=== PATIENT | female | born 1990 | race Caucasian/White ===

== ENCOUNTER → 2017-11-17 08:30 | Outpatient (CLI) | payer BC, SELFPAY ==
[2017-11-22 10:42] LABS: HPV Reflexed? NOT INDICATED
== END ==
PROVIDERS: Family Provider Family Medicine; PCP Family Medicine; Visit Provider Obstetrics & Gynecology
DX: Z12.4 Encounter for screening for malignant neoplasm of cervix (principal)
CPT/HCPCS: 88175; G0145

== ENCOUNTER → 2019-02-15 17:34 | Outpatient (CLI) | payer BC, SELFPAY ==
[2019-02-21 16:47] LABS: HPV Reflexed? NOT INDICATED
== END ==
PROVIDERS: Family Provider Family Medicine; PCP Family Medicine; Referring Provider Obstetrics & Gynecology; Visit Provider Obstetrics & Gynecology
DX: Z12.4 Encounter for screening for malignant neoplasm of cervix (principal)
CPT/HCPCS: 88175; G0145

== ENCOUNTER → 2020-09-12 16:40 | Outpatient (CLI) | payer BC, SELFPAY ==
[2016-07-27 16:19] VITALS: BMI 30.5
[2020-09-17 03:06] LABS: Chlamydia By Nucleic Acid AMP Negative (Negative)
[2020-09-17 11:16] LABS: Gonococcus By Nucleic Acid AMP Negative (Negative)
== END ==
PROVIDERS: PCP Family Medicine; Visit Provider Obstetrics & Gynecology
DX: Z11.3 Encounter for screening for infections with a predominantly sexual mode of transmission (principal)
CPT/HCPCS: 87491; 87591

== ENCOUNTER → 2020-09-25 16:27 | Outpatient (CLI) | payer BC, SELFPAY ==
[2016-07-27 16:19] VITALS: BMI 30.5
[2020-09-26 06:40] LABS: SARS-COV-2 TOTAL ABS Nonreactive (Nonreactive)
== END ==
PROVIDERS: PCP Family Medicine; Visit Provider Family Medicine
DX: Z20.828 Contact with and (suspected) exposure to other viral communicable diseases (principal)
CPT/HCPCS: 36415; 86769

== ENCOUNTER → 2020-09-25 16:27 | Outpatient (CLI) | payer BC, SELFPAY | PROVIDERS: PCP Family Medicine; Referring Provider Family Medicine; Visit Provider Family Medicine | DX: Z00.00 Encounter for general adult medical examination without abnormal findings (principal) ==

== ENCOUNTER 2021-11-25 16:10 | Outpatient (CLI) | payer OTHER, SELFPAY ==
[2021-12-01 13:23] LABS: HPV APTIMA, High Risk Negative (Negative)
== END 2021-11-25 23:59 | disposition home or self-care (01) ==
PROVIDERS: PCP Family Medicine; Visit Provider Student in an Organized Health Care Education/Training Program
DX: Z12.4 Encounter for screening for malignant neoplasm of cervix (principal); N77.1 Vaginitis, vulvitis and vulvovaginitis in diseases classified elsewhere
CPT/HCPCS: 87624; 88175; G0145

== ENCOUNTER → 2023-10-18 | Outpatient (CLI) | payer OTHER, SELFPAY ==
--- NOTE | 2023-10-18 10:42 | RAD_ITS ---
INDICATION: PAIN/FALL EXAMINATION/TECHNIQUE: X-RAY - LEFT XR Elbow Min 3 Views COMPARISON: FINDINGS: SOFT TISSUES: No soft tissue swelling or gas. No radiopaque foreign body. BONES/JOINTS: There is mild effusion. No acute fracture or subluxation. Normal alignment. Preservation of the joint space. No sclerotic or destructive changes observed. RAD/Elbow min 3 Views IMPRESSION: Mild effusion. Electronically Signed: Hans Shoemaker DO at 17:12 EST ,
--- NOTE | 2023-10-18 10:42 | RAD_ITS ---
INDICATION: PAIN/FALL EXAMINATION/TECHNIQUE: X-RAY - LEFT XR Forearm 2 Views COMPARISON: FINDINGS: SOFT TISSUES: No soft tissue swelling or gas. No radiopaque foreign body. BONES/JOINTS: No acute fracture or subluxation.. Normal alignment. Preservation of the joint space.. No sclerotic or destructive changes observed. RAD/Forearm 2 Views IMPRESSION: Negative. Electronically Signed: Hans Shoemaker DO at 17:10 EST ,
--- NOTE | 2023-10-18 10:45 | RAD_ITS ---
INDICATION: PAIN/FALL EXAMINATION/TECHNIQUE: X-RAY - LEFT XR Wrist 3 VIEWS COMPARISON: FINDINGS: SOFT TISSUES: No soft tissue swelling or gas. No radiopaque foreign body. BONES/JOINTS: No acute fracture or subluxation.. Normal alignment. Preservation of the joint space.. No sclerotic or destructive changes observed. RAD/Wrist min 3 Views IMPRESSION: Negative. Electronically Signed: Hans Shoemaker DO at 17:15 EST ,
--- OUTSIDE RECORDS SUMMARY | 2023-10-18 11:08 | XMS RPT_ITS | CCD ---
Author Name Unknown Address [address] [place] [address] Organization [facility] Care Team Providers Care Research Rn Spec Name Role Phone FROILAN, ROSAS M Unavailable Unavailable NGUYEN, RAJESH K Unavailable Unavailable NGUYEN, RAJESH K Unavailable Unavailable FROILAN, ROSAS M Unavailable Unavailable NGUYEN, RAJESH K Unavailable Unavailable NGUYEN, RAJESH K Unavailable Unavailable BIRDIE, ZACK Unavailable Unavailable BIRDIE, ZACK Unavailable Unavailable NGUYEN, RAJESH K Unavailable Unavailable NGUYEN, RAJESH K Unavailable Unavailable NGUYEN, RAJESH K Unavailable Unavailable FROILAN, ROSAS M Unavailable Unavailable FROILAN, ROSAS M Unavailable Unavailable NGUYEN, RAJESH K Unavailable Unavailable NGUYEN, RAJESH K Unavailable Unavailable NGUYEN, RAJESH K Unavailable Unavailable NGUYEN, RAJESH K Unavailable Unavailable FROILAN, ROSAS M Unavailable Unavailable NGUYEN, RAJESH K Unavailable Unavailable NGUYEN, RAJESH K Unavailable Unavailable FROILAN, ROSAS M Unavailable Unavailable NGUYEN, RAJESH K Unavailable Unavailable NGUYEN, RAJESH K Unavailable Unavailable FROILAN, ROSAS M Unavailable Unavailable FROILAN, ROSAS M Unavailable Unavailable FROILAN, ROSAS M Unavailable Unavailable NGUYEN, RAJESH K Unavailable Unavailable NGUYEN, RAJESH K Unavailable Unavailable Unavailable Primary Care Provider Unavailabl e Problems Active Problems Problem Classification Problem Date Documented Da te Episodic/Chronic Other upper respiratory infections (1 source) Sore throat symptom; Translations: [Acute pharyngitis, unspecified] Episodic Unclassified (1 source) Bone marrow donor / Z52.3(ICD-10) Onset: 11-01-2017 Unclassified (1 source) BMT Donor Evaluation / 451() Onset: 10-19-2017 Past or Other Problems Problem Classification Problem Date Documented Da te Episodic/Chronic Unclassified (1 source) Bone marrow donor; Translations: [Bone marrow donor] Onset: 11-10-2017 Unclassified (1 source) BMT Donor Evaluation; Translations: [BMT Donor Evaluation] Onset: 10-19-2017 Results Test Name Value Interpretation Reference Range Facil ity Vital Signs Date Time Vital Sign Value Performing Clinician Faci lity 03-08-2023 18:07-0400 Body temperature 97.5 [degF] Migue Jeffers QUALITY CONTROL AUDITOR.CUSTOMER SOLUTIONS TEAMMATE Work Phone: [facility] 03-08-2023 18:07-0400 Body weight 75.3 kg Migue Jeffers QUALITY CONTROL AUDITOR.CUSTOMER SOLUTIONS TEAMMATE Work Phone: [facility] 03-08-2023 18:07-0400 Diastolic blood pressure 72 mm[Hg] Migue Jeffers QUALITY CONTROL AUDITOR.CUSTOMER SOLUTIONS TEAMMATE Work Phone: [facility] 03-08-2023 18:07-0400 Heart rate 70 /min Migue Jeffers QUALITY CONTROL AUDITOR.CUSTOMER SOLUTIONS TEAMMATE Work Phone: [facility] 03-08-2023 18:07-0400 Respiratory rate 16 /min Migue Jeffers QUALITY CONTROL AUDITOR.CUSTOMER SOLUTIONS TEAMMATE Work Phone: [facility] 03-08-2023 18:07-0400 SaO2% (BldA) [Mass fraction] 96 % Migue Jeffers QUALITY CONTROL AUDITOR.CUSTOMER SOLUTIONS TEAMMATE Work Phone: [facility] 03-08-2023 18:07-0400 Systolic blood pressure 110 mm[Hg] Migue Jeffers QUALITY CONTROL AUDITOR.CUSTOMER SOLUTIONS TEAMMATE Work Phone: [facility] Encounters Encounter Date Encounter Type Care Provider Facility Start: 03-08-2023 End: 03-08-2023 ambulatory Facility:[facility] Start: 03-08-2023 End: 03-08-2023 Office outpatient visit 15 minutes Migue Jeffers QUALITY CONTROL AUDITOR.CUSTOMER SOLUTIONS TEAMMATE Work Phone: [facility] Procedures Date Procedure Procedure Detail Performing Clinician Start: 03-08-2023 STREP A MOLECULAR (POC) Patti Manzo PA-C Work Phone: Plan of Treatment Date Care Activity Detail Author Start: 06-04-2023 Influenza vaccination INFLUENZA (Sea son Ended) [facility] Start: 10-04-2022 DEPRESSION ASSESSMENT DEPRESSION ASS ESSMENT [facility] Start: 07-14-2021 COVID-19 VACCINE (2 - Booster for Tricia series) COVID-19 VACCINE (2 - Booster for Tricia series) [facility] Start: 2020 HPV TESTING HPV TESTING [facility] Start: 12-31-2011 PAP TESTING PAP TESTING [facility] Start: 2009 Urine microalbumin profile DTAP,TDAP ,TD (1 - Tdap) [facility] Start: 2008 HEPATITIS C SCREENING HEPATITIS C [facility] Start: 2008 HIV SCREENING HIV SCREENING [facility] Start: 1990 HEPATITIS B (1 of 3 - 3-dose series) HEPATITIS B (1 of 3 - 3-dose series) [facility] Payers Date Payer Category Payer Unknown [id number] 2022 Unknown [employer] [id number] 2022-Present [phone] [address] [place] [address] PPO [id number] 2016 Unknown [id number] Social History Date Type Detail Facility Start: 03-08-2023 Tobacco smoking status NHIS Never smoked tobacco [facility] Work Phone: Start: 03-08-2023 Tobacco use and exposure Smokeless tobacco non-user [facility] Work Phone: Start: 1990 Sex Assigned At Not on file [facility] NEGATED: Highlighted rowStart: NINF History of tobacco use Passive smoker [facility] Work Phone: Progress note 03-08-2023 Note Date & Type Note Facility 03-08-2023 Note HNO ID: [id number] Author: Migue Jeffers APRN.CUSTOMER SOLUTIONS TEAMMATE Service: ? Author Type: Nurse Practitioner Type: Progress Notes Filed: 03/08/2023 6:32 PM Note Text: Subjective HPI Nontoxic-appearing female presents urgent care chief complaint sore throat. Duration of symptoms 3 days. Associated symptoms sore throat. Patient states the first day she did have a fever. That has since subsided. She did have body aches and chills. Those have subsided as well. Presents today for evaluation. Feels like strep throat. No known sick contacts. Denies any difficulty swallowing and secretions decreased range of motion of neck. Denies any fever body aches chills productive cough chest pain shortness of breath pleuritic pain hemoptysis nausea vomiting abdominal pain change in bowel or bladder habits. Past medical history prescription medication use and allergies reviewed. .Patient presents with: Sore Throat: x 3 days History reviewed. No pertinent past medical history. History reviewed. No pertinent surgical history. ALLERGIES Patient has no known allergies. MEDICATIONS No prescriptions on file. History reviewed. No pertinent family history. Social History Tobacco Use Smoking status: Never Passive exposure: Never Smokeless tobacco: Never BP 110/72 Pulse 70 Temp 36.4 ?C (97.5 ?F) Resp 16 Wt 75.3 kg (166 lb) SpO2 96% Review of Systems Constitutional: Negative for chills, fever and malaise/fatigue. HENT: Positive for sore throat. Negative for congestion, ear discharge, ear pain and sinus pain. Eyes: Negative for blurred vision, pain, discharge and redness. Respiratory: Negative for cough, hemoptysis, sputum production, shortness of breath, wheezing and stridor. Cardiovascular: Negative for chest pain. Gastrointestinal: Negative for abdominal pain, diarrhea, nausea and vomiting. Musculoskeletal: Negative for myalgias. Skin: Negative for itching and rash. Neurological: Negative for dizziness and headaches. Objective Physical Exam Constitutional: General: She is not in acute distress. Appearance: She is not diaphoretic. HENT: Head: Normocephalic. Jaw: No trismus, tenderness, swelling or pain on movement. Right Ear: Tympanic membrane, ear canal and external ear normal. Left Ear: Tympanic membrane, ear canal and external ear normal. Mouth/Throat: Lips: [place]. Mouth: Mucous membranes are moist. Pharynx: Oropharynx is clear. Uvula midline. Posterior oropharyngeal erythema present. No pharyngeal swelling, oropharyngeal exudate or uvula swelling. Comments: Erythematous based vesicles noted on hard palate and tonsils. Eyes: Conjunctiva/sclera: Conjunctivae normal. Pupils: Pupils are equal, round, and reactive to light. Cardiovascular: Rate and Rhythm: Normal rate and regular rhythm. Heart sounds: Normal heart sounds. Pulmonary: Effort: Pulmonary effort is normal. No tachypnea, accessory muscle usage or respiratory distress. Breath sounds: Normal breath sounds. No stridor. No wheezing, rhonchi or rales. Abdominal: Palpations: Abdomen is soft. Tenderness: There is no abdominal tenderness. There is no guarding or rebound. Musculoskeletal: Cervical back: Normal range of motion and neck supple. No rigidity or tenderness. Lymphadenopathy: Cervical: No cervical adenopathy. Skin: General: Skin is warm and dry. Neurological: Mental Status: She is alert and oriented to person, place, and time. ASSESSMENT/PLAN: 1. Sore throat - ICD9: 462, ICD10: J02.9 - STREP A MOLECULAR (POC) Strep test negative. Treat as viral illness at this point. Patient was educated on supportive therapies. Patient will follow up with primary care provider as needed. Patient was instructed to immediately proceed to emergency room for any new, worsening, or symptoms lasting longer than anticipated. The patient's clinical presentation is otherwise unremarkable at this time. Based on exam and clinical finding, the patient is stable for discharge. Plan of care was discussed with patient. Patient verbalizes understanding and agrees to plan of care. This note was generated using Mor.sl software. It may contain errors in wording, punctuation, or spelling. Migue Jeffers APRN.[facility] History of Present illness Narrative 03-08-2023 Migue Jeffers APRN.[facility] - 03/08/2023 6:09 PM EDT Note Date & Type Note Facility 03-08-2023 History of Presen t illness Narrative Images from the original note were not included. Subjective HPI Nontoxic-appearing female presents urgent care chief complaint sore throat. Duration of symptoms 3 days. Associated symptoms sore throat. Patient states the first day she did have a fever. That has since subsided. She did have body aches and chills. Those have subsided as well. Presents today for evaluation. Feels like strep throat. No known sick contacts. Denies any difficulty swallowing and secretions decreased range of motion of neck. Denies any fever body aches chills productive cough chest pain shortness of breath pleuritic pain hemoptysis nausea vomiting abdominal pain change in bowel or bladder habits. Past medical history prescription medication use and allergies reviewed. .Patient presents with: Sore Throat: x 3 days History reviewed. No pertinent past medical history. History reviewed. No pertinent surgical history. ALLERGIES Patient has no known allergies. MEDICATIONS No prescriptions on file. History reviewed. No pertinent family history. Social History Tobacco Use Smoking status: Never Passive exposure: Never Smokeless tobacco: Never BP 110/72 Pulse 70 Temp 36.4 C (97.5 F) Resp 16 Wt 75.3 kg (166 lb) SpO2 96% Review of Systems Constitutional: Negative for chills, fever and malaise/fatigue. HENT: Positive for sore throat. Negative for congestion, ear discharge, ear pain and sinus pain. Eyes: Negative for blurred vision, pain, discharge and redness. Respiratory: Negative for cough, hemoptysis, sputum production, shortness of breath, wheezing and stridor. Cardiovascular: Negative for chest pain. Gastrointestinal: Negative for abdominal pain, diarrhea, nausea and vomiting. Musculoskeletal: Negative for myalgias. Skin: Negative for itching and rash. Neurological: Negative for dizziness and headaches. Objective Physical Exam Constitutional: General: She is not in acute distress. Appearance: She is not diaphoretic. HENT: Head: Normocephalic. Jaw: No trismus, tenderness, swelling or pain on movement. Right Ear: Tympanic membrane, ear canal and external ear normal. Left Ear: Tympanic membrane, ear canal and external ear normal. Mouth/Throat: Lips: [place]. Mouth: Mucous membranes are moist. Pharynx: Oropharynx is clear. Uvula midline. Posterior oropharyngeal erythema present. No pharyngeal swelling, oropharyngeal exudate or uvula swelling. Comments: Erythematous based vesicles noted on hard palate and tonsils. Eyes: Conjunctiva/sclera: Conjunctivae normal. Pupils: Pupils are equal, round, and reactive to light. Cardiovascular: Rate and Rhythm: Normal rate and regular rhythm. Heart sounds: Normal heart sounds. Pulmonary: Effort: Pulmonary effort is normal. No tachypnea, accessory muscle usage or respiratory distress. Breath sounds: Normal breath sounds. No stridor. No wheezing, rhonchi or rales. Abdominal: Palpations: Abdomen is soft. Tenderness: There is no abdominal tenderness. There is no guarding or rebound. Musculoskeletal: Cervical back: Normal range of motion and neck supple. No rigidity or tenderness. Lymphadenopathy: Cervical: No cervical adenopathy. Skin: General: Skin is warm and dry. Neurological: Mental Status: She is alert and oriented to person, place, and time. ASSESSMENT/PLAN: 1. Sore throat - ICD9: 462, ICD10: J02.9 - STREP A MOLECULAR (POC) Strep test negative. Treat as viral illness at this point. Patient was educated on supportive therapies. Patient will follow up with primary care provider as needed. Patient was instructed to immediately proceed to emergency room for any new, worsening, or symptoms lasting longer than anticipated. The patient's clinical presentation is otherwise unremarkable at this time. Based on exam and clinical finding, the patient is stable for discharge. Plan of care was discussed with patient. Patient verbalizes understanding and agrees to plan of care. This note was generated using Mor.sl software. It may contain errors in wording, punctuation, or spelling. Migue Jeffers APRN.[facility]IS documented in this encounter [facility] Evaluation note Note Date & Type Note Facility documented in this encounter [facility] Summary Purpose Family History No Family History Records FoundNo Family History Records Found Advance Directives No Advanced Directives Records FoundNo Advanced Directives Records Found Additional Source Comments INFORMATION SOURCE (unrecogn ized section and content) DATE CREATED AUTHOR AUTHOR'S ORGANIZ ATION 03/14/2023 [facility] Source Comments (unrecognize d section and content) In the event this informatio n is protected by the Federal Confidentiality of Alcohol and Drug Abuse Patient Records regulations: The Federal rules restrict any use of the information to criminally investigate or prosecute any alcohol or drug abuse patient.[facility] Reason for Visit (unrecogniz ed section and content) FOR RECORDS PERTAINING TO PATIENTS WHO ARE OR HAVE BEEN ENROLLED IN A CHEMICAL DEPENDENCY/SUBSTANCEABUSE PROGRAM, SOME INFORMATION MAY BE OMITTED. This clinical summary was aggregated from multiple sources. Caution should be exercised in using it in the provision of clinical care. This summary normalizes information from multiple sources, and as a consequence, information in this document may materially change the coding, format and clinical context of patient data. In addition, data may be omitted in some cases. CLINICAL DECISIONS SHOULD BE BASED ON THE PRIMARY CLINICAL RECORDS. [facility]. provides no warranty or guarantee of the accuracy or completeness of information in this document.
== END | disposition home or self-care (01) ==
LOC: MTRAD 10:41
PROVIDERS: PCP Family Medicine; Referring Provider Nurse Practitioner Family; Visit Provider Nurse Practitioner Family
DX: M79.602 Pain in left arm (principal)
CPT/HCPCS: 73080; 73090; 73110

== ENCOUNTER → 2024-01-29 | Outpatient (CLI) | payer OTHER, SELFPAY ==
[2024-01-29 10:13] LABS: Absolute Lymphocyte Count 1.22 X10^3/uL (0.83-4.51); Absolute Neutrophil Count 3.7 X10^3/uL (2.0-7.7); Basophil# 0.04 X10^3/uL; Basophil% 0.7 % (0-1); Eosinophil# 0.05 X10^3/uL; Eosinophils% 0.9 % (0-5); Hematocrit 37.2 % (37-47); Hemoglobin 12.5 g/dL (12.0-15.0); Lymphocyte # 1.22 X10^3/ul (0.83-4.51); Lymphocyte % 22.2 % (19-41); Mean Corp Hgb Conc 33.6 g/dL (32-36); Mean Corpuscular Hgb 30.8 pg (27.0-32.0); Mean Corpuscular Volume 91.6 fL (81-99); Mean Platelet Vol. 8.9 fl (6.2-12.0); Monocyte# 0.49 X10^3/uL; Monocyte% 8.9 % (0-10); NRBC Flagged by Analyzer 0 % (0-5); Neutrophil # 3.67 X10^3/uL (2.7-7.7); Neutrophil % 66.9 % (47-70); Platelet Count 280 K/mm3 (150-450); RBC Distribution Width CV 12.2 % (11.6-14.6); RBC Distribution Width SD 40.8 fl (35.1-43.9); Red Blood Count 4.06 M/mm3 (4.2-5.4); White Blood Count 5.5 K/mm3 (4.4-11.0)
[2024-01-29 11:06] LABS: hCG Titer Quant., Serum 43264 mIU/mL (1-3)
== END | disposition home or self-care (01) ==
LOC: LAB 09:49
PROVIDERS: PCP Family Medicine; Referring Provider Family Medicine; Visit Provider Family Medicine
DX: O20.0 Threatened abortion (principal); Z3A.00 Weeks of gestation of pregnancy not specified
CPT/HCPCS: 36415; 84702; 85025; 86850; 86900; 86901

== ENCOUNTER → 2024-01-31 | Outpatient (CLI) | payer OTHER, SELFPAY ==
--- NOTE | 2024-01-31 11:28 | US_ITS ---
HISTORY: LOCALIZED IUD -- BLEEDING W/ W/ IUD -- BLEEDING SINCE 01/07/24 -- R/O ECTOPIC VRS INCOMPLETE MISCARRIAGE. LMP 01/07/2024. TECHNIQUE: Transvaginal pelvic ultrasound was performed. 65 images. COMPARISON: None. FINDINGS: UTERUS: 9.3 x 5.9 x 7.4 cm. Closed cervix. RIGHT OVARY: 1.9 x 2.9 x 3.1 cm. 1.8 cm complex cyst. LEFT OVARY: 1.7 x 1.7 x 3.7 cm with small follicles. No adnexal masses. FREE FLUID: Trace. INTRAUTERINE GESTATIONAL SAC: Single with intrauterine device just inferior to the gestational sac. Mean sac diameter 12 mm corresponding to 6 weeks 0 days. YOLK SAC: 4 mm. POLE: [place]-rump length 1.7 cm corresponding to 8 weeks 0 days. ESTIMATED DELIVERY DATE: 09/18/2024. HEART MOTION: 169 bpm. SUBCHORIONIC HEMORRHAGE: 7 x 12 x 14 mm. US/Transvaginal w/Preg US IMPRESSION: Single living intrauterine with an estimated gestational age of 8 weeks and intrauterine device in place. Small subchorionic hematoma. Recommend obstetrical consultation and follow-up. Small right ovarian corpus luteal cyst with trace free fluid in the pelvis. Electronically Signed: Kaya Gonzales MD at 12:52 EDT ,
== END | disposition home or self-care (01) ==
LOC: US 11:18
PROVIDERS: PCP Family Medicine; Referring Provider Family Medicine; Visit Provider Family Medicine
DX: N93.9 Abnormal uterine and vaginal bleeding, unspecified (principal)
CPT/HCPCS: 76817

== ENCOUNTER → 2024-01-31 | Outpatient (CLI) | payer OTHER, SELFPAY ==
[2024-01-31 10:54] LABS: hCG Titer Quant., Serum 48488 mIU/mL (1-3)
== END | disposition home or self-care (01) ==
PROVIDERS: PCP Family Medicine; Visit Provider Family Medicine
DX: O20.0 Threatened abortion (principal); Z3A.00 Weeks of gestation of pregnancy not specified
CPT/HCPCS: 36415; 84702

== ENCOUNTER → 2024-02-11 | Outpatient (CLI) | payer OTHER, SELFPAY | END | disposition home or self-care (01) | LOC: LABSPEC 16:44 | PROVIDERS: PCP Family Medicine; Referring Provider Obstetrics & Gynecology; Visit Provider Obstetrics & Gynecology | DX: Z34.90 Encounter for supervision of normal pregnancy, unspecified, unspecified trimester (principal) | CPT/HCPCS: 87086; 87088 ==

== ENCOUNTER → 2024-02-16 | Outpatient (CLI) | payer OTHER, SELFPAY ==
[2024-02-16 09:34] LABS: Absolute Lymphocyte Count 1.21 X10^3/uL (0.83-4.51); Absolute Neutrophil Count 4.2 X10^3/uL (2.0-7.7); Basophil# 0.03 X10^3/uL; Basophil% 0.5 % (0-1); Eosinophil# 0.03 X10^3/uL; Eosinophils% 0.5 % (0-5); Hematocrit 34.5 % (37-47); Hemoglobin 11.5 g/dL (12.0-15.0); Lymphocyte # 1.21 X10^3/ul (0.83-4.51); Lymphocyte % 20.6 % (19-41); Mean Corp Hgb Conc 33.3 g/dL (32-36); Mean Platelet Vol. 9.5 fl (6.2-12.0); Monocyte% 6.8 % (0-10); NRBC Flagged by Analyzer 0 % (0-5); Neutrophil # 4.18 X10^3/uL (2.7-7.7); Neutrophil % 71.3 % (47-70); Platelet Count 247 K/mm3 (150-450); RBC Distribution Width CV 12.1 % (11.6-14.6); RBC Distribution Width SD 41.3 fl (35.1-43.9); Red Blood Count 3.71 M/mm3 (4.2-5.4); White Blood Count 5.9 K/mm3 (4.4-11.0)
[2024-02-16 11:24] LABS: HIV - WCH Non-Reactive (Nonreactive); Hepatitis B Surface Antigen Non-Reactive (Nonreactive); Hepatitis C Antibody Non-Reactive (Nonreactive); Rubella IgG Reactive (Nonreactive); Syphilis Antibodies Non-reactive
== END | disposition home or self-care (01) ==
LOC: LAB 08:12
PROVIDERS: PCP Family Medicine; Referring Provider Obstetrics & Gynecology; Visit Provider Obstetrics & Gynecology
DX: O09.90 Supervision of high risk pregnancy, unspecified, unspecified trimester (principal); Z3A.00 Weeks of gestation of pregnancy not specified
CPT/HCPCS: 36415; 85025; 86703; 86762; 86780; 86803; 86850; 86900; 86901; 87340

== ENCOUNTER → 2024-06-01 | Outpatient (CLI) | payer OTHER, SELFPAY | END | disposition home or self-care (01) | PROVIDERS: PCP Family Medicine; Referring Provider Obstetrics & Gynecology; Visit Provider Obstetrics & Gynecology | DX: O09.90 Supervision of high risk pregnancy, unspecified, unspecified trimester (principal); Z3A.00 Weeks of gestation of pregnancy not specified | CPT/HCPCS: 87491; 87591 ==

== ENCOUNTER → 2024-06-28 | Outpatient (CLI) | payer OTHER, SELFPAY ==
[2024-06-28 15:43] LABS: Absolute Lymphocyte Count 1.38 X10^3/uL (0.83-4.51); Absolute Neutrophil Count 7.5 X10^3/uL (2.0-7.7); Basophil# 0.03 X10^3/uL; Basophil% 0.3 % (0-1); Eosinophil# 0.04 X10^3/uL; Eosinophils% 0.4 % (0-5); Hematocrit 31.3 % (37-47); Hemoglobin 10.4 g/dL (12.0-15.0); Lymphocyte # 1.38 X10^3/ul (0.83-4.51); Lymphocyte % 14.5 % (19-41); Mean Corp Hgb Conc 33.2 g/dL (32-36); Mean Corpuscular Hgb 31.7 pg (27.0-32.0); Mean Corpuscular Volume 95.4 fL (81-99); Mean Platelet Vol. 9.8 fl (6.2-12.0); Monocyte# 0.52 X10^3/uL; Monocyte% 5.5 % (0-10); NRBC Flagged by Analyzer 0 % (0-5); Neutrophil % 78.6 % (47-70); Platelet Count 227 K/mm3 (150-450); RBC Distribution Width CV 12.8 % (11.6-14.6); RBC Distribution Width SD 44.6 fl (35.1-43.9); Red Blood Count 3.28 M/mm3 (4.2-5.4); White Blood Count 9.5 K/mm3 (4.4-11.0)
[2024-06-28 16:15] LABS: Glucose Challenge Gest 1H 50g 171 mg/dL (70-140)
[2024-06-28 16:49] LABS: HIV - WCH Non-Reactive (Nonreactive); Syphilis Antibodies Non-reactive
== END | disposition home or self-care (01) ==
LOC: LAB 14:33
PROVIDERS: PCP Family Medicine; Referring Provider Obstetrics & Gynecology; Visit Provider Obstetrics & Gynecology
DX: O09.90 Supervision of high risk pregnancy, unspecified, unspecified trimester (principal); Z13.1 Encounter for screening for diabetes mellitus; Z3A.00 Weeks of gestation of pregnancy not specified
CPT/HCPCS: 36415; 82950; 85025; 86703; 86780

== ENCOUNTER → 2024-06-30 | Outpatient (CLI) | payer OTHER, SELFPAY ==
[2024-06-30 07:14] LABS: Bedside Glucose 84 mg/dL (74-106)
[2024-06-30 08:16] LABS: Glucose GTT-Gestation. Fasting 89 mg/dL (<105)
[2024-06-30 08:53] LABS: Glucose GTT-Gestational 1 Hr 152 mg/dL (<190)
[2024-06-30 11:17] LABS: Glucose GTT-Gestational 3 Hr 53 L (<145)
[2024-06-30 11:53] LABS: Glucose GTT-Gestational 2 Hr 100 mg/dL (<165)
== END | disposition home or self-care (01) ==
LOC: LAB 06:40
PROVIDERS: PCP Family Medicine; Referring Provider Obstetrics & Gynecology; Visit Provider Obstetrics & Gynecology
DX: O99.810 Abnormal glucose complicating pregnancy (principal); Z3A.00 Weeks of gestation of pregnancy not specified
CPT/HCPCS: 36415; 82951; 82952; 82962

== ENCOUNTER → 2024-07-12 | Outpatient (CLI) | payer OTHER, SELFPAY ==
[2024-07-12 17:04] LABS: Absolute Lymphocyte Count 1.55 X10^3/uL (0.83-4.51); Absolute Neutrophil Count 6.3 X10^3/uL (2.0-7.7); Basophil# 0.04 X10^3/uL; Basophil% 0.5 % (0-1); Eosinophil# 0.04 X10^3/uL; Eosinophils% 0.5 % (0-5); Hemoglobin 10.2 g/dL (12.0-15.0); Lymphocyte # 1.55 X10^3/ul (0.83-4.51); Mean Corpuscular Hgb 31.8 pg (27.0-32.0); Mean Corpuscular Volume 93.5 fL (81-99); Mean Platelet Vol. 9.5 fl (6.2-12.0); Monocyte# 0.59 X10^3/uL; Monocyte% 6.9 % (0-10); NRBC Flagged by Analyzer 0 % (0-5); Neutrophil # 6.34 X10^3/uL (2.7-7.7); Neutrophil % 73.6 % (47-70); Platelet Count 220 K/mm3 (150-450); RBC Distribution Width CV 12.4 % (11.6-14.6); RBC Distribution Width SD 43.2 fl (35.1-43.9); Red Blood Count 3.21 M/mm3 (4.2-5.4); White Blood Count 8.6 K/mm3 (4.4-11.0)
[2024-07-12 17:16] LABS: Ferritin 25 ng/mL (8-252); Iron Binding Capacity,Total 365 ug/dL (250-450)
== END | disposition home or self-care (01) ==
LOC: WOBLAB 16:37
PROVIDERS: PCP Family Medicine; Referring Provider Obstetrics & Gynecology; Visit Provider Obstetrics & Gynecology
DX: O99.019 Anemia complicating pregnancy, unspecified trimester (principal); Z3A.00 Weeks of gestation of pregnancy not specified
CPT/HCPCS: 36415; 82728; 83550; 85025

== ENCOUNTER 2024-07-27 14:54 | Outpatient (CLI) | payer OTHER, SELFPAY ==
[2024-07-27] VITALS (13 sets, daily range): BP systolic 112–148; BP diastolic 68–96; PULSE 87–120; RESP 15; TEMP 37.3; O2SAT 99; BMI 29.9
[2024-07-27 16:15] LABS: Hemoglobin 11.5 g/dL (12.0-15.0); Mean Corp Hgb Conc 33.8 g/dL (32-36); Mean Corpuscular Volume 94.7 fL (81-99); Mean Platelet Vol. 9.9 fl (6.2-12.0); Platelet Count 217 K/mm3 (150-450); RBC Distribution Width CV 12.6 % (11.6-14.6); RBC Distribution Width SD 43.5 fl (35.1-43.9); Red Blood Count 3.59 M/mm3 (4.2-5.4); White Blood Count 14.6 K/mm3 (4.4-11.0)
[2024-07-27 16:45] LABS: AST(SGOT) 15 U/L (15-37); Alanine Aminotransfer ALT/SGPT 13 U/L (13-56); Creatinine, Serum 0.66 mg/dL (0.55-1.02); EST Glomerular Filtration Rate 109 mL/min (>60); Est Glom Filt Rate - Afr Amer 132 mL/min (>60); Estimated Creatinine Clearance 127.96 ml/min; Uric Acid 3.8 mg/dL (2.6-6.0)
[2024-07-27] MEDS: Betamethasone/Betamethasone 30 MG/5 ML Vial 12 MG IM (16:49)
[2024-07-27] MEDS: NIFEdipine 10 MG Capsule PO (16:49)
[2024-07-27 16:52] LABS: Protein, Urine (Random) 8.8 mg/dL (<11.9); Protein:Creat Ratio 286 mg/g CRE (0-200)
--- NOTE | 2024-07-27 17:54 | OB.TRI.HP_ITS ---
HPI - General HPI Narrative STEVE BERNAL, is a 33 y/o @ 33 weeks 3 days who presents to L&D to rule out pre-eclampsia. She has had a sinus headache for the last 2 weeks and when she stands for too long she sees some stars in her eyes. her bp's are ranging 140's/80's and this is not her normal. She denies epigastric pain. Upon arrival she was given 10 mg of procardia. This dropped her blood pressure to 112/68 and caused her pulse to go up to 107. Maternal Data Information MARTHA Calculator Estimated Delivery Date Method Current WG Current Estimate 09/11/24 Ultrasound #1 33w 3d PFSH PFSH Home Medications ?Medication ?Instructions ?Recorded ?Last Taken ?Type docosahexaenoic acid 200 mg mg PO 02/03/24 07/27/24 History capsule ( DHA) Allergy/AdvReac Type Severity Reaction Status Date / Time No Known Allergies Allergy Verified 07/27/24 16:38 Family History Mother CVA (cerebral vascular accident) Hypertension Diabetes Gestational diabetes Father Lymphoma Aunt Leukemia Grandmother CVA (cerebral vascular accident) Diabetes Hypertension Myocardial infarction Grandfather CVA (cerebral vascular accident) Diabetes Hypertension Myocardial infarction Surgical History H/O wisdom tooth extraction History of ankle surgery Social History adopted: No household members: spouse and children number of children: 1 current occupational status: employed current occupation: [employer] current occupational exposures/hazards: No pets and animals: No leisure activities: exercise, music and reading history of recent travel: Yes (All domestic [place] travel ([place], [place], [facility], [place]) details: [place], [place], [place], [place] out of state: Yes out of country: No sexually active: Yes Smoking Status: Never smoker Electronic Cigarette Use: not used second hand exposure: No alcohol intake: former details: not while substance use type: marijuana well-balanced diet: about half the time caffeine: Yes (very seldomly drinking beverages with caffeine (1-3 times per month)) Type: tea eating out: 1-3 times/week during the past year weight has: decreased > 10 lbs what type of physical activity do you participate in: walking and running frequency: 3-4 times per week duration: 30-45 minutes/day michael/restorationist: Roman Catholic seatbelt use: always do you feel safe at home: Yes additional social history: : Foreign Potts History 2 Elective abortions Hx Para 1 Spontaneous abortions Hx # Term Pregnancies Ectopic pregnancies Hx # Pregnancies Multiple births # of living children 1 Past Pregnancies Del. Date Name GA/Weeks Outcome Route Bth Weight Gen Labor Lgth Anesthesia Del Locatn Provider FOB 07/28/16 Loi live - full term 7lbs 5oz Male spinal [facility] Delivery Date: 07/28/16 Last Updated by: Tiffanie Samaniego RN Elective Visit Details Expected Delivery Route/Plan plan RLTCS- plan for 09/04/24 or 09/05/24 Plans Covid status: [] Flu vaccine: [] Tdap vaccine: [] Rhogam: [] LARC form signed: [] Problem list reviewed and updated with the most current plan of care details and appropriate orders placed. Relevant counseling for the gestational age provided. Continue routine care and follow up unless otherwise noted in visit notes/problem list details OB Flowsheet Initial Weight: Not Recorded Date -?-?-?-?-?-?-?-?-?-?-?-?- EGA Weight BP Urine Prot -?-?-?-?-?-?-?-?-?-?-?-?- Glucose FHR FuHt Pres Dilation -?-?-?-?-?-?-?-?-?-?-?-?- Effaced St Visit Note 02/08/24 -?-?-?-?-?-?-?-?-?-?-?-?- 9w 1d 147 lb 127/89 -?-?-?-?-?-?-?-?-?-?-?-?- 170 -?-?-?-?-?-?-?-?-?-?-?-?- SM- CRL measurin g consistent with previous MARTHA 02/11/24 -?-?-?-?-?--?-?-?-?-?-?-?- 9w 4d 157 lb 129/85 -?-?-?-?-?-?-?-?-?-?-?-?- 173 -?-?-?-?-?-?-?-?-?-?-?-?- KW- NOB exam tod ay. JV scanned. Still bleeding since IUD removal. NIPT box given today 02/17/24 -?-?-?-?-?-?-?-?-?-?-?-?- 10w 3d 151 lb 146/92 -?-?-?-?-?-?-?-?-?-?-?-?- 168 0 -?-?-?-?--?-?-?-?-?-?-?-?- SM- had increase bleeding with large clot passed today. viable IUP still seen but area of bleeding seen 5mm near endocervical os, cervix 4 cm and closed on digital exam, bright red bleeding seen though. refer to [facility] for second opinion on management and evaluation. 02/23/24 -?-?-?-?-?-?-?-?-?-?-?-?- 11w 2d 152 lb 4 oz 128/77 Nega tive -?-?-?-?-?-?-?-?-?-?-?-?- Negative 168 -?-?-?-?-?-?-?-?-?-?-?-?- JV- still having very little amount of bleeding. will see MFM next week. NIPT is pending. wants AFP when it is time. 03/07/24 -?-?-?-?-?-?-?-?-?-?-?-?- 13w 1d 154 lb 2 oz 137/86 Nega tive -?-?-?-?-?-?-?-?-?-?-?-?- Negative 156 -?-?-?-?-?-?-?-?-?-?-?-?- JV- no longer bl eeding. ultrasound report [facility] reviewed. RTO in one month ok. will see mfm in 3 weeks. 03/29/24 -?-?-?-?-?-?-?-?-?-?-?-?- 16w 2d 157 lb 6 oz 133/84 Nega tive -?-?-?-?-?-?-?-?-?-?-?-?- Negative 150 -?-?-?-?-?-?-?-?-?-?-?-?- SulyV- saw mfm and sees them again on 04/27 for full anatomy scan. 05/04/24 -?-?-?-?-?-?-?-?-?-?-?-?- 21w 3d 160 lb 6 oz 128/81 Nega tive -?-?-?-?-?-?-?-?-?-?-?-?- Negative 145 -?-?-?-?-?-?-?-?--?-?-?-?- SM- no vb lof go od fm no regular ctx 06/01/24 -?-?-?-?-?-?-?-?-?-?-?-?- 25w 3d 170 lb 140/86 134/82 Negative -?-?-?-?-?-?-?-?-?-?-?-?- Negative 140 -?-?-?-?-?-?-?-?-?-?-?-?- SM- no vb lof go od fm no regular ctx 06/28/24 -?-?-?-?-?-?-?-?-?-?-?-?- 29w 2d 177 lb 130/85 Negative -?-?-?-?-?-?-?-?-?-?-?-?- Negative 145 30 -?-?-?-?-?-?-?-?-?-?-?-?- SM- no vb lof go od fm no regular ctx SM- no vb lof good fm no reg ular ctx tdap 07/12/24 -?-?-?-?-?-?-?-?-?-?-?-?- 31w 2d 183 lb 133/83 Negative -?-?-?-?-?-?-?-?-?-?-?-?- Negative 140 32 -?-?-?-?-?-?-?-?-?-?-?-?- JV- no lof, vagi nal bleeding, or dec fm. she is asking about when growth scan will be. will order 32 week growth with MFM. she has a lump behind her left ear that palpates under the skin and does not necessarily feel like a lymph node. It is the size of a pea and consistency is rubbery. She also has a petechial rash on her left hand and up her left arm. cbc and iron studies ordered. RSV vaccine info discussed. she would like this if and when we get it. She will think about flu vaccine. 07/27/24 -?-?-?-?-?-?-?-?-?-?-?-?- 33w 3d 179 lb 6 oz 140/98 Nega tive -?-?-?-?-?-?-?-?-?-?-?-?- Negative -?-?-?-?-?-?-?-?-?-?-?-?- Note elevated BP X 3. Headache today, not relieved by tylenol just do not feel well . To WP ROS Constitutional Constitutional: Reports systems reviewed and no addt'l complaints, except as documented Cardiovascular Cardiovascular: Denies chest pain or dyspnea Respiratory/Chest Respiratory/Chest: Reports systems reviewed and no addt'l complaints, except as documented Gastrointestinal Gastrointestinal: Denies bloating, constipation, cramping, diarrhea, nausea or vomiting Genitourinary Genitourinary: Reports other Details: Denies vaginal odor, vaginal bleeding, or vaginal discharge ; Denies difficulty urinating or flank pain Neurologic Neurologic: Reports systems reviewed and no addt'l complaints, except as documented and headache(s); Denies dizziness, numbness, seizures, syncope or weakness Psychiatric Psychiatric: Reports systems reviewed and no addt'l complaints, except as documented Physical Exam HEENT normocephalic Resp normal respiratory effort and normal air movement no CVA tenderness Extremity normal to inspection General Extremity: edema bilateral (trace ) NST FHR Rate Baby A Baseline: 160 Variability:: Moderate Accelerations:: 15 x 15 Decelerations:: None NST Reactive:: Yes FHR Category:: Category I Uterine Activity:: no contractions Assessment & Plan (1) Elevated blood pressure affecting in third trimester, antepartum: (2) Anemia affecting : COMMENT: adding otc iron (3) Abnormal glucose affecting : COMMENT: passed 3 hour (4) Bone marrow donor: COMMENT: February 2018 (5) IUD : COMMENT: plan growth US in 3rd trimester. removed in office at 8 weeks. small 1 cm hematoma present. - RESOLVED (6) History of delivery: COMMENT: 2015 *plans RLTCS and BS. scheduled for 09/05 @ 7:15 with SM, 2&6 wk PP scheduled (7) Supervision of high-risk : COMMENT: PRR , MARTHA 09/11/24, girl Marta PC: Loi, : Foreign (8) : QUALIFIERS: Weeks of gestation: 31 weeks Qualified Code(s): Z3A.31 - 31 weeks gestation of COMMENT: Carrier neg. , Discussed genetic/carrier testing *Carrier testing done with previous but would like to repeat* nl anatomy, possible accessory lobe PLAN: Plan PIH labs were normal. one dose of procardia dropped her bp too low. Her bp's are now 130's/80's/ plan is to swab for flu and covid prior to dc She received one dose of celestone and plan is for her to come back tomorrow for her next dose sending home with a blood pressure cuff to check bp in am and before bed time and then anytime she has a headache or changes in vision. plan twice weekly testing next week. Charges/Coding Multi Select Codes Visit Charges Office Visit/Consults: 83071 OV L3 Est 20min Urinary/Genital Urinary/Genital CPT Codes: 36439-80 non-stress test Interp
[2024-07-27 18:17] LABS: LDH 160 U/L (84-246)
== END 2024-07-27 17:59 | disposition home or self-care (01) ==
LOC: WPOUT 14:58 → WP 14:59
PROVIDERS: PCP Family Medicine; Referring Provider Obstetrics & Gynecology; Visit Provider Obstetrics & Gynecology
DX: O99.891 Other specified diseases and conditions complicating pregnancy (principal); R03.0 Elevated blood-pressure reading, without diagnosis of hypertension; R51.9 Headache, unspecified; O99.013 Anemia complicating pregnancy, third trimester; O99.810 Abnormal glucose complicating pregnancy; O34.219 Maternal care for unspecified type scar from previous cesarean delivery; O09.93 Supervision of high risk pregnancy, unspecified, third trimester; Z3A.33 33 weeks gestation of pregnancy
CPT/HCPCS: 36415; 59025; 59050; 82565; 82570; 83615; 84156; 84450; 84460; 84550; 85027; 96372; 99221; G0378; J0702

== ENCOUNTER 2024-07-28 16:25 | Outpatient (CLI) | payer OTHER, SELFPAY ==
[2024-07-28] VITALS (8 sets, daily range): BP systolic 129–140; BP diastolic 82–93; PULSE 81–106; RESP 18; TEMP 36.7; BMI 28.8
[2024-07-28] MEDS: Betamethasone/Betamethasone 30 MG/5 ML Vial 12 MG IM (17:08)
[2024-07-28 17:15] LABS: Hematocrit 32.3 % (37-47); Hemoglobin 11.1 g/dL (12.0-15.0); Mean Corp Hgb Conc 34.4 g/dL (32-36); Mean Corpuscular Hgb 31.8 pg (27.0-32.0); Mean Corpuscular Volume 92.6 fL (81-99); Mean Platelet Vol. 9.7 fl (6.2-12.0); Platelet Count 222 K/mm3 (150-450); RBC Distribution Width CV 12.8 % (11.6-14.6); RBC Distribution Width SD 43.1 fl (35.1-43.9); Red Blood Count 3.49 M/mm3 (4.2-5.4); White Blood Count 14.9 K/mm3 (4.4-11.0)
[2024-07-28 17:33] LABS: AST(SGOT) 14 U/L (15-37); Alanine Aminotransfer ALT/SGPT 14 U/L (13-56); Creatinine, Serum 0.67 mg/dL (0.55-1.02); EST Glomerular Filtration Rate 108 mL/min (>60); Est Glom Filt Rate - Afr Amer 130 mL/min (>60); Estimated Creatinine Clearance 128.14 ml/min; Uric Acid 4.2 mg/dL (2.6-6.0)
[2024-07-28 17:54] LABS: Protein, Urine (Random) 57.7 mg/dL (<11.9); Protein:Creat Ratio 205 mg/g CRE (0-200)
--- NOTE | 2024-07-28 18:29 | OB.TRI.HP_ITS ---
HPI - General HPI Narrative STEVE BERNAL, is a 33 F who presents at 33.4 weeks with elevated BP at home 170/110 with repeat 150s/90s for continued monitoring and PEC repeat labs. denies headaches, visual changes or ruq pain. active fetus. Maternal Data Information MARTHA Calculator Estimated Delivery Date Method Current WG Current Estimate 09/11/24 Ultrasound #1 33w 4d PFSH PFSH Home Medications ?Medication ?Instructions ?Recorded ?Last Taken ?Type docosahexaenoic acid 200 mg 200 mg PO DAILY 02/03/24 07/27/24 History capsule ( DHA) labetalol 200 mg tablet 200 mg PO BID #60 tabs 07/28/24 Unknown Rx Allergy/AdvReac Type Severity Reaction Status Date / Time No Known Allergies Allergy Verified 07/28/24 17:06 Family History Mother CVA (cerebral vascular accident) Hypertension Diabetes Gestational diabetes Father Lymphoma Aunt Leukemia Grandmother CVA (cerebral vascular accident) Diabetes Hypertension Myocardial infarction Grandfather CVA (cerebral vascular accident) Diabetes Hypertension Myocardial infarction Surgical History H/O wisdom tooth extraction History of ankle surgery Social History adopted: No household members: spouse and children number of children: 1 current occupational status: employed current occupation: [employer]er current occupational exposures/hazards: No pets and animals: No leisure activities: exercise, music and reading history of recent travel: Yes (All domestic [place] travel ([place], [place], [place], [place]) details: [place], [place], [place], [place] out of state: Yes out of country: No sexually active: Yes Smoking Status: Never smoker Electronic Cigarette Use: not used second hand exposure: No alcohol intake: former details: not while substance use type: marijuana well-balanced diet: about half the time caffeine: Yes (very seldomly drinking beverages with caffeine (1-3 times per month)) Type: tea eating out: 1-3 times/week during the past year weight has: decreased > 10 lbs what type of physical activity do you participate in: walking and running frequency: 3-4 times per week duration: 30-45 minutes/day michael/pentecostalism: Pentecostalism seatbelt use: always do you feel safe at home: Yes additional social history: : Foreign Potts History 2 Elective abortions Hx Para 1 Spontaneous abortions Hx # Term Pregnancies Ectopic pregnancies Hx # Pregnancies Multiple births # of living children 1 Past Pregnancies Del. Date Name GA/Weeks Outcome Route Bth Weight Gen Labor Lgth Anesthesia Del Locatn Provider FOB 07/28/16 Loi live - full term 7lbs 5oz Male spinal [facility] Delivery Date: 07/28/16 Last Updated by: Tiffanie Samaniego RN Elective Visit Details Expected Delivery Route/Plan plan RLTCS- plan for 09/04/24 or 09/05/24 Plans Covid status: [] Flu vaccine: [] Tdap vaccine: [] Rhogam: [] LARC form signed: [] Problem list reviewed and updated with the most current plan of care details and appropriate orders placed. Relevant counseling for the gestational age provided. Continue routine care and follow up unless otherwise noted in visit notes/problem list details OB Flowsheet Initial Weight: Not Recorded Date -?-?-?-?-?-?-?-?-?-?-?-?- EGA Weight BP Urine Prot -?-?-?-?-?-?-?-?-?-?-?-?- Glucose FHR FuHt Pres Dilation -?-?-?-?-?-?-?-?-?-?-?-?- Effaced St Visit Note 02/08/24 -?-?-?-?-?-?-?-?-?-?-?-?- 9w 1d 147 lb 127/89 -?-?-?-?-?-?-?-?-?-?-?-?- 170 -?-?-?-?-?-?-?-?-?-?-?-?- SM- CRL measurin g consistent with previous MARTHA 02/11/24 -?-?-?-?-?-?-?-?-?-?-?-?- 9w 4d 157 lb 129/85 -?-?-?-?-?-?-?-?-?-?-?-?- 173 -?-?-?-?-?-?-?-?-?-?-?--?- KW- NOB exam tod ay. JV scanned. Still bleeding since IUD removal. NIPT box given today 02/17/24 -?-?-?-?-?-?-?-?-?-?-?-?- 10w 3d 151 lb 146/92 -?-?-?-?-?-?-?-?-?-?-?-?- 168 0 -?-?-?-?-?-?-?-?-?-?-?-?- SM- had increase bleeding with large clot passed today. viable IUP still seen but area of bleeding seen 5mm near endocervical os, cervix 4 cm and closed on digital exam, bright red bleeding seen though. refer to [facility] for second opinion on management and evaluation. 02/23/24 -?-?-?-?-?-?-?--?-?-?-?-?- 11w 2d 152 lb 4 oz 128/77 Nega tive -?-?-?-?-?-?-?-?-?-?-?-?- Negative 168 -?-?-?-?-?-?-?-?-?-?-?-?- JV- still having very little amount of bleeding. will see MFM next week. NIPT is pending. wants AFP when it is time. 03/07/24 -?-?-?-?-?-?-?-?-?-?-?-?- 13w 1d 154 lb 2 oz 137/86 Nega tive -?-?-?-?-?-?-?-?-?-?-?-?- Negative 156 -?-?-?-?-?-?-?-?-?-?-?-?- JV- no longer bl eeding. ultrasound report from [facility] reviewed. RTO in one month ok. will see mfm in 3 weeks. 03/29/24 -?-?-?-?-?-?-?-?-?-?-?-?- 16w 2d 157 lb 6 oz 133/84 Nega tive -?-?-?-?-?-?-?-?-?-?-?-?- Negative 150 -?-?-?-?-?-?-?-?-?-?-?-?- SUNIL- saw mfm and sees them again on 04/27 for full anatomy scan. 05/04/24 -?-?-?-?-?-?-?-?-?-?-?-?- 21w 3d 160 lb 6 oz 128/81 Nega tive -?-?-?-?-?--?-?-?-?-?-?-?- Negative 145 -?-?-?-?-?-?-?-?-?-?-?-?- SM- no vb lof go od fm no regular ctx 06/01/24 -?-?-?-?-?-?-?-?-?-?-?-?- 25w 3d 170 lb 140/86 134/82 Negative -?-?-?-?-?-?-?-?-?-?-?-?- Negative 140 -?-?-?-?-?-?-?-?-?-?-?-?- SM- no vb lof go od fm no regular ctx 06/28/24 -?-?-?-?-?-?-?-?-?-?-?-?- 29w 2d 177 lb 130/85 Negative -?-?-?-?-?-?-?-?-?-?-?-?- Negative 145 30 -?-?-?-?-?-?-?-?-?-?-?-?- SM- no vb lof go od fm no regular ctx SM- no vb lof good fm no reg ular ctx tdap 07/12/24 -?-?-?-?-?-?-?-?-?-?-?-?- 31w 2d 183 lb 133/83 Negative -?-?-?-?-?-?-?-?-?-?-?-?- Negative 140 32 -?-?-?-?-?-?-?-?-?-?-?-?- JV- no lof, vagi nal bleeding, or dec fm. she is asking about when growth scan will be. will order 32 week growth with MFM. she has a lump behind her left ear that palpates under the skin and does not necessarily feel like a lymph node. It is the size of a pea and consistency is rubbery. She also has a petechial rash on her left hand and up her left arm. cbc and iron studies ordered. RSV vaccine info discussed. she would like this if and when we get it. She will think about flu vaccine. 07/27/24 -?-?--?-?-?-?-?-?-?-?-?-?- 33w 3d 179 lb 6 oz 140/98 Nega tive -?-?-?-?-?-?-?-?-?-?-?-?- Negative -?-?-?-?-?-?-?-?-?-?-?-?- Note elevated BP X 3. Headache today, not relieved by tylenol just do not feel well . To WP NST FHR Rate Baby A Baseline: 135 Variability:: Moderate Accelerations:: 15 x 15 Decelerations:: None NST Reactive:: Yes FHR Category:: Category I Uterine Activity:: irregular Assessment & Plan (1) Elevated blood pressure affecting in third trimester, antepartum: COMMENT: labetalol 200 bid, twice weekly testing, rpt labs weekly for PIH. negative on 07/27/24. negative on 07/28/25. PLAN: Patient presents for triage evaluation secondary to elevated BP at home. all mild to normal BP in WP with reassuring lab work. FHT: Moderate variability reactive no decelerations category I tracing [place]: irregular Contractions Assessment and plan: Reactive NST, reassuring maternal and status patient discharged to home to follow-up in office early in the week. See problem list details for additional plan information. Charges/Coding Procedures Urinary/Genital 52xxx-59xxx: 22931-48 non-stress test Interp Multi Select Codes Urinary/Genital Urinary/Genital CPT Codes: 27202-81 non-stress test Interp
== END 2024-07-28 18:35 | disposition home or self-care (01) ==
LOC: WPOUT 16:35 → WP 16:37
PROVIDERS: Obstetrics & Gynecology; PCP Family Medicine; Referring Provider Registered Nurse; Visit Provider Registered Nurse
DX: O99.891 Other specified diseases and conditions complicating pregnancy (principal); R03.0 Elevated blood-pressure reading, without diagnosis of hypertension; Z3A.33 33 weeks gestation of pregnancy; Z79.899 Other long term (current) drug therapy
CPT/HCPCS: 36415; 59025; 59050; 82565; 82570; 84156; 84450; 84460; 84550; 85027; 99221; G0378; J0702

== ENCOUNTER 2024-08-03 13:47 | Outpatient (CLI) | payer OTHER, SELFPAY ==
[2024-08-03] VITALS (8 sets, daily range): BP systolic 123–128; BP diastolic 85–86; PULSE 81–95; RESP 16; TEMP 36.9; O2SAT 97–98; BMI 29.2
--- NOTE | 2024-08-03 14:15 | US_ITS ---
STUDY: OBSTETRICAL ULTRASOUND - BIOPHYSICAL PROFILE REASON FOR EXAM: Female, 33 years old non reactive NST LMP: PRIOR ULTRASOUND: 01/31/2024. TECHNIQUE: Transabdominal TECHNICAL QUALITY: Adequate. FINDINGS: There is a single intrauterine fetus. The fetus is in a cephalic presentation. There is demonstrated cardiac activity with a heart rate of 147 bpm. There is a normal amniotic fluid volume. The largest amniotic fluid pocket measures 5.0 cm. The amniotic fluid index (BLAINE) is 11.3 cm. The placenta is posterior in location and is not low lying. There are Grade 1 placental changes. Dilated left renal pelvis measuring in millimeters. Single nuchal cord wrap. Age by LMP: 34 weeks, 3 days. MARTHA by LMP: 09/11/2024. Gender: Female BIOPHYSICAL PROFILE: Breathing Movements (FBM): 0 Gross Body Movements (GBM): 2 Tone (FT): 2. Amniotic Fluid Volume (AFV): 2 TOTAL SCORE: 6 / 8 US/Biophysical Prof W/O Non Stres IMPRESSION: Abnormal biophysical profile of 6/8. Score of 0 for breathing. Dilated left renal sinus. Recommend renal ultrasound. Electronically Signed: Berhane Hector MD at 16:53 EDT ,
[2024-08-03 14:53] LABS: Hematocrit 32.8 % (37-47); Hemoglobin 11.6 g/dL (12.0-15.0); Mean Corp Hgb Conc 35.4 g/dL (32-36); Mean Corpuscular Hgb 32.6 pg (27.0-32.0); Mean Corpuscular Volume 92.1 fL (81-99); Mean Platelet Vol. 9.6 fl (6.2-12.0); Platelet Count 282 K/mm3 (150-450); RBC Distribution Width CV 12.7 % (11.6-14.6); RBC Distribution Width SD 42.5 fl (35.1-43.9); Red Blood Count 3.56 M/mm3 (4.2-5.4); White Blood Count 10.5 K/mm3 (4.4-11.0)
[2024-08-03 15:45] LABS: AST(SGOT) 12 U/L (15-37); Alanine Aminotransfer ALT/SGPT 14 U/L (13-56); Creatinine, Serum 0.63 mg/dL (0.55-1.02); EST Glomerular Filtration Rate 116 mL/min (>60); Est Glom Filt Rate - Afr Amer 140 mL/min (>60); Estimated Creatinine Clearance 137.19 ml/min
[2024-08-03 16:20] LABS: Protein, Urine (Random) < 6.0 mg/dL (<11.9)
--- NOTE | 2024-08-11 00:08 | OB.TRI.PN ---
Progress Notes Date of Service: 08/03/24 Progress Note: pree labs drawn for elevate dbps and WNL dc home 33 weeks Laboratory Studies: Laboratory Tests 08/03/24 08/03/24 Range/Units Unknown 14:35 WBC 10.5 (4.4-11.0) K/mm3 RBC 3.56 L (4.2-5.4) M/mm3 Hgb 11.6 L (12.0-15.0) g/dL Hct 32.8 L (37-47) % MCV 92.1 (81-99) fL MCH 32.6 H (27.0-32.0) pg MCHC 35.4 (32-36) g/dL RDW Std Deviation 42.5 (35.1-43.9) fl RDW Coeff of Bria 12.7 (11.6-14.6) % Plt Count 282 (150-450) K/mm3 MPV 9.6 (6.2-12.0) fl Creatinine 0.63 (0.55-1.02) mg/dL Estim Creat Clear Calc 137.19 ml/min Est GFR (MDRD) Af Amer 140 (>60) mL/min Est GFR (MDRD) Non-Af 116 (>60) mL/min Uric Acid 4.0 (2.6-6.0) mg/dL AST 12 L (15-37) U/L ALT 14 (13-56) U/L U Random Total Protein < 6.0 (<11.9) mg/dL Urine Creatinine 26.40 (NO RANGE EST.) mg/dL Protein/Creatinin Ratio TNP Charges/Coding Procedures Urinary/Genital 52xxx-59xxx: No Charge Assessment & Plan (1) : QUALIFIERS: Weeks of gestation: 33 weeks Qualified Code(s): Z3A.33 - 33 weeks gestation of COMMENT: Carrier neg. , Discussed genetic/carrier testing *Carrier testing done with previous but would like to repeat* nl anatomy, possible accessory lobe (2) Supervision of high-risk : COMMENT: PRR , MARTHA 09/11/24, girl Marta PC: Loi, : Foreign (3) History of delivery: COMMENT: 2015 *plans RLTCS and BS. scheduled for 08/21 @ 7:15 with SM, 2&6 wk PP scheduled (4) IUD : COMMENT: plan growth US in 3rd trimester. removed in office at 8 weeks. small 1 cm hematoma present. - RESOLVED (5) Bone marrow donor: COMMENT: February 2018 (6) Abnormal glucose affecting : COMMENT: passed 3 hour (7) Anemia affecting : COMMENT: adding otc iron (8) Elevated blood pressure affecting in third trimester, antepartum: COMMENT: labetalol 200 bid, twice weekly testing, rpt labs weekly for PIH. negative on 07/27/24. negative on 07/28/25. (9) COVID-19 affecting in third trimester: COMMENT: tested positive 07/27/24
== END 2024-08-03 17:21 | disposition home or self-care (01) ==
LOC: LABSPEC 13:47 → WPOUT 14:14 → WP 14:14
PROVIDERS: Nurse Practitioner Women's Health; PCP Family Medicine; Referring Provider Obstetrics & Gynecology; Visit Provider Obstetrics & Gynecology
DX: O99.891 Other specified diseases and conditions complicating pregnancy (principal); R03.0 Elevated blood-pressure reading, without diagnosis of hypertension; O34.219 Maternal care for unspecified type scar from previous cesarean delivery; O99.013 Anemia complicating pregnancy, third trimester; O99.810 Abnormal glucose complicating pregnancy; O09.93 Supervision of high risk pregnancy, unspecified, third trimester; Z3A.33 33 weeks gestation of pregnancy
CPT/HCPCS: 59025; 59050; 76819; 82565; 82570; 84156; 84450; 84460; 84550; 85027; 99221; G0378

== ENCOUNTER → 2024-08-11 | Outpatient (CLI) | payer OTHER, SELFPAY ==
[2024-08-11 12:16] LABS: Absolute Lymphocyte Count 1.15 X10^3/uL (0.83-4.51); Absolute Neutrophil Count 6.7 X10^3/uL (2.0-7.7); Basophil# 0.02 X10^3/uL; Basophil% 0.2 % (0-1); Eosinophil# 0.03 X10^3/uL; Eosinophils% 0.3 % (0-5); Hematocrit 34.1 % (37-47); Hemoglobin 11.5 g/dL (12.0-15.0); Lymphocyte # 1.15 X10^3/ul (0.83-4.51); Lymphocyte % 13.2 % (19-41); Mean Corp Hgb Conc 33.7 g/dL (32-36); Mean Corpuscular Hgb 31.7 pg (27.0-32.0); Mean Corpuscular Volume 93.9 fL (81-99); Mean Platelet Vol. 10.1 fl (6.2-12.0); Monocyte# 0.71 X10^3/uL; Monocyte% 8.2 % (0-10); NRBC Flagged by Analyzer 0 % (0-5); Neutrophil # 6.67 X10^3/uL (2.7-7.7); Neutrophil % 76.6 % (47-70); Platelet Count 252 K/mm3 (150-450); RBC Distribution Width CV 12.6 % (11.6-14.6); RBC Distribution Width SD 43.4 fl (35.1-43.9); Red Blood Count 3.63 M/mm3 (4.2-5.4); White Blood Count 8.7 K/mm3 (4.4-11.0)
[2024-08-11 12:20] LABS: Creatinine, Urine (random) < 13.00 mg/dL (NO RANGE EST.); Protein, Urine (Random) < 6.0 mg/dL (<11.9)
[2024-08-11 12:22] LABS: ALB/GLOB Ratio 0.7 RATIO (0.9-2.4); AST(SGOT) 14 U/L (15-37); Alanine Aminotransfer ALT/SGPT 12 U/L (13-56); Albumin, Serum 2.6 g/dL (3.2-5.0); Alkaline Phosphatase 121 U/L (45-117); Anion Gap 5 (5-15); BUN 8 mg/dL (7-18); BUN/Creat Ratio 12.7 RATIO (10-20); Calcium,Total 9.2 mg/dL (8.5-10.1); Chloride 108 mmol/L (98-107); Creatinine, Serum 0.63 mg/dL (0.55-1.02); EST Glomerular Filtration Rate 115 mL/min (>60); Est Glom Filt Rate - Afr Amer 139 mL/min (>60); Globulin 3.5 g/dL (2.2-4.2); Glucose 78 mg/dL (74-106); Potassium 4.1 mmol/L (3.5-5.1); Protein, Total 6.1 g/dL (6.4-8.2); Sodium Level 136 mmol/L (136-145)
== END | disposition home or self-care (01) ==
LOC: BWCLAB 10:55
PROVIDERS: PCP Family Medicine; Referring Provider Obstetrics & Gynecology; Visit Provider Obstetrics & Gynecology
DX: O16.3 Unspecified maternal hypertension, third trimester (principal); Z3A.00 Weeks of gestation of pregnancy not specified
CPT/HCPCS: 36415; 80053; 82570; 84156; 85025

== ENCOUNTER → 2024-08-17 | Outpatient (CLI) | payer OTHER, SELFPAY | END | disposition home or self-care (01) | LOC: LABSPEC 14:50 | PROVIDERS: PCP Family Medicine; Referring Provider Obstetrics & Gynecology; Visit Provider Obstetrics & Gynecology | DX: O09.93 Supervision of high risk pregnancy, unspecified, third trimester (principal); Z3A.00 Weeks of gestation of pregnancy not specified | CPT/HCPCS: 87081 ==

== ENCOUNTER 2024-08-21 05:20 | Inpatient (IN) | payer OTHER, SELFPAY ==
[2024-08-08] MEDS: Lactated Ringers 1,000 ML 999 ML IV (06:45)
[2024-08-21] VITALS (25 sets, daily range): BP systolic 114–140; BP diastolic 59–95; PULSE 70–88; RESP 16; TEMP 36.3–37.3; O2SAT 95–100; BMI 29.8
--- OUTSIDE RECORDS SUMMARY | 2024-08-21 05:25 | XMS RPT_ITS | CCD ---
Author Organization [facility] [employer] Care Team Providers Care Sales Representative [employer] Name Role Phone ROSAS MCGOVERN Unavailable Unavailable NGUYEN, RAJESH K Unavailable Unavailable [...] K Unavailable Unavailable Unavailable Primary Care Provider UnavailPETRONA Moss Referring Unavailabl RYANNE Abdi Attending Unavailable MARIO, PRISCILLA E Primary Care Unavailable MAMADOU SPARROW Attending Unavailable MARIO PRISCILLA E Primary Care Unavailable PETRONA MICHAELS Referring Unavailabl e MARIO, PRISCILLA E Primary Care Unavailable PETRONA MICHAELS Attending UnavailPETRONA Moss Referring UnavailEMILY Zamarripa Attending Unavailab EMILY Licona Referring Unavailab le MARIO PRISCILLA E Primary Care Unavailable EMILY MONTERO Attending Unavailab EMILY Licona Referring Unavailab le MARIO PRISCILLA E Primary Care Unavailable Problems Active Problems Problem Classification Problem Date [...] Results Test Name Value Interpretation Reference Range Facility Progress Noteon 02-29-2024 Toe Puncher Authentication Interface Message Text [facility] MATERNAL- MEDICINE CONSULT Referring/Requesting Provider: Petrona Michaels MD PCP: Priscilla Pal MD INDICATION FOR CONSULT: vaginal bleeding, IUD removed this HISTORY OF PRESENT ILLNESS: Patient is a 33 y.o. at 12w1d who presents for consultation regarding her history of vaginal bleeding. This was conceived with IUD in place. She had symptoms of , but also had bleeding (atypical for her with the IUD in place). IUD was removed at 8 weeks. Vaginal bleeding persisted. At 10 weeks, she passed two fist size clots. Since then, has brown spotting. No cramping or pain. BP 130/75 today (BP 146/92 on 02/16 at OB visit, but may have been situational with the anxiety of that appointment). No hx of hypertension otherwise. Blood type O+ per OB record. OB History Para Term AB Living 2 1 1 0 0 1 SAB IAB Ectopic Multiple Live Births 0 0 0 0 1 # Outcome Date GA Lbr Hayes/2nd Weight Sex Type Anes PTL Lv 2 Current 1 Term 07/28/16 39w0d 3.317 kg M CS-LTranv Spinal N KAREN Comments: elective Past Medical History: Diagnosis Date Bone marrow donor Eczema topical steroid, not using now IUD iud removed,vaginal bleeding before removal Past Surgical History: Procedure Laterality Date ANKLE SURGERY SECTION, LOW TRANSVERSE 2016 WISDOM TOOTH EXTRACTION PERTINENT FAMILY HISTORY: Family History Problem Relation Age of Onset Other Mother CVA Hypertension Mother Diabetes Mellitus II Mother High Blood Pressure Mother Stroke Mother Lymphoma Father Cancer Father Myelodysplasia (MDS) Diabetes Mellitus II Maternal Grandfather High Blood Pressure Maternal Grandfather Stroke Maternal Grandfather Diabetes Mellitus II Maternal Grandmother High Blood Pressure Maternal Grandmother Stroke Maternal Grandmother Cancer Paternal Aunt Lymphoma MEDS: Outpatient Medications Marked as Taking for the 02/29/24 encounter (Office Visit) with Ryanne Fletcher, DO Medication Sig Dispense Refill ondansetron (ZOFRAN-ODT) 4 MG disintegrating tablet DISSOLVE 1 TABLET IN MOUTH EVERY 6 HOURS NEEDED FOR NAUSEA AND VOMITING MV-Min-Fe Fum-FA-DHA ( 1 PO) Take by mouth ALLERGY: No Known Allergies REVIEW OF SYSTEMS: ROS as noted above PHYSICAL EXAM: VITAL SIGNS: BP 130/75 Pulse 102 Resp 18 Ht 167.6 cm Wt 68.7 kg (151 lb 6.4 oz) SpO2 97% BMI 24.44 kg/m Physical Exam AAOx3, NAD Resp effort normal IMAGIN. Ramires intrauterine with cardiac activity present at 12w 1d with an MARTHA of 09/11/2024. 2. Prien rump length measurement are consistent with supplied dating. 3. Anatomic detail is extremely limited at this early gestational age. No gross abnormalities were noted on this examination. 4. Small subchorionic hematoma. 5. Normal uterus and adnexa. 6. Absence of free fluid in the pelvis. IMPRESSION AND RECOMMENDATIONS: Sridevi is a 33 y.o. at 12w1d with Active Non-Hospital Problems Diagnosis Date Noted Hemorrhage in early , antepartum 02/29/2024 Bleeding since recognized. Bleeding started before IUD removal. Cervix was closed on OB exam. 2 weeks ago had large fist sized clots. Since that time, bleeding has tapered down to brown spotting. Recommend pelvic rest/no intercourse. She walks 1 - 1.5 miles per day at a 15 min mile pace. Okay to continue as long as bleeding does not reoccur. Encourage iron rich food. Rh +, Rhogam not indicated. Continue expectant management. We reviewed that most pregnancies with first trimester bleeding have successful outcome. If bleeding occurs after viability, recommend inpt management. , supervision, high-risk, first trimester 02/29/2024 CONSULT PLAN OF CARE MD/OB APPOINTMENTS Genetic screening: normal cell free DNA screening with OB How often should patient be evaluated? Prn bleeding EVALUATION Ultrasound: 16 week, 20 week with MFM. DELIVERY PLAN Hospital: [facility] C/[facility] at 39 weeks, repeat : recommended Vaccinations recommended: Covid, influenza, RSV, TDap with IUD in place, antepartum, first trimester 02/22/2024 conceived with IUD in place that Dr. Michaels has since removed Follow up with ZACARIAS Crockett for 16 and 20 week US. Recommend additional US if significant bleeding again occurs. Continue care with Dr. Michaels. Chart review and preparation: 15 minutes. Face to face: 15 minutes. Documentation and care coordination: 13 minutes. Total time spent on patient care today: 43 minutes. Normal [facility] CNOVon 03-08-2023 CNOV Office Visit (UCWSTR ) DOLORESSRIDEVI ([id number]) 1990 F Date Time Provider Department 03/08/23 6:00 PM GILLIAN JEFFERS RUST During your visit today, we recorded the following information about you: Temperature Pulse Respiration Blood pressure 97.5 degrees 70/minute 16/minute 110/72 Weight 75.3 kg Gillian Jeffers APRN.CLIENT INSIGHTS CONSULTANT 03/08/2023 6:32 PM Signed Subjective HPI Nontoxic-appearing female presents urgent care [...] canal and external ear normal. Mouth/Throat: Lips: [place]. Mouth: Mucous membranes are moist. Pharynx: Oropharynx [...] of care. This note was generated using [employer] software. It may contain errors in wording, punctuation, or spelling. Gillian Jeffers APRN.CLIENT INSIGHTS CONSULTANT Allergies As of Date: 03/08/2023 (No Known Allergies) Date Reviewed: 03/08/2023 Reviewed by: Gillian Jeffers APRN.CLIENT INSIGHTS CONSULTANT - Fully Assessed Reason for Visit: Sore Throat [200] Cmt: x 3 days Primary Visit Diagnosis:Sore throat [J02.9] Order(s):STREP A MOLECULAR (POC) [5913097] Order #: [id number]. #:[id number] Problem List As Of Date: 03/08/2023 (None) Level of Service: OFFICE/OUTPA (more content not included)... Normal [facility] STREP A MOLECULAR (POC)on Procedural Control Valid [facility] Strep A (POCT) Negative Negative [facility] *HCG*POCT*DEVICEon 8 HCG.beta subunit ( test) Ql (U) Negative Normal Negative [facility] CBC,PLATELET,DIFFERENTIAL - CCLon 11-10-2017 Abs Baso 0.02 K/uL Normal 0.01-0.08 [facility] Comment on above: Performed By: #### C EVELINA ####[place] GUPTAT, [facility] [place] [address]#### CAROLINA ####NESHA [facility] [place] [address] Medical Meaphr[address] [place] [address] 00479 Abs Eos 0.00 K/uL Low 0.04-0.36 [facility] Comment on above: Performed By: #### C EVELINA ####[place] [facility]ERSajanParkview Health [facility] Hospital[address] [place] [address] 24895#### DONBM ####[facility] [place] [address] 34016KmtskuSelect [facility]ty [facility] [place] [address] 45195 Abs [place] 0.15 K/uL Low 0.24-0.86 [facility] Comment on above: Performed By: #### C EVELINA ####[place] [facility] [place] [address] 22376#### CAROLINA ####[facility] [place] [address] 92035JtbbprSelect Medical Specialty [facility] [place] [address] 94222 Basophils/100 WBC Auto (Bld) 0.2 % Normal [facility] Comment on above: Performed By: #### C EVELINA ####[place] [facility] [place] [address] 61218#### CAROLINA ####[facility] [place] [address] 79774KoysatSelect Medical Specialty [facility] [place] [address] 75393 DIFFERENTIAL TYPE Electronic Differential Normal [facility] Comment on above: Performed By: #### C EVELINA ####[place] [facility]ERSajanParkview Health [facility] Hospital[address] [place] [address] 19902#### CAROLINA ####[facility] [place] [address] 89763FcgokgSelect Medical Specialty [facility] [place] [address] 58092 Eosinophils/100 leukocytes 0.0 % Normal [facility] Comment on above: Performed By: #### C EVELINA ####[place] [facility] [place] [address] 31979#### DONBM ####[facility] [place] [address] 13861ZffewqSelect Medical Specialty [facility] [place] [address] 86343 Erythrocytes (RBC) 3.14 10*6/uL Low 3.93-5.22 [facility] Comment on above: Performed By: #### C BCDFJ ####[place] [facility] [place] [address] 57214#### DONBM ####[facility] [place] [address] 27099EgchbsSelect Medical Specialty [facility] [place] [address] 87974 Erythrocytes (RBC) 12.1 % Normal 11.7-14.4 [facility] Comment on above: Performed By: #### C EVELINA ####[place] [facility] [place] [address] 78705#### DONBM ####[facility] [place] [address] [place], [place] [address] [place] [address] 24305 Hematocrit (HCT) 28.7 % Low 34.1-44.9 [facility] Comment on above: Performed By: #### C BCDFJ ####[place] [facility] [place] [address] 99075#### DONBM ####[facility] [place] [address] 56393LyrntuSelect Medical Specialty [facility] [place] [address] 30471 Hemoglobin mass conc (Bld) 31.2 pg Normal 25.6-32.2 [facility] Comment on above: Performed By: #### C BCDFJ ####[place] [facility] [place] [address] 07369#### DONBM ####[facility] [place] [address] 57972RzuvgkSelect [facility] Specialty [facility] [place] [address] 14029 Hemoglobin mass conc (Bld) 9.8 g/dL Low 11.2-15.7 [facility] Comment on above: Result Comment: Resu lts inconsistent with previous results Performed By: #### C HELENJ ####[place] [facility] [place] [address]#### CAR[place]INA ####[facility] [place] [address] [place], [place] [address] [place] [address] Hemoglobin mass conc (Bld) 34.1 g/dL Normal 32.2-35.5 [facility] Comment on above: Performed By: #### C EVELINA ####[place] [facility] [place] [address]#### CAROLINA ####[facility] [place] [address] [place], [place] [address] [place] [address] IMMATURE GRANS % 0.3 % Normal [facility] Comment on above: Performed By: #### C HELENJ ####[place] [facility] [place], [place] [address]#### DONBM ####[facility] [place] [address] 48413GepeftSelect Medical Specialty [facility] [place] [address] 00618 IMMATURE GRANS ABSOLUTE 0.04 K/uL High 0.00-0.03 [facility] Comment on above: Performed By: #### C BCDFJ ####[place] [facility] [place], [place] [address]#### DONBM ####[facility] [place] [address] [place], [place] [address] [place] [address] 92165 Lymphocytes 0.39 10*3/uL Low 1.18-3.74 [facility] Comment on above: Performed By: #### C BCDFJ ####[place] [facility]ERSajanParkview Health [facility] Hospital[address] [place] [address] 51994#### OSITOBM ####[facility] [place] [address] 52389HdlulfSelect Medical Specialty [facility] [place] [address] 59864 Lymphocytes/100 leukocytes 3.4 % Normal [facility] Comment on above: Performed By: #### C NILDADFJ ####[place] [facility] [place] [address] 41944#### CAROLINA ####[facility] [place] [address] 09275CasivsSelect Medical Specialty [facility] [place] [address] 23846 MCV 91.4 fL Normal 79.4-94.8 [facility] Comment on above: Performed By: #### C NILDADFJ ####[place] [facility] [place] [address] 00048#### CAROLINA ####[facility] [place] [address] 53566TzuiyjSelect [facility]ty [facility] [place] [address] 53446 Monocytes/100 leukocytes 1.3 % Normal [facility] Comment on above: Performed By: #### C BCDFJ ####[place] [facility]ERSajanParkview Health [facility] Hospital[address] [place] [address] 62443#### OSITOBM ####[facility] [place] [address] 28757IsyczySelect [facility] [place] [address] 75278 NEUTROPHIL SEGMENTED 94.8 % Normal [facility] Comment on above: Performed By: #### C BCDFJ ####[place] [facility]ERSajanParkview Health [facility] Hospital[address] [place] [address] 89685#### CAROLINA ####[facility] [place] [address] 79462QmeozrSelect Medical Specialty [facility] [place] [address] 43966 Nucleated erythrocytes 0.0 /100 WBC Normal 0.0-0.2 [facility] Comment on above: Performed By: #### C EVELINA ####[place] [facility] [place] [address] 54149#### CAROLINA ####[facility] [place] [address] [place], [place] [address] [place] [address] 86404 Platelet mean volume (PMV) 9.4 fL Normal 9.4-12.3 [facility] Comment on above: Performed By: #### C EVELINA ####[place] [facility] [place] [address]#### CAROLINA ####[facility] [place] [address] [place], [place] [address] [place] [address] 64581 Platelets 202 10*3/uL Normal 182-369 [facility] Comment on above: Performed By: #### C EVELINA ####[place] [facility] [place] [address] 17440#### CAROLINA ####[facility] [place] [address] 15769DnayokSelect [facility] Specialty [facility] [place] [address] 95897 SEGS + Bands,Absolute 10.94 K/uL High 1.56-6.13 [facility] Comment on above: Performed By: #### C EVELINA ####[place] [facility] [place] [address] 30448#### OSITOBM ####[facility] [place] [address] 40594RgguerSelect Medical Specialty [facility] [place] [address] 38351 WBC (Leukocytes) 11.54 10*3/uL High 3.98-10.04 [facility] Comment on above: Performed By: #### C EVELINA ####[place] [facility] [place] [address] 10170#### DONBM ####[facility] [place] [address] [place], [place] [address] [place] [address] 38153 Abs Baso 0.04 K/uL Normal 0.01-0.08 [facility] Comment on above: Performed By: #### C EVELINA ####[place] [facility] [place] [address]#### CAROLINA ####[facility] [place], [place] [address] [place] [address] 48425 Abs Eos 0.03 K/uL Low 0.04-0.36 [facility] Comment on above: Performed By: #### C EVELINA ####[place] [facility] [place] [address] 62760#### CAROLINA ####[facility] [place], [place] [address] [place] [address] 02918 Abs [place] 0.62 K/uL Normal 0.24-0.86 [facility] Comment on above: Performed By: #### C NILDADFJ ####[facility] [facility] [place] [address]#### CAR[place]INA ####[facility] [place] [address] [place], [place] [address] [place] [address] 32243 Basophils/100 WBC Auto (Bld) 0.8 % Normal [facility] Comment on above: Performed By: #### C HELENJ ####[place] [facility]ERSajanParkview Health [facility] Hospital[address] [place] [address] 29613#### DONBM ####[facility] [place] [address] 06439GwrcagSelect Medical Specialty [facility] [place] [address] 80767 DIFFERENTIAL TYPE Electronic Differential Normal [facility] Comment on above: Performed By: #### C HELENJ ####[facility] [facility] [place] [address] 13650#### DONBM ####[facility] [place] [address] [place], [place] [address] [place] [address] 82140 Eosinophils/100 leukocytes 0.6 % Normal [facility] Comment on above: Performed By: #### C EVELINA ####[place] [facility] [place] [address] 91533#### CAROLINA ####[facility] [place] [address] 95015CtgammSelect Medical Specialty [facility] [place] [address] 54305 Erythrocytes (RBC) 4.23 10*6/uL Normal 3.93-5.22 [facility] Comment on above: Performed By: #### C EVELINA ####[place] [facility]ERSajanParkview Health [facility] Hospital[address] [place] [address] 24201#### DONBM ####[facility] [place] [address] 08352JrtjduSelect [facility]ty [facility] [place] [address] 52600 Erythrocytes (RBC) 12.3 % Normal 11.7-14.4 [facility] Comment on above: Performed By: #### C EVELINA ####[place] [facility] [place] [address] 79162#### DONBM ####[facility] [place] [address], [place] [address]KjjrdwSelect [facility]ty [facility] [place] [address] 60142 Hematocrit (HCT) 37.8 % Normal 34.1-44.9 [facility] Comment on above: Performed By: #### C BCDFJ ####[place] [facility] [place] [address] 63818#### DONBM ####[facility] [place] [address] 68468HxejqfSelect Medical Specialty Hospital [facility] [place] [address] 71336 Hemoglobin mass conc (Bld) 30.5 pg Normal 25.6-32.2 [facility] Comment on above: Performed By: #### C BCDFJ ####[facility] [facility] [place] [address]#### DONBM ####[facility] [place] [address] 96448BomvyrSelect [facility] Specialty [facility] [place] [address] 14465 Hemoglobin mass conc (Bld) 34.1 g/dL Normal 32.2-35.5 [facility] Comment on above: Performed By: #### C BCDFJ ####[facility] [facility] [place] [address] 43573#### DONBM ####[facility] [place] [address] 95736WganamSelect Medical Specialty [facility] [place] [address] 64421 Hemoglobin mass conc (Bld) 12.9 g/dL Normal 11.2-15.7 [facility] Comment on above: Performed By: #### C BCDFJ ####[place] [facility] [place] [address] 58729#### DONBM ####[facility] [place] [address] 95097RimvqtSelect [facility] [place] [address] 41242 IMMATURE GRANS % 0.2 % Normal [facility] Comment on above: Performed By: #### C HELENJ ####[place] GARCIAParkview Health [facility] Hospital[address] [place] [address] 37323#### CAROLINA ####[facility] [place] [address] 22794LroywsSelect [facility] [place] [address] 63875 IMMATURE GRANS ABSOLUTE 0.01 K/uL Normal 0.00-0.03 [facility] Comment on above: Performed By: #### C EVELINA ####[place] [facility]ERSajanParkview Health [facility] Hospital[address] [place] [address] 89194#### CAROLINA ####[facility] [place] [address] 96006LvrodrSelect [facility] [place] [address] 41317 Lymphocytes 1.41 10*3/uL Normal 1.18-3.74 [facility] Comment on above: Performed By: #### C EVELINA ####[facility] [place] [address] 60240#### CAROLINA ####[facility] [place] [address] 38289KwyjbySelect [facility] [place] [address] 45273 Lymphocytes/100 leukocytes 29.4 % Normal [facility] Comment on above: Performed By: #### C EVELINA ####[place] [facility]ERSajanParkview Health [facility] Hospital[address] [place] [address] 17556#### CAROLINA ####[facility] [place] [address] 34222BiievfSelect Medical Specialty [facility] [place] [address] 37236 MCV 89.4 fL Normal 79.4-94.8 [facility] Comment on above: Performed By: #### C EVELINA ####[place] GARCIAParkview Health [facility] Hospital[address] [place] [address] 86316#### DONBM ####[facility] [place] [address] 41134GitvobSelect [facility] [place] [address] 47371 Monocytes/100 leukocytes 12.9 % Normal [facility] Comment on above: Performed By: #### C HELENJ ####[facility] [place] [address] 33872#### DONBM ####[facility] [place] [address] 86432OxtrjbSelect [facility] [place] [address] 25242 NEUTROPHIL SEGMENTED 56.1 % Normal [facility] Comment on above: Performed By: #### C HELENJ ####[facility] [place] [address] [id number]#### CAROLINA ####[facility] [place] [address] 43039VpawtrSelect Medical Specialty Hospital - [facility]stown[address] [place] [address] 37280 Nucleated erythrocytes 0.0 /100 WBC Normal 0.0-0.2 [facility] Comment on above: Performed By: #### C HELENJ ####[facility] [place] [address] 88936#### DONBM ####[facility] [place] [address] 61942GmlzzhSelect Medical Specialty Hospital - [facility] [place] [address] 31138 Platelet mean volume (PMV) 9.5 fL Normal 9.4-12.3 [facility] Comment on above: Performed By: #### C BCDFJ ####[facility]ERSajanParkview Health [facility] Hospital[address] [place] [address] 16667#### DONBM ####[facility] [place] [address] 07112VmmbzsSelect Medical Specialty Hospital - [facility] [place] [address] 50014 Platelets 253 10*3/uL Normal 182-369 [facility] Comment on above: Performed By: #### C EVELINA ####[facility]APark[facility] [place] [address] 57808#### CAROLINA ####[facility] [place] [address] 14226TvghctSelect Medical Specialty Hospital [facility] [place] [address] SEGS + Bands,Absolute 2.69 K/uL Normal 1.56-6.13 [facility] Comment on above: Performed By: #### C EVELINA ####[facility]CIAParkview Health [facility] Hospital[address] [place] [address] 58478#### CAROLINA ####[facility] [place] [address] [place], [place] [address] [place] [address] WBC (Leukocytes) 4.80 10*3/uL Normal 3.98-10.04 [facility] Comment on above: Performed By: #### C EVELINA ####[facility]APark[facility] Hospital[address] [place] [address] 84088#### CAROLINA ####[facility] [place] [address] 10099CqizneSelect Medical Specialty Hospital [facility] [place] [address] 46820 Type and Lizzie 11-10-2017 Type and Cross Negative Normal [facility] Comment on above: Performed By: #### C EVELINA ####[facility]APark[facility] Hospital[address] [place] [address] 61423#### CAROLINA ####[facility] [place] [address] 26973KaznyiSelect Medical Specialty Hospital [facility] [place] [address] 92085 *BMT DONORon 10-21-2017 CMV IGM ANTIBODY Negative Normal Negative [facility] Comment on above: Performed By: #### C EVELINA ####[facility], [facility] [place] [address] 41584#### DONBM ####[facility] [place] [address] 75281YwsblaSelect Medical Specialty Hospital - [facility] [place] [address] 45575 *BMT DONORon 10-20-2017 *Cytomegalovirus Ab Total Negative Normal Negative [facility] Comment on above: Result Comment: Test performed by [facility] [place] [address] Performed By: #### C BCDFJ ####[facility], [facility] [place] [address] 51840#### DONBM ####[facility] [place] [address] 73147JxzrjeSelect Medical Specialty Hospital - [place] [place] [address] 35751 *HCV-ROSALEE Negative Normal Negative [facility] Comment on above: Result Comment: Test performed by [facility], [facility] [place] [address] Performed By: #### C BCDFJ ####[facility] [place] [address] 31386#### DONBM ####[facility] [place] [address] 71430WunnizSelect Medical Specialty Hospital - [place] [place] [address] 05478 *Hep B Core Ab, Total Negative Normal Negative [facility] Comment on above: Result Comment: Test performed by [facility], [facility] [place] [address] Performed By: #### C BCDFJ ####[facility] GUPTAT, [facility] [place] [address] 49393#### DONBM ####[facility] [place] [address] 46963GnzjuuSelect Medical Specialty Hospital [facility] [place] [address] 18629 *Hepatitis C Ab Negative Normal Negative [facility] Comment on above: Result Comment: Test performed by [facility], [facility] [place] [address] Performed By: #### C BCDFJ ####[facility] CCCT, [facility] [place] [address] 57259#### DONBM ####[facility] [place], [place] [address]OxjglhSelect Medical Specialty Hospital - [place] [place] [address] 39492 *Hepatitis*B Surface Ag Negative Normal [facility] Comment on above: Result Comment: Test performed by [facility], [facility] [place] [address] Performed By: #### C BCDFJ ####[facility], [facility] [place] [address] 95964#### DONBM ####[facility] [place] [address] 09805OwumcpSelect Medical Specialty Hospital [facility] [place] [place] [address] 41390 *HIV 1/0/2 Antibody Negative Normal Negative [facility] Comment on above: Result Comment: Test performed by [facility], [facility] [place] [address] Performed By: #### C BCDFJ ####[facility] [place] [address] 31650#### DONBM ####[facility] [place] [address] 94402HlugqsSelect Medical Specialty Hospital [facility] [place] [place] [address] 43888 *HIV-ROSALEE Negative Normal Negative [facility] Comment on above: Result Comment: Test performed by [facility], [facility] [place] [address] Performed By: #### C BCDFJ ####[facility], [facility] [place] [address] 32748#### DONBM ####[facility] [place] [address] 37987VhvhvuSelect Medical Specialty Hospital [facility] [place] [address] 59088 *HTLV I/II Ab Negative Normal Negative [facility] Comment on above: Result Comment: Test performed by [facility], [address] [place] [address], [place] [address] Performed By: #### C BCDFJ ####[facility] [place] [address] 47540#### DONBM ####[facility] [place] [address] 63874NalwoeSelect Medical Specialty Hospital - [place] [place] [address] 68166 *RPR Negative Normal Negative [facility] Comment on above: Result Comment: Test performed by [facility], [address] [place] [address] [place] [address] Performed By: #### C BCDFJ ####[facility] [place] [address] 25192#### DONBM ####[facility] [place] [address] 13988FxmgbeSelect Medical Specialty Hospital - [place] [place] [address] 67046 *T Cruzi Ab/Chaga's Disease Negative Normal Negative [facility] Comment on above: Result Comment: Test performed by [facility], [address] [place] [address], [place] [address] Performed By: #### C BCDFJ ####[facility] [place] [address] 65942#### DONBM ####[facility] [place] [address] 01280ZkukjxSelect Medical Specialty Hospital [facility] [place] [place] [address] 52538 *West Nile, ROSALEE Negative Normal Negative [facility] Comment on above: Result Comment: Test performed by [facility], [address] [place] [address], [place] [address] Performed By: #### C BCDFJ ####[facility], [facility] [place] [address] 93817#### DONBM ####[facility] [facility] [address]VyqlivSelect Medical Specialty Hospital - [place] [place] [address] 32114 HBV-ROSALEE Negative Normal Negative [facility] Comment on above: Result Comment: Test performed by [facility], [address] [place] [address] [place] [address] Performed By: #### C BCDFJ ####[facility] GARCIA, [facility] [place] [address] 61629#### DONBM ####[facility] [facility] [address]TxfgcoSelect Medical Specialty Hospital - [place] [place] [address] 24152 HSV I/II IgM Antibody Negative Normal Negative [facility] Comment on above: Performed By: #### C BCDFJ ####[facility] [place] [address] 21985#### DONBM ####[facility] [place], [place] [address]HrmbncSelect Medical Specialty Hospital - [place] [place] [address] 04007 EBV VCA IgG Antibody Positive Abnormal Negative [facility] Comment on above: Performed By: #### C BCDFJ ####[facility] [place] [address] 81742#### DONBM ####[facility] [facility] [address]GtprhdSelect Medical Specialty Hospital - [place] [place] [address] 59824 EBV VCA IgM Antibody Negative Normal Negative [facility] Comment on above: Performed By: #### C BCDFJ ####[facility] GARCIA, [facility] [place] [address] 46365#### DONBM ####[facility] [facility] [address]WhncjkSelect Medical Specialty Hospital [facility] [place] [address] 15148 HSV 1 IgG Antibody Negative Normal Negative [facility] Comment on above: Performed By: #### C BCDFJ ####[facility] GARCIA, [facility] [place] [address] 09180#### OSITOBM ####[facility] [facility], [place] [address]SpjzkmSelect Medical Specialty Hospital [facility] [place] [address] 63554 HSV 2 IgG Antibody Negative Normal Negative [facility] Comment on above: Performed By: #### C BCDFJ ####[facility] [place] [address] 27340#### CAROLINA ####[facility] [place] [address] 39453EcfrriSelect Medical Specialty Hospital [facility] [place] [address] 40373 *BMT DONORon 10-19-2017 *IBC*CONTROL*NUMBER [id number] Normal [facility] Comment on above: Performed By: #### C NILDADFJ ####[facility] [place] [address] 20638#### CAROLINA ####[facility] [place] [address] 01971WfxaagSelect Medical Specialty Hospital [facility] [place] [place] [address] 57683 Basic Metabolic Panel-CHRIon 10-19-2017 Anion gap 10 mmol/L Normal 7-17 [facility] Comment on above: Performed By: #### C BCDFJ ####[facility]ERSajanParkview Health Bryan Hospital[address] [place] [address] 29988#### OSITOBM ####[facility] [place] [address] 15071HylqeySelect Medical Specialty Hospital [facility] [place] [place] [address] 10866 Calcium 9.6 mg/dL Normal 8.6-10.5 [facility] Comment on above: Performed By: #### C BCDFJ ####[facility] CCCTParkview Health Bryan Hospital[address] [place] [address] 84695#### OSITOBM ####[facility] [place] [address] 84798ZskwfuSelect Medical Specialty Hospital - [place] [place] [address] 26013 Chloride 105 mmol/L Normal 98-108 [facility] Comment on above: Performed By: #### C BCDFJ ####[facility]ENTERTParkview Health [facility] Hospital[address] [place] [address] 36131#### DONBM ####[facility] [place] [address] 43235WaqpvsSelect Medical Specialty Hospital [facility] [place] [place] [address] 75252 CO2 28 mmol/L Normal 22-30 [facility] Comment on above: Performed By: #### C BCDFJ ####[facility] [place] [address]#### CAROLINA ####[facility] [place], [place] [address] [place] [address] Creatinine 0.75 mg/dL Normal 0.50-1.20 [facility] Comment on above: Performed By: #### C BCDFJ ####[facility] [place], [place] [address]#### CAROLINA ####[facility] [place] [address] [place], [place] [address] [place] [address] 73531 eGFR (non-black) mL/min/{1.73_m2} Normal >60 [facility] Comment on above: Performed By: #### C BCDFJ ####[facility]ENTERTParkview Health [facility] Hospital[address] [place] [address] 09029#### OSITOBM ####[facility] [place] [address] [place], [place] [address] [place] [address] 59733 Glucose mass conc 105 mg/dL High 70-99 [facility] Comment on above: Performed By: #### C BCDFJ ####[facility] GARCIAParkview Health [facility] Hospital[address] [place] [address] 17618#### CAROLINA ####[facility] [place] [address] 98501InbqkhSelect Medical Specialty Hospital [facility] [place] [address] 72075 Potassium molar conc 4.0 mmol/L Normal 3.5-5.0 [facility] Comment on above: Performed By: #### C BCDFJ ####[facility] GARCIAParkview Health [facility] Hospital[address] [place] [address] 89903#### CAROLINA ####[facility] [place] [address] 16419RkbuqmSelect Medical Specialty Hospital [facility] [place] [address] 15047 Sodium 139 mmol/L Normal 133-143 [facility] Comment on above: Performed By: #### C BCDFJ ####[facility]ERSajanParkview Health [facility] Hospital[address] [place] [address] 73819#### CAROLINA ####[facility] [place] [address] 81194YjegqjSelect Medical Specialty Hospital - [facility] [place] [address] 88578 Urea nitrogen 17 mg/dL Normal 7-22 [facility] Comment on above: Performed By: #### C BCDFJ ####[facility]APark[facility] [place] [address] 95606#### CAROLINA ####[facility] [place] [address] 07105EynfhkSelect Medical Specialty Hospital [facility] [place] [address] 82732 Beta HCG (Qual), Serum - CHR Ion 10-19-2017 Beta HCG (Qual), Serum Negative Normal [facility] Comment on above: Performed By: #### C BCDFJ ####[facility] GARCIAPark[facility] [place] [address]#### DONBM ####[facility] [place] [address] 25709JiltuuSelect Medical Specialty [facility] [place] [address] 51510 CBC WITH DIFF Renita 2017 Abs Baso 0.06 K/uL Normal 0.01-0.08 [facility] Comment on above: Performed By: #### C BCDFJ ####[facility] [place] [address]#### DONBM ####[facility] [place] [address] [place], [place] [address] [place] [address] Abs Eos 0.02 K/uL Low 0.04-0.36 [facility] Comment on above: Performed By: #### C EVELINA ####[facility] [place] [address]#### DONBM ####[facility] [place] [address] [place], [place] [address] [place] [address] Abs [place] 0.38 K/uL Normal 0.24-0.86 [facility] Comment on above: Performed By: #### C HELENJ ####[facility]ERSajanParkview Health [facility] Hospital[address] [place] [address]#### DONBM ####[facility] [place] [address] 08412McjbntSelect Medical Specialty Hospital - [facility] [place] [address] 88422 Basophils/100 WBC Auto (Bld) 1.3 % Normal [facility] Comment on above: Performed By: #### C BCDFJ ####[facility] [place], [place] [address]#### DONBM ####[facility] [place] [address] 61547IllrxpSelect Medical Specialty Hospital [facility] [place] [address] 73516 DIFFERENTIAL TYPE Electronic Differential Normal [facility] Comment on above: Performed By: #### C BCDFJ ####[facility]ERSajanParkview Health [facility] Hospital[address] [place] [address] 62502#### DONBM ####[facility] [place] [address] 15473FtlxstSelect Medical Specialty Hospital [facility] [place] [address] 23366 Eosinophils/100 leukocytes 0.4 % Normal [facility] Comment on above: Performed By: #### C BCDFJ ####[facility] [place] [address] 42078#### CAROLINA ####[facility] [place] [address] 04845LdnjwiSelect Medical Specialty Hospital - [facility] [place] [address] 01517 Erythrocytes (RBC) 11.9 % Normal 11.7-14.4 [facility] Comment on above: Performed By: #### C BCDFJ ####[facility]ERSajanParkview Health [facility] Hospital[address] [place] [address] 61082#### DONAMANDA ####[facility] [place] [address] 20767DdenpwSelect Medical Specialty [facility] [place] [address] 42854 Erythrocytes (RBC) 4.34 10*6/uL Normal 3.93-5.22 [facility] Comment on above: Performed By: #### C BCDFJ ####[facility]ERSajanParkview Health [facility] Hospital[address] [place] [address] 99971#### DONBM ####[facility] [place] [address] 33819GzyaxzSelect Medical Specialty Hospital [facility] [place] [address] 33404 Hematocrit (HCT) 39.2 % Normal 34.1-44.9 [facility] Comment on above: Performed By: #### C BCDFJ ####[facility] [place] [address] 36989#### DONBM ####[facility] [place] [address] 09799UclegkSelect Medical Specialty Hospital [facility] [place] [address] 03171 Hemoglobin mass conc (Bld) 31.1 pg Normal 25.6-32.2 [facility] Comment on above: Performed By: #### C NILDADFJ ####[facility] [place] [address] 61203#### DONBM ####[facility] [place] [address] 87356UtwcvbSelect Medical Specialty Hospital - [facility] [place] [address] 24006 Hemoglobin mass conc (Bld) 13.5 g/dL Normal 11.2-15.7 [facility] Comment on above: Performed By: #### C EVELINA ####[facility] [place] [address] 65124#### CAROLINA ####[facility] [place] [address] 25628GnnbbwSelect Medical Specialty Hospital [facility] [place] [address] 57071 Hemoglobin mass conc (Bld) 34.4 g/dL Normal 32.2-35.5 [facility] Comment on above: Performed By: #### C NILDADFSuly ####[facility] [place] [address] 42751#### DONBM ####[facility] [place] [address] 53351SkkzceSelect Medical Specialty Hospital [facility] [place] [address] 39876 IMMATURE GRANS % 0.2 % Normal [facility] Comment on above: Performed By: #### C NILDADFJ ####[facility] [place] [address] 89265#### DONBM ####[facility] [place] [address] 40348JjidfiSelect Medical Specialty [facility] [place] [address] 51644 IMMATURE GRANS ABSOLUTE 0.01 K/uL Normal 0.00-0.03 [facility] Comment on above: Performed By: #### C EVELINA ####[facility]ERSajanParkview Health [facility] Hospital[address] [place] [address] 77988#### CAROLINA ####[facility] [place] [address] 76332DypfpvSelect Medical Specialty Hospital - [facility] [place] [address] 88968 Lymphocytes 1.25 10*3/uL Normal 1.18-3.74 [facility] Comment on above: Performed By: #### C EVELINA ####[facility] [place] [address] 95173#### CAROLINA ####[facility] [place] [address] [place], [place] [address] [place] [address] 32523 Lymphocytes/100 leukocytes 26.2 % Normal [facility] Comment on above: Performed By: #### C EVELINA ####[facility] [place] [address] 91835#### CAROLINA ####[facility] [place] [address] 05760VbmiydSelect Medical Specialty Hospital [facility] [place] [address] 13171 MCV 90.3 fL Normal 79.4-94.8 [facility] Comment on above: Performed By: #### C EVELINA ####[facility] [place] [address] 31332#### CAROLINA ####[facility] [place] [address] 92651IhqyxgSelect Medical Specialty Hospital [facility] [place] [address] 98914 Monocytes/100 leukocytes 7.9 % Normal [facility] Comment on above: Performed By: #### C BCDFJ ####[facility] GARCIAParkview Health [facility] Hospital[address] [place] [address] 57622#### OSITOBM ####[facility] [facility], [place] [address]SezzwuSelect Medical Specialty [facility] [place] [address] 33422 NEUTROPHIL SEGMENTED 64.0 % Normal [facility] Comment on above: Performed By: #### C NILDADFJ ####[facility] [place] [address] 98210#### CAROLINA ####[facility] [place] [address] 66664UvdipqSelect Medical Specialty Hospital [facility] [place] [address] [id number] Nucleated erythrocytes 0.0 /100 WBC Normal 0.0-0.2 [facility] Comment on above: Performed By: #### C HELENJ ####[facility] [place] [address] 07346#### CAROLINA ####[facility] [place] [address] 18586LhgeppSelect Medical Specialty [facility] [place] [address] 99330 Platelet mean volume (PMV) 9.3 fL Low 9.4-12.3 [facility] Comment on above: Performed By: #### C NILDADFJ ####[facility]ERSajanPark[facility] [place] [address] 35547#### CAROLINA ####[facility] [place] [address], [place] [address]GptkvsSelect Medical Specialty Hospital [facility] [place] [address] 84884 Platelets 297 10*3/uL Normal 182-369 [facility] Comment on above: Performed By: #### C NILDADFJ ####[facility]APark[facility] [place] [address] 34228#### CAROILNA ####[facility] [place] [address] 58270YbuutuSelect Medical Specialty Hospital [facility] [place] [address] 73658 SEGS + Bands,Absolute 3.06 K/uL Normal 1.56-6.13 [facility] Comment on above: Performed By: #### C EVELINA ####[facility]AP[facility] [place] [address] 01899#### CAROLINA ####[facility] [place] [address] 06686IpuzehSelect Medical Specialty Hospital [facility] [place] [place] [address] 12406 WBC (Leukocytes) 4.78 10*3/uL Normal 3.98-10.04 [facility] Comment on above: Performed By: #### C EVELINA ####[facility] [place] [address]#### CAROLINA ####[facility] [place] [address] [place], [place] [address] [place] [address] 60890 Hepatic Functions - CHRIon 0 10-19-2017 Alanine aminotransferase (ALT) 12 U/L Normal 9-48 [facility] Comment on above: Performed By: #### C EVELINA ####[facility]ERSajanParkview Health [facility] Hospital[address] [place] [address] 05522#### CAROLINA ####[facility] [place] [address] 57851OzhiduSelect Medical Specialty [facility] [place] [address] 74877 Albumin 4.0 g/dL Normal 3.5-5.0 [facility] Comment on above: Performed By: #### C EVELINA ####[facility] [place] [address] 16983#### CAROLINA ####[facility] [place] [address] 34001LsdqoqSelect Medical Specialty Hospital [facility] [place] [address] 69181 Alkaline phosphatase (ALP) 42 U/L Normal 32-126 [facility] Comment on above: Performed By: #### C BCDFJ ####[facility] [place] [address] 28029#### DONBM ####[facility] [place], [place] [address]UqllqhSelect Medical Specialty Hospital - [facility] [place] [address] 34762 Aspartate aminotransferase (AST) 16 U/L Normal 14-40 [facility] Comment on above: Performed By: #### C BCDFJ ####[facility] [place] [address] 21024#### OSITOBM ####[facility] [place] [address] 35183ZnqgfjSelect Medical Specialty Hospital [facility] [place] [address] 11169 Bilirubin (direct) 0.1 mg/dL Normal <0.3 [facility] Comment on above: Performed By: #### C BCDFJ ####[facility] [place] [address] 14952#### DONBM ####[facility] [place] [address] 77014DpvawlSelect Medical Specialty Hospital [facility] [place] [address] 35994 Bilirubin (total) 0.4 mg/dL Normal <1.5 [facility] Comment on above: Performed By: #### C BCDFJ ####[facility] [place] [address] 46177#### DONBM ####[facility] [place] [address] 76963NuaaenSelect Medical Specialty Hospital [facility] [place] [address] 53490 Protein 6.7 g/dL Normal 6.4-8.3 [facility] Comment on above: Performed By: #### C EVELINA ####[facility]APark[facility] [place] [address] 05743#### CAROLINA ####[facility] [place] [address] 08985VfaeziSelect Medical Specialty Hospital [facility] [place] [address] 38138 Inorg Phosphate - CHRIon Inorg Phosphate 2.7 mg/dL Normal 2.2-4.6 [facility] Comment on above: Performed By: #### C EVELINA ####[facility]ERSajanParkview Health [facility] Hospital[address] [place] [address] 52779#### CAROLINA ####[facility] [place] [address] [place], [place] [address] [place] [address] 97149 LD - CHRIon 10-19-2017 LD Total 120 U/L Normal 100-190 [facility] Comment on above: Performed By: #### C EVELINA ####[facility]ERSajanParkview Health [facility] Hospital[address] [place] [address] 94855#### CAROLINA ####[facility] [place] [address] [place], [place] [address] [place] [address] 60618 Magnesium - CHRIon 8 Magnesium 1.8 mg/dL Normal 1.6-2.6 [facility] Comment on above: Performed By: #### C EVELINA ####[facility] [place] [address] 44762#### CAROLINA ####[facility] [place], [place] [address] [place] [address] 72260 PT*PTT - CHRIon 10-19-2017 aPTT 27.0 s Normal 24.0-34.3 [facility] Comment on above: Performed By: #### C EVELINA ####[facility]ERSajanParkview Health [facility] Hospital[address] [place] [address] 15588#### CAROLINA ####[facility] [place] [address] 91425QwbmtgSelect Medical Specialty Hospital [facility] [place] [address] 20182 INR Coag RelTime (PPP) 1.0 {INR} Normal 0.9-1.1 [facility] Comment on above: Performed By: #### C EVELINA ####[facility] [place] [address] 92853#### CAROLINA ####[facility] [place] [address] [place], [place] [address] [place] [address] 42145 Prothrombin time (PT) Coag time (PPP) 12.9 s Normal 11.9-14.2 [facility] Comment on above: Performed By: #### C EVELINA ####[facility] [place] [address] 92060#### CAROLINA ####[facility] [place] [address] [place], [place] [address] [place] [address] 78738 Type and Lizzie 10-19-2017 Type and Cross Negative Normal [facility] Comment on above: Performed By: #### C EVELINA ####[facility]ERSajanParkview Health [facility] Hospital[address] [place] [address] 42238#### CAROLINA ####[facility] [place] [address] 09393ZndvjiSelect Medical Specialty Hospital [facility] [place] [address] 32731 Uric Acid - CHRIon 8 Urate 4.2 mg/dL Normal 2.8-6.0 [facility] Comment on above: Performed By: #### C EVELINA ####[facility]AP[facility] [place], [place] [address]#### DONBM ####[facility] [place], [place] [address]XgscyzSelect Medical Specialty Hospital - Youngstown[address] [place], [place] [address] XR CHEST PA AND LATERALon XR CHEST PA AND LATERAL EXAM: XR CHEST PA AND LATERAL, 10/19/2017 14:19 PMCOMPARISON: No prior studies available for comparison.CLINICAL INDICATIONS: pre stem cell/bone marrow donor evaluationRELEVANT CLINICAL HISTORY: Z52.3:Bone marrow donorFINDINGS: (Adequate technique)Implanted Devices: None Chest Wall: NormalHila: NormalMediastinum: NormalPleural Spaces: No pleural effusion. No pneumothorax.Lungs: Clear, without mass, interstitial disease, or consolidation.Cardiac Silhouette: Normal, without overall or specific chamber enlargement,or abnormal calcification Thoracic Aorta: Normal Pulmonary Vessels: Normal, without PVHIMPRESSION:No acute cardiopulmonary process I personally viewed and interpreted these images and I have reviewed andapproved this report. Normal [facility] Vital Signs Date Time Vital Sign Value Performing Clinician Faci lity 03-08-2023 18:07-0400 Body temperature 97.5 [degF] Gillian Jeffers APRN.CLIENT INSIGHTS CONSULTANT Work Phone: [facility] 03-08-2023 18:07-0400 Body weight 75.3 kg Gillian Jeffers APRN.CLIENT INSIGHTS CONSULTANT Work Phone: [facility] 03-08-2023 18:07-0400 Diastolic blood pressure 72 mm[Hg] Gillian Jeffers APRN.CLIENT INSIGHTS CONSULTANT Work Phone: [facility] 03-08-2023 18:07-0400 Heart rate 70 /min Gillian Jeffers APRN.CLIENT INSIGHTS CONSULTANT Work Phone: [facility] 03-08-2023 18:07-0400 Respiratory rate 16 /min Gillian Jeffers APRN.CLIENT INSIGHTS CONSULTANT Work Phone: [facility] 03-08-2023 18:07-0400 SaO2% (BldA) [Mass fraction] 96 % Gillian Jeffers APRN.CNP Work Phone: [facility] 03-08-2023 18:07-0400 Systolic blood pressure 110 mm[Hg] Gillian Jeffers APRN.CNP Work Phone: [facility] Encounters Encounter Date Encounter Type Care Provider Facility Start: 08-14-2024 End: 08-14-2024 ambulatory EMILY Wilson [facility] Start: 07-17-2024 End: 07-17-2024 ambulatory EMILY Wilson [facility] Start: 05-08-2024 End: 05-08-2024 ambulatory PRISCILLA PAL [facility] Start: 03-27-2024 End: 03-27-2024 ambulatory MAMADOU Chaidez SPARROW [facility] Start: 02-29-2024 End: 02-29-2024 ambulatory PETRONA Hoang MICHAELS [facility] Start: 03-08-2023 End: 03-08-2023 ambulatory Facility:[facility] Start: 03-08-2023 End: 03-08-2023 Office outpatient visit 15 minutes Gillian Jeffers APRN.CNP Work Phone: [facility] Comment on above: Sore throat (Primary Dx) Start: 11-10-2017 End: 11-10-2017 Ambulatory ROSAS MCGOVERN [facility] Start: 10-19-2017 Ambulatory RAJESH NGUYEN [facility] Procedures Date Procedure Procedure Detail Performing Clinician Start: 03-08-2023 STREP A MOLECULAR (POC) Patti Manzo PA-C Work Phone: Plan of Treatment Date Care Activity Detail Author Start: 06-04-2023 Influenza vaccination INFLUENZA (Sea son Ended) [facility] Start: 10-04-2022 DEPRESSION ASSESSMENT DEPRESSION ASS ESSMENT [facility] Start: 07-14-2021 COVID-19 VACCINE (2 - Booster for Tricia series) COVID-19 VACCINE (2 - Booster for Tricia series) [facility] Start: 2020 HPV TESTING HPV TESTING [facility] Start: 12-31-2011 PAP TESTING PAP TESTING [facility] Start: 2009 Urine microalbumin profile DTAP,TDAP ,TD (1 - Tdap) [facility] Start: 2008 HEPATITIS C SCREENING HEPATITIS C SC NORTH [facility] Start: 2008 HIV SCREENING HIV SCREENING [facility] Start: 1990 HEPATITIS B (1 of 3 - 3-dose series) HEPATITIS B (1 of 3 - 3-dose series) [facility] Payers Date Payer Category Payer Unknown [id number] 2022 Unknown [employer] PPO [id number] 2022-Present [phone] [address] [place] [address] PPO [id number] 2016 Unknown [id number] 1990 Unknown [id number] 1990 Unknown [id number] 1990 Unknown [id number] 1990 Unknown [id number] 1990 Unknown [id number] 1990 Unknown [id number] Social History Date Type Detail Facility Start: 03-08-2023 Tobacco smoking status NHIS Never smoked tobacco [facility] Work Phone: Start: 03-08-2023 Tobacco use and exposure Smokeless tobacco non-user [facility] Work Phone: Start: 1990 Sex Assigned At Not on file [facility] NEGATED: Highlighted rowStart: NINF History of tobacco use Passive smoker [facility] Work Phone: Progress note 03-08-2023 Note Date & Type Note Facility 03-08-2023 Note HNO ID: [id number] Author: Gillian Jeffers APRN.YONIS Service: ? Author Type: Nurse Practitioner Type: [...] canal and external ear normal. Mouth/Throat: Lips: [place]. Mouth: Mucous membranes are moist. Pharynx: Oropharynx [...] of care. This note was generated using [employer] software. It may contain errors in wording, punctuation, or spelling. Gillian Jeffers APRN.YONIS [facility] History of Present illness Narrative 03-08-2023 Gillian Jeffers APRN.YONIS - 03/08/2023 6:09 PM EDT [...] canal and external ear normal. Mouth/Throat: Lips: [place]. Mouth: Mucous membranes are moist. Pharynx: Oropharynx [...] of care. This note was generated using [employer] software. It may contain errors in wording, punctuation, or spelling. Gillian Jeffers APRN.YONIS documented in this encounter [facility] Evaluation note Note Date & Type Note Facility Evaluation note Diagnosis Sore throat- Primary Acute pharyngitis documented in this encounter [facility] Summary Purpose Family History No Family History Records FoundNo Family History Records FoundNo Family History Records Found Advance Directives No Advanced Directives Records FoundNo Advanced Directives Records FoundNo Advanced Directives Records Found Additional Source Comments INFORMATION SOURCE (unrecogn ized section and content) DATE CREATED AUTHOR 03/28/2018 [facility] DATE CREATED AUTHOR AUTHOR'S ORGANIZ ATION 03/14/2023 [facility] DATE CREATED AUTHOR AUTHOR'S ORGANIZ ATION 08/16/2024 [facility] Source Comments (unrecognize d section and content) In the event this informatio n is protected by the Federal Confidentiality of Alcohol and Drug Abuse Patient Records regulations: The Federal rules restrict any use of the information to criminally investigate or prosecute any alcohol or drug abuse patient.[facility] Reason for Visit (unrecogniz ed section and content) Reason Comments Sore Throat x 3 days FOR RECORDS PERTAINING TO PATIENTS WHO ARE [...] BE BASED ON THE PRIMARY CLINICAL RECORDS. [employer] provides no warranty or guarantee of the accuracy or completeness of information in this document.
[2024-08-21 06:03] LABS: Absolute Lymphocyte Count 1.97 X10^3/uL (0.83-4.51); Absolute Neutrophil Count 5.7 X10^3/uL (2.0-7.7); Basophil# 0.03 X10^3/uL; Basophil% 0.4 % (0-1); Eosinophil# 0.07 X10^3/uL; Eosinophils% 0.8 % (0-5); Hematocrit 32.2 % (37-47); Hemoglobin 11.2 g/dL (12.0-15.0); Lymphocyte # 1.97 X10^3/ul (0.83-4.51); Lymphocyte % 23.4 % (19-41); Mean Corp Hgb Conc 34.8 g/dL (32-36); Mean Corpuscular Hgb 32.1 pg (27.0-32.0); Mean Corpuscular Volume 92.3 fL (81-99); Mean Platelet Vol. 10.2 fl (6.2-12.0); Monocyte# 0.63 X10^3/uL; Monocyte% 7.5 % (0-10); NRBC Flagged by Analyzer 0 % (0-5); Neutrophil # 5.69 X10^3/uL (2.7-7.7); Neutrophil % 67.4 % (47-70); Platelet Count 239 K/mm3 (150-450); RBC Distribution Width CV 12.5 % (11.6-14.6); Red Blood Count 3.49 M/mm3 (4.2-5.4); White Blood Count 8.4 K/mm3 (4.4-11.0)
[2024-08-21] MEDS: Acetaminophen 500 MG Tablet 1000 MG PO ×4 (06:08→23:59)
[2024-08-21] MEDS: Sodium Citrate/Citric Acid 30 ML UDC PO (06:08)
[2024-08-21 06:48] LABS: Amphetamine Urine VISTA NEGATIVE (<1000 ng/mL); Barbiturate Urine VISTA NEGATIVE (< 200 ng/mL); Benzodiazepine Urine VISTA NEGATIVE (< 200 ng/mL); Cocaine Urine VISTA NEGATIVE (< 300 ng/mL); Ecstacy Urine VISTA NEGATIVE (< 500 ng/mL); Methadone Urine VISTA NEGATIVE (< 300 ng/mL); PCP Urine VISTA NEGATIVE (< 25 ng/mL); THC Urine VISTA NEGATIVE (< 50 ng/mL); Vista UDS pH Range 6
[2024-08-21] MEDS: Lactated Ringers 1,000 ML 150 ML IV (06:53)
[2024-08-21] MEDS: Cefazolin 2 GM in Syringe IV (07:16)
--- NOTE | 2024-08-21 07:44 | FALS_PTH ---
PATHOLOGY RESULTS PATIENT: STEVE BERNAL LOC: WP U#:[id number] AGE/SX: 33/F ROOM: WP007 RE08/21/[address]: Dr. Petrona Grijalva MD : 1990 BED: 1 DIS: 08/23/2024 SPEC #: [id number] RECD: 08/21/24 09:26 STATUS: LUZ APARICIOAletha #: [id number] MARIAN: 08/21/24 07:[address]: Petrona Grijalva DEPT: SURGICAL PATHOLOGY RECD BY: Litzy Alejandre ENTERED: 08/21/24 09:46 SP TYPE: FALL TUBES OTHR DR: Dr. Priscilla Pal MD Tissues: Fallopian tube Procedures: Surgery Specimen Level II HEADER OPERATION: Tubal ligation PRE-OP DIAGNOSIS: Tubal routine TISSUE SUBMITTED: Bilateral fallopian tubes - stitch on right MICROSCOPIC DIAGNOSIS Bilateral fallopian tubes, salpingectomy: Bilateral fallopian tubes, no pathologic diagnosis. JUDY: 08/22/2024 MICROSCOPIC DESCRIPTION Slides are reviewed. GROSS DESCRIPTION Received in fixative is one container labeled with the patient's name and designated bilateral fallopian tubes - stitch on right. The specimen consists of bilateral fallopian tubes including fimbrial ends. Left fallopian tube measuring 6.0cm in length and up to 0.6cm in diameter. Right fallopian tube measuring 5.0 cm in length and up to 0.6 cm in diameter. Sections reveal unremarkable cut surfaces. Financial Services Specialist sections are submitted in two cassettes: 1- left fallopian tube, 2- right fallopian tube. / NAY: 08/21/2024 TC:4 CPT: 81810 x2
[2024-08-21 08:24] LABS: Syphilis Antibodies Non-reactive
[2024-08-21] MEDS: Oxytocin 15 Units/NS 250ml 15 UNITS/250 ML IV.SOLN 83 UNITS IV (08:35)
[2024-08-21 09:27] LABS: Pathology Specimen OB SEE PATHOLOGY REPORT
[2024-08-21] MEDS: Ketorolac 30 MG/ML Syringe IV ×3 (09:35→21:16)
[2024-08-21] MEDS: 0.9% Saline Lock 10 ML Syringe IV ×2 (15:56→21:16)
[2024-08-22] VITALS (9 sets, daily range): BP systolic 127–149; BP diastolic 81–99; PULSE 74–90; RESP 15–18; TEMP 36.2–37.1; O2SAT 95–98
--- NOTE | 2024-08-22 01:19 | DCINST_ITS ---
Discharge Instructions Diet Discharge Diet: No restrictions Activity Discharge Activity: May Not Drive (for 2 weeks or while taking narcotic pain medications.), May Shower and May Take a Tub Bath (in 7 days) May shower in (days): 0 May resume sexual activity in: 4-6 weeks Weight Bearing Status: Full weight bearing Lifting Restrictions: 20 pounds Dressing / Incision Call your doctor if your incision/area has: Continuous Slow Oozing, Sudden Increased Bleeding, Increased Pain/ Swelling, Increased Redness and Foul Smelling Discharge Call your doctor if you observe: Fever of 101 or Higher and Using more than 1 pad per hour (for 2 hours) Suture Line Care: Avoid Pulling/Pushing and Avoid Pinching/Bending Cleanse incision/area with: Soap & Water and Keep Dressing Clean & Dry Follow Up Care Please Follow Up With: Petrona Grijalva MD When: Call [phone] to make an appointment for an incision check in 1-2 weeks. Test Results: Test results from this visit will be discussed in further detail at your follow- up appointment, if applicable. Discharge Plan Admission Admit Date/Time: 08/21/24 05:20 Attending Provider: Petrona Grijalva Primary Care Provider: Priscilla Pal Discharge Orders/Prescriptions Prescriptions: New oxycodone-acetaminophen [Percocet] 5-325 mg tablet 1 tab PO Q6H PRN (Reason: pain) 7 Days Qty: 20 0RF naproxen 500 mg tablet 500 mg PO BID PRN PRN (Reason: Pain) Qty: 30 1RF No Action DHA 200 mg capsule 200 mg PO DAILY labetalol 200 mg tablet 200 mg PO BID Qty: 60 4RF Referrals / Follow Up: Priscilla Pal MD [Primary Care Provider] -
--- NOTE | 2024-08-22 01:19 | HP.PCM.OB_ITS ---
HPI - General General Date of Admission: 08/21/24 HPI Narrative STEVE BERNAL, is a 33 F who presents for RLTCS, GHTN present, desired sterilization. Maternal Data Information MARTHA Calculator 2 Estimated Delivery Date Method Current WG Current Estimate 09/11/24 Ultrasound #1 37w 1d PFSH PFS Medical History (Updated 08/21/24 @ 12:11 by Princess Burrell [facility] Gestational HTN Home Medications ?Medication ?Instructions ?Recorded ?Last Taken ?Type docosahexaenoic acid 200 mg 200 mg PO DAILY 02/03/24 08/20/24 08:00 History capsule ( DHA) labetalol 200 mg tablet 200 mg PO BID bp #60 tabs 07/28/24 08/20/24 19:00 Rx Allergy/AdvReac Type Severity Reaction Status Date / Time No Known Allergies Allergy Verified 08/21/24 06:12 Family History Mother CVA (cerebral vascular accident) Hypertension Diabetes Gestational diabetes Father Lymphoma Aunt Leukemia Grandmother CVA (cerebral vascular accident) Diabetes Hypertension Myocardial infarction Grandfather CVA (cerebral vascular accident) Diabetes Hypertension Myocardial infarction Surgical History (Updated 08/21/24 @ 05:55 by Anahi May) Bone marrow donor H/O wisdom tooth extraction History of ankle surgery Social History adopted: No household members: spouse and children number of children: 1 current occupational status: employed 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 current occupational exposures/hazards: No pets and animals: No leisure activities: exercise, music and reading history of recent travel: Yes (All domestic [place] travel ([place], [place], [place], [place]) details: [place], [place], [place], [place] out of state: Yes out of country: No sexually active: Yes Smoking Status: Never smoker Electronic Cigarette Use: not used second hand exposure: No alcohol intake: former details: not while substance use type: marijuana well-balanced diet: about half the time caffeine: Yes (very seldomly drinking beverages with caffeine (1-3 times per month)) Type: tea eating out: 1-3 times/week during the past year weight has: decreased > 10 lbs what type of physical activity do you participate in: walking and running frequency: 3-4 times per week duration: 30-45 minutes/day michael/anabaptist: Nondenominational seatbelt use: always do you feel safe at home: Yes additional social history: : Foreign [place] History 2 Elective abortions Hx Para 1 Spontaneous abortions Hx # Term Pregnancies Ectopic pregnancies Hx # Pregnancies Multiple births # of living children 1 Past Pregnancies Del. Date Name GA/Weeks Outcome Route Bth Weight Infant Gen Labor Lgth Anesthesia Del Locatn Provider FOB 07/28/16 Loi live - full term 7lbs 5oz Male spinal [facility] Delivery Date: 07/28/16 Last Updated by: Tiffanie Samaniego RN Elective Visit Details Expected Delivery Route/Plan plan RLTCS- plan for 09/04/24 or 09/05/24 Plans Covid status: [] Flu vaccine: [] Tdap vaccine: [] Rhogam: [] LARC form signed: [] Problem list reviewed and updated with the most current plan of care details and appropriate orders placed. Relevant counseling for the gestational age provided. Continue routine care and follow up unless otherwise noted in visit notes/problem list details OB Flowsheet Initial Weight: Not Recorded Date -?-?-?-?-?-?-?-?-?-?-?-?- EGA Weight BP Urine Prot -?-?-?--?-?-?-?-?-?-?-?-?- Glucose FHR FuHt Pres Dilation -?-?-?-?-?-?-?-?-?--?-?-?- Effaced St Visit Note 02/08/24 -?-?-?-?-?-?-?-?-?-?-?-?- 9w 1d 147 lb 127/89 -?-?-?-?-?-?-?-?-?-?-?-?- 170 -?-?-?-?-?-?-?-?-?-?-?-?- SM- CRL measurin g consistent with previous MARTHA 02/11/24 -?-?-?-?-?-?-?-?-?-?-?-?- 9w 4d 157 lb 129/85 -?-?-?-?-?-?-?-?-?-?-?-?- 173 -?-?-?-?-?-?-?-?-?-?-?-?- KW- NOB exam tod ay. JV scanned. Still bleeding since IUD removal. NIPT box given today 02/17/24 -?-?-?-?-?-?-?-?-?-?-?-?- 10w 3d 151 lb 146/92 -?-?-?-?-?-?-?-?-?-?-?-?- 168 0 -?-?-?-?-?-?-?-?-?-?-?-?- SM- had increase bleeding with large clot passed today. viable IUP still seen but area of bleeding seen 5mm near endocervical os, cervix 4 cm and closed on digital exam, bright red bleeding seen though. refer to [facility] for second opinion on management and evaluation. 02/23/24 -?-?-?-?-?-?-?-?-?-?-?-?- 11w 2d 152 lb 4 oz 128/77 Nega tive -?-?-?-?-?-?-?-?-?-?--?-?- Negative 168 -?-?-?-?-?-?-?-?-?-?-?-?- JV- still having very little amount of bleeding. will see MFM next week. NIPT is pending. wants AFP when it is time. 03/07/24 -?-?-?-?-?-?-?-?-?-?-?-?- 13w 1d 154 lb 2 oz 137/86 Nega tive -?-?-?-?-?-?-?-?-?-?-?-?- Negative 156 -?-?-?-?-?-?-?-?-?-?-?-?- JV- no longer bl eeding. ultrasound report from [facility] reviewed. RTO in one month ok. will see mfm in 3 weeks. 03/29/24 -?-?-?-?-?-?-?-?-?-?-?-?- 16w 2d 157 lb 6 oz 133/84 Nega tive -?-?-?-?-?-?-?-?-?-?-?-?- Negative 150 -?-?-?-?-?-?-?-?-?-?-?-?- SulyV- saw mfm and sees them again on 04/27 for full anatomy scan. 05/04/24 -?-?-?-?-?-?-?-?-?-?-?-?- 21w 3d 160 lb 6 oz 128/81 Nega tive -?-?-?-?-?-?-?-?-?-?-?-?- Negative 145 -?-?-?-?-?-?-?-?-?-?-?-?- SM- no vb lof go od fm no regular ctx 06/01/24 -?-?-?-?-?-?-?-?-?-?-?-?- 25w 3d 170 lb 140/86 134/82 Negative -?-?-?-?-?-?-?-?-?-?-?-?- Negative 140 -?-?-?-?-?-?-?-?-?-?-?-?- SM- no vb lof go od fm no regular ctx 06/28/24 -?-?-?-?-?-?-?-?-?-?-?-?- 29w 2d 177 lb 130/85 Negative -?-?-?-?-?-?-?-?-?-?-?-?- Negative 145 30 -?-?-?-?-?-?-?-?-?-?-?-?- SM- no vb lof go od fm no regular ctx SM- no vb lof good fm no reg ular ctx tdap 07/12/24 -?-?-?-?-?-?-?-?-?-?-?-?- 31w 2d 183 lb 133/83 Negative -?-?-?-?-?-?-?-?-?-?-?-?- Negative 140 32 -?-?-?-?-?-?-?-?-?-?-?-?- JV- no lof, vagi nal bleeding, or dec fm. she is asking about when growth scan will be. will order 32 week growth with MFM. she has a lump behind her left ear that palpates under the skin and does not necessarily feel like a lymph node. It is the size of a pea and consistency is rubbery. She also has a petechial rash on her left hand and up her left arm. cbc and iron studies ordered. RSV vaccine info discussed. she would like this if and when we get it. She will think about flu vaccine. 07/27/24 -?-?-?-?-?-?-?-?-?-?-?-?- 33w 3d 179 lb 6 oz 140/98 Nega tive -?-?-?-?-?--?-?-?-?-?-?-?- Negative -?-?-?-?-?-?-?-?-?-?-?-?- Note elevated BP X 3. Headache today, not relieved by tylenol just do not feel well . To WP 07/31/24 -?-?-?-?-?-?-?-?-?-?-?-?- 34w 0d 181 lb 144/91 Negative -?-?-?-?-?-?-?-?-?-?-?-?- Negative 140 -?-?-?-?-?-?-?-?-?-?-?-?- JV- Bp's are bet ter conrolled on the labetalol still had one elevated here. nst reactive. continue close follow up. rpt labs next visit this week. 08/03/24 -?-?-?-?-?-?-?-?-?-?-?-?- 34w 3d 181 lb 135/87 -?-?-?-?-?-?-?-?-?-?-?-?- 140 -?-?-?-?-?-?-?-?-?-?-?-?- SM- no vb lof 08/07/24 -?-?-?-?-?-?-?-?-?-?-?-?- 35w 0d 181 lb 132/82 Negative -?-?-?-?-?-?-?-?-?-?-?-?- Negative 140 -?-?-?-?-?-?-?-?-?-?-?-?- SM- no vb lof go od fm no regualr ctx doing well 08/10/24 -?-?-?-?-?-?-?-?-?-?-?-?- 35w 3d 184 lb 2 oz 129/86 Trac e -?-?-?-?-?-?-?-?-?-?-?-?- Negative 140 -?-?-?-?-?-?-?-?-?-?-?-?- SM- bps WNL no v b lof good fm no regular ctx recommend checking pree labs today 08/14/24 -?-?-?-?-?-?-?-?-?-?-?-?- 36w 0d 183 lb 6 oz 133/79 Nega tive -?-?-?-?-?-?-?-?-?-?-?-?- Negative 145 -?-?-?-?-?-?-?-?-?-?-?-?- MH-NST only reac tive 08/17/24 -?-?-?-?-?-?-?-?-?-?-?-?- 36w 3d 184 lb 4 oz 137/86 Nega tive -?-?-?-?-?-?-?-?-?-?-?-?- Negative 140 -?-?-?-?-?-?-?-?-?-?-?-?- JV-NST reactive. no complaints today. bp log reviewed. rpt section and BTL wednesday. gbs today. consent signed. NST FHR Rate Baby A Baseline: 130 ROS Constitutional Constitutional: Reports systems reviewed and no addt'l complaints, except as documented Eyes Eyes: Denies change in vision ENT HEENT: Reports systems reviewed and no addt'l complaints, except as documented; Denies headache(s) Cardiovascular Cardiovascular: Reports systems reviewed and no addt'l complaints, except as documented; Denies chest pain or dyspnea Respiratory/Chest Respiratory/Chest: Reports systems reviewed and no addt'l complaints, except as documented Gastrointestinal Gastrointestinal: Reports systems reviewed and no addt'l complaints, except as documented; Denies abdominal pain Genitourinary Genitourinary: Reports systems reviewed and no addt'l complaints, except as documented, contractions Details: present (irregular) and movement Details: present; Denies dysuria or genital lesions Musculoskeletal Musculoskeletal: Reports systems reviewed and no addt'l complaints, except as documented Neurologic Neurologic: Reports systems reviewed and no addt'l complaints, except as documented Endocrine Endocrinology: Reports systems reviewed and no addt'l complaints, except as documented Vital Signs Vital Signs Vital Signs: 08/21/24 05:47 08/21/24 05:47 08/21/24 05:48 Temperature Temperature Source Pulse Rate 83 88 Respiratory Rate Respiratory Depth Respiratory Pattern Blood Pressure 140/92 H Blood Pressure Mean BP Systolic 140 BP Diastolic 92 Blood Pressure Source Blood Pressure Position Blood Pressure Location Baseline BP Pulse Ox Oxygen Delivery Method 08/21/24 05:48 08/21/24 05:59 08/21/24 08:34 Temperature 99.1 F Temperature Source Oral Temporal Pulse Rate 88 Respiratory Rate 16 Respiratory Depth Respiratory Pattern Blood Pressure 140/92 H Blood Pressure Mean 108 BP Systolic BP Diastolic Blood Pressure Source Monitor Blood Pressure Position Semi-Fowlers Blood Pressure Location Right Arm Baseline BP Pulse Ox 97 97 Oxygen Delivery Method Room Air 08/21/24 08:34 08/21/24 08:45 08/21/24 09:00 Temperature 97.3 F L Temperature Source Temporal Pulse Rate 86 87 83 Respiratory Rate 16 16 16 Respiratory Depth Respiratory Pattern Normal Blood Pressure 119/59 L 128/94 H 133/95 H Blood Pressure Mean 79 105 107 BP Systolic BP Diastolic Blood Pressure Source Monitor Monitor Monitor Blood Pressure Position Semi-Fowlers Semi-Fowlers Semi-Fowlers Blood Pressure Location Left Arm Left Arm Baseline BP 140/92 140/92 140/92 Pulse Ox 97 97 97 Oxygen Delivery Method Room Air Room Air Room Air 08/21/24 09:15 08/21/24 09:30 08/21/24 09:30 Temperature 97.6 F L Temperature Source Temporal Temporal Pulse Rate 82 76 Respiratory Rate 16 16 Respiratory Depth Respiratory Pattern Blood Pressure 125/83 H 128/88 H Blood Pressure Mean 97 101 BP Systolic BP Diastolic Blood Pressure Source Monitor Monitor Blood Pressure Position Semi-Fowlers Semi-Fowlers Blood Pressure Location Left Arm Left Arm Baseline BP 140/92 140/92 Pulse Ox 95 97 Oxygen Delivery Method Room Air Room Air 08/21/24 09:45 08/21/24 09:45 08/21/24 10:00 Temperature 97.8 F Temperature Source Temporal Temporal Pulse Rate 78 70 Respiratory Rate 16 16 Respiratory Depth Respiratory Pattern Blood Pressure 126/89 H 127/88 H Blood Pressure Mean 101 101 BP Systolic BP Diastolic Blood Pressure Source Monitor Monitor Blood Pressure Position Semi-Fowlers Semi-Fowlers Blood Pressure Location Left Arm Left Arm Baseline BP 140/92 140/92 Pulse Ox 96 95 Oxygen Delivery Method Room Air Room Air 08/21/24 10:15 08/21/24 10:15 08/21/24 10:30 Temperature 98.7 F Temperature Source Axillary Axillary Pulse Rate 78 78 Respiratory Rate 16 16 Respiratory Depth Respiratory Pattern Blood Pressure 120/84 H 124/78 H Blood Pressure Mean 96 93 BP Systolic BP Diastolic Blood Pressure Source Monitor Monitor Blood Pressure Position Semi-Fowlers Semi-Fowlers Blood Pressure Location Left Arm Left Arm Baseline BP 140/92 140/92 Pulse Ox 96 96 Oxygen Delivery Method Room Air Room Air 08/21/24 10:45 08/21/24 11:40 08/21/24 11:40 Temperature 98.0 F Temperature Source Temporal Temporal Pulse Rate 76 Respiratory Rate 16 Respiratory Depth Normal Respiratory Pattern Blood Pressure 129/92 H Blood Pressure Mean 104 BP Systolic BP Diastolic Blood Pressure Source Monitor Blood Pressure Position Semi-Fowlers Blood Pressure Location Left Arm Baseline BP 140/92 Pulse Ox 97 Oxygen Delivery Method Room Air 08/21/24 12:40 08/21/24 12:40 08/21/24 13:50 Temperature 97.5 F L Temperature Source Temporal Temporal Pulse Rate 70 Respiratory Rate 16 16 Respiratory Depth Normal Normal Respiratory Pattern Blood Pressure 128/82 H Blood Pressure Mean 97 BP Systolic BP Diastolic Blood Pressure Source Monitor Blood Pressure Position Semi-Fowlers Blood Pressure Location Left Arm Baseline BP Pulse Ox 96 97 Oxygen Delivery Method Room Air Room Air 08/21/24 15:00 08/21/24 15:00 08/21/24 16:24 Temperature 98.3 F Temperature Source Temporal Temporal Pulse Rate 71 78 Respiratory Rate 16 16 Respiratory Depth Normal Normal Respiratory Pattern Blood Pressure 114/76 Blood Pressure Mean 88 BP Systolic BP Diastolic Blood Pressure Source Monitor Blood Pressure Position Semi-Fowlers Blood Pressure Location Left Arm Baseline BP Pulse Ox 99 100 Oxygen Delivery Method Room Air Room Air 08/21/24 17:00 08/21/24 17:32 08/21/24 17:32 Temperature 98.1 F Temperature Source Axillary Axillary Pulse Rate 72 71 Respiratory Rate 16 16 Respiratory Depth Normal Normal Respiratory Pattern Blood Pressure 120/79 Blood Pressure Mean 92 BP Systolic BP Diastolic Blood Pressure Source Monitor Blood Pressure Position Semi-Fowlers Blood Pressure Location Left Arm Baseline BP Pulse Ox 97 97 Oxygen Delivery Method Room Air Room Air 08/21/24 18:00 08/21/24 18:49 08/21/24 19:32 Temperature Temperature Source Temporal Pulse Rate 82 81 Respiratory Rate 16 16 Respiratory Depth Normal Normal Respiratory Pattern Blood Pressure Blood Pressure Mean BP Systolic BP Diastolic Blood Pressure Source Blood Pressure Position Blood Pressure Location Baseline BP Pulse Ox 96 96 Oxygen Delivery Method Room Air Room Air 08/21/24 19:32 08/21/24 20:32 08/21/24 22:15 Temperature 98.4 F Temperature Source Temporal Pulse Rate 74 75 81 Respiratory Rate 16 16 16 Respiratory Depth Normal Normal Normal Respiratory Pattern Blood Pressure 132/87 H Blood Pressure Mean 102 BP Systolic BP Diastolic Blood Pressure Source Monitor Blood Pressure Position Semi-Fowlers Blood Pressure Location Left Arm Baseline BP Pulse Ox 97 98 97 Oxygen Delivery Method Room Air Room Air Room Air 08/22/24 00:05 08/22/24 00:05 Temperature 98.2 F Temperature Source Temporal Temporal Pulse Rate 74 Respiratory Rate 16 Respiratory Depth Normal Respiratory Pattern Blood Pressure 149/99 H Blood Pressure Mean 115 BP Systolic BP Diastolic Blood Pressure Source Monitor Blood Pressure Position Sitting Blood Pressure Location Right Arm Baseline BP Pulse Ox 98 Oxygen Delivery Method Room Air Weight Weight: 184 lb 12.8 oz Body Mass Index (BMI) 29.8 Physical Exam Const alert, oriented x3, no apparent distress and healthy appearing HEENT normocephalic and moist oral mucous membranes Head and Scalp: atraumatic Neck full ROM, no lymphadenopathy, supple and thyroid normal General: trachea midline Lymph Lymphatic: no lymphadenopathy noted Chest inspection of chest normal Resp normal respiratory effort Cardio regular rate GI soft to palpation and non-tender Inspection: gravid external exam normal Manual OB Exam: estimated gestational size appropriate, presentation cephalic, dilated, effaced and station Extremity normal to inspection General Extremity: Negative for edema Skin no rashes or lesions noted Neuro no focal motor deficits and deep tendon reflexes 2+ bilaterally Motor Exam: strength 5/5 throughout and clonus absent Psych mental status grossly normal Labs Labs Labs: Blood Type O POSITIVE Antibody Screen NEGATIVE Hct 26.2 % (37-47) L Hgb 9.1 g/dL (12.0-15.0) L Obstetrics Ultrasound Syphilis Total Ab Non-reactive Rubella IgG Antibody Reactive (Nonreactive) Hep Bs Antigen Non-Reactive (Nonreactive) Hepatitis C Antibody Non-Reactive (Nonreactive) Chlamydia DNA (CLAIRE) Negative (Negative) N.gonorrhoeae DNA (CLAIRE) Negative (Negative) HIV 1&2 Antibody Non-Reactive (Nonreactive) Glucose 1 Hr 50 gm 171 mg/dL (70-140) H Gest Glucose Tolerance MG/DL Group B Strep DNA Negative (Negative) Rhogam given: No Miscellaneous Test Assessment & Plan (1) COVID-19 affecting in third trimester: COMMENT: tested positive 07/27/24 (2) Elevated blood pressure affecting in third trimester, antepartum: COMMENT: labetalol 200 bid, twice weekly testing, rpt labs weekly for PIH. negative on 07/27/24. negative on 07/28/25. (3) Anemia affecting : QUALIFIERS: Trimester: third trimester Qualified Code(s): O99.013 - Anemia complicating , third trimester COMMENT: adding otc iron (4) Abnormal glucose affecting : COMMENT: passed 3 hour (5) Bone marrow donor: COMMENT: February 2018 (6) IUD : COMMENT: plan growth US in 3rd trimester. removed in office at 8 weeks. small 1 cm hematoma present. - RESOLVED (7) History of delivery: COMMENT: 2016 *plans RLTCS and BS. scheduled for 08/21 @ 7:15 with SM, 2&6 wk PP scheduled (8) Supervision of high-risk : QUALIFIERS: Trimester: third trimester Qualified Code(s): O09.93 - Supervision of high risk , unspecified, third trimester COMMENT: PRR , MARTHA 09/11/24, girl Marta PC: Loi, : Foreign (9) : QUALIFIERS: Weeks of gestation: 36 weeks Qualified Code(s): Z3A.36 - 36 weeks gestation of COMMENT: Neg GBS. Carrier neg. , Discussed genetic/carrier testing *Carrier testing done with previous but would like to repeat* nl anatomy, possible accessory lobe PLAN: Plan admit for delivery After discussing the patient's diagnosis and treatment plan options, patient wishes to proceed with surgical management. I have discussed with the patient the risks, benefits, and alternatives of the procedure which include but are not limited to risks of anesthesia, bleeding, infection, possible damage to bowel, bladder, or surrounding vasculature which could lead to additional surgery to evaluate any complications. Patient agrees to procedure and wishes to proceed. ACOG/uptodate references given for additional information regarding procedure.
--- NOTE | 2024-08-22 01:19 | OP.PCM_ITS ---
Assessment & Plan (1) COVID-19 affecting in third trimester: COMMENT: tested positive 07/27/24 (2) Elevated blood pressure affecting in third trimester, antepartum: COMMENT: labetalol 200 bid, twice weekly testing, rpt labs weekly for PIH. negative on 07/27/24. negative on 07/28/25. (3) Anemia affecting : QUALIFIERS: Trimester: third trimester Qualified Code(s): O99.013 - Anemia complicating , third trimester COMMENT: adding otc iron (4) Abnormal glucose affecting : COMMENT: passed 3 hour (5) Bone marrow donor: COMMENT: February 2018 (6) IUD : COMMENT: plan growth US in 3rd trimester. removed in office at 8 weeks. small 1 cm hematoma present. - RESOLVED (7) History of delivery: COMMENT: 2015 *plans RLTCS and BS. scheduled for 08/21 @ 7:15 with SM, 2&6 wk PP scheduled (8) Supervision of high-risk : QUALIFIERS: Trimester: third trimester Qualified Code(s): O09.93 - Supervision of high risk , unspecified, third trimester COMMENT: PRR , MARTHA 09/11/24, girl Marta PC: Loi, : Foreign (9) : QUALIFIERS: Weeks of gestation: 36 weeks Qualified Code(s): Z3A.36 - 36 weeks gestation of COMMENT: Neg GBS. Carrier neg. , Discussed genetic/carrier testing *Carrier testing done with previous but would like to repeat* nl anatomy, possible accessory lobe (10) delivery delivered: COMMENT: LTCS BS marta 37 gthn Maternal Data Information MARTHA Calculator Estimated Delivery Date Method Current WG Current Estimate 09/11/24 Ultrasound #1 37w 1d Final MARTHA Source: LMP Operative Report (OB) Cecarean Details Procedure Type: low transverse Surgeon: Petrona Grijalva Date of Procedure: 08/21/24 Procedure Start Time: 07:40 Procedure Stop Time: 08:25 Pre-Operative Diagnosis: Other Other Pre-Operative diagnosis: see a/p comments Post-Operative Diagnosis: Same as Pre-operative diagnosis Classification: Scheduled Type of Anesthesia: Spinal Special Medications: none Antibiotic Given: Ancef 2 grams IV x1 Drain: Joshi to straight drain Estimated Blood Loss: 900 Fluids Replaced: crystalloid Findings Description of surgery: The patient is a 33yo presented for repeat . Spinal anesthesia was placed without difficulty. Joshi catheter was placed. The patient was placed in the dorsal supine position with leftward tilt. Patient was prepped and draped in the normal sterile fashion. Pfannenstiel skin incision was made with the scalpel and carried through to the underlying layer of fascia with the scalpel. Fascia was nicked in the midline and the incision extended laterally. The rectus bellies were dissected off superiorly and inferiorly with out complication both sharply and bluntly. The peritoneum was entered digitally. The incision was stretched and a low transverse uterine incision was made with the scalpel. The 's head was delivered atraumatically followed by the anterior and posterior shoulders without complication the rest of the delivered. The cord was clamped and cut and the infant was handed off to awaiting nurse. The placenta was delivered spontaneously immediately following and was noted to be intact and have a three-vessel cord. The uterus was exteriorized cleared of all clots and debris, and the incision was closed in a single layer closure using #1 Monocryl. Patient had desired sterilization and was counseled preoperatively regarding irreversibility and permanency. Therefore bilateral fallopian tubes were elevated and transected across using a LigaSure device starting proximally to distally without complication the entire fallopian tubes were removed. The ovaries and fallopian tubes were noted to be within normal limits. The uterus was returned to the maternal abdomen and gutters were cleared of all clots and debris. The peritoneum was closed with 3-0 Monocryl in a running fashion. Gloves were changed prior to fascial closure. Fascia was closed with 0 PDS in a running fashion. Subcutaneous tissue was copiously irrigated and the skin was closed with 3-0 Monocryl in a subcuticular fashion. Mepilex dressing was applied without complication. Patient was taken to recovery in stable condition. Surgical findings: nl uterus tubes ovaries Presentation: Vertex Amniotic Membrane Rupture Type: Artificial Amniotic Fluid Description: Clear Specimen collected: Yes Description of specimen(s) removed: placenta and baby Cord Vessel Description: 3 Vessels Delayed Cord Clamping: Yes Medical Transcription Supervisor frame welder cargo utility trailers: Yes Concrete Wall Grinder Operator: Johnathon Carbajal Tasks completed by director of assisted living: Opening & closing, Retracting and Other (assisting in delivery of the infant) Additional legal administrative assistant?: No Complications Complications: No Admit VTE Documentation VTE Present on Admission: No VTE Mechan Device Prophylaxis: SCD's Multi Select Codes Urinary/Genital Urinary/Genital CPT Codes: 73655 C/S+TL and 58389 [facility]
[2024-08-22] MEDS: Ketorolac 30 MG/ML Syringe IV (02:33)
[2024-08-22 04:53] LABS: Hematocrit 26.2 % (37-47); Hemoglobin 9.1 g/dL (12.0-15.0); Mean Corp Hgb Conc 34.7 g/dL (32-36); Mean Corpuscular Volume 92.3 fL (81-99); Mean Platelet Vol. 9.7 fl (6.2-12.0); Platelet Count 179 K/mm3 (150-450); RBC Distribution Width CV 12.7 % (11.6-14.6); RBC Distribution Width SD 42.4 fl (35.1-43.9); Red Blood Count 2.84 M/mm3 (4.2-5.4); White Blood Count 9.2 K/mm3 (4.4-11.0)
[2024-08-22] MEDS: Acetaminophen 500 MG Tablet 1000 MG PO ×4 (06:14→23:49)
[2024-08-22] MEDS: Senna/Docusate Sodium 1 Tablet PO (09:48)
[2024-08-22] MEDS: Naproxen 500 MG Tablet PO ×3 (09:48→22:16)
[2024-08-22] MEDS: Labetalol 200 MG Tablet PO ×3 (09:48→22:14)
--- NOTE | 2024-08-22 15:35 | PCM.PN.OB ---
Subjective Subjective Patient doing well without complaints. Tolerating PO. Ambulating and voiding without difficulty. feeding well. Denies chest pain, shortness of breath, calf pain/swelling, fevers, chills, lightheadedness. Objective Data Objective Data Vital Signs: Vital Signs Temp Pulse Resp BP Pulse Ox O2 Del Method 97.2 F L 88 16 132/94 H 97 Room Air 08/22/24 11:44 08/22/24 11:44 08/22/24 11:44 08/22/24 11:44 08/22/24 04:32 08/22/24 11:44 Oxygen Delivery Method Room Air Weight: 184 lb 12.8 oz Body Mass Index (BMI) 29.8 Intake & Output: Intake and Output for Last 24 Hours 08/20/24 08/21/24 08/22/24 23:59 23:59 23:59 Intake Total 1477.5 / 1477.5 Output Total 3000 / 3000 450 / 450 Balance -1522.5 / -1522.5 -450 / -450 Lab / Micro Data 08/22/24 04:45 Labs: Laboratory Results - last 24 hr 08/22/24 04:45: WBC 9.2, RBC 2.84 L, Hgb 9.1 L, Hct 26.2 L, MCV 92.3, MCH 32.0, MCHC 34.7, RDW Std Deviation 42.4, RDW Coeff of Bria 12.7, Plt Count 179, MPV 9.7 Micro: Microbiology 07/27/24 Unknown Mucosa - Nose SARS-CoV-2, Influenza & RSV (PCR) - Final SARS-CoV-2 (COVID 19) ROS Constitutional Constitutional: Reports systems reviewed and no addt'l complaints, except as documented Cardiovascular Cardiovascular: Reports systems reviewed and no addt'l complaints, except as documented Respiratory/Chest Respiratory/Chest: Reports systems reviewed and no addt'l complaints, except as documented Gastrointestinal Gastrointestinal: Reports systems reviewed and no addt'l complaints, except as documented Physical Exam Const alert, oriented x3 and no apparent distress HEENT Head and Scalp: atraumatic Resp normal respiratory effort GI soft to palpation and non-tender Inspection: incision intact, healing well and drainage (none) Bimanual Exam - Vag & Uterus: uterus non-tender Uterus Palpation: uterus fundus firm (below Umbilicus) Assessment & Plan (1) delivery delivered: COMMENT: LTCS BS SM bhavna 37 gthn (2) Elevated blood pressure affecting in third trimester, antepartum: COMMENT: increased to labetalol 200 TID PLAN: Plan s/p LTCS PPD # 1 1. routine post care 2. breast feeding- support given 3. rh positive 4. rubella immune continue to monitor bps, may need to increase dose or add procardia, anticipate dc home tomorrow afternoon
[2024-08-23 04:57] VITALS: BP 125/87; PULSE 76; RESP 16; TEMP 36.7; O2SAT 98
[2024-08-23] MEDS: Labetalol 200 MG Tablet PO ×2 (06:15→13:37)
[2024-08-23] MEDS: Naproxen 500 MG Tablet PO ×2 (06:15→13:38)
[2024-08-23] MEDS: Acetaminophen 500 MG Tablet 1000 MG PO ×2 (06:15→13:39)
[2024-08-23 08:00] VITALS: BP 127/98; PULSE 83; RESP 16; TEMP 37.1; O2SAT 96
--- NOTE | 2024-08-23 08:29 | PCM.PN.OB ---
Subjective Subjective Patient doing well without complaints. Tolerating PO. Ambulating and voiding without difficulty. feeding well. Denies chest pain, shortness of breath, calf pain/swelling, fevers, chills, lightheadedness. Objective Data Objective Data Vital Signs: Vital Signs Temp Pulse Resp BP Pulse Ox O2 Del Method 98.7 F 83 16 127/98 H 96 Room Air 08/23/24 08:00 08/23/24 08:00 08/23/24 08:00 08/23/24 08:00 08/23/24 08:00 08/23/24 08:00 Oxygen Delivery Method Room Air Weight: 184 lb 12.8 oz Body Mass Index (BMI) 29.8 Intake & Output: Intake and Output for Last 24 Hours 08/21/24 08/22/24 08/23/24 23:59 23:59 23:59 Intake Total 1477.5 / 1477.5 Output Total 3000 / 3000 450 / 450 Balance -1522.5 / -1522.5 -450 / -450 Lab / Micro Data 08/22/24 04:45 Labs: Laboratory Results - last 24 hr 08/22/24 04:45: WBC 9.2, RBC 2.84 L, Hgb 9.1 L, Hct 26.2 L, MCV 92.3, MCH 32.0, MCHC 34.7, RDW Std Deviation 42.4, RDW Coeff of Bria 12.7, Plt Count 179, MPV 9.7 Micro: Microbiology 07/27/24 Unknown Mucosa - Nose SARS-CoV-2, Influenza & RSV (PCR) - Final SARS-CoV-2 (COVID 19) ROS Constitutional Constitutional: Reports systems reviewed and no addt'l complaints, except as documented Cardiovascular Cardiovascular: Reports systems reviewed and no addt'l complaints, except as documented Respiratory/Chest Respiratory/Chest: Reports systems reviewed and no addt'l complaints, except as documented Gastrointestinal Gastrointestinal: Reports systems reviewed and no addt'l complaints, except as documented Physical Exam Const alert, oriented x3 and no apparent distress HEENT Head and Scalp: atraumatic Resp normal respiratory effort GI soft to palpation and non-tender Inspection: incision intact, healing well and drainage (none) Bimanual Exam - Vag & Uterus: uterus non-tender Uterus Palpation: uterus fundus firm (below Umbilicus) Assessment & Plan (1) delivery delivered: COMMENT: LTCS BS SM bhavna 37 gthn (2) Elevated blood pressure affecting in third trimester, antepartum: COMMENT: increased to labetalol 200 TID PLAN: Plan s/p LTCS PPD # 2 1. routine post care 2. breast feeding- support given 3. rh positive 4. rubella immune labetalol 200 TID dc today
--- NOTE | 2024-08-23 08:36 | PCM.DC.SUM ---
Providers Date of Admission: 08/21/24 Primary Care Physician: Dr. Priscilla Pal MD Reason For Visit: REPEAT C SECTION Diagnosis Discharge Diagnosis (1) delivery delivered: Status: Acute Code(s): O82 - Encounter for delivery without indication (2) Elevated blood pressure affecting in third trimester, antepartum: Status: Acute Code(s): O16.3 - Unspecified maternal hypertension, third trimester Plan s/p LTCS PPD # 2 1. routine post care 2. breast feeding- support given 3. rh positive 4. rubella immune labetalol 200 TID dc today Medications at Discharge Home Medications docosahexaenoic acid 200 mg capsule ( DHA) 200 mg PO DAILY 02/03/24 naproxen 500 mg tablet 500 mg PO BID PRN PRN Pain #30 tabs 08/22/24 oxycodone-acetaminophen 5 mg-325 mg tablet (Percocet) 1 tab PO Q6H PRN pain 7 days #20 tabs 08/22/24 labetalol 200 mg tablet 200 mg PO TID bp #60 tabs 08/23/24 Hospital Course Summary of Care Provided Hospital Course: patient presented for RLTCS and had an uncomplicated delivery. Postoperatively patient had return of bowel and bladder function and was ambulating well, tolerating adequate p.o., and was stable for discharge to home on postop day #2. Discharge medications naproxen and Percocet. Follow-up in office in 2 weeks for incision check in 6 weeks for visit. Routine post section diet and activity instructions. Weight / BMI Weight Weight: 184 lb 12.8 oz Body Mass Index (BMI) 29.8 ABG / Lab / Microbiology Data 08/22/24 04:45 Microbiology: Microbiology 07/27/24 Unknown Mucosa - Nose SARS-CoV-2, Influenza & RSV (PCR) - Final SARS-CoV-2 (COVID 19) D/C Instructions Discharge Diet: No restrictions Discharge Activity: May Not Drive (for 2 weeks or while taking narcotic pain medications.), May Shower and May Take a Tub Bath (in 7 days) May shower in (days): 0 May resume sexual activity in: 4-6 weeks Weight Bearing Status: Full weight bearing Call your doctor if your incision/area has: Continuous Slow Oozing, Sudden Increased Bleeding, Increased Pain/ Swelling, Increased Redness and Foul Smelling Discharge Call your doctor if you observe: Fever of 101 or Higher and Using more than 1 pad per hour (for 2 hours) Suture Line Care: Avoid Pulling/Pushing and Avoid Pinching/Bending Cleanse incision/area with: Soap & Water and Keep Dressing Clean & Dry DC O2, CPAP, BIPAP Needs Additional Home O2 Discharge instructions: No DC home with Oxygen: No Please Follow Up With: Petrona Grijalva MD When: Call [phone] to make an appointment for an incision check in 1-2 weeks. Meaningful Use Info Meaningful Use Meaningful Use Diagnoses (Choose all that apply): None applicable Ischemic Stroke Statin Dosing Therapy Reference: STATIN DOSE THERAPY REFERENCE: * Patients > 75 years receive moderate or high dose statin therapy. * Patients 75 years or YOUNGER should receive HIGH intensity statin dose unless contraindicated. You will be required to document reason for non-treatment if statin daily dose does not meet guidelines. HIGH DOSE STATIN THERAPY DAILY Atorvastatin > than or = to 40 mg Rosuvastatin > than or = to 20 mg Amlodipine + Atorvastatin > than or = to 2.5/40 mg Ezetimibe + Simvastatin 10/80 mg Simvastatin 80mg Discharge Plan Admission Admit Date/Time: 08/21/24 05:20 Attending Provider: Petrona Grijalva Primary Care Provider: Priscilla Pal Discharge Orders/Prescriptions Prescriptions: New oxycodone-acetaminophen [Percocet] 5-325 mg tablet 1 tab PO Q6H PRN (Reason: pain) 7 Days Qty: 20 0RF naproxen 500 mg tablet 500 mg PO BID PRN PRN (Reason: Pain) Qty: 30 1RF Changed labetalol 200 mg tablet 200 mg PO TID Qty: 60 4RF No Action DHA 200 mg capsule 200 mg PO DAILY Referrals / Follow Up: Priscilla Pal MD [Primary Care Provider] - Disposition Disposition (needs filled in before D/C Order can be placed): Home, Self Care
[2024-08-23 11:45] VITALS: BP 137/90; PULSE 90; RESP 16; TEMP 36.9; O2SAT 96
[2024-08-23] MEDS: Senna/Docusate Sodium 1 Tablet PO (11:57)
--- NOTE | 2024-08-28 11:43 | NURSING ---
Follow up phone call made, doing great. Minimal pain, taking Tylenol and Naproxen for it. Vaginal bleeding is gone, c/s dressing is dry and intact. Denies any headaches or visual disturbances, continuing to take her BP as prescribed. Infant is bottle feeding well every 2-3 hours and taking 2 oz. Denies any questions or concerns.
== END 2024-08-23 14:50 | disposition home or self-care (01) | DRG 785 ==
PROVIDERS: Admitting Provider Obstetrics & Gynecology; PCP Family Medicine; Visit Provider Obstetrics & Gynecology
PROC: (CPT 59514; principal; 2024-08-21 07:00)
DX: O13.4 Gestational [pregnancy-induced] hypertension without significant proteinuria, complicating childbirth (principal); O34.219 Maternal care for unspecified type scar from previous cesarean delivery; Z3A.37 37 weeks gestation of pregnancy; Z37.0 Single live birth; Z30.2 Encounter for sterilization; Z79.899 Other long term (current) drug therapy
CPT/HCPCS: 59025; 59050; 80307; 85025; 85027; 86780; 86850; 86900; 86901; 87631; 88302; 99221; J7120; A4216; G0378

== ENCOUNTER → 2024-10-31 | Outpatient (CLI) | payer OTHER, SELFPAY ==
[2024-10-31 12:18] LABS: Absolute Lymphocyte Count 1.51 X10^3/uL (0.83-4.51); Absolute Neutrophil Count 2.8 X10^3/uL (2.0-7.7); Basophil# 0.06 X10^3/uL; Basophil% 1.2 % (0-1); Eosinophil# 0.08 X10^3/uL; Eosinophils% 1.6 % (0-5); Hematocrit 38.6 % (37-47); Hemoglobin 12.9 g/dL (12.0-15.0); Lymphocyte # 1.51 X10^3/ul (0.83-4.51); Lymphocyte % 31.1 % (19-41); Mean Corp Hgb Conc 33.4 g/dL (32-36); Mean Corpuscular Hgb 30.4 pg (27.0-32.0); Mean Platelet Vol. 9.5 fl (6.2-12.0); Monocyte# 0.45 X10^3/uL; Monocyte% 9.3 % (0-10); NRBC Flagged by Analyzer 0 % (0-5); Neutrophil # 2.75 X10^3/uL (2.7-7.7); Neutrophil % 56.6 % (47-70); Platelet Count 283 K/mm3 (150-450); RBC Distribution Width CV 11.6 % (11.6-14.6); RBC Distribution Width SD 38.5 fl (35.1-43.9); Red Blood Count 4.24 M/mm3 (4.2-5.4); White Blood Count 4.9 K/mm3 (4.4-11.0)
== END | disposition home or self-care (01) ==
LOC: BWCLAB 11:30
PROVIDERS: PCP Family Medicine; Referring Provider Nurse Practitioner Women's Health; Visit Provider Nurse Practitioner Women's Health
DX: D64.9 Anemia, unspecified (principal)
CPT/HCPCS: 36415; 85025

== ENCOUNTER → 2024-11-08 | Outpatient (CLI) | payer OTHER, SELFPAY ==
--- NOTE | 2024-11-08 15:40 | US_ITS ---
PROCEDURE: PELVIC W/ TRANSVAGINAL REASON FOR EXAM: IUD. Heavy bleeding. TECHNIQUE: Transabdominal and transvaginal pelvic ultrasound COMPARISON: None. FINDINGS: Measurements: Uterus: 9.1 cm x 6.6 cm x 5.8 cm. Endometrial Thickness: 8 mm Right Ovary: 2.3 cm x 1.9 cm x 2 cm. Left Ovary: 2.9 cm x 1.7 cm x 1.8 cm. TRANSABDOMINAL: Uterus: Normal size, myometrial echotexture, and contour. IUD is in-situ. The IUD arm appears to be within the myometrium of the uterus on the left side. Endometrium: Unremarkable. Right ovary: Normal size and echotexture. Left ovary: Normal size and echotexture. No large pelvic mass identified. Transvaginal sonography was performed to further characterize the uterine findings. TRANSVAGINAL: Uterus: Retroverted. Normal contour and myometrial echotexture. Endometrium: Normal echotexture. Right ovary: Normal size and echotexture. Left ovary: Normal size and echotexture. Other adnexal findings: None. Cul-de-sac: No free intraperitoneal fluid identified. No tenderness. US/Pelvic w/ Transvaginal IMPRESSION: IUD is seen within the endometrium. Reading Location: [place] [id number]
== END | disposition home or self-care (01) ==
PROVIDERS: PCP Family Medicine; Referring Provider Nurse Practitioner Women's Health; Visit Provider Nurse Practitioner Women's Health
DX: N93.9 Abnormal uterine and vaginal bleeding, unspecified (principal)
CPT/HCPCS: 76830; 76856

== ENCOUNTER → 2025-05-23 | Outpatient (CLI) | payer OTHER, SELFPAY ==
[2025-05-23 17:25] LABS: Hematocrit 41.4 % (37-47); Hemoglobin 14.1 g/dL (12.0-15.0); Immature Granulocytes Count 0.010 X10^3/uL (0.0-0.0); Mean Corp Hgb Conc 34.1 g/dL (32-36); Mean Corpuscular Volume 91.0 fL (81-99); Mean Platelet Vol. 9.2 fl (6.2-12.0); NRBC Flagged by Analyzer 0 % (0-5); Platelet Count 388 K/mm3 (150-450); RBC Distribution Width CV 11.9 % (11.6-14.6); RBC Distribution Width SD 39.5 fl (35.1-43.9); Red Blood Count 4.55 M/mm3 (4.2-5.4); White Blood Count 7.9 K/mm3 (4.4-11.0)
== END | disposition home or self-care (01) ==
LOC: LAB 16:55
PROVIDERS: PCP Family Medicine; Referring Provider Nurse Practitioner Women's Health; Visit Provider Nurse Practitioner Women's Health
DX: N93.9 Abnormal uterine and vaginal bleeding, unspecified (principal)
CPT/HCPCS: 36415; 85025

== ENCOUNTER → 2025-06-14 | Outpatient (CLI) | payer OTHER, SELFPAY ==
--- NOTE | 2025-06-14 16:41 | US_ITS ---
PROCEDURE: PELVIC W/ TRANSVAGINAL REASON FOR EXAM: PELVIC MASS, AUB TECHNIQUE: Procedure Code: [id number] Modality: US Procedure: PELVIC W/ TRANSVAGINAL COMPARISON: Prior study dated November 10, 2024. FINDINGS: Measurements: Uterus: 10.1 cm x 6.9 cm x 4.6 cm with a volume of 167.1 mL Endometrial Thickness: 7 mm Right Ovary: Not visualized. Left Ovary: 4.1 cm x 2.8 cm x 2.4 cm with a volume of 21 mL. TRANSABDOMINAL: Uterus: The uterus is heterogeneous in keeping with fibroid change although no focal fibroid is seen. Endometrium: Unremarkable. Right ovary: Not visualized. Left ovary: There is a 3.3 cm x 2 cm 1.7 cm left ovarian cyst. Other: No large pelvic mass identified. Transvaginal sonography was performed to better visualize the endometrium. TRANSVAGINAL: Uterus: Retroverted. Heterogeneous echotexture in keeping with fibroid change. Nabothian cyst. Endometrium: Normal echotexture. Right ovary: Not visualized. Left ovary: 3.3 cm x 2 cm x 1.7 cm left ovarian cyst. Other adnexal findings: None. Cul-de-sac: No free intraperitoneal fluid identified. Tenderness: No tenderness US/Pelvic w/ Transvaginal IMPRESSION: Enlarged heterogeneous appearance of the uterus in keeping with fibroid change although no focal fibroid is seen. 3.3 cm x 2 cm x 1.7 cm left ovarian cyst. Reading Location: [facility]
== END | disposition home or self-care (01) ==
LOC: US 16:40
PROVIDERS: PCP Family Medicine; Referring Provider Nurse Practitioner Family; Visit Provider Nurse Practitioner Family
DX: N93.9 Abnormal uterine and vaginal bleeding, unspecified (principal); R19.00 Intra-abdominal and pelvic swelling, mass and lump, unspecified site
CPT/HCPCS: 76830; 76856

== ENCOUNTER → 2025-07-23 | Outpatient (CLI) | payer OTHER, SELFPAY ==
--- NOTE | 2025-07-23 08:55 | EMB_PTH ---
PATIENT: STEVE BERNAL LOC: [facility] U#:[id number] AGE/SX: 34/F ROOM: RE07/23/[address]: Dr. Petrona Grijalva MD : 1990 BED: DIS: 07/23/2025 SPEC #: [id number] RECD: 07/23/25 12:02 STATUS: LUZ REAletha #: [id number] MARIAN: 07/23/25 08:[address]: Petrona Grijalva DEPT: SURGICAL PATHOLOGY RECD BY: Andrew Raza ENTERED: 07/23/25 13:57 SP TYPE: ENDOM BX/C MADHAV DR: Dr. Priscilla Pal MD Tissues: A - Endometrium, NOS Procedures: Surgery Specimen Level IV HEADER OPERATION: Endometrial biopsy PRE-OP DIAGNOSIS: Abnormal uterine bleeding, d/f adenomyosis TISSUE SUBMITTED: A- Endometrial tissue MICROSCOPIC DIAGNOSIS A. Endometrium, biopsy: Inactive endometrium with glandular and stromal breakdown MICROSCOPIC DESCRIPTION Slides are reviewed. GROSS DESCRIPTION A. Received in formalin labeled the patient's name and date of is a 2.7 x 1.0 x 0.2 cm aggregate of khan-red tissue fragments, clotted blood and mucoid material. Entirely submitted in 1 cassette. [place] 07/23/2025 CPT:84297
[2025-07-23 12:12] LABS: Hematocrit 39.7 % (37-47); Hemoglobin 13.2 g/dL (12.0-15.0); Immature Granulocytes Count 0.010 X10^3/uL (0.0-0.0); Mean Corp Hgb Conc 33.2 g/dL (32-36); Mean Corpuscular Volume 92.8 fL (81-99); Mean Platelet Vol. 10.3 fl (6.2-12.0); NRBC Flagged by Analyzer 0 % (0-5); Platelet Count 319 K/mm3 (150-450); RBC Distribution Width CV 12.4 % (11.6-14.6); RBC Distribution Width SD 42.4 fl (35.1-43.9); Red Blood Count 4.28 M/mm3 (4.2-5.4); White Blood Count 5.8 K/mm3 (4.4-11.0)
== END | disposition home or self-care (01) ==
PROVIDERS: PCP Family Medicine; Referring Provider Obstetrics & Gynecology; Visit Provider Obstetrics & Gynecology
DX: N93.9 Abnormal uterine and vaginal bleeding, unspecified (principal); N80.03 Adenomyosis of the uterus
CPT/HCPCS: 36415; 84443; 85025; 88305

== ENCOUNTER 2025-09-14 05:35 | Day surgery (SDC) | payer OTHER, SELFPAY ==
--- NOTE | 2025-09-04 07:30 | EKG12_ITS ---
Test Reason : PREOP Blood Pressure : */* mmHG Vent. Rate : 100 BPM Atrial Rate : 100 BPM P-R Int : 116 ms QRS Dur : 86 ms QT Int : 334 ms P-R-T Axes : 7 71 28 degrees QTcB Int : 430 ms Normal sinus rhythm Normal ECG Confirmed by Kush Carey ([id number]), field map editor AMPARO WORTHY ([id number]) on 09/05/2025 5:50:22 AM Referred By: Petrona Grijalva Confirmed By: Kush Carey
[2025-09-04 08:09] LABS: Hematocrit 39.0 % (37-47); Hemoglobin 13.1 g/dL (12.0-15.0); Mean Corp Hgb Conc 33.6 g/dL (32-36); Mean Corpuscular Volume 91.1 fL (81-99); Mean Platelet Vol. 9.0 fl (6.2-12.0); Platelet Count 311 K/mm3 (150-450); RBC Distribution Width CV 12.3 % (11.6-14.6); RBC Distribution Width SD 41.1 fl (35.1-43.9); Red Blood Count 4.28 M/mm3 (4.2-5.4); White Blood Count 5.6 K/mm3 (4.4-11.0)
[2025-09-04 08:35] LABS: Magnesium 2.0 mg/dL (1.5-2.2)
[2025-09-04 09:32] LABS: Anion Gap 9 (5-15); BUN 13 mg/dL (4-19); BUN/Creat Ratio 17.7 RATIO (10-20); Calcium,Total 9.3 mg/dL (7.6-11.0); Carbon Dioxide 26.9 mmol/L (21.0-32.0); Chloride 104 mmol/L (98-108); Glucose 103 mg/dL (70-99); Potassium 4.2 mmol/L (3.3-5.1)
[2025-09-14] VITALS (17 sets, daily range): BP systolic 108–134; BP diastolic 70–99; PULSE 69–103; RESP 14–16; TEMP 36.1–37.2; O2SAT 97–100; BMI 23.5
--- OUTSIDE RECORDS SUMMARY | 2025-09-14 05:38 | XMS RPT_ITS | CCD ---
Author Organization [facility] Care Team Providers Care Home Improvement Contractor Name Role Phone ROSAS MCGOVERN Unavailable Unavailable [...] K Unavailable Unavailable Unavailable Primary Care Provider Dr. Priscilla Hollingsworth Primary Care Provider [phone]. Priscilla Pal Referring Provider Dr. Petrona Michaels Attending Provider PETRONA MICHAELS Referring UnavailRYANNE Crenshaw Attending Unavailable PRISCILLA PAL Primary Care Unavailable MAMADOU SPARROW Attending Unavailable PRISCILLA PAL Primary Care Unavailable PETRONA MICHAELS Referring UnavailPRISCILLA Rios Primary Care Unavailable PETRONA MICHAELS Attending UnavailPETRONA Moss Referring UnavailMARIANNE Zamarripa Attending Unavailab MARIANNE Licona Referring Unavailab le MIEDEL, PRISCILLA E Primary Care Unavailable MARIANNE MONTERO Attending Unavailab le MARIANNE MONTERO Referring Unavailab le MIEDEL, PRISCILLA E Primary Care Unavailable Dr. Priscilla Pal MD Primary Care Provider Dr. Priscilla Pal MD Referring Provider Melodie Block CNM Attending Provider Ashanti WOOL BROKER-C, Princess Attending Provider Ashanti WOOL BROKER-C, Princess Referring Provider Zohaib WOOL BROKER-C, Eleni Attending Provider Demarco THOMPSON, Dr. Wells Primary Care Physician Ashanti WOOL BROKER-C, Princess Attending Physician Dr. Priscilla Pal MD Referring Provider Zohaib DEAN-C, Eleni Attending Physician Melodie Block CNM Attending Physician Zohaib WOOL BROKER-C, Eleni Referring Provider Petrona Michaesl Referring Unavailable Miedel, Priscilla Primary Care Unavailable Petrona Michaels Attending Unavailable Miedel, Priscilla Primary Care Unavailable Petrona Michaels Attending Unavailable Petrona Michaels Referring Unavailable Miedel, Priscilla Primary Care Unavailable Petrona Michaels Attending Unavailable Princess Burrell NP Consulting Unavailable Miedel, Priscilla Referring Unavailable Miedel, Priscilla Primary Care Unavailable Miedel, Priscilla Attending Unavailable Miedel, Priscilla Referring Unavailable Miedel, Priscilla Primary Care Unavailable Eleni Penny Attending Unavailable Miedel, Priscilla Referring Unavailable Melodie Block Attending Unavailable Miedel, Priscilla Primary Care Unavailable Miedel, Priscilla Primary Care Unavailable Miedel, Priscilla Referring Unavailable Princess Burrell NP Attending Unavailable Miedel, Priscilla Referring Unavailable Melodie Block Attending Unavailable Miedel, Priscilla Primary Care Unavailable Miedel, Priscilla Primary Care Unavailable Petrona Michaels Attending Unavailable Petrona Michaels Admitting Unavailable Miedel, Priscilla Primary Care Unavailable Marianne Sumner Attending Unavailabl e Marianne Sumner Referring Unavailabl e Petrona Michaels Referring Unavailable Miedel, Priscilla Primary Care Unavailable Petrona Michaels Attending Unavailable Miedel, Priscilla Referring Unavailable Miedel, Priscilla Primary Care Unavailable Petrona Michaels Attending Unavailable Miedel, Priscilla Referring Unavailable Miedel, Priscilla Primary Care Unavailable Petrona Michaels Attending Unavailable Petrona Michaels Admitting Unavailable Miedel, Priscilla Primary Care Unavailable Petrona Michaels Consulting Unavailable Petrona Michaels Attending Unavailable Mied, Priscilla Referring Unavailable Mied, [place] Primary Care Unavailable VandMarianne Montes De Oca Attending Unavailabl e Miedel, Priscilla Referring Unavailable Mied, [place] Primary Care Unavailable Melodie Block Attending Unavailable Ried, [place] Primary Care Unavailable Ashanti WOOL BROKER, Princess Attending Unavailable [place] WOOL BROKER, Princess Referring Unavailable Mied, Priscilla Primary Care Unavailable AsimmanEleni Attending Unavailable Barkman Eleni Referring Unavailable Mied, Priscilla Primary Care Unavailable Ashanti WOOL BROKER, Princess Referring Unavailable Ashanti WOOL BROKER, Princess Attending Unavailable Ried, Priscilla Primary Care Unavailable Ashanti WOOL BROKER, Princess Attending Unavailable [place] WOOL BROKER, Princess Referring Unavailable Petrona Michaels Referring Unavailable Petrona Michaels Referring Unavailable Ried, Priscilla Primary Care Unavailable Petrona Michaels Attending Unavailable [place] WOOL BROKER, Princess Consulting Unavailable Petrona Michaels Consulting Unavailable Miedel, Priscilla Referring Unavailable Mied, Priscilla Primary Care Unavailable Marianne Sumner Attending Unavailabl e Miedel, Priscilla Referring Unavailable Mied, Priscilla Primary Care Unavailable Petrona Michaels Attending Unavailable Miedel, Priscilla Referring Unavailable Miedel, Priscilla Primary Care Unavailable Petrona Michaels Attending Unavailable Mied, Priscilla Referring Unavailable Mied, Priscilla Primary Care Unavailable [place] WOOL BROKER, Princess Attending Unavailable Miedel, Priscilla Referring Unavailable Miedel, Priscilla Primary Care Unavailable Petrona Michaels Attending [facility] Referring Unavailable [facility] Primary Care Unavailable Princess Burrell NP Attending Unavailable Demarco Priscilla Referring Unavailable [facility] Primary Care Unavailable Petrona Michaels Attending Unavailable Demarco HTOMPSON, Dr. Wells Primary Care Physician Ashanti WOOL BROKER-CPrincess Attending Physician [phone] Ashanti WOOL BROKER-CPrincess Referring Provider [phone] Dr. Priscilla Pal MD Referring Provider [phone] Eleni Bliss Attending Physician [phone] Melodie Block CNM Attending Physician [phone] Zohaib DEAN-Eleni [place] Referring Provider [phone] Valentine THOMPSON, Dr. Russ Attending Physician Dr. Petrona Michaels MD Referring Provider Medications Current Medications Medication Drug Class(es) Dates Sig (Normalized) Sig (Original) FLUoxetine 20 mg oral capsule (5 sources) Serotonin Reuptake Inhibitor Start: 09-28-2024 take 1 capsule by mouth once daily phentermine hydrochloride 37.5 mg oral capsule (5 sources) Sympathomimetic Amine Anorectic Start: 10-31-2024 take 1 capsule by mouth once daily 30 minutes after breakfast Completed/Discontinued Medications Medication Drug Class(es) Dates Sig (Normalized) Sig (Original) acetaminophen 325 mg / oxyCODONE hydrochloride 5 mg oral tablet (5 sources) Opioid Agonist Start: 08-22-2024 End: 08-29-2024 Oxycodone-Acetaminop hen (Percocet) 5-325 mg tablet Discontinued 1 {tbl} PO EVERY 6 HOURS as needed for pain 20 7 0 August 22, 2024 August 29, 2024 8:42am delivery delivered Encounter for delivery without indication docosahexaenoic acid 200 mg oral capsule (7 sources) Start: 02-03-2024 End: 09-26-2024 take 1 capsule by mouth once daily Docosahexaenoic Acid ( Dha) 200 mg capsule Discontinued 200 mg PO DAILY February 02, 2024 11:00pm September 26, 2024 9:54am docusate sodium 50 mg / sennosides, fpc 8.6 mg oral tablet (9 sources) Start: 07-29-2016 End: 02-01-2024 take 1 tablet by mouth once daily as needed Sennosides-Docusate Sodium (Stool Softener-Stimulant Laxat) 1 TABLET tablet Discontinued 1 - 2 {tbl} PO DAILY as needed for Constipation 30 July 28, 2016 11:00pm February 01, 2024 7:42am doxylamine succinate 10 mg / pyridoxine hydrochloride 10 mg delayed release oral tablet (9 sources) Start: 07-27-2016 End: 02-01-2024 Doxylamine-Pyridoxin e (Vit B6) (Diclegis Dr 10-10 Mg Tablet) 1 EACH tablet,delayed release (DR/EC) Discontinued 1 NMA PO July 26, 2016 11:00pm February 01, 2024 7:41am labetalol hydrochloride 200 mg oral tablet (10 sources) beta-Adrenergic Aleida Start: 08-23-2024 End: 09-26-2024 take 1 tablet by mouth three times daily Labetalol 200 mg tablet Discontinued 200 mg PO THREE TIMES A DAY 60 4 August 23, 2024 8:30am September 26, 2024 9:54am bp Start: 07-28-2024 End: 08-23-2024 take 1 tablet by mouth twice daily Labetalol 200 mg tablet Discontinued 200 mg PO TWICE A DAY 60 4 July 27, 2024 11:00pm August 23, 2024 8:31am bp levonorgestrel 0.337947 mg/hr intrauterine system (5 sources) Progestin, Progestin-containing Intrauterine Device Start: 11-06-2024 End: 12-05-2024 Levonorgestrel (Mirena) 21 mcg/24hr (up to 8 yrs) 52 mg intrauterine device Discontinued 1 NMA INTRA-UTER ONCE November 06, 2024 12:00am December 05, 2024 1:57pm as a single dose lisinopril 10 mg oral tablet (5 sources) Angiotensin Converting Enzyme Inhibitor Start: 10-31-2024 End: 02-09-2025 take 1 tablet by mouth once daily Lisinopril 10 mg tablet Discontinued 10 mg PO daily October 31, 2024 12:00am February 09, 2025 2:23pm naproxen 500 mg oral tablet (14 sources) Nonsteroidal Anti-inflammatory Drug Start: 08-22-2024 End: 09-26-2024 take 1 tablet by mouth twice daily as needed for pain Naproxen 500 mg tablet Discontinued 500 mg PO TWICE DAILY NEEDED as needed for Pain 30 August 22, 2024 12:00am September 26, 2024 9:54am Start: 07-29-2016 End: 02-01-2024 take 250-500 mg by mouth every eight hours as needed for pain Naproxen 250 MG tablet Discontinued 250 - 500 mg PO EVERY 8 HOURS NEEDED as needed for Mild Pain (1-10) 30 July 28, 2016 11:00pm February 01, 2024 7:41am NIFEdipine 30 mg osmotic 24 hr extended release oral tablet (5 sources) Dihydropyridine Calcium Channel Aleida Start: 08-29-2024 End: 10-31-2024 take 1 tablet by mouth once daily Nifedipine (Procardia Xl) 30 mg tablet extended release 24hr Discontinued 30 mg PO daily 30 August 29, 2024 12:00am October 31, 2024 11:11am norethindrone acetate 5 mg oral tablet (5 sources) Start: 11-06-2024 End: 12-05-2024 take 1 tablet by mouth twice daily Norethindrone Acetate 5 mg tablet Discontinued 5 mg PO .COMPLEX 60 0 November 06, 2024 12:00am December 05, 2024 2:14pm 5 mg PO bid nystatin 100 unt/mg topical powder (5 sources) Polyene Antifungal Start: 08-29-2024 End: 09-26-2024 Nystatin (Nystop) 100,000 unit/gram powder Discontinued 1 NMA TOPICAL TWICE A DAY 45 August 29, 2024 12:00am September 26, 2024 9:54am ondansetron 4 mg disintegrating oral tablet (5 sources) Serotonin-3 Receptor Antagonist Start: 02-23-2024 End: 07-27-2024 take 1 tablet by mouth every six hours as needed for nausea and vomiting Ondansetron 4 mg tablet,disintegrat ing Discontinued 4 mg PO EVERY 6 HOURS as needed for nausea and vomiting 30 February 22, 2024 11:00pm July 27, 2024 3:40pm oxyCODONE hydrochloride 5 mg oral tablet (9 sources) Opioid Agonist Start: 07-29-2016 End: 02-01-2024 take 5-10 mg by mouth every four hours as needed for pain Oxycodone 5 MG tablet Discontinued 5 - 10 mg PO EVERY 4 HOURS NEEDED as needed for Mod-Severe Pain (4-10/10) 30 0 July 28, 2016 11:00pm February 01, 2024 7:42am Vit No.946-Ovpm-Yrhew ( Vitamins) 1 EACH tablet (9 sources) Start: 07-27-2016 End: 02-01-2024 Vit No.628-Obmi-Wbzcx ( Vitamins) 1 EACH tablet Discontinued 1 NMA PO July 26, 2016 11:00pm February 01, 2024 7:42am Start: 07-27-2016 End: 02-01-2024 Vit No.644-Qjhd-Rbn ic ( Vitamins) 1 EACH tablet Discontinued 1 NMA PO July 27, 2016 12:00am February 01, 2024 8:42am Start: 07-27-2016 End: 02-01-2024 Vit No.052-Jhgq-Ddn ic ( Vitamins) 1 EACH tablet Discontinued 1 EACH PO July 27, 2016 12:00am February 01, 2024 8:42am Start: 07-27-2016 Vit N o.262-Htkz-Inbue ( Vitamins) 1 EACH tablet Active 1 EACH PO July 26, 2016 11:00pm Problems Active Problems Problem Classification Problem Date Documented Date Episodic/Chronic Abdominal pain (7 sources) Pain in pelvis; Translations: [Pelvic and perineal pain] 05-31-2025 Episodic Coagulation and hemorrhagic disorders (1 source) Spontaneous ecchymoses; Translations: [Spontaneous ecchymoses] Onset: 05-18-2025 Episodic Hypertension complicating ; childbirth and the puerperium (7 sources) Hypertension complicating ; Translations: [Unspecified maternal hypertension, third trimester] Onset: 09-05-2024 09-26-2024 Chronic Comment on above: increased to labetal ol 200 TID Other complications of ; puerperium affecting management of mother (5 sources) Deliveries by ; Translations: [Encounter for delivery without indication] 09-26-2024 Episodic Comment on above: LTCS BS SM marta 3 7 gthn Other complications of (5 sources) Anemia of ; Translations: [Anemia complicating , unspecified trimester] 09-26-2024 Chronic Comment on above: adding otc iron Other complications of (2 sources) Anemia complicating , third trimester; Translations: [Anemia complicating , third trimester] Onset: 08-17-2024 Chronic Other complications of (1 source) Anemia complicating , unspecified trimester; Translations: [Anemia complicating , unspecified trimester] Onset: 08-23-2024 Chronic Other complications of (7 sources) High risk ; Translations: [Supervision of high risk , unspecified, unspecified trimester] 02-03-2024 Episodic Comment on above: PRR , MARTHA 4, girl Marta PC: Loi, : Foreign Other complications of (5 sources) Disease caused by 2019-nCoV; Translations: [Other viral diseases complicating , third trimester] 09-14-2024 Episodic Comment on above: tested positive 07/05 01/25 Other connective tissue disease (6 sources) Pelvic floor dysfunction; Translations: [Other specified disorders of muscle] 05-31-2025 Episodic Other female genital disorders (13 sources) Abnormal uterine bleeding; Translations: [Abnormal uterine and vaginal bleeding, unspecified] 02-09-2025 Chronic Comment on above: nexplanon Other female genital disorders (6 sources) Postcoital bleeding; Translations: [Postcoital and contact bleeding] 05-31-2025 Chronic Other female genital disorders (1 source) Abnormal uterine and vaginal bleeding, unspecified; Translations: [Abnormal uterine and vaginal bleeding, unspecified] Onset: 07-30-2025 Chronic Other female genital disorders (2 sources) Abnormal uterine bleeding due to adenomyosis; Translations: [Abnormal uterine and vaginal bleeding, unspecified] 07-23-2025 Chronic Comment on above: failed IUD and nexpl anon. not a candidate for lysteda or ablation. plan LAVH. Other female genital disorders (2 sources) Pain in female genitalia on intercourse; Translations: [Unspecified dyspareunia] 07-23-2025 Chronic Other female genital disorders (6 sources) Mass of ovary; Translations: [Other noninflammatory disorders of ovary, fallopian tube and broad ligament] 05-31-2025 Episodic Other upper respiratory infections (1 source) Sore throat symptom; Translations: [Acute pharyngitis, unspecified] Episodic Unclassified (1 source) Bone marrow donor / Z52.3(ICD-10) Onset: 11-01-2017 Unclassified (1 source) BMT Donor Evaluation / 451() Onset: 10-19-2017 Unclassified (1 source) Adenomyosis of the uterus; Translations: [Adenomyosis of the uterus] Onset: 07-23-2025 Unclassified (1 source) Other specified diseases and conditions complicating ; Translations: [Other specified diseases and conditions complicating ] Onset: 08-23-2024 Viral infection (2 sources) COVID-19; Translations: [COVID-19] Onset: 08-17-2024 Past or Other Problems Problem Classification Problem Date Documented Date Episodic/Chronic Complication of device; implant or graft (11 sources) IUD failure - ; Translations: [Breakdown (mechanical) of intrauterine contraceptive device, initial encounter] Onset: 08-17-2024 02-03-2024 Episodic Comment on above: plan growth US in 3r d trimester. removed in office at 8 weeks. small 1 cm hematoma present. - RESOLVED Contraceptive and procreative management (11 sources) Intrauterine contraceptive device in situ; Translations: [Presence of (intrauterine) contraceptive device] Onset: 12-05-2024 12-01-2023 Episodic Comment on above: [place] 09/12/2020 Deficiency and other anemia (1 source) Anemia, unspecified; Translations: [Anemia, unspecified] Onset: 11-17-2024 Episodic Deficiency and other anemia (1 source) Iron deficiency anemia, unspecified; Translations: [Iron deficiency anemia, unspecified] Onset: 10-31-2024 Episodic Diabetes or abnormal glucose tolerance complicating ; childbirth; or the puerperium (7 sources) Abnormal glucose level; Translations: [Abnormal glucose complicating ] Onset: 08-17-2024 09-14-2024 Episodic Comment on above: passed 3 hour Genitourinary symptoms and ill-defined conditions (1 source) Proteinuria, unspecified; Translations: [Proteinuria, unspecified] Onset: 08-23-2024 Episodic Immunizations and screening for infectious disease (1 source) Encounter for immunization; Translations: [Encounter for immunization] Onset: 08-14-2024 Episodic Miscellaneous mental health disorders (6 sources) depression; Translations: [ depression] Onset: 09-26-2024 10-31-2024 Episodic Comment on above: counseling and proza c. Stable Nonmalignant breast conditions (2 sources) Unspecified lump in unspecified breast; Translations: [Other signs and symptoms in breast] Onset: 02-09-2025 Episodic Other complications of ; puerperium affecting management of mother (1 source) Encounter for delivery without indication; Translations: [Encounter for delivery without indication] Onset: 09-05-2024 Episodic Other complications of (3 sources) Supervision of high risk , unspecified, unspecified trimester; Translations: [Supervision of unspecified high-risk ] Onset: 08-23-2024 02-03-2024 Episodic Other complications of (2 sources) Other viral diseases complicating , third trimester; Translations: [Other viral diseases complicating , third trimester] Onset: 08-17-2024 Episodic Other complications of (2 sources) Supervision of high risk , unspecified, third trimester; Translations: [Supervision of high risk , unspecified, third trimester] Onset: 09-05-2024 Episodic Other and delivery including normal (13 sources) ; Translations: [Encounter for supervision of normal , unspecified, unspecified trimester] Onset: 08-17-2024 02-03-2024 Episodic Comment on above: Neg GBS. Carrier neg . , Discussed genetic/carrier testing*Carrier testing done with previous but would like to repeat* nl anatomy, possible accessory lobe Residual codes; unclassified (4 sources) History of uterine scar from previous surgery; Translations: [Other postprocedural status] Onset: 08-17-2024 02-03-2024 Episodic Residual codes; unclassified (2 sources) Bone marrow donor; Translations: [Bone marrow donor] Onset: 08-17-2024 Episodic Residual codes; unclassified (2 sources) 36 weeks gestation of ; Translations: [36 weeks gestation of ] Onset: 11-14-2024 Episodic Residual codes; unclassified (1 source) 33 weeks gestation of ; Translations: [33 weeks gestation of ] Onset: 08-23-2024 Episodic Unclassified (1 source) Bone marrow donor; Translations: [Bone marrow donor] Onset: 11-10-2017 Unclassified (1 source) BMT Donor Evaluation; Translations: [BMT Donor Evaluation] Onset: 10-19-2017 Results Test Name Value Interpretation Reference Range Facility Absolute lymphocyte countOrd ered By: Petrona Michaels on 07-23-2025 Lymphocytes Auto (Unsp spec) [#/Vol] 0.93 10*3/uL 0.83-4.51 [facility] Absolute neutrophil countOrd ered By: Petrona Michaels on 07-23-2025 Neutrophils (Bld) [#/Vol] 4.1 10*3/uL 2.0-7.7 [facility] Automated lymphocyte count a s percentage of total leukocytesOrdered By: Petrona Michaels on 07-23-2025 Lymphocytes/100 WBC Auto (Unsp spec) 16.0 % Low 19-41 [facility] Basophil percentageOrdered B y: Petrona Michaels on 07-23-2025 Basophils/100 WBC (Bld) 0.7 % 0-1 [facility] CBC W/Diff, Automatedon 07-05 Absolute Lymph 0.93 X10 3/uL Normal 0.83-4.51 [facility] Comment on above: Performed By: #### L 100.0500 #### [facility] [address] [place], [address] Absolute Neut 4.1 X10 3/uL Normal 2.0-7.7 [facility] Comment on above: Performed By: #### L 100.0500 #### [facility] [address] [place], [address] Basophils/100 WBC (Bld) 0.7 % Normal 0-1 [facility] Comment on above: Performed By: #### L 100.0500 #### [facility] [address] [place], [address] Eosinophils/100 WBC (Bld) 1.5 % Normal 0-5 [facility] Comment on above: Performed By: #### L 100.0500 #### [facility] [address] [place], [address] Erythrocyte distribution width (RBC) [Ratio] 12.4 % Normal 11.6-14.6 [facility] Comment on above: Performed By: #### L 100.0500 #### [facility] [address] [place], [address] Hematocrit (Bld) [Volume fraction] 39.7 % Normal 37-47 [facility] Comment on above: Performed By: #### L 100.0500 #### [facility] [address] [place], [address] Hemoglobin (Bld) [Mass/Vol] 13.2 g/dL Normal 12.0-15.0 [facility] Comment on above: Performed By: #### L 100.0500 #### [facility] [address] [place], [address] IG% 0.200 Normal 0.0-0.9 [facility] Comment on above: Result Comment: IG% - Immature Granulocytes (promyelocytes, myelocytes and metamyelocytes) > 1% indicates that a LEFT SHIFT is Present. Performed By: #### L 100.0500 #### [facility] [address] [place], [address] Lymphocytes/100 WBC (Bld) 16.0 % Low 19-41 [facility] Comment on above: Performed By: #### L 100.0500 #### [facility] [address] [place], [address] MCH (RBC) [Entitic mass] 30.8 pg Normal 27.0-32.0 [facility] Comment on above: Performed By: #### L 100.0500 #### [facility] [address] [place], [address] MCHC (RBC) [Mass/Vol] 33.2 g/dL Normal 32-36 [facility] Comment on above: Performed By: #### L 100.0500 #### [facility] [address] [place], [address] MCV (RBC) [Entitic vol] 92.8 fL Normal 81-99 [facility] Comment on above: Performed By: #### L 100.0500 #### [facility] [address] [place], [address] Monocytes/100 WBC (Bld) 11.2 % High 0-10 [facility] Comment on above: Performed By: #### L 100.0500 #### [facility] [address] [place], [address] Neutrophils/100 WBC (Bld) 70.4 % High 47-70 [facility] Comment on above: Performed By: #### L 100.0500 #### [facility] [address] [place], [address] Nucleated RBC (Bld) [#/Vol] 0 10*3/uL Normal 0-5 [facility] Comment on above: Performed By: #### L 100.0500 #### [facility] [address] [place], [address] Platelet mean volume (Bld) [Entitic vol] 10.3 fL Normal 6.2-12.0 [facility] Comment on above: Performed By: #### L 100.0500 #### [facility] [address] [place], [address] Platelets (Bld) [#/Vol] 319 10*3/uL Normal 150-450 [facility] Comment on above: Performed By: #### L 100.0500 #### [facility] [address] [place], [address] RBC (Bld) [#/Vol] 4.28 10*6/uL Normal 4.2-5.4 [facility] Comment on above: Performed By: #### L 100.0500 #### [facility] [address] [place], [address] RDW SD 42.4 fl Normal 35.1-43.9 [facility] Comment on above: Performed By: #### L 100.0500 #### [facility] [address] [place], [address] WBC (Bld) [#/Vol] 5.8 10*3/uL Normal 4.4-11.0 [facility] Comment on above: Performed By: #### L 100.0500 #### [facility] [address] [place], [address] Eosinophil percentageOrdered By: Petrona Michaels on 07-23-2025 Eosinophils/100 WBC (Bld) 1.5 % 0-5 [facility] Erythrocyte distribution wid th ratioOrdered By: Petrona Michaels on 07-23-2025 Erythrocyte distribution width (RBC) [Ratio] 12.4 % 11.6-14.6 [facility] Erythrocyte distribution wid th standard deviationOrdered By: Petrona Michaels on 07-23-2025 Erythrocyte distribution width (RBC) [Ratio] 42.4 fl 35.1-43.9 [facility] Hematocrit Auto (Bld) [Volum e fraction]Ordered By: Petrona Michaels on 07-23-2025 Hematocrit (Bld) [Volume fraction] 39.7 % 37-47 [facility] Hemoglobin measurementOrdere d By: Petrona Michaels on 07-23-2025 Hemoglobin (Bld) [Mass/Vol] 13.2 g/dL 12.0-15.0 [facility] Immature granulocytes/100 WB C Auto (Bld)Ordered By: Petrona Michaels on 07-23-2025 Immature granulocytes/100 WBC (Bld) 0.200 % 0.0-0.9 [facility] Comment on above: IG% - Immature Granu locytes (promyelocytes, myelocytes and metamyelocytes) > 1% indicates that a LEFT SHIFT is Present. MCV (mean corpuscular volume ) determinationOrdered By: Petrona Michaels on 07-23-2025 MCV (RBC) [Entitic vol] 92.8 fL 81-99 [facility] Mean corpuscular hemoglobin (MCH) determinationOrdered By: Petrona Michaels on 07-23-2025 MCH (RBC) [Entitic mass] 30.8 pg 27.0-32.0 [facility] Mean corpuscular hemoglobin concentration (MCHC) determinationOrdered By: Petrona Michaels on 07-23-2025 MCHC (RBC) [Mass/Vol] 33.2 g/dL 32-36 [facility] Mean platelet volume determi nationOrdered By: Petrona Michaels on 07-23-2025 Platelet mean volume (Bld) [Entitic vol] 10.3 fL 6.2-12.0 [facility] Monocyte percentageOrdered B y: Petrona Michaels on 07-23-2025 Monocytes/100 WBC (Bld) 11.2 % High 0-10 [facility] Neutrophil percentageOrdered By: Petrona Michaels on 07-23-2025 Neutrophils/100 WBC (Bld) 70.4 % High 47-70 [facility] Nucleated red blood cell per centageOrdered By: Petrona Michaels on 07-23-2025 Nucleated RBC/100 WBC (Bld) [Ratio] 0 % 0-5 [facility] Program Manufacturing Leader Office Visit Reporton 07-23-2025 Program Manufacturing Leader Office Visit Report [facility]'s [address], [address] [place] [address] OFFICE VISIT Date of Service: 07/23/25 MR#: [id number] Acct: [id number] Name: STEVE BERNAL Rep #: [id number] : 1990 Provider: Dr. Petrona allan MD Age/Sex: 34/F Location: [facility] Status: Signed Intake Vital Signs 06/07/25 15:40 06/18/25 10:49 07/23/25 08:19 Height 5 ft 6 in 5 ft 6 in 5 ft 6 in Weight: 147 lb 5 oz 142 lb 7 oz BMI 23.8 22.9 BP 128/87 H 148/97 H Intake Visit Reasons: discuss AUB - US results Glass Belt Sander Required: No Is patient in pain?: Yes (pain in groin and lower back, described as deep pain. ) Allergies No Known Allergies Allergy (Verified 07/23/25 08:21) Medications ???Medication ???Instructions ???Recorded ???Confirmed ???Type fluoxetine 20 mg capsule (Prozac) 20 mg PO DAILY #30 caps 09/28/24 07/23/25 Rx phentermine 37.5 mg capsule 37.5 mg PO QDAY 10/31/24 07/23/25 History Is last menstrual period known: Yes Last Menstrual Period: 07/08/25 (several days of very heavy bleeding, irregular) Post menopausal: No Patient : No : No PFSH Medical History COVID-19 affecting in third trimester Gestational HTN Surgical History History of delivery Status post bilateral salpingectomy Bone marrow donor H/O wisdom tooth extraction History of ankle surgery Family History Mother CVA (cerebral vascular accident) Hypertension Diabetes Gestational diabetes Father Lymphoma Aunt Leukemia Grandmother CVA (cerebral vascular accident) Diabetes Hypertension Myocardial infarction Grandfather CVA (cerebral vascular accident) Diabetes Hypertension Myocardial infarction Daughter Diaphragmatic hernia surgery at 4 mo of age Social History adopted: No household members: spouse and children number of children: 1 current occupational status: 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/hazards: No pets and animals: No leisure activities: exercise, music and reading history of recent travel: Yes (All domestic [place] travel ([place], [place], [place], [place]) details: [place], [place], [place], [place] out of state: Yes out of country: No sexually active: Yes Smoking Status: Never smoker Electronic Cigarette Use: not used second hand exposure: No alcohol intake: former details: not while substance use type: marijuana well-balanced diet: about half the time caffeine: Yes (very seldomly drinking beverages with caffeine (1-3 times per month)) Type: tea eating out: 1-3 times/week during the past year weight has: decreased > 10 lbs what type of physical activity do you participate in: walking and running frequency: 3-4 times per week duration: 30-45 minutes/day michael/mormonism: Pentecostal seatbelt use: always do you feel safe at home: Yes additional social history: : Foreign [place] BOWEN discuss AUB - US results Details: The patient is a 34-year-old female with a history of two sections presenting with prolonged, heavy menstrual bleeding and pelvic pain since her last delivery almost a year ago. Menstrual History - Reports significant changes in menstrual cycles since her last delivery almost a year ago. - Describes periods as ridiculous, with heavy bleeding lasting 3-5 weeks, and one episode lasting 7 weeks during the summer. - Bleeding is so heavy that she bleeds through an UltraTampon within 45 minutes and needs to wear a pad for the first week of her period; carries extra clothes due to the risk of bleeding through her pants and underwear. - Experiences normal period pain, but also reports groin pain on both sides, especially the right side, which is more intense during menstruation but is always kind of there. - Exercise, particularly running, exacerbates the groin pain, leading her to switch to walking on the treadmill. - Reports a deep, aching pain in her lower back, similar to the sensation she experienced during a bone marrow harvesting procedure; pain is localized to the sacrum and hip bones. - Has been receiving massages to address the pain, but no abnormalities were found in her hips. - Denies any abnormal hair growth on the upper lip, chin, chest, or belly. - Reports experiencing night sweats occasionally. Pelvic Pain - Reports a deep, aching pain in her lower back, similar to the sensation she experienced during a bone marrow harvesting procedure; pain is localized to the sacrum and hip bones. - Has been receiving massages to address the pain, but no abnormalities were found in her hips. (more content not included)... Normal [facility] Platelet countOrdered By: Alfred Michaels on 07-23-2025 Platelets (Bld) [#/Vol] 319 10*3/uL 150-450 [facility] RBC Auto (Bld) [#/Vol]Wilder hairston By: Petrona Michaels on 07-23-2025 RBC (Bld) [#/Vol] 4.28 10*6/uL 4.2-5.4 [facility] Surgery Specimen Level Delma 07-23-2025 Surgery Specimen Level IV -------- Patient Age/Sex Location Account Attending Physician -------- STEVE BERNAL 34/F [facility] [id number] Dr. Petrona Michaels MD -------- Specimen: [id number] Received: 07/23/25 Status: LUZ Villasenor Num: [id number] Spec Type: CHIDI BX/C Taya Dr: Dr. Petrona Michaels MD HEADER OPERATION: Endometrial biopsy PRE-OP DIAGNOSIS: Abnormal uterine bleeding, d/f adenomyosis TISSUE SUBMITTED: A- Endometrial tissue -------- MICROSCOPIC DIAGNOSIS A. Endometrium, biopsy: Inactive endometrium with glandular and stromal breakdown MICROSCOPIC DESCRIPTION Slides are reviewed. GROSS DESCRIPTION A. Received in formalin labeled the patient's name and date of is a 2.7 x 1.0 x 0.2 cm aggregate of khan-red tissue fragments, clotted blood and mucoid material. Entirely submitted in 1 cassette. AR 07/23/2025 CPT:19662 -------- Patient Age/Sex Location Account Attending Physician -------- STEVE BERNAL 34/F [facility] [id number] Dr. Petrona Michaels MD -------- Signed (signature on file) Dr. Sammie Wade DO 07/24/25 1010 -------- Normal [facility] Comment on above: Performed By: #### L 100.0500 #### [facility] [address] [facility]. [place], [place], [address] TSH DL <= 0.005 mIU/L QnOrde red By: Petrona Michaels on 07-23-2025 TSH Qn 1.690 uIU/mL 0.300-4.200 [facility] Thyroid Stim Hormone (TSH)on 07-23-2025 TSH 1.690 uIU/mL Normal 0.300-4.200 [facility] Comment on above: Performed By: #### L 100.0500 #### [facility] [address] [facility] [place], [place], [id number] White blood cell (WBC) count Ordered By: Petrona Michaels on 07-23-2025 WBC (Bld) [#/Vol] 5.8 10*3/uL 4.4-11.0 [facility] Pelvic w/ Transvaginalon Pelvic w/ Transvaginal [facility] Imaging Services [address] [place], [place] [address] Pelvic w/ Transvaginal MR#: [id number] Acct: [id number] Name: STEVE BERNAL Rep #: [id number] : 1990 F 34 From: Rocky pearl MD PCP: Dr. Priscilla Pal MD Status: [facility] Study: Pelvic w/ Transvaginal Date of Exam: 06/14/25 Exam# [id number] Ordering Dr: Eleni Penny WOOL BROKER-C PROCEDURE: PELVIC W/ TRANSVAGINAL REASON FOR EXAM: PELVIC MASS, AUB TECHNIQUE: Procedure Code: [id number] Modality: US Procedure: PELVIC W/ TRANSVAGINAL COMPARISON: Prior study dated November 10, 2024. FINDINGS: Measurements: Uterus: 10.1 cm x 6.9 cm x 4.6 cm with a volume of 167.1 mL Endometrial Thickness: 7 mm Right Ovary: Not visualized. Left Ovary: 4.1 cm x 2.8 cm x 2.4 cm with a volume of 21 mL. TRANSABDOMINAL: Uterus: The uterus is heterogeneous in keeping with fibroid change although no focal fibroid is seen. Endometrium: Unremarkable. Right ovary: Not visualized. Left ovary: There is a 3.3 cm x 2 cm 1.7 cm left ovarian cyst. Other: No large pelvic mass identified. Transvaginal sonography was performed to better visualize the endometrium. TRANSVAGINAL: Uterus: Retroverted. Heterogeneous echotexture in keeping with fibroid change. Nabothian cyst. Endometrium: Normal echotexture. Right ovary: Not visualized. Left ovary: 3.3 cm x 2 cm x 1.7 cm left ovarian cyst. Other adnexal findings: None. Cul-de-sac: No free intraperitoneal fluid identified. Tenderness: No tenderness US/Pelvic w/ Transvaginal IMPRESSION: Enlarged heterogeneous appearance of the uterus in keeping with fibroid change although no focal fibroid is seen. 3.3 cm x 2 cm x 1.7 cm left ovarian cyst. Reading Location: [id number] CC: JAQUELINE Penny; Dr. Priscilla Pal MD Roving Frame Tender: Signed Normal [facility] Program Manufacturing Leader Office Visit Reporton 06-07-2025 Program Manufacturing Leader Office Visit Report [facility]'s [address], [address] [place] [address] OFFICE VISIT Date of Service: 06/07/25 MR#: [id number] Acct: [id number] Name: STEVE BERNAL Rep #: [id number] : 1990 Provider: ZAID Chavez ams Age/Sex: 34/F Location: [facility] Status: Signed Intake Vital Signs 05/31/25 13:59 06/07/25 15:40 Height 5 ft 6 in 5 ft 6 in Weight: 144 lb 3 oz 147 lb 5 oz BMI 23.3 23.8 BP 128/87 H Intake Visit Reasons: Nexplanon Removal Chief Complaint: Nexplanon Removal Glass Belt Sander Required: No Is patient in pain?: No Allergies No Known Allergies Allergy (Verified 06/07/25 15:44) Medications ???Medication ???Instructions ???Recorded ???Confirmed ???Type fluoxetine 20 mg capsule (Prozac) 20 mg PO DAILY #30 caps 09/28/24 06/07/25 Rx phentermine 37.5 mg capsule 37.5 mg PO QDAY 10/31/24 06/07/25 History Post menopausal: No Patient : No : No Control Method: Nexplanon PFSH PFS Medical History COVID-19 affecting in third trimester Gestational HTN Surgical History History of delivery Status post bilateral salpingectomy Bone marrow donor H/O wisdom tooth extraction History of ankle surgery Family History Mother CVA (cerebral vascular accident) Hypertension Diabetes Gestational diabetes Father Lymphoma Aunt Leukemia Grandmother CVA (cerebral vascular accident) Diabetes Hypertension Myocardial infarction Grandfather CVA (cerebral vascular accident) Diabetes Hypertension Myocardial infarction Daughter Diaphragmatic hernia surgery at 4 mo of age Social History adopted: No household members: spouse and children number of children: 1 current occupational status: 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/hazards: No pets and animals: No leisure activities: exercise, music and reading history of recent travel: Yes (All domestic [place] travel ([place], [place], [place], [place]) details: [place], [place], [place], [place] out of state: Yes out of country: No sexually active: Yes Smoking Status: Never smoker Electronic Cigarette Use: not used second hand exposure: No alcohol intake: former details: not while substance use type: marijuana well-balanced diet: about half the time caffeine: Yes (very seldomly drinking beverages with caffeine (1-3 times per month)) Type: tea eating out: 1-3 times/week during the past year weight has: decreased > 10 lbs what type of physical activity do you participate in: walking and running frequency: 3-4 times per week duration: 30-45 minutes/day michael/mormonism: Pentecostal seatbelt use: always do you feel safe at home: Yes additional social history: : Foreign [place] History 2 Elective abortions Hx Para 2 Spontaneous abortions Hx # Term Pregnancies Ectopic pregnancies Hx # Pregnancies Multiple births # of living children 2 Past Pregnancies Del. Date Name GA/Weeks Outcome Route Bth Weight Infant Gen Labor Lgth Anesthesia Del Locatn Provider FOB 07/28/16 Loi live - full term 7lbs 5oz Male spinal WC Dr Saldana Foreign 08/21/24 Marta 37 live - full term 6 ib 0 oz Female spinal [facility] Carrasquillo Delivery Date: 07/28/16 Last Updated by: Tiffanie Samaniego RN Elective Delivery Date: 08/21/24 Last Updated by: Tiffanie Samaniego RN See problem list for complications and LTCS BS marta 37 ghtn HPI Nexplanon Removal Details: STEVE BERNAL is a 34 year old who presents for nexplanon removal for abnormal uterine bleeding. Is having heavy menses and unsure if it is from Nexplanon but would like it out to determine cause. Does not need contraception but was using it for bleeding control. ROS Const Constitutional: Reports system reviewed and no additional complaints, except as documented Cardio Card: Reports system reviewed and no additional complaints, except as documented Resp Resp: Reports system reviewed and no additional complaints, except as documented GI GI: Reports system reviewed and no additional complaints, except as documented : Reports system reviewed and no additional complaints, except as documented Musc Musc: Reports system reviewed and no additional complaints, except as documented Skin Skin/Breast: Reports system reviewed and no additional complaints, except as documented Neuro Neuro: Reports system reviewed and no additional complaints, except as documented Psych Psych: Reports system reviewed and no addition (more content not included)... Normal [facility] Program Manufacturing Leader Office Visit Reporton 05-31-2025 Program Manufacturing Leader Office Visit Report [facility]'s [address], [address] [place] [address] OFFICE VISIT Date of Service: 05/31/25 MR#: [id number] Acct: [id number] Name: STEVE BERNAL Rep #: [id number] : 1990 Provider: JAQUELINE Arriaza Age/Sex: 34/F Location: [facility] Status: Signed Intake Vital Signs 02/09/25 15:24 05/31/25 13:59 Height 5 ft 6 in 5 ft 6 in Weight: 144 lb 3 oz BMI 23.3 Intake Visit Reasons: ABN BLEEDING W/NEXPLANON Glass Belt Sander Required: No Is patient in pain?: No Allergies No Known Allergies Allergy (Verified 05/31/25 14:04) Medications ???Medication ???Instructions ???Recorded ???Confirmed ???Type fluoxetine 20 mg capsule (Prozac) 20 mg PO DAILY #30 caps 09/28/24 05/31/25 Rx phentermine 37.5 mg capsule 37.5 mg PO QDAY 10/31/24 05/31/25 History Is last menstrual period known: Yes Last Menstrual Period: 04/10/25 Post menopausal: No Patient : No : No Control Method: nexplanon [facility] Medical History COVID-19 affecting in third trimester Gestational HTN Surgical History History of delivery Status post bilateral salpingectomy Bone marrow donor H/O wisdom tooth extraction History of ankle surgery Family History Mother CVA (cerebral vascular accident) Hypertension Diabetes Gestational diabetes Father Lymphoma Aunt Leukemia Grandmother CVA (cerebral vascular accident) Diabetes Hypertension Myocardial infarction Grandfather CVA (cerebral vascular accident) Diabetes Hypertension Myocardial infarction Daughter Diaphragmatic hernia surgery at 4 mo of age Social History adopted: No household members: spouse and children number of children: 1 current occupational status: 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/hazards: No pets and animals: No leisure activities: exercise, music and reading history of recent travel: Yes (All domestic [place] travel ([place], [place], [place], [place]) details: [place], [place], [place], [place] out of state: Yes out of country: No sexually active: Yes Smoking Status: Never smoker Electronic Cigarette Use: not used second hand exposure: No alcohol intake: former details: not while substance use type: marijuana well-balanced diet: about half the time caffeine: Yes (very seldomly drinking beverages with caffeine (1-3 times per month)) Type: tea eating out: 1-3 times/week during the past year weight has: decreased > 10 lbs what type of physical activity do you participate in: walking and running frequency: 3-4 times per week duration: 30-45 minutes/day michael/mormonism: Pentecostal seatbelt use: always do you feel safe at home: Yes additional social history: : Foreign BOWEN ABN BLEEDING W/NEXPLANON Details: STEVE BERNAL is a 34 year old who presents for abnormal bleeding since having the nexplanon placed; she reports she has been having menses irregularly; at one point she bled for 7 weeks straight. She never knows when her menses is going to start. She has also noted post coital bleeding since having nexplanon placed as well. Denies concerns for STDs; denies symptoms of vaginal discharge, odor. Reports painful intercourse. with insertion as well as penetration. Family history of possible endometriosis; she has concerns she may have similar symptoms. Since having her last child she has noticed back pain that travels to the sides of her legs. Denies numbness/tingling. Female Reproductive History Last Menstrual Period: 04/10/25 Questions: sexually active: Yes History 2 Elective abortions Hx Para 2 Spontaneous abortions Hx # Term Pregnancies Ectopic pregnancies Hx # Pregnancies Multiple births # of living children 2 Past Pregnancies Del. Date Name GA/Weeks Outcome Route Bth Weight Gen Labor Lgth Anesthesia Del Locatn Provider FOB 07/28/16 Loi live - full term 7lbs 5oz Male spinal [facility] Dr Les Carrasquillo 08/21/24 Marta 37 live - full term 6 ib 0 oz Female spinal [facility] Carrasquillo Delivery Date: 07/28/16 Last Updated by: Tiffanie Samaniego RN Elective Delivery Date: 08/21/24 Last Updated by: Tiffanie Danette, RN See problem list for complications and LTCS BS SM marta 37 ghtn ROS Const Constitutional: Reports system reviewed and no additional complaints, except as documented Eyes Eyes: Reports system reviewed and no additional complaints, except as documented Cardio Card: Reports system reviewed and no additional complaints, (more content not included)... Normal [facility] Absolute lymphocyte countOrd ered By: Princess Burrell on 05-23-2025 Lymphocytes Auto (Unsp spec) [#/Vol] 1.90 10*3/uL 0.83-4.51 [facility] Absolute neutrophil countOrd ered By: Princess [place] on 05-23-2025 Neutrophils (Bld) [#/Vol] 5.0 10*3/uL 2.0-7.7 [facility] Automated lymphocyte count a s percentage of total leukocytesOrdered By: Princess Salazars on 05-23-2025 Lymphocytes/100 WBC Auto (Unsp spec) 24.1 % 19-41 [facility] Basophil percentageOrdered B y: Princess Burrell on 05-23-2025 Basophils/100 WBC (Bld) 0.8 % 0-1 [facility] CBC W/Diff, Automatedon 05-05 0-2024 Absolute Lymph 1.90 X10 3/uL Normal 0.83-4.51 [facility] Comment on above: Performed By: #### L 100.0100 #### [facility] [address] [place], [address] Absolute Neut 5.0 X10 3/uL Normal 2.0-7.7 [facility] Comment on above: Performed By: #### L 100.0100 #### [facility] [address] [place], [address] Basophils/100 WBC (Bld) 0.8 % Normal 0-1 [facility] Comment on above: Performed By: #### L 100.0100 #### [facility] [address] [place], [address] Eosinophils/100 WBC (Bld) 0.9 % Normal 0-5 [facility] Comment on above: Performed By: #### L 100.0100 #### [facility] [address] [place], [address] Erythrocyte distribution width (RBC) [Ratio] 11.9 % Normal 11.6-14.6 [facility] Comment on above: Performed By: #### L 100.0100 #### [facility] [address] [place], [address] Hematocrit (Bld) [Volume fraction] 41.4 % Normal 37-47 [facility] Comment on above: Performed By: #### L 100.0100 #### [facility] [address] [place], [address] Hemoglobin (Bld) [Mass/Vol] 14.1 g/dL Normal 12.0-15.0 [facility] Comment on above: Performed By: #### L 100.0100 #### [facility] [address] [place], [address] IG% 0.100 Normal 0.0-0.9 [facility] Comment on above: Result Comment: IG% - Immature Granulocytes (promyelocytes, myelocytes and metamyelocytes) > 1% indicates that a LEFT SHIFT is Present. Performed By: #### L 100.0100 #### [facility] [address] [place], [address] Lymphocytes/100 WBC (Bld) 24.1 % Normal 19-41 [facility] Comment on above: Performed By: #### L 100.0100 #### [facility] [address] [place], [address] MCH (RBC) [Entitic mass] 31.0 pg Normal 27.0-32.0 [facility] Comment on above: Performed By: #### L 100.0100 #### [facility] [address] [place], [address] MCHC (RBC) [Mass/Vol] 34.1 g/dL Normal 32-36 [facility] Comment on above: Performed By: #### L 100.0100 #### [facility] [address] [place], [address] MCV (RBC) [Entitic vol] 91.0 fL Normal 81-99 [facility] Comment on above: Performed By: #### L 100.0100 #### [facility] [address] [place], [address] Monocytes/100 WBC (Bld) 10.9 % High 0-10 [facility] Comment on above: Performed By: #### L 100.0100 #### [facility] [address] [place], [address] Neutrophils/100 WBC (Bld) 63.2 % Normal 47-70 [facility] Comment on above: Performed By: #### L 100.0100 #### [facility] [address] [place], [address] Nucleated RBC (Bld) [#/Vol] 0 10*3/uL Normal 0-5 [facility] Comment on above: Performed By: #### L 100.0100 #### [facility] [address] [place], [address] Platelet mean volume (Bld) [Entitic vol] 9.2 fL Normal 6.2-12.0 [facility] Comment on above: Performed By: #### L 100.0100 #### [facility] [address] [place], [address] Platelets (Bld) [#/Vol] 388 10*3/uL Normal 150-450 [facility] Comment on above: Performed By: #### L 100.0100 #### [facility] [address] [place], [address] RBC (Bld) [#/Vol] 4.55 10*6/uL Normal 4.2-5.4 [facility] Comment on above: Performed By: #### L 100.0100 #### [facility] [address] [place], [address] RDW SD 39.5 fl Normal 35.1-43.9 [facility] Comment on above: Performed By: #### L 100.0100 #### [facility] [address] [place], [address] WBC (Bld) [#/Vol] 7.9 10*3/uL Normal 4.4-11.0 [facility] Comment on above: Performed By: #### L 100.0100 #### [facility] [address] [place], [address] Eosinophil percentageOrdered By: Princess Burrell on 05-23-2025 Eosinophils/100 WBC (Bld) 0.9 % 0-5 [facility] Erythrocyte distribution wid th ratioOrdered By: Princesskristy Burrell on 05-23-2025 Erythrocyte distribution width (RBC) [Ratio] 11.9 % 11.6-14.6 [facility] Erythrocyte distribution wid th standard deviationOrdered By: Princess Burrell on 05-23-2025 Erythrocyte distribution width (RBC) [Ratio] 39.5 fl 35.1-43.9 [facility] Hematocrit Auto (Bld) [Volum e fraction]Ordered By: Princess Burrell on 05-23-2025 Hematocrit (Bld) [Volume fraction] 41.4 % 37-47 [facility] Hemoglobin measurementOrdere d By: Princess Burrell on 05-23-2025 Hemoglobin (Bld) [Mass/Vol] 14.1 g/dL 12.0-15.0 [facility] Immature granulocytes/100 WB C Auto (Bld)Ordered By: Princess Burrell on 05-23-2025 Immature granulocytes/100 WBC (Bld) 0.100 % 0.0-0.9 [facility] Comment on above: IG% - Immature Granu locytes (promyelocytes, myelocytes and metamyelocytes) > 1% indicates that a LEFT SHIFT is Present. MCV (mean corpuscular volume ) determinationOrdered By: Princess Burrell on 05-23-2025 MCV (RBC) [Entitic vol] 91.0 fL 81-99 [facility] Mean corpuscular hemoglobin (MCH) determinationOrdered By: Princess Burrell on 05-23-2025 MCH (RBC) [Entitic mass] 31.0 pg 27.0-32.0 [facility] Mean corpuscular hemoglobin concentration (MCHC) determinationOrdered By: Princess Burrell on 05-23-2025 MCHC (RBC) [Mass/Vol] 34.1 g/dL 32-36 [facility] Mean platelet volume determi nationOrdered By: Princess Burrell on 05-23-2025 Platelet mean volume (Bld) [Entitic vol] 9.2 fL 6.2-12.0 [facility] Monocyte percentageOrdered B y: Princess Burrell on 05-23-2025 Monocytes/100 WBC (Bld) 10.9 % High 0-10 [facility] Neutrophil percentageOrdered By: Princess Burrell on 05-23-2025 Neutrophils/100 WBC (Bld) 63.2 % 47-70 [facility] Nucleated red blood cell per centageOrdered By: Princess Burrell on 05-23-2025 Nucleated RBC/100 WBC (Bld) [Ratio] 0 % 0-5 [facility] Platelet countOrdered By: Artur Burrell on 05-23-2025 Platelets (Bld) [#/Vol] 388 10*3/uL 150-450 [facility] RBC Auto (Bld) [#/Vol]Ordere d By: Princess Burrell on 05-23-2025 RBC (Bld) [#/Vol] 4.55 10*6/uL 4.2-5.4 [facility] White blood cell (WBC) count Ordered By: Princess Burrell on 05-23-2025 WBC (Bld) [#/Vol] 7.9 10*3/uL 4.4-11.0 [facility] Program Manufacturing Leader Office Visit Reporton 02-09-2025 Program Manufacturing Leader Office Visit Report [facility] [address], [address] [place] [address] OFFICE VISIT Date of Service: 02/09/25 MR#: [id number] Acct: [id number] Name: STEVE BERNAL Rep #: [id number] : 1990 Provider: ZAID Chavez ams Age/Sex: 34/F Location: [facility] Status: Signed Intake Vital Signs 12/05/24 14:01 02/09/25 15:24 02/09/25 15:24 Height 5 ft 6 in 5 ft 6 in 5 ft 6 in Weight: 140 lb 8 oz BMI 22.6 BP 127/84 H Intake Visit Reasons: Liletta Insertion Chief Complaint: Liletta Insertion Glass Belt Sander Required: No Is patient in pain?: No Allergies No Known Allergies Allergy (Verified 02/09/25 15:23) Medications ???Medication ???Instructions ???Recorded ???Confirmed ???Type fluoxetine 20 mg capsule (Prozac) 20 mg PO DAILY #30 caps 09/28/24 02/09/25 Rx phentermine 37.5 mg capsule 37.5 mg PO QDAY 10/31/24 02/09/25 History Post menopausal: No PFSH PFSH Medical History COVID-19 affecting in third trimester Gestational HTN Surgical History History of delivery Status post bilateral salpingectomy Bone marrow donor H/O wisdom tooth extraction History of ankle surgery Family History Mother CVA (cerebral vascular accident) Hypertension Diabetes Gestational diabetes Father Lymphoma Aunt Leukemia Grandmother CVA (cerebral vascular accident) Diabetes Hypertension Myocardial infarction Grandfather CVA (cerebral vascular accident) Diabetes Hypertension Myocardial infarction Daughter Diaphragmatic hernia surgery at 4 mo of age Social History adopted: No household members: spouse and children number of children: 1 current occupational status: 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/hazards: No pets and animals: No leisure activities: exercise, music and reading history of recent travel: Yes (All domestic [place] travel ([place], [place], [place], [place]) details: [place], [place], [place], [place] out of state: Yes out of country: No sexually active: Yes Smoking Status: Never smoker Electronic Cigarette Use: not used second hand exposure: No alcohol intake: former details: not while substance use type: marijuana well-balanced diet: about half the time caffeine: Yes (very seldomly drinking beverages with caffeine (1-3 times per month)) Type: tea eating out: 1-3 times/week during the past year weight has: decreased > 10 lbs what type of physical activity do you participate in: walking and running frequency: 3-4 times per week duration: 30-45 minutes/day michael/mormonism: Pentecostal seatbelt use: always do you feel safe at home: Yes additional social history: : Foreign Potts History 2 Elective abortions Hx Para 2 Spontaneous abortions Hx # Term Pregnancies Ectopic pregnancies Hx # Pregnancies Multiple births # of living children 2 Past Pregnancies Del. Date Name GA/Weeks Outcome Route Bth Weight Gen Labor Lgth Anesthesia Del Locatn Provider FOB 07/28/16 Loi live - full term 7lbs 5oz Male spinal [facility] Dr Thornton'matthew Foreign 08/21/24 Marta 37 live - full term 6 ib 0 oz Female spinal [facility] LAKESHA Carrasquillo Delivery Date: 07/28/16 Last Updated by: Tiffanie Samaniego RN Elective Delivery Date: 08/21/24 Last Updated by: Tiffanie Saamniego RN See problem list for complications and LTCS [facility] 37 ghtn HPI Liletta Insertion Details: STEVE BERNAL is a 34 year old who presents for IUD insertion for control of menses. risks and benefits explained, patient would like to proceed with procedure. Had tubal done and no test needed. Unable to insert IUD- discussed with patient and decided on nexplanon. ROS Const Constitutional: Reports system reviewed and no additional complaints, except as documented Cardio Card: Reports system reviewed and no additional complaints, except as documented Resp Resp: Reports system reviewed and no additional complaints, except as documented GI GI: Reports system reviewed and no additional complaints, except as documented : Reports system reviewed and no additional complaints, except as documented; Denies difficulty voiding, dysuria or urinary frequency Skin Skin/Breast: Reports system reviewed and no additional complaints, except as documented Neuro Neuro: Reports system reviewed and no additional complaints, except as documented Psych Psych: Reports system reviewed and no additional complaints, except as documented Exam Const General: cooperative, healthy (more content not included)... Normal [facility] Program Manufacturing Leader Office Visit Reporton 12-05-2024 Program Manufacturing Leader Office Visit Report [facility] [address], [address] [place] [address] OFFICE VISIT Date of Service: 12/05/24 MR#: [id number] Acct: [id number] Name: STEVE BERNAL Rep #: [id number] : 1990 Provider: JAQUELINE owusu Age/Sex: 33/F Location: [facility] Status: Signed Intake Vital Signs 10/31/24 11:38 12/05/24 13:58 12/05/24 14:01 Height 5 ft 6 in 5 ft 6 in 5 ft 6 in Weight: 147 lb 6 oz BMI 23.8 BP 130/72 H Intake Visit Reasons: iud removal Chief Complaint: IUD removal Glass Belt Sander Required: No Is patient in pain?: No Allergies No Known Allergies Allergy (Verified 12/05/24 13:57) Medications ???Medication ???Instructions ???Recorded ???Confirmed ???Type fluoxetine 20 mg capsule (Prozac) 20 mg PO DAILY #30 caps 09/28/24 12/05/24 Rx lisinopril 10 mg tablet 10 mg PO QDAY 10/31/24 12/05/24 Hi story phentermine 37.5 mg capsule 37.5 mg PO QDAY 10/31/24 12/05/24 History Is last menstrual period known: No Post menopausal: No Patient : No : No PFSH Medical History COVID-19 affecting in third trimester Gestational HTN Surgical History History of delivery Status post bilateral salpingectomy Bone marrow donor H/O wisdom tooth extraction History of ankle surgery Family History Mother CVA (cerebral vascular accident) Hypertension Diabetes Gestational diabetes Father Lymphoma Aunt Leukemia Grandmother CVA (cerebral vascular accident) Diabetes Hypertension Myocardial infarction Grandfather CVA (cerebral vascular accident) Diabetes Hypertension Myocardial infarction Social History adopted: No household members: spouse and children number of children: 1 current occupational status: 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/hazards: No pets and animals: No leisure activities: exercise, music and reading history of recent travel: Yes (All domestic [place] travel ([place], [place], [place], [place]) details: [place], [place], [place], [place] out of state: Yes out of country: No sexually active: Yes Smoking Status: Never smoker Electronic Cigarette Use: not used second hand exposure: No alcohol intake: former details: not while substance use type: marijuana well-balanced diet: about half the time caffeine: Yes (very seldomly drinking beverages with caffeine (1-3 times per month)) Type: tea eating out: 1-3 times/week during the past year weight has: decreased > 10 lbs what type of physical activity do you participate in: walking and running frequency: 3-4 times per week duration: 30-45 minutes/day michael/mormonism: Pentecostal seatbelt use: always do you feel safe at home: Yes additional social history: : Foreign Potts HPI iud removal Details: STEVE BERNAL is a 33 year old who presents for IUD removal. Had mirena IUD placed in October 2024. She was 8 wk pp. She has had pain and bleeding since insertion. Bleeding is sometimes heavy. She has had bilat salpingectomy and had IUD placed for menstrual control. US indicated that one arm of IUD was possibly embedded in myometrium. History 2 Elective abortions Hx Para 2 Spontaneous abortions Hx # Term Pregnancies Ectopic pregnancies Hx # Pregnancies Multiple births # of living children 2 Past Pregnancies Del. Date Name GA/Weeks Outcome Route Bth Weight Gen Labor Lgth Anesthesia Del Locatn Provider FOB 07/28/16 Loi live - full term 7lbs 5oz Male spinal [facility] Dr Les Carrasquillo 08/21/24 Marta 37 live - full term 6 ib 0 oz Female spinal [facility] Carrasquillo Delivery Date: 07/28/16 Last Updated by: Tiffanie Samaniego RN Elective Delivery Date: 08/21/24 Last Updated by: Tiffanie Samaniego RN See problem list for complications and LTCS [facility] marta 37 ghtn ROS Const Constitutional: Reports system reviewed and no additional complaints, except as documented Eyes Eyes: Reports system reviewed and no additional complaints, except as documented GI GI: Denies abdominal pain or change in bowel habits : Reports as per HPI Exam Const General: cooperative and no acute distress Orientation: oriented x3 General: bladder normal to palpation External Female Exam: normal external appearance and normal appearance of the urethra Urethra: normal appearance of the urethra Speculum Exam - Vagina: normal appearance of the vagina, normal vaginal discharge, no lesions and nontender Speculum Exam - Cervix: art (more content not included)... Normal [facility] Pelvic w/ Transvaginalon Pelvic w/ Transvaginal [facility] Services [address] [place] [id number] Pelvic w/ Transvaginal MR#: [id number] Acct: [id number] Name: STEVE BERNAL Rep #: [id number] : 1990 F 33 From: Rocky pearl MD PCP: Dr. Priscilla Pal MD Status: REG CLI Study: Pelvic w/ Transvaginal Date of Exam: 11/08/24 Exam# [id number] Ordering Dr: Princess Burrell WOOL BROKER WOOL BROKER -C PROCEDURE: PELVIC W/ TRANSVAGINAL REASON FOR EXAM: IUD. Heavy bleeding. TECHNIQUE: Transabdominal and transvaginal pelvic ultrasound COMPARISON: None. FINDINGS: Measurements: Uterus: 9.1 cm x 6.6 cm x 5.8 cm. Endometrial Thickness: 8 mm Right Ovary: 2.3 cm x 1.9 cm x 2 cm. Left Ovary: 2.9 cm x 1.7 cm x 1.8 cm. TRANSABDOMINAL: Uterus: Normal size, myometrial echotexture, and contour. IUD is in-situ. The IUD arm appears to be within the myometrium of the uterus on the left side. Endometrium: Unremarkable. Right ovary: Normal size and echotexture. Left ovary: Normal size and echotexture. No large pelvic mass identified. Transvaginal sonography was performed to further characterize the uterine findings. TRANSVAGINAL: Uterus: Retroverted. Normal contour and myometrial echotexture. Endometrium: Normal echotexture. Right ovary: Normal size and echotexture. Left ovary: Normal size and echotexture. Other adnexal findings: None. Cul-de-sac: No free intraperitoneal fluid identified. No tenderness. US/Pelvic w/ Transvaginal IMPRESSION: IUD is seen within the endometrium. Reading Location: [place] [address] CC: JAQUELINE Burrell; Dr. Priscilla Pal MD Roving Frame Tender: Signed Normal [facility] CBC W/Diff, Automatedon 10-05 Absolute Lymph 1.51 X10 3/uL Normal 0.83-4.51 [facility] Comment on above: Performed By: #### L 100.0100, L500.4050 #### [facility] [address] [place], [address] Absolute Neut 2.8 X10 3/uL Normal 2.0-7.7 [facility] Comment on above: Performed By: #### L 100.0100, L500.4050 #### [facility] [address] [place], [address] Basophils/100 WBC (Bld) 1.2 % High 0-1 [facility] Comment on above: Performed By: #### L 100.0100, L500.4050 #### [facility] [address] [place], [address] Eosinophils/100 WBC (Bld) 1.6 % Normal 0-5 [facility] Comment on above: Performed By: #### L 100.0100, L500.4050 #### [facility] [address] [place], [address] Erythrocyte distribution width (RBC) [Ratio] 11.6 % Normal 11.6-14.6 [facility] Comment on above: Performed By: #### L 100.0100, L500.4050 #### [facility] [address] [place], [address] Hematocrit (Bld) [Volume fraction] 38.6 % Normal 37-47 [facility] Comment on above: Performed By: #### L 100.0100, L500.4050 #### [facility] [address] [place], [address] Hemoglobin (Bld) [Mass/Vol] 12.9 g/dL Normal 12.0-15.0 [facility] Comment on above: Performed By: #### L 100.0100, L500.4050 #### [facility] [address] [place], [address] IG% 0.200 Normal 0.0-0.9 [facility] Comment on above: Result Comment: IG% - Immature Granulocytes (promyelocytes, myelocytes and metamyelocytes) > 1% indicates that a LEFT SHIFT is Present. Performed By: #### L 100.0100, L500.4050 #### [facility] [address] [place], [address] Lymphocytes/100 WBC (Bld) 31.1 % Normal 19-41 [facility] Comment on above: Performed By: #### L 100.0100, L500.4050 #### [facility] [address] [place], [address] MCH (RBC) [Entitic mass] 30.4 pg Normal 27.0-32.0 [facility] Comment on above: Performed By: #### L 100.0100, L500.4050 #### [facility] [address] [place], [address] MCHC (RBC) [Mass/Vol] 33.4 g/dL Normal 32-36 [facility] Comment on above: Performed By: #### L 100.0100, L500.4050 #### [facility] [address] [place], [address] MCV (RBC) [Entitic vol] 91.0 fL Normal 81-99 [facility] Comment on above: Performed By: #### L 100.0100, L500.4050 #### [facility] [address] [place], [address] Monocytes/100 WBC (Bld) 9.3 % Normal 0-10 [facility] Comment on above: Performed By: #### L 100.0100, L500.4050 #### [facility] [address] [place], [address] Neutrophils/100 WBC (Bld) 56.6 % Normal 47-70 [facility] Comment on above: Performed By: #### L 100.0100, L500.4050 #### [facility] [address] [place], [address] Nucleated RBC (Bld) [#/Vol] 0 10*3/uL Normal 0-5 [facility] Comment on above: Performed By: #### L 100.0100, L500.4050 #### [facility] [address] [place], [address] Platelet mean volume (Bld) [Entitic vol] 9.5 fL Normal 6.2-12.0 [facility] Comment on above: Performed By: #### L 100.0100, L500.4050 #### [facility] [address] [place], [address] Platelets (Bld) [#/Vol] 283 10*3/uL Normal 150-450 [facility] Comment on above: Performed By: #### L 100.0100, L500.4050 #### [facility] [address] [place], [address] RBC (Bld) [#/Vol] 4.24 10*6/uL Normal 4.2-5.4 [facility] Comment on above: Performed By: #### L 100.0100, L500.4050 #### [facility] [address] [place], [address] RDW SD 38.5 fl Normal 35.1-43.9 [facility] Comment on above: Performed By: #### L 100.0100, L500.4050 #### [facility] [address] [place], [address] WBC (Bld) [#/Vol] 4.9 10*3/uL Normal 4.4-11.0 [facility] Comment on above: Performed By: #### L 100.0100, L500.4050 #### [facility] [address] [place], [address] Program Manufacturing Leader Office Visit Reporton 10-31-2024 Program Manufacturing Leader Office Visit Report [facility] [address], [address] [place] [address] OFFICE VISIT Date of Service: 10/31/24 MR#: [id number] Acct: [id number] Name: STEVE BERNAL Rep #: [id number] : 1990 Provider: JAQUELINE owusu Age/Sex: 33/F Location: [facility] Status: Signed with Addenda ADDENDUM by Penelope Nguyen on 10/31/24 at 1149 Office Procedure Documentation entered by Penelope Nguyen 10/31/24 11:49: IUD Insertion IUD GC/Chlamydia:: not done Test: Yes Negative Consent Signed: Yes Time out checklist: patient, procedure, site marked/identified, positioning of patient, supplies available, allergies confirmed and team agrees on procedure IUD: Yes Mirena IUD inserted Time out time: 11:18 Details: Sign in Communication: Completed Sign out documentation: Completed The uterus sounded to 9cm. After prepping the cervix with betadine and using sterile technique, the cervix was grasped with a single tooth tenaculum and the IUD was inserted without difficulty and the string was cut to 3cm from the external os of the cervix. All instruments were removed from the vagina and excellent hemostasis was noted. Procedure Summary: patient tolerated the procedure well without complication. Office Meds levonorgestrel 21 mcg/24 hr (up to 8 years) 52 mg intrauterine device Performing Provider: JAQUELINE Houser NP Performing Location: [facility] Administered by: JAQUELINE Houser NP on 10/31/24 11:18 Dose Route Admin Location Dispensed Lot Number Expiration Date NDC Man ufacturer 1 insert intrauterine [facility] 1 insert [id number] 01/01/27 76801-430-02 [employer] Date cc: * Signed Intake Vital Signs 09/26/24 09:49 10/31/24 11:05 Height 5 ft 6 in 5 ft 6 in Weight: 171 lb 156 lb 2 oz BMI 27.6 25.2 BP 131/90 H 118/82 H Intake Visit Reasons: IUD Insertion - [place] Chief Complaint: IUD Glass Belt Sander Required: No Is patient in pain?: No Allergies No Known Allergies Allergy (Verified 10/31/24 11:17) Medications ???Medication ???Instructions ???Recorded ???Confirmed ???Type fluoxetine 20 mg capsule (Prozac) 20 mg PO DAILY #30 caps 09/28/24 Rx lisinopril 10 mg tablet 10 mg PO QDAY 10/31/24 10/31/24 History phentermine 37.5 mg capsule 37.5 mg PO QDAY 10/31/24 10/31/24 History Post menopausal: No Patient : No : No Control Method: IUD PFSH PFSH Medical History COVID-19 affecting in third trimester Gestational HTN Surgical History History of delivery Status post bilateral salpingectomy Bone marrow donor H/O wisdom tooth extraction History of ankle surgery Family History Mother CVA (cerebral vascular accident) Hypertension Diabetes Gestational diabetes Father Lymphoma Aunt Leukemia Grandmother CVA (cerebral vascular accident) Diabetes Hypertension Myocardial infarction Grandfather CVA (cerebral vascular accident) Diabetes Hypertension Myocardial infarction Social History adopted: No household members: spouse and children number of children: 1 current occupational status: 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/hazards: No pets and animals: No leisure activities: exercise, music and reading history of recent travel: Yes (All domestic [place] travel ([place], [place], [place], [place]) details: [place], [place], [place], [place] out of state: Yes out of country: No sexually active: Yes Smoking Status: Never smoker Electronic Cigarette Use: not used second hand exposure: No alcohol intake: former details: not while substance use type: marijuana well-balanced diet: about half the time caffeine: Yes (very seldomly drinking beverages with caffeine (1-3 times per month)) Type: tea eating out: 1-3 times/week during the past year weight has: decreased > 10 lbs what type of physical activity do you participate in: walking and running frequency: 3-4 times per week duration: 30-45 minutes/day michael/mormonism: Pentecostal seatbelt use: always do you feel safe at home: Yes additional social history: : Foreign Potts History 2 Elective abortions Hx Para 2 Spontaneous abortions Hx # Term Pregnancies Ectopic pregnancies Hx # Pregnancies Multiple births # of living children 2 Past Pregnancies Del. Date Name GA/Weeks Outcome Route Bth Weight Infant Gen Labor Lgth Anesthesia Del Locatn Provider FOB 07/28/16 C (more content not included)... Normal [facility] Program Manufacturing Leader Office Visit Reporton 09-26-2024 Program Manufacturing Leader Office Visit Report [facility] [address], [address] [place] [address] OFFICE VISIT Date of Service: 09/26/24 MR#: [id number] Acct: [id number] Name: STEVE BERNAL Rep #: [id number] : 1990 Provider: Dr. Petrona allan MD Age/Sex: 33/F Location: [facility] Status: Signed Intake Vital Signs 08/03/24 13:12 08/29/24 08:40 09/26/24 09:49 Height 5 ft 6 in 5 ft 6 in 5 ft 6 in Weight: 171 lb BMI 27.6 BP 131/90 H Intake Visit Reasons: visit (obstetrics) Glass Belt Sander Required: No Is patient in pain?: No Allergies No Known Allergies Allergy (Verified 09/26/24 09:57) Medications ???Medication ???Instructions ???Recorded ???Confirmed ???Type nifedipine 30 mg tablet,extended 30 mg PO QDAY #30 tabs 08/29/24 08/29/24 Rx release 24 hr (Procardia XL) : No PFSH Medical History COVID-19 affecting in third trimester Gestational HTN Surgical History History of delivery Status post bilateral salpingectomy Bone marrow donor H/O wisdom tooth extraction History of ankle surgery Family History Mother CVA (cerebral vascular accident) Hypertension Diabetes Gestational diabetes Father Lymphoma Aunt Leukemia Grandmother CVA (cerebral vascular accident) Diabetes Hypertension Myocardial infarction Grandfather CVA (cerebral vascular accident) Diabetes Hypertension Myocardial infarction Social History adopted: No household members: spouse and children number of children: 1 current occupational status: 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/hazards: No pets and animals: No leisure activities: exercise, music and reading history of recent travel: Yes (All domestic [place] travel ([place], [place], [place], [place]) details: [place], [place], [place], [place] out of state: Yes out of country: No sexually active: Yes Smoking Status: Never smoker Electronic Cigarette Use: not used second hand exposure: No alcohol intake: former details: not while substance use type: marijuana well-balanced diet: about half the time caffeine: Yes (very seldomly drinking beverages with caffeine (1-3 times per month)) Type: tea eating out: 1-3 times/week during the past year weight has: decreased > 10 lbs what type of physical activity do you participate in: walking and running frequency: 3-4 times per week duration: 30-45 minutes/day michael/mormonism: Pentecostal seatbelt use: always do you feel safe at home: Yes additional social history: : Foreign Potts History 2 Elective abortions Hx Para 2 Spontaneous abortions Hx # Term Pregnancies Ectopic pregnancies Hx # Pregnancies Multiple births # of living children 2 Past Pregnancies Del. Date Name GA/Weeks Outcome Route Bth Weight Gen Labor Lgth Anesthesia Del Locatn Provider FOB 07/28/16 Loi live - full term 7lbs 5oz Male spinal [facility] Dr Les Carrasquillo 08/21/24 Marta Mariano live - full term 6 ib 0 oz Female spinal [facility] LAKESHA Carrasquillo Delivery Date: 07/28/16 Last Updated by: Tiffanie Samaniego RN Elective Delivery Date: 08/21/24 Last Updated by: Tiffanie Samaniego RN See problem list for complications and LTCS [facility] marta 37 ghtn Depression Screen PHQ-2/9 PHQ-2 Over the last 2 weeks, how often have you been bothered by any of the following problems? 1. Little interest or pleasure in doing things: not at all 2. Feeling down, depressed, or hopeless: not at all Total score: 0 Post HPI Routine Follow-Up: Details: STEVE BERNAL is a 33 year old who presents for her post visit. Infant Feeding: Bottle Menses resumed: Yes Sundance since delivery: No Emotional Support: Yes Last Pap:: 11/25/2021 ROS Const Reports system reviewed and no additional complaints, except as documented GI Reports system reviewed and no additional complaints, except as documented, Denies bloating, Denies constipation, Denies nausea and Denies vomiting Reports system reviewed and no additional complaints, except as documented, Denies abnormal vaginal bleeding, Denies pelvic pain, Denies sexual dysfunction, Denies urinary incontinence, Denies urinary hesitancy, Denies urinary urgency and Denies vaginal discharge Skin/Breast Reports system reviewed and no additional complaints, except as documented and Reports as per HPI Psych Reports as per HPI Exam Const General: cooperative, healthy appearing, comfortable and no acute distress HENMT (more content not included)... Normal [facility] Program Manufacturing Leader Office Visit Reporton 08-29-2024 Program Manufacturing Leader Office Visit Report [facility] [address], [address] [place] [address] OFFICE VISIT Date of Service: 08/29/24 MR#: [id number] Acct: [id number] Name: STEVE BERNAL Rep #: [id number] : 1990 Provider: Dr. Petrona allan MD Age/Sex: 33/F Location: [facility] Status: Signed Intake Vital Signs 08/07/24 15:17 08/21/24 05:43 08/29/24 08:40 Height 5 ft 6 in 5 ft 6 in 5 ft 6 in Weight: 170 lb BMI 27.4 BP 132/91 H Intake Visit Reasons: 2 wk RLTCS Glass Belt Sander Required: No Is patient in pain?: No Feel stressed/tense/nervou s/anxious/difficulty sleeping: not at all Allergies No Known Allergies Allergy (Verified 08/29/24 08:42) Medications ???Medication ???Instructions ???Recorded ???Confirmed ???Type docosahexaenoic acid 200 mg 200 mg PO DAILY 02/03/24 08/29/24 History capsule ( DHA) naproxen 500 mg tablet 500 mg PO BID PRN PRN Pain #30 tabs 08/22/24 08/29/24 Rx labetalol 200 mg tablet 200 mg PO TID bp #60 tabs 08/23/24 08/29/24 Rx nifedipine 30 mg tablet,extended 30 mg PO QDAY #30 tabs 08/29/24 08/29/24 Rx release 24 hr (Procardia XL) nystatin 100,000 unit/gram topical 1 applic topical BID #45 ea 08/29/24 08/29/24 Rx powder (Nystop) PFSH Medical History Gestational HTN Surgical History Bone marrow donor H/O wisdom tooth extraction History of ankle surgery Family History Mother CVA (cerebral vascular accident) Hypertension Diabetes Gestational diabetes Father Lymphoma Aunt Leukemia Grandmother CVA (cerebral vascular accident) Diabetes Hypertension Myocardial infarction Grandfather CVA (cerebral vascular accident) Diabetes Hypertension Myocardial infarction Social History adopted: No household members: spouse and children number of children: 1 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 occupational status: 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/hazards: No pets and animals: No leisure activities: exercise, music and reading history of recent travel: Yes (All domestic [place] travel ([place], [place], [place], [place]) details: [place], [place], [place], [place] out of state: Yes out of country: No sexually active: Yes Smoking Status: Never smoker Electronic Cigarette Use: not used second hand exposure: No alcohol intake: former details: not while substance use type: marijuana well-balanced diet: about half the time caffeine: Yes (very seldomly drinking beverages with caffeine (1-3 times per month)) Type: tea eating out: 1-3 times/week during the past year weight has: decreased > 10 lbs what type of physical activity do you participate in: walking and running frequency: 3-4 times per week duration: 30-45 minutes/day michael/mormonism: Pentecostal seatbelt use: always do you feel safe at home: Yes additional social history: : Foreign Potts History 2 Elective abortions Hx Para 1 Spontaneous abortions Hx # Term Pregnancies Ectopic pregnancies Hx # Pregnancies Multiple births # of living children 1 Past Pregnancies Del. Date Name GA/Weeks Outcome Route Bth Weight Gen Labor Lgth Anesthesia Del Locatn Provider FOB 07/28/16 Loi live - full term 7lbs 5oz Male spinal [facility] Delivery Date: 07/28/16 Last Updated by: Tiffanie Samaniego RN Elective Post HPI 2 wk RLTCS: Details: STEVE BERNAL is a 33 year old who presents for her post visit. Menses resumed: No Sundance since delivery: No Emotional Support: Yes Last Pap:: 11/25/21 ROS Const Reports system reviewed and no additional complaints, except as documented GI Denies abdominal pain, Denies cramping, Denies nausea and Denies vomiting Denies pelvic pain, Denies urinary frequency, Denies urinary incontinence, Denies urinary urgency, Denies vaginal discharge, Denies vaginal dryness and Denies vaginal odor Exam Const General: cooperative, healthy appearing, comfortable and no acute distress GI Inspection: normal to inspection Palpation: soft and nontender Other: Incisions: C/D/I Coding Level of Care Code No Charge Diagnoses delivery delivered O82 Assessment and Plan Assessment and Plan (1) delivery delivered: Status: Acute Comment: LTCS BS SM marta 37 gthn Medications: New nystatin (Nystop) 1 applic topical BID 45 ea 7RF nifedipine ER (Procardia XL) 30 mg PO QDAY 30 tabs 5RF Plan Problem list updated and treatment plans were reviewed with the patient and relevant educational (more content not included)... Normal [facility] CBC-Complete Blood Cnt No Di ffon 08-22-2024 Erythrocyte distribution width (RBC) [Ratio] 12.7 % Normal 11.6-14.6 [facility] Comment on above: Order Comment: Comme nts: Day #1 Reason for Laboratory Test Performed By: #### L 100.0500 #### [facility] [address] [facility] [place], [address] Hematocrit (Bld) [Volume fraction] 26.2 % Low 37-47 [facility] Comment on above: Order Comment: Comme nts: Day #1 Reason for Laboratory Test Performed By: #### L 100.0500 #### [facility] [address] [place], [address] Hemoglobin (Bld) [Mass/Vol] 9.1 g/dL Low 12.0-15.0 [facility] Comment on above: Order Comment: Comme nts: Day #1 Reason for Laboratory Test Performed By: #### L 100.0500 #### [facility] [address] [place], [address] MCH (RBC) [Entitic mass] 32.0 pg Normal 27.0-32.0 [facility] Comment on above: Order Comment: Comme nts: Day #1 Reason for Laboratory Test Performed By: #### L 100.0500 #### [facility] [address] [place], [address] MCHC (RBC) [Mass/Vol] 34.7 g/dL Normal 32-36 [facility] Comment on above: Order Comment: Comme nts: Day #1 Reason for Laboratory Test Performed By: #### L 100.0500 #### [facility] [address] [place], [address] MCV (RBC) [Entitic vol] 92.3 fL Normal 81-99 [facility] Comment on above: Order Comment: Comme nts: Day #1 Reason for Laboratory Test Performed By: #### L 100.0500 #### [facility] [address] [place], [address] Platelet mean volume (Bld) [Entitic vol] 9.7 fL Normal 6.2-12.0 [facility] Comment on above: Order Comment: Comme nts: Day #1 Reason for Laboratory Test Performed By: #### L 100.0500 #### [facility] [address] [place], [address] Platelets (Bld) [#/Vol] 179 10*3/uL Normal 150-450 [facility] Comment on above: Order Comment: Comme nts: Day #1 Reason for Laboratory Test Performed By: #### L 100.0500 #### [facility] [address] [place], [address] RBC (Bld) [#/Vol] 2.84 10*6/uL Low 4.2-5.4 [facility] Comment on above: Order Comment: Comme nts: Day #1 Reason for Laboratory Test Performed By: #### L 100.0500 #### [facility] [address] [place], [address] RDW SD 42.4 fl Normal 35.1-43.9 [facility] Comment on above: Order Comment: Comme nts: Day #1 Reason for Laboratory Test Performed By: #### L 100.0500 #### [facility] [address] [place], [address] WBC (Bld) [#/Vol] 9.2 10*3/uL Normal 4.4-11.0 [facility] Comment on above: Order Comment: Comme nts: Day #1 Reason for Laboratory Test Performed By: #### L 100.0500 #### [facility] [address] [place], [address] Discharge Instructionon 08-04 Discharge Instruction [facility] Medical Records Department [address] [place] [address] Instructions for Home/Discharge Instructions 08/22/24 0119 MR#: [id number] Acct: [id number] Name: STEVE BERNAL Rep #: [id number] : 1990 33 From: Petrona Michaels MD PCP: Dr. Priscilla Pal MD Status:ADM IN Discharge Instructions Diet Discharge Diet: No restrictions Activity Discharge Activity: May Not Drive (for 2 weeks or while taking narcotic pain medications.), May Shower and May Take a Tub Bath (in 7 days) May shower in (days): 0 May resume sexual activity in: 4-6 weeks Weight Bearing Status: Full weight bearing Lifting Restrictions: 20 pounds Dressing / Incision Call your doctor if your incision/area has: Continuous Slow Oozing, Sudden Increased Bleeding, Increased Pain/ Swelling, Increased Redness and Foul Smelling Discharge Call your doctor if you observe: Fever of 101 or Higher and Using more than 1 pad per hour (for 2 hours) Suture Line Care: Avoid Pulling/Pushing and Avoid Pinching/Bending Cleanse incision/area with: Soap Water and Keep Dressing Clean Dry Follow Up Care Please Follow Up With: Petrona Michaels MD When: Call [phone] to make an appointment for an incision check in 1-2 weeks. Test Results: Test results from this visit will be discussed in further detail at your follow-up appointment, if applicable. Discharge Plan Admission Admit Date/Time: 08/21/24 05:20 Attending Provider: Petrona Michaels Primary Care Provider: Priscilla Pal Discharge Orders/Prescriptions Prescriptions: New oxycodone-acetaminoph en [Percocet] 5-325 mg tablet 1 tab PO Q6H PRN (Reason: pain) 7 Days Qty: 20 0RF naproxen 500 mg tablet 500 mg PO BID PRN PRN (Reason: Pain) Qty: 30 1RF No Action DHA 200 mg capsule 200 mg PO DAILY labetalol 200 mg tablet 200 mg PO BID Qty: 60 4RF Referrals / Follow Up: Priscilla Pal MD [Primary Care Provider] - 08/22/24 1537 Petrona Michaels MD CC: Dr. 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 Priscilla Pal MD Status:ADM IN Location: [id number] HPI - General General Date of Admission: 08/21/24 HPI Narrative STEVE BERNAL, is a 33 F who presents for RLTCS, GHTN present, desired sterilization. Maternal Data Information MARTHA Calculator Estimated Delivery Date Method Current WG Current Estimate 09/11/24 Ultrasound #1 37w 1d PFSH PFSH Medical History (Updated 08/21/24 @ 12:11 by Princess Burrell NP, WO[facility]OKER-C) Gestational HTN Home Medications ???Medication ???Instructions ???Recorded ???Last Taken ???Type docosahexaenoic acid 200 mg 200 mg PO DAILY 02/03/24 08/20/24 08:00 History capsule ( DHA) labetalol 200 mg tablet 200 mg PO BID bp #60 tabs 07/28/24 08/20/24 19:00 Rx Allergy/AdvReac Type Severity Reaction Status Date / Time No Known Allergies Allergy Verified 08/21/24 06:12 Family History Mother CVA (cerebral vascular accident) Hypertension Diabetes Gestational diabetes Father Lymphoma Aunt Leukemia Grandmother CVA (cerebral vascular accident) Diabetes Hypertension Myocardial infarction Grandfather CVA (cerebral vascular accident) Diabetes Hypertension Myocardial infarction Surgical History (Updated 08/21/24 @ 05:55 by Anahi May) Bone marrow donor H/O wisdom tooth extraction History of ankle surgery Social History adopted: No household members: spouse and children number of children: 1 current occupational status: 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/hazards: No pets and animals: No leisure activities: exercise, music and reading history of recent travel: Yes (All domestic [place] travel ([place], [place], [place], [place]) details: [place], [place], [place], [place] out of state: Yes out of country: No sexually active: Yes Smoking Status: Never smoker Electronic Cigarette Use: not used second hand exposure: No alcohol intake: former details: not while substance use type: marijuana well-balanced diet: about half the time caffeine: Yes (very seldomly drinking beverages with caffeine (1-3 times per month)) Type: tea eating out: 1-3 times/week during the past year weight has: decreased > 10 lbs what type of physical activity do you participate in: walking and running frequency: 3-4 times per week duration: 30-45 minutes/day michael/mormonism: Pentecostal seatbelt use: always do you feel safe at home: Yes additional social history: : Foreign Potts History 2 Elective abortions Hx Para 1 Spontaneous abortions Hx # Term Pregnancies Ectopic pregnancies Hx # Pregnancies Multiple births # of living children 1 Past Pregnancies Del. Date Name GA/Weeks Outcome Route Bth Weight Gen Labor Lgth Anesthesia Del Locatn Provider FOB 07/28/16 Loi live - full term 7lbs 5oz Male spinal [facility] Delivery Date: 07/28/16 Last Updated by: Tiffanie Samaniego, KENNETH Elective Visit Details Expected Delivery Route/Plan plan RLTCS- plan for 09/04/24 or 09/05/24 Plans Covid status: [] Flu vaccine: [] Tdap vaccine: [] Rhogam: [] LARC form signed: [] Problem list reviewed and updated with the most current plan of care details and appropriate orders placed. Relevant counseling for the gestational age provided. Continue routine care and follow up unless otherwise noted in visit notes/problem list details OB Flowsheet Initial Weight: Not Recorded Date -???-???-???-???-???- ???-???-???-???-???-? ??-???- EGA Weight BP Urine Prot -???-???-???-???-???- ???-???-???-???-???-? ??-???- Glucose FHR FuHt Pres Dilation -???-???-???-???-???- ???-???-???-???-???-? ??-???- Effaced St Visit Note 02/08/24 -???-???-???-???-???- ???-???-???-???-???-? ??-???- 9w 1d 147 lb 127/89 -???-???-???-???-???- ???-???-???-???-???-? ??-???- 170 -???-???-???-???-???- ???-???-???-???-???-? ??-???- SM- CRL ady uring consistent with previous MARTHA 02/11/24 -???-???-???-???-???- ???-???-???-???-???-? ??-???- 9w 4d 157 lb 129/85 -???-???-???-???-???- ???-???-???-???-???-? ??-???- 173 -???-???-???-???-???- ???-???-???-???-???-? ??-???- KW- NOB exam today. JV scanned. Still bleeding since IUD removal. NIPT box given today 02/17/24 -???-???-???-???-???- ???-???-???-???-???-? ??-???- 10w 3d 151 lb 146/92 -???-???-???-???-???- ???-???-???-???-???-? ??-???- 168 0 -???-???-???-???-???- ?? (more content not included)... Normal [facility] Operative Reporton 4 Operative Report [facility] Medical Records Department [address] [place] [id number] Operative Report 08/22/24 0119 MR#: [id number] Acct: [id number] Name: STEVE BERNAL Rep #: [id number] : 1990 33 From: Petrona Michaels MD PCP: Dr. Priscilla Pal MD Status:ADM IN Location: [id number] Assessment Plan (1) COVID-19 affecting in third trimester: COMMENT: tested positive 07/27/24 (2) Elevated blood pressure affecting in third trimester, antepartum: COMMENT: labetalol 200 bid, twice weekly testing, rpt labs weekly for PIH. negative on 07/27/24. negative on 07/28/25. (3) Anemia affecting : QUALIFIERS: Trimester: third trimester Qualified Code(s): O99.013 - Anemia complicating , third trimester COMMENT: adding otc iron (4) Abnormal glucose affecting : COMMENT: passed 3 hour (5) Bone marrow donor: COMMENT: February 2018 (6) IUD : COMMENT: plan growth US in 3rd trimester. removed in office at 8 weeks. small 1 cm hematoma present. - RESOLVED (7) History of delivery: COMMENT: 2015 *plans RLTCS and BS. scheduled for 08/21 @ 7:15 with SM, 2 6 wk PP scheduled (8) Supervision of high-risk : QUALIFIERS: Trimester: third trimester Qualified Code(s): O09.93 - Supervision of high risk , unspecified, third trimester COMMENT: PRR , MARTHA 09/11/24, girl Marta PC: Loi, : Foreign (9) : QUALIFIERS: Weeks of gestation: 36 weeks Qualified Code(s): Z3A.36 - 36 weeks gestation of COMMENT: Neg GBS. Carrier neg. , Discussed genetic/carrier testing *Carrier testing done with previous but would like to repeat* nl anatomy, possible accessory lobe (10) delivery delivered: COMMENT: LTCS BS SM marta 37 gthn Maternal Data Information MARTHA Calculator Estimated Delivery Date Method Current WG Current Estimate 09/11/24 Ultrasound #1 37w 1d Final MARTHA Source: LMP Operative Report (OB) Cecarean Details Procedure Type: low transverse Surgeon: Petrona Michaels Date of Procedure: 08/21/24 Procedure Start Time: 07:40 Procedure Stop Time: 08:25 Pre-Operative Diagnosis: Other Other Pre-Operative diagnosis: see a/p comments Post-Operative Diagnosis: Same as Pre-operative diagnosis Classification: Scheduled Type of Anesthesia: Spinal Special Medications: none Antibiotic Given: Ancef 2 grams IV x1 Drain: Joshi to straight drain Estimated Blood Loss: 900 Fluids Replaced: crystalloid Findings Description of surgery: The patient is a 33yo presented for repeat . Spinal anesthesia was placed without difficulty. Joshi catheter was placed. The patient was placed in the dorsal supine position with leftward tilt. Patient was prepped and draped in the normal sterile fashion. Pfannenstiel skin incision was made with the scalpel and carried through to the underlying layer of fascia with the scalpel. Fascia was nicked in the midline and the incision extended laterally. The rectus bellies were dissected off superiorly and inferiorly with out complication both sharply and bluntly. The peritoneum was entered digitally. The incision was stretched and a low transverse uterine incision was made with the scalpel. The 's head was delivered atraumatically followed by the anterior and posterior shoulders without complication the rest of the delivered. The cord was clamped and cut and the infant was handed off to awaiting nurse. The placenta was delivered spontaneously immediately following and was noted to be intact and have a three-vessel cord. The uterus was exteriorized cleared of all clots and debris, and the incision was closed in a single layer closure using #1 Monocryl. Patient had desired sterilization and was counseled preoperatively regarding irreversibility and permanency. Therefore bilateral fallopian tubes were elevated and transected across using a LigaSure device starting proximally to distally without complication the entire fallopian tubes were removed. The ovaries and fallopian tubes were noted to be within normal limits. The uterus was returned to the maternal abdomen and gutters were cleared of all clots and debris. The peritoneum was closed with 3-0 Monocryl in a running fashion. Gloves were changed prior to fascial closure. Fascia was closed with 0 PDS in a running fashion. Subcutaneous tissue was copiously irrigated and the skin was closed with 3-0 Monocryl in a subcuticular fashion. Mepilex dressing was applied without complication. Patient was taken to recovery in stable condition. Surgical findings: nl uterus tubes ovaries Presentation: Vertex Amniotic Membrane Rupture Type: Artificial Amniotic Fluid Description: Clear Specimen collected: Yes Description of specimen(s) removed: placenta and baby Cord Vessel D (more content not included)... Normal [facility] CBC W/Diff, Automatedon 08-04 Absolute Lymph 1.97 X10 3/uL Normal 0.83-4.51 [facility] Comment on above: Performed By: #### L 100.0100, L500.4050 #### [facility] [address] [place], [address] Absolute Neut 5.7 X10 3/uL Normal 2.0-7.7 [facility] Comment on above: Performed By: #### L 100.0100, L500.4050 #### [facility] [address] [place], [address] Basophils/100 WBC (Bld) 0.4 % Normal 0-1 [facility] Comment on above: Performed By: #### L 100.0100, L500.4050 #### [facility] [address] [place], [address] Eosinophils/100 WBC (Bld) 0.8 % Normal 0-5 [facility] Comment on above: Performed By: #### L 100.0100, [id number] #### [facility] [address] [place], [address] Erythrocyte distribution width (RBC) [Ratio] 12.5 % Normal 11.6-14.6 [facility] Comment on above: Performed By: #### L 100.0100, L500.4050 #### [facility] [address] [place], [address] Hematocrit (Bld) [Volume fraction] 32.2 % Low 37-47 [facility] Comment on above: Performed By: #### L 100.0100, [id number] #### [facility] [address] [place], [address] Hemoglobin (Bld) [Mass/Vol] 11.2 g/dL Low 12.0-15.0 [facility] Comment on above: Performed By: #### L 100.0100, L500.4050 #### [facility] [address] [place], [address] IG% 0.500 Normal 0.0-0.9 [facility] Comment on above: Result Comment: IG% - Immature Granulocytes (promyelocytes, myelocytes and metamyelocytes) > 1% indicates that a LEFT SHIFT is Present. Performed By: #### L 100.0100, L500.4050 #### [facility] [address] [place], [address] Lymphocytes/100 WBC (Bld) 23.4 % Normal 19-41 [facility] Comment on above: Performed By: #### L 100.0100, [id number] #### [facility] [address] [place], [address] MCH (RBC) [Entitic mass] 32.1 pg High 27.0-32.0 [facility] Comment on above: Performed By: #### L 100.0100, L500.4050 #### [facility] [address] [place], [address] MCHC (RBC) [Mass/Vol] 34.8 g/dL Normal 32-36 [facility] Comment on above: Performed By: #### L 100.0100, L500.4050 #### [facility] [address] [place], [address] MCV (RBC) [Entitic vol] 92.3 fL Normal 81-99 [facility] Comment on above: Performed By: #### L 100.0100, L500.4050 #### [facility] [address] [place], [address] Monocytes/100 WBC (Bld) 7.5 % Normal 0-10 [facility] Comment on above: Performed By: #### L 100.0100, L500.4050 #### [facility] [address] [place], [address] Neutrophils/100 WBC (Bld) 67.4 % Normal 47-70 [facility] Comment on above: Performed By: #### L 100.0100, L500.4050 #### [facility] [address] [place], [address] Nucleated RBC (Bld) [#/Vol] 0 10*3/uL Normal 0-5 [facility] Comment on above: Performed By: #### L 100.0100, L500.4050 #### [facility] [address] [place], [address] Platelet mean volume (Bld) [Entitic vol] 10.2 fL Normal 6.2-12.0 [facility] Comment on above: Performed By: #### L 100.0100, L500.4050 #### [facility] [address] [place], [address] Platelets (Bld) [#/Vol] 239 10*3/uL Normal 150-450 [facility] Comment on above: Performed By: #### L 100.0100, L500.4050 #### [facility] [address] [place], [address] RBC (Bld) [#/Vol] 3.49 10*6/uL Low 4.2-5.4 [facility] Comment on above: Performed By: #### L 100.0100, L500.4050 #### [facility] [address] [place], [address] RDW SD 42.0 fl Normal 35.1-43.9 [facility] Comment on above: Performed By: #### L 100.0100, L500.4050 #### [facility] [address] [place], [address] WBC (Bld) [#/Vol] 8.4 10*3/uL Normal 4.4-11.0 [facility] Comment on above: Performed By: #### L 100.0100, L500.4050 #### [facility] [address] [place], [address] L509.8000on 08-21-2024 Syphilis Abs Non-Reactive Normal [facility] Comment on above: Performed By: #### L 509.8000 #### [facility] [address] [place], [place], [address] Pathology Specimen [place] - PATH. Spec OB SEE PATHOLOGY REPORT Normal [facility] Comment on above: Order Comment: Comme nts: Day #1 Reason for Laboratory Test Result Comment: Spec imen submitted to Anatomical Pathology Department for testing. Performed By: #### L 100.0500 #### [facility] [address] [place], [place], [address] Surgery Specimen Level IIon 08-21-2024 Surgery Specimen Level II -------- Patient Age/Sex Location Account Attending Physician -------- STEVE BERNAL 33/F [id number] Dr. Petrona Michaels MD -------- Specimen: [id number] Received: 08/21/24 Status: LUZ Villasenor Num: [id number] Spec Type: FALL TUBES Subm Dr: Dr. Petrona Michaels MD HEADER OPERATION: Tubal ligation PRE-OP DIAGNOSIS: Tubal routine TISSUE SUBMITTED: Bilateral fallopian tubes - stitch on right -------- MICROSCOPIC DIAGNOSIS Bilateral fallopian tubes, salpingectomy: Bilateral fallopian tubes, no pathologic diagnosis. SJ: 08/22/2024 MICROSCOPIC DESCRIPTION Slides are reviewed. GROSS DESCRIPTION Received in fixative is one container labeled with the patient's name and designated bilateral fallopian tubes - stitch on right. The specimen consists of bilateral fallopian tubes including fimbrial ends. Left fallopian tube measuring 6.0cm in length and up to 0.6cm in diameter. Right fallopian tube measuring 5.0 cm in length and up to 0.6 cm in diameter. Sections reveal unremarkable cut surfaces. Wool Washer sections are submitted in two cassettes: 1- left fallopian tube, 2- right fallopian tube. / MJ: 08/21/2024 TC:4 CPT: 15413 x2 -------- Patient Age/Sex Location Account Attending Physician -------- STEVE BERNAL 33/F [id number] Dr. Petrona Michaels MD -------- Signed (signature on file) Dr. Frank Weber MD 08/22/24 1318 -------- Normal [facility] Comment on above: Performed By: #### L 501.0900 #### [facility] [address] [place], [place], [address] Type AND Screenon 08-21-2024 ABO and Rh group Nom (Bld) Blood group O Rh(D) positive Normal [facility] Comment on above: Order Comment: SC-SE CTION Performed By: #### L 100.0100, L500.4050 #### [facility] [address] [place], [place], [id number] Urine Drug Screen (VISTA)on 08-21-2024 AMPHETAMINES Negative Normal <1000 ng/mL [facility] Comment on above: Performed By: #### L 100.0500 #### [facility] [address] [place], [place], [id number] BARBITIURATES Negative Normal < 200 ng/mL [facility] Comment on above: Performed By: #### L 100.0500 #### [facility] [address] [place], [place], [address] BENZODIAZIPINE Negative Normal < 200 ng/mL [facility] Comment on above: Performed By: #### L 100.0500 #### [facility] [address] [place], [address] COCAINE Negative Normal < 300 ng/mL [facility] Comment on above: Performed By: #### L 100.0500 #### [facility] [address] [place], [address] ECSTACY Negative Normal < 500 ng/mL [facility] Comment on above: Performed By: #### L 100.0500 #### [facility] [address] [place], [address] METHADONE Negative Normal < 300 ng/mL [facility] Comment on above: Performed By: #### L 100.0500 #### [facility] [address] [place], [address] OPIATES Negative Normal < 300 ng/mL [facility] Comment on above: Performed By: #### L 100.0500 #### [facility] [address] [place], [address] PCP Negative Normal < 25 ng/mL [facility] Comment on above: Performed By: #### L 100.0500 #### [facility] [address] [place], [address] THC Negative Normal < 50 ng/mL [facility] Comment on above: Performed By: #### L 100.0500 #### [facility] [address] [place], [address] VISTA UDS PH 6 Normal [facility] Comment on above: Performed By: #### L 100.0500 #### [facility] [address] [place], [address] Rule out Beta Strep (Grp. B) on 08-19-2024 JESUS ALBERTO Group B Beta Streptococcus is not isolated. Normal [facility] Comment on above: Performed By: #### L 100.0500 #### [facility] [address] [place], [address] Program Manufacturing Leader Office Visit Reporton 08-17-2024 Program Manufacturing Leader Office Visit Report [facility] [address], [address] [place] [address] OFFICE VISIT Date of Service: 08/17/24 MR#: [id number] Acct: [id number] Name: STEVE BERNAL Rep #: [id number] : 1990 Provider: Dr. 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 Required: No Is patient in pain?: No Allergies No Known Allergies Allergy (Verified 08/17/24 11:19) Medications ???Medication ???Instructions ???Recorded ???Confirmed ???Type docosahexaenoic acid 200 mg 200 mg PO DAILY 02/03/24 08/17/24 History capsule ( DHA) labetalol 200 mg tablet 200 mg PO BID #60 tabs 07/28/24 08/17/24 Rx Last Menstrual Period: 11/15/23 Zika: Zika virus screening: Negative : No PFSH PFSH Surgical History H/O wisdom tooth extraction History of ankle surgery Family History Mother CVA (cerebral vascular accident) Hypertension Diabetes Gestational diabetes Father Lymphoma Aunt Leukemia Grandmother CVA (cerebral vascular accident) Diabetes Hypertension Myocardial infarction Grandfather CVA (cerebral vascular accident) Diabetes Hypertension Myocardial infarction Social History adopted: No household members: spouse and children number of children: 1 current occupational status: 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/hazards: No pets and animals: No leisure activities: exercise, music and reading history of recent travel: Yes (All domestic [place] travel ([place], [place], [place], [place]) details: [place], [place], [place], [place] out of state: Yes out of country: No sexually active: Yes Smoking Status: Never smoker Electronic Cigarette Use: not used second hand exposure: No alcohol intake: former details: not while substance use type: marijuana well-balanced diet: about half the time caffeine: Yes (very seldomly drinking beverages with caffeine (1-3 times per month)) Type: tea eating out: 1-3 times/week during the past year weight has: decreased > 10 lbs what type of physical activity do you participate in: walking and running frequency: 3-4 times per week duration: 30-45 minutes/day michael/mormonism: Pentecostal seatbelt use: always do you feel safe at home: Yes additional social history: : Foreign Potts History 2 Elective abortions Hx Para 1 Spontaneous abortions Hx # Term Pregnancies Ectopic pregnancies Hx # Pregnancies Multiple births # of living children 1 Past Pregnancies Del. Date Name GA/Weeks Outcome Route Bth Weight Gen Labor Lgth Anesthesia Del Locatn Provider FOB 07/28/16 Loi live - full term 7lbs 5oz Male spinal [facility] Foreign Delivery Date: 07/28/16 Last Updated by: Tiffanie Samaniego RN Elective HPI 36 WK OB/NST Details: STEVE BERNAL is a 33 year old who presents for routine OB visit. OB Visit MARTHA Calculator Estimated Delivery Date Method Current WG Current Estimate 09/11/24 Ultrasound #1 36w 3d Expected Delivery Route/Plan plan RLTCS- plan for 09/04/24 or 09/05/24 Specific Issue/Plans Covid status: [] Flu vaccine: [] Tdap vaccine: [] Rhogam: [] LARC form signed: [] Problem list reviewed and updated with the most current plan of care details and appropriate orders placed. Relevant counseling for the gestational age provided. Continue routine care and follow up unless otherwise noted in visit notes/problem list details Initial Weight: Not Recorded Date -???-???-???-???-???- ???-???-???-???-???-? ??-???- EGA Weight BP Urine Prot -???-???-???-???-???- ???-???-???-???-???-? ??-???- Glucose FHR FuHt Pres Dilation -???-???-???-???-???- ???-???-???-???-???-? ??-???- Effaced St Visit Note 02/08/24 -???-???-???-???-???- ???-???-???-???-???-? ??-???- 9w 1d 147 lb 127/89 -???-???-???-???-???- ???-???-???-???-???-? ??-???- 170 -???-???-???-???-???- ???-???-???-???-???-? ??-???- SM- CRL ady uring consistent with previous MATRHA 02/11/24 -???-???-???-???-???- ???-???-???-???-???-? ??-???- 9w 4d 157 lb 129/85 -???-???-???-???-???- ???-???-???-???-???-? ??-???- 173 -???-???-???-???-???- ???-???-???-???-???-? ??-???- KW- NOB exam today. JV scanned. Still bleeding since IUD removal. NIPT box given today 02/17/24 -???- (more content not included)... Normal [facility] Program Manufacturing Leader Office Visit Reporton 08-14-2024 Program Manufacturing Leader Office Visit Report [facility] [address], [address] [place] [address] OFFICE VISIT Date of Service: 08/14/24 MR#: [id number] Acct: [id number] Name: STEVE BERNAL Rep #: [id number] : 1990 Provider: JAQUELINE owusu Age/Sex: 33/F Location: [facility] Status: Signed Intake Vital Signs 07/27/24 15:03 08/03/24 13:12 08/10/24 13:12 08/14/24 10:36 08/14/24 10:38 Height 5 ft 5 in 5 ft 6 in 5 ft 6 in 5 ft 6 in 5 ft 6 in Weight: 183 lb 6 oz BMI 29.5 BP 133/79 H Intake Visit Reasons: 36 WK NST ONLY Glass Belt Sander Required: No Is patient in pain?: No Feel stressed/tense/nervou s/anxious/difficulty sleeping: not at all Allergies No Known Allergies Allergy (Verified 08/14/24 10:36) Medications ???Medication ???Instructions ???Recorded ???Confirmed ???Type docosahexaenoic acid 200 mg 200 mg PO DAILY 02/03/24 08/14/24 History capsule ( DHA) labetalol 200 mg tablet 200 mg PO BID #60 tabs 07/28/24 08/14/24 Rx Last Menstrual Period: 11/15/23 Zika: Zika virus screening: Negative : No Have you fallen in the past year?: No PFSH PFSH Surgical History H/O wisdom tooth extraction History of ankle surgery Family History Mother CVA (cerebral vascular accident) Hypertension Diabetes Gestational diabetes Father Lymphoma Aunt Leukemia Grandmother CVA (cerebral vascular accident) Diabetes Hypertension Myocardial infarction Grandfather CVA (cerebral vascular accident) Diabetes Hypertension Myocardial infarction Social History adopted: No household members: spouse and children number of children: 1 current occupational status: 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/hazards: No pets and animals: No leisure activities: exercise, music and reading history of recent travel: Yes (All domestic [place] travel ([place], [place], [place], [place]) details: [place], [place], [place], [place] out of state: Yes out of country: No sexually active: Yes Smoking Status: Never smoker Electronic Cigarette Use: not used second hand exposure: No alcohol intake: former details: not while substance use type: marijuana well-balanced diet: about half the time caffeine: Yes (very seldomly drinking beverages with caffeine (1-3 times per month)) Type: tea eating out: 1-3 times/week during the past year weight has: decreased > 10 lbs what type of physical activity do you participate in: walking and running frequency: 3-4 times per week duration: 30-45 minutes/day michael/mormonism: Pentecostal seatbelt use: always do you feel safe at home: Yes additional social history: : Foreign Potts History 2 Elective abortions Hx Para 1 Spontaneous abortions Hx # Term Pregnancies Ectopic pregnancies Hx # Pregnancies Multiple births # of living children 1 Past Pregnancies Del. Date Name GA/Weeks Outcome Route Bth Weight Gen Labor Lgth Anesthesia Del Locatn Provider FOB 07/28/16 Loi live - full term 7lbs 5oz Male spinal [facility] Thornton's Foreign Delivery Date: 07/28/16 Last Updated by: Tiffanie Samaniego RN Elective HPI 36 WK NST ONLY Details: STEVE BERNAL is a 33 year old who presents for routine OB visit. OB Visit MARTHA Calculator Estimated Delivery Date Method Current WG Current Estimate 09/11/24 Ultrasound #1 36w 0d Expected Delivery Route/Plan plan RLTCS- plan for 09/04/24 or 09/05/24 Specific Issue/Plans Covid status: [] Flu vaccine: [] Tdap vaccine: [] Rhogam: [] LARC form signed: [] Problem list reviewed and updated with the most current plan of care details and appropriate orders placed. Relevant counseling for the gestational age provided. Continue routine care and follow up unless otherwise noted in visit notes/problem list details Initial Weight: Not Recorded Date -???-???-???-???-???- ???-???-???-???-???-? ??-???- EGA Weight BP Urine Prot -???-???-???-???-???- ???-???-???-???-???-? ??-???- Glucose FHR FuHt Pres Dilation -???-???-???-???-???- ???-???-???-???-???-? ??-???- Effaced St Visit Note 02/08/24 -???-???-???-???-???- ???-???-???-???-???-? ??-???- 9w 1d 147 lb 127/89 -???-???-???-???-???- ???-???-???-???-???-? ??-???- 170 -???-???-???-???-???- ???-???-???-???-???-? ??-???- SM- CRL ady uring consistent with previous MARTHA 02/11/24 -???-???-???-???-???- ???-???-???-???-???-? ??-???- 9w 4d 157 lb 129/85 -???-???-???-???-???- ???-???-???-???-???-? ??-???- 173 -???-???-???-???-???- ???-???-???-???-???-? ??-???- KW- NOB ex (more content not included)... Normal [facility] CBC W/Diff, Automatedon 11-0 8-2023 Absolute Lymph 1.15 X10 3/uL Normal 0.83-4.51 [facility] Comment on above: Performed By: #### L 100.0100, L500.4050 #### [facility] [address] [place], [address] Absolute Neut 6.7 X10 3/uL Normal 2.0-7.7 [facility] Comment on above: Performed By: #### L 100.0100, L500.4050 #### [facility] [address] [place], [address] Basophils/100 WBC (Bld) 0.2 % Normal 0-1 [facility] Comment on above: Performed By: #### L 100.0100, L500.4050 #### [facility] [address] [place], [address] Eosinophils/100 WBC (Bld) 0.3 % Normal 0-5 [facility] Comment on above: Performed By: #### L 100.0100, L500.4050 #### [facility] [address] [place], [address] Erythrocyte distribution width (RBC) [Ratio] 12.6 % Normal 11.6-14.6 [facility] Comment on above: Performed By: #### L 100.0100, L500.4050 #### [facility] [address] [place], [address] Hematocrit (Bld) [Volume fraction] 34.1 % Low 37-47 [facility] Comment on above: Performed By: #### L 100.0100, L500.4050 #### [facility] [address] [place], [address] Hemoglobin (Bld) [Mass/Vol] 11.5 g/dL Low 12.0-15.0 [facility] Comment on above: Performed By: #### L 100.0100, L500.4050 #### [facility] [address] [place], [address] IG% 1.500 High 0.0-0.9 [facility] Comment on above: Result Comment: IG% - Immature Granulocytes (promyelocytes, myelocytes and metamyelocytes) > 1% indicates that a LEFT SHIFT is Present. Performed By: #### L 100.0100, L500.4050 #### [facility] [address] [place], [address] Lymphocytes/100 WBC (Bld) 13.2 % Low 19-41 [facility] Comment on above: Performed By: #### L 100.0100, L500.4050 #### [facility] [address] [place], [address] MCH (RBC) [Entitic mass] 31.7 pg Normal 27.0-32.0 [facility] Comment on above: Performed By: #### L 100.0100, L500.4050 #### [facility] [address] [place], [address] MCHC (RBC) [Mass/Vol] 33.7 g/dL Normal 32-36 [facility] Comment on above: Performed By: #### L 100.0100, L500.4050 #### [facility] [address] [place], [address] MCV (RBC) [Entitic vol] 93.9 fL Normal 81-99 [facility] Comment on above: Performed By: #### L 100.0100, L500.4050 #### [facility] [address] [place], [address] Monocytes/100 WBC (Bld) 8.2 % Normal 0-10 [facility] Comment on above: Performed By: #### L 100.0100, L500.4050 #### [facility] [address] [place], [address] Neutrophils/100 WBC (Bld) 76.6 % High 47-70 [facility] Comment on above: Performed By: #### L 100.0100, L500.4050 #### [facility] [address] [place], [address] Nucleated RBC (Bld) [#/Vol] 0 10*3/uL Normal 0-5 [facility] Comment on above: Performed By: #### L 100.0100, L500.4050 #### [facility] [address] [place], [address] Platelet mean volume (Bld) [Entitic vol] 10.1 fL Normal 6.2-12.0 [facility] Comment on above: Performed By: #### L 100.0100, L500.4050 #### [facility] [address] [place], [address] Platelets (Bld) [#/Vol] 252 10*3/uL Normal 150-450 [facility] Comment on above: Performed By: #### L 100.0100, L500.4050 #### [facility] [address] [place], [address] RBC (Bld) [#/Vol] 3.63 10*6/uL Low 4.2-5.4 [facility] Comment on above: Performed By: #### L 100.0100, L500.4050 #### [facility] [address] [place], [address] RDW SD 43.4 fl Normal 35.1-43.9 [facility] Comment on above: Performed By: #### L 100.0100, L500.4050 #### [facility] [address] [place], [address] WBC (Bld) [#/Vol] 8.7 10*3/uL Normal 4.4-11.0 [facility] Comment on above: Performed By: #### L 100.0100, L500.4050 #### [facility] [address] [place], [address] Comprehensive Metabolic Prof ilon 08-11-2024 Albumin [Mass/Vol] 2.6 g/dL Low 3.2-5.0 [facility] Comment on above: Performed By: #### L 100.0100, L500.4050 #### [facility] [address] [place], [address] Albumin/Globulin [Mass ratio] 0.7 {ratio} Low 0.9-2.4 [facility] Comment on above: Performed By: #### L 100.0100, L500.4050 #### [facility] [address] [place], [address] ALK P 121 U/L High 45-117 [facility] Comment on above: Performed By: #### L 100.0100, L500.4050 #### [facility] [address] [place], [address] ALT [Catalytic activity/Vol] 12 U/L Low 13-56 [facility] Comment on above: Performed By: #### L 100.0100, L500.4050 #### [facility] [address] [place], [address] AST [Catalytic activity/Vol] 14 U/L Low 15-37 [facility] Comment on above: Performed By: #### L 100.0100, L500.4050 #### [facility] [address] [place], [address] Bilirubin [Mass/Vol] 0.40 mg/dL Normal 0.20-1.00 [facility] Comment on above: Result Comment: For patients on eltrombopag therapy, use of Dimension [place] TBIL is not recommended. Performed By: #### L 100.0100, L500.4050 #### [facility] [address] [place], [address] BUN/CRE 12.7 RATIO Normal 10-20 [facility] Comment on above: Performed By: #### L 100.0100, L500.4050 #### [facility] [address] [place], [address] CA,Total 9.2 mg/dL Normal 8.5-10.1 [facility] Comment on above: Performed By: #### L 100.0100, L500.4050 #### [facility] [address] [place], [address] Chloride [Moles/Vol] 108 mmol/L High 98-107 [facility] Comment on above: Performed By: #### L 100.0100, L500.4050 #### [facility] [address] [place], [address] CO2 [Moles/Vol] 23.0 mmol/L Normal 21.0-32.0 [facility] Comment on above: Performed By: #### L 100.0100, L500.4050 #### [facility] [address] [place], [address] Creatinine [Mass/Vol] 0.63 mg/dL Normal 0.55-1.02 [facility] Comment on above: Result Comment: The validity of the calculated GFR GFRAA in patients over 70 years has not been determined. Clinical correlation is essential. Performed By: #### L 100.0100, L500.4050 #### [facility] [address] [place], [address] EST GFR - AA 139 mL/min Normal >60 [facility] Comment on above: Result Comment: Afri can Libyan GFR Calc Performed By: #### L 100.0100, L500.4050 #### [facility] [address] [place], [address] GAP 5 Normal 5-15 [facility] Comment on above: Performed By: #### L 100.0100, L500.4050 #### [facility] [address] [place], [address] GFR/1.73 sq M.predicted among non-blacks MDRD (S/P/Bld) [Vol rate/Area] 115 mL/min/{1.73_m2} Normal >60 [facility] Comment on above: Result Comment: Non- GFR Calc Performed By: #### L 100.0100, L500.4050 #### [facility] Laboratory [address] [place], [address] Globulin (S) [Mass/Vol] 3.5 g/dL Normal 2.2-4.2 [facility] Comment on above: Performed By: #### L 100.0100, L500.4050 #### [facility] [address] [place], [address] Glucose [Mass/Vol] 78 mg/dL Normal 74-106 [facility] Comment on above: Performed By: #### L 100.0100, L500.4050 #### [facility] [address] [place], [address] Potassium [Moles/Vol] 4.1 mmol/L Normal 3.5-5.1 [facility] Comment on above: Performed By: #### L 100.0100, L500.4050 #### [facility] [address] [place], [address] Sodium [Moles/Vol] 136 mmol/L Normal 136-145 [facility] Comment on above: Performed By: #### L 100.0100, L500.4050 #### [facility] [address] [place], [address] T PROT 6.1 g/dL Low 6.4-8.2 [facility] Comment on above: Performed By: #### L 100.0100, L500.4050 #### [facility] [address] [place], [address] Urea nitrogen [Mass/Vol] 8 mg/dL Normal 7-18 [facility] Comment on above: Performed By: #### L 100.0100, L500.4050 #### [facility] [address] [place], [address] OB Triage Progress Noteon OB Triage Progress Note [facility] Medical Records Department [address] [facility] [place] [address] OB Triage Progress Note 08/11/24 0008 MR#: [id number] Acct: [id number] Name: STEVE BERNAL Rep #: [id number] : 1990 33 From: Petrona Michaels MD PCP: Dr. Priscilla Pal MD Status:DEP [facility] Y DOS: Location: OUT Progress Notes Date of Service: 08/03/24 Progress Note: pree labs drawn for elevate dbps and WNL dc home 33 weeks Laboratory Studies: Laboratory Tests 08/03/24 08/03/24 Range/Units Unknown 14:35 WBC 10.5 (4.4-11.0) K/mm3 RBC 3.56 L (4.2-5.4) M/mm3 Hgb 11.6 L (12.0-15.0) g/dL Hct 32.8 L (37-47) % MCV 92.1 (81-99) fL MCH 32.6 H (27.0-32.0) pg MCHC 35.4 (32-36) g/dL RDW Std Deviation 42.5 (35.1-43.9) fl RDW Coeff of Bria 12.7 (11.6-14.6) % Plt Count 282 (150-450) K/mm3 MPV 9.6 (6.2-12.0) fl Creatinine 0.63 (0.55-1.02) mg/dL Estim Creat Clear Calc 137.19 ml/min Est GFR (MDRD) Af Amer 140 (>60) mL/min Est GFR (MDRD) Non-Af 116 (>60) mL/min Uric Acid 4.0 (2.6-6.0) mg/dL AST 12 L (15-37) U/L ALT 14 (13-56) U/L U Random Total Protein < 6.0 (<11.9) mg/dL Urine Creatinine 26.40 (NO RANGE EST.) mg/dL Protein/Creatinin Ratio TNP Charges/Coding Procedures Urinary/Genital 52xxx-59xxx: No Charge Assessment Plan (1) : QUALIFIERS: Weeks of gestation: 33 weeks Qualified Code(s): Z3A.33 - 33 weeks gestation of COMMENT: Carrier neg. , Discussed genetic/carrier testing *Carrier testing done with previous but would like to repeat* nl anatomy, possible accessory lobe (2) Supervision of high-risk : COMMENT: PRR , MARTHA 09/11/24, girl Marta PC: Loi, : Foreign (3) History of delivery: COMMENT: 2015 *plans RLTCS and BS. scheduled for 08/21 @ 7:15 with SM, 2 6 wk PP scheduled (4) IUD : COMMENT: plan growth US in 3rd trimester. removed in office at 8 weeks. small 1 cm hematoma present. - RESOLVED (5) Bone marrow donor: COMMENT: February 2018 (6) Abnormal glucose affecting : COMMENT: passed 3 hour (7) Anemia affecting : COMMENT: adding otc iron (8) Elevated blood pressure affecting in third trimester, antepartum: COMMENT: labetalol 200 bid, twice weekly testing, rpt labs weekly for PIH. negative on 07/27/24. negative on 07/28/25. (9) COVID-19 affecting in third trimester: COMMENT: tested positive 07/27/24 08/11/24 0010 Date Petrona Sandhu Signature (if applicable): Date CC: Dr. Priscilla Pal MD; Dr. Petrona Michaels MD Signed Normal [facility] Protein+Creatinine Ratio,Uri neon 08-11-2024 PROT:CRE RATIO TNP Normal 0-200 [facility] Comment on above: Performed By: #### L 501.0900 #### [facility] [address] [place], [address] PROTEIN,UR.RAN. < 6.0 Normal <11.9 [facility] Comment on above: Performed By: #### L 501.0900 #### [facility] [address] [place], [address] UR CREAT < 13.00 Normal NO RANGE EST. [facility] Comment on above: Performed By: #### L 501.0900 #### [facility] [address] [place], [address] Program Manufacturing Leader Office Visit Reporton 08-10-2024 Program Manufacturing Leader Office Visit Report [facility] [address], [address] [place] [address] OFFICE VISIT Date of Service: 08/10/24 MR#: [id number] Acct: [id number] Name: STEVE BERNAL Rep #: [id number] : 1990 Provider: Dr. Petrona allan MD Age/Sex: 33/F Location: [facility] Status: Signed Intake Vital Signs 07/27/24 15:03 08/03/24 13:12 08/07/24 15:17 08/10/24 13:09 08/10/24 13:12 Height 5 ft 5 in 5 ft 6 in 5 ft 6 in 5 ft 6 in 5 ft 6 in Weight: 184 lb 2 oz BMI 29.7 BP 129/86 H Intake Visit Reasons: 35 WK OB/NST Glass Belt Sander Required: No Allergies No Known Allergies Allergy (Verified 08/10/24 13:10) Medications ???Medication ???Instructions ???Recorded ???Confirmed ???Type docosahexaenoic acid 200 mg 200 mg PO DAILY 02/03/24 08/10/24 History capsule ( DHA) labetalol 200 mg tablet 200 mg PO BID #60 tabs 07/28/24 08/10/24 Rx Last Menstrual Period: 11/15/23 Zika: Zika virus screening: Negative : No PFSH PFSH Surgical History H/O wisdom tooth extraction History of ankle surgery Family History Mother CVA (cerebral vascular accident) Hypertension Diabetes Gestational diabetes Father Lymphoma Aunt Leukemia Grandmother CVA (cerebral vascular accident) Diabetes Hypertension Myocardial infarction Grandfather CVA (cerebral vascular accident) Diabetes Hypertension Myocardial infarction Social History adopted: No household members: spouse and children number of children: 1 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 occupational status: 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/hazards: No pets and animals: No leisure activities: exercise, music and reading history of recent travel: Yes (All domestic [place] travel ([place], [place], [place], [place]) details: [place], [place], [place], [place] out of state: Yes out of country: No sexually active: Yes Smoking Status: Never smoker Electronic Cigarette Use: not used second hand exposure: No alcohol intake: former details: not while substance use type: marijuana well-balanced diet: about half the time caffeine: Yes (very seldomly drinking beverages with caffeine (1-3 times per month)) Type: tea eating out: 1-3 times/week during the past year weight has: decreased > 10 lbs what type of physical activity do you participate in: walking and running frequency: 3-4 times per week duration: 30-45 minutes/day michael/mormonism: Pentecostal seatbelt use: always do you feel safe at home: Yes additional social history: : Foreign Potts History 2 Elective abortions Hx Para 1 Spontaneous abortions Hx # Term Pregnancies Ectopic pregnancies Hx # Pregnancies Multiple births # of living children 1 Past Pregnancies Del. Date Name GA/Weeks Outcome Route Bth Weight Infant Gen Labor Lgth Anesthesia Del Locatn Provider FOB 07/28/16 Loi live - full term 7lbs 5oz Male spinal [facility] Foreign Delivery Date: 07/28/16 Last Updated by: Tiffanie Samaniego RN Elective HPI 35 WK OB/NST Details: STEVE BERNAL is a 33 year old who presents for routine OB visit. OB Visit MARTHA Calculator Estimated Delivery Date Method Current WG Current Estimate 09/11/24 Ultrasound #1 35w 4d Expected Delivery Route/Plan plan RLTCS- plan for 09/04/24 or 09/05/24 Specific Issue/Plans Covid status: [] Flu vaccine: [] Tdap vaccine: [] Rhogam: [] LARC form signed: [] Problem list reviewed and updated with the most current plan of care details and appropriate orders placed. Relevant counseling for the gestational age provided. Continue routine care and follow up unless otherwise noted in visit notes/problem list details Initial Weight: Not Recorded Date -???-???-???-???-???- ???-???-???-???-???-? ??-???- EGA Weight BP Urine Prot -???-???-???-???-???- ???-???-???-???-???-? ??-???- Glucose FHR FuHt Pres Dilation -???-???-???-???-???- ???-???-???-???-???-? ??-???- Effaced St Visit Note 02/08/24 -???-???-???-???-???- ???-???-???-???-???-? ??-???- 9w 1d 147 lb 127/89 -???-???-???-???-???- ???-???-???-???-???-? ??-???- 170 -???-???-???-???-???- ???-???-???-???-???-? ??-???- SM- CRL ady uring consistent with previous MARTHA 02/11/24 -???-???-???-???-???- ???-???-???-???-???-? ??-???- 9w 4d 157 lb 129/85 -???-???-???-???-???- ???-???-???-???-???-? ??-???- 173 -???-???-???-???-???- ???-???-???-???-???-? ??-???- KW- NOB exam today. JV scanned. Still bleeding since IUD removal. NIPT box given today 02/17/24 -???-???-???-???-???- ???-???-???-???-?? (more content not included)... Normal [facility] Program Manufacturing Leader Office Visit Reporton 08-07-2024 Program Manufacturing Leader Office Visit Report [facility] [address], [address] [place] [address] OFFICE VISIT Date of Service: 08/07/24 MR#: [id number] Acct: [id number] Name: STEVE BERNAL Rep #: [id number] : 1990 Provider: Dr. Petrona allan MD Age/Sex: 33/F Location: [facility] Status: Signed Intake Vital Signs 05/04/24 15:09 07/27/24 15:03 08/03/24 14:39 08/07/24 15:16 08/07/24 15:17 Height 5 ft 5 ft 5 in 5 ft 6 in 5 ft 5 in 5 ft 6 in Weight: 181 lb BMI 30.1 BP 132/82 H Intake Visit Reasons: 35 WK NST ONLY Glass Belt Sander Required: No Is patient in pain?: No Allergies No Known Allergies Allergy (Verified 08/07/24 15:16) Medications ???Medication ???Instructions ???Recorded ???Confirmed ???Type docosahexaenoic acid 200 mg 200 mg PO DAILY 02/03/24 08/07/24 History capsule ( DHA) labetalol 200 mg tablet 200 mg PO BID #60 tabs 07/28/24 08/07/24 Rx Last Menstrual Period: 11/15/23 Zika: Zika virus screening: Negative : No Have you fallen in the past year?: No PFSH PFSH Surgical History H/O wisdom tooth extraction History of ankle surgery Family History Mother CVA (cerebral vascular accident) Hypertension Diabetes Gestational diabetes Father Lymphoma Aunt Leukemia Grandmother CVA (cerebral vascular accident) Diabetes Hypertension Myocardial infarction Grandfather CVA (cerebral vascular accident) Diabetes Hypertension Myocardial infarction Social History adopted: No household members: spouse and children number of children: 1 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 occupational status: 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/hazards: No pets and animals: No leisure activities: exercise, music and reading history of recent travel: Yes (All domestic [place] travel ([place], [place], [place], [place]) details: [place], [place], [place], [place] out of state: Yes out of country: No sexually active: Yes Smoking Status: Never smoker Electronic Cigarette Use: not used second hand exposure: No alcohol intake: former details: not while substance use type: marijuana well-balanced diet: about half the time caffeine: Yes (very seldomly drinking beverages with caffeine (1-3 times per month)) Type: tea eating out: 1-3 times/week during the past year weight has: decreased > 10 lbs what type of physical activity do you participate in: walking and running frequency: 3-4 times per week duration: 30-45 minutes/day michael/mormonism: Pentecostal seatbelt use: always do you feel safe at home: Yes additional social history: : Foreign Potts History 2 Elective abortions Hx Para 1 Spontaneous abortions Hx # Term Pregnancies Ectopic pregnancies Hx # Pregnancies Multiple births # of living children 1 Past Pregnancies Del. Date Name GA/Weeks Outcome Route Bth Weight Gen Labor Lgth Anesthesia Del Locatn Provider FOB 07/28/16 Loi live - full term 7lbs 5oz Male spinal [facility] Foreign Delivery Date: 07/28/16 Last Updated by: Tiffanie Samaniego RN Elective HPI 35 WK NST ONLY Details: STEVE BERNAL is a 33 year old who presents for routine OB visit. OB Visit MARTHA Calculator Estimated Delivery Date Method Current WG Current Estimate 09/11/24 Ultrasound #1 35w 1d Expected Delivery Route/Plan plan RLTCS- plan for 09/04/24 or 09/05/24 Specific Issue/Plans Covid status: [] Flu vaccine: [] Tdap vaccine: [] Rhogam: [] LARC form signed: [] Problem list reviewed and updated with the most current plan of care details and appropriate orders placed. Relevant counseling for the gestational age provided. Continue routine care and follow up unless otherwise noted in visit notes/problem list details Initial Weight: Not Recorded Date -???-???-???-???-???- ???-???-???-???-???-? ??-???- EGA Weight BP Urine Prot -???-???-???-???-???- ???-???-???-???-???-? ??-???- Glucose FHR FuHt Pres Dilation -???-???-???-???-???- ???-???-???-???-???-? ??-???- Effaced St Visit Note 02/08/24 -???-???-???-???-???- ???-???-???-???-???-? ??-???- 9w 1d 147 lb 127/89 -???-???-???-???-???- ???-???-???-???-???-? ??-???- 170 -???-???-???-???-???- ???-???-???-???-???-? ??-???- SM- CRL ady uring consistent with previous MARTHA 02/11/24 -???-???-???-???-???- ???-???-???-???-???-? ??-???- 9w 4d 157 lb 129/85 -???-???-???-???-???- ???-???-???-???-???-? ??-???- 173 -???-???-???-???-???- ???-???-???-???-???-? ??-???- KW- NOB exam today. JV scanned. Still bleeding since IUD removal. NIPT box given today (more content not included)... Normal [facility] AST(SGOT)on 08-03-2024 AST [Catalytic activity/Vol] 12 U/L Low 15-37 [facility] Comment on above: Performed By: #### L 100.0500 #### [facility] [place], [address] Alanine Aminotransferas (SGP T)on 08-03-2024 ALT [Catalytic activity/Vol] 14 U/L Normal 13-56 [facility] Comment on above: Performed By: #### L 100.0500 #### [facility] [address] [place], [address] Biophysical Prof W/O Non Str eson 08-03-2024 Biophysical Prof W/O Non Stres [facility] Imaging Services [address] [place] [address] Biophysical Prof W/O Non Stres MR#: [id number] Acct: [id number] Name: STEVE BERNAL Rep #: [id number] : 1990 F 33 From: Berhane diaz MD PCP: Dr. Priscilla Pal MD Status: REG CLI Study: Biophysical Prof W/O Non Stres Date of Exam: Exam# [id number] Ordering Dr: Petrona Michaels [id number] STUDY: OBSTETRICAL ULTRASOUND - BIOPHYSICAL PROFILE REASON FOR EXAM: Female, 33 years old non reactive NST LMP: PRIOR ULTRASOUND: 01/31/2024. TECHNIQUE: Transabdominal TECHNICAL QUALITY: Adequate. FINDINGS: There is a single intrauterine fetus. The fetus is in a cephalic presentation. There is demonstrated cardiac activity with a heart rate of 147 bpm. There is a normal amniotic fluid volume. The largest amniotic fluid pocket measures 5.0 cm. The amniotic fluid index (BLAINE) is 11.3 cm. The placenta is posterior in location and is not low lying. There are Grade 1 placental changes. Dilated left renal pelvis measuring in millimeters. Single nuchal cord wrap. Age by LMP: 34 weeks, 3 days. MARTHA by LMP: 09/11/2024. Gender: Female BIOPHYSICAL PROFILE: Breathing Movements (FBM): 0 Gross Body Movements (GBM): 2 Tone (FT): 2. Amniotic Fluid Volume (AFV): 2 TOTAL SCORE: 6 / 8 US/Biophysical Prof W/O Non Stres IMPRESSION: Abnormal biophysical profile of 6/8. Score of 0 for breathing. Dilated left renal sinus. Recommend renal ultrasound. Electronically Signed: Berhane Hector MD at 16:53 EDT , CC: Dr. Priscilla Pal MD; Dr. Petrona Michaels MD Roving Frame Tender: Signed Normal [facility] CBC-Complete Blood Cnt No Di ffon 08-03-2024 Erythrocyte distribution width (RBC) [Ratio] 12.7 % Normal 11.6-14.6 [facility] Comment on above: Performed By: #### L 100.0500, L501.1105, L501.1400, L501.4405, L501.4100 #### [facility] [address] [place], [address] Hematocrit (Bld) [Volume fraction] 32.8 % Low 37-47 [facility] Comment on above: Performed By: #### L 100.0500, L501.1105, L501.1400, L501.4405, L501.4100 #### [facility] [address] [place], [address] Hemoglobin (Bld) [Mass/Vol] 11.6 g/dL Low 12.0-15.0 [facility] Comment on above: Performed By: #### L 100.0500, L501.1105, L501.1400, L501.4405, L501.4100 #### [facility] [address] [place], [address] MCH (RBC) [Entitic mass] 32.6 pg High 27.0-32.0 [facility] Comment on above: Performed By: #### L 100.0500, L501.1105, L501.1400, L501.4405, L501.4100 #### [facility] [address] [place], [address] MCHC (RBC) [Mass/Vol] 35.4 g/dL Normal 32-36 [facility] Comment on above: Performed By: #### L 100.0500, L501.1105, L501.1400, L501.4405, L501.4100 #### [facility] [address] [place], [address] MCV (RBC) [Entitic vol] 92.1 fL Normal 81-99 [facility] Comment on above: Performed By: #### L 100.0500, L501.1105, L501.1400, L501.4405, L501.4100 #### [facility] [address] [place], [address] Platelet mean volume (Bld) [Entitic vol] 9.6 fL Normal 6.2-12.0 [facility] Comment on above: Performed By: #### L 100.0500, L501.1105, L501.1400, L501.4405, L501.4100 #### [facility] [address] [place], [address] Platelets (Bld) [#/Vol] 282 10*3/uL Normal 150-450 [facility] Comment on above: Performed By: #### L 100.0500, L501.1105, L501.1400, L501.4405, L501.4100 #### [facility] [address] [place], [address] RBC (Bld) [#/Vol] 3.56 10*6/uL Low 4.2-5.4 [facility] Comment on above: Performed By: #### L 100.0500, L501.1105, L501.1400, L501.4405, L501.4100 #### [facility] [address] [place], [address] RDW SD 42.5 fl Normal 35.1-43.9 [facility] Comment on above: Performed By: #### L 100.0500, L501.1105, L501.1400, L501.4405, L501.4100 #### [facility] [address] [place], [address] WBC (Bld) [#/Vol] 10.5 10*3/uL Normal 4.4-11.0 [facility] Comment on above: Performed By: #### L 100.0500, L501.1105, L501.1400, L501.4405, L501.4100 #### [facility] [address] [place], [address] Program Manufacturing Leader Office Visit Reporton 08-03-2024 Program Manufacturing Leader Office Visit Report [facility] [address], [address] [place] [address] OFFICE VISIT Date of Service: 08/03/24 MR#: [id number] Acct: [id number] Name: STEVE BERNAL Rep #: [id number] : 1990 Provider: Dr. Petrona allan MD Age/Sex: 33/F Location: [facility] Status: Signed Intake Vital Signs 07/27/24 15:03 07/31/24 09:59 08/03/24 13:12 Height 5 ft 5 in 5 ft 6 in 5 ft 6 in Weight: 181 lb BMI 29.2 BP 135/87 H Intake Visit Reasons: 34 WK OB/NST Glass Belt Sander Required: No Is patient in pain?: No Feel stressed/tense/nervou s/anxious/difficulty sleeping: not at all Allergies No Known Allergies Allergy (Verified 08/03/24 14:39) Medications ???Medication ???Instructions ???Recorded ???Confirmed ???Type docosahexaenoic acid 200 mg 200 mg PO DAILY 02/03/24 08/03/24 History capsule ( DHA) labetalol 200 mg tablet 200 mg PO BID #60 tabs 07/28/24 08/03/24 Rx Last Menstrual Period: 11/15/23 Zika: Zika virus screening: Negative : No Have you fallen in the past year?: No PFSH PFSH Surgical History H/O wisdom tooth extraction History of ankle surgery Family History Mother CVA (cerebral vascular accident) Hypertension Diabetes Gestational diabetes Father Lymphoma Aunt Leukemia Grandmother CVA (cerebral vascular accident) Diabetes Hypertension Myocardial infarction Grandfather CVA (cerebral vascular accident) Diabetes Hypertension Myocardial infarction Social History adopted: No household members: spouse and children number of children: 1 current occupational status: 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/hazards: No pets and animals: No leisure activities: exercise, music and reading history of recent travel: Yes (All domestic [place] travel ([place], [place], [place], [place]) details: [place], [place], [place], [place] out of state: Yes out of country: No sexually active: Yes Smoking Status: Never smoker Electronic Cigarette Use: not used second hand exposure: No alcohol intake: former details: not while substance use type: marijuana well-balanced diet: about half the time caffeine: Yes (very seldomly drinking beverages with caffeine (1-3 times per month)) Type: tea eating out: 1-3 times/week during the past year weight has: decreased > 10 lbs what type of physical activity do you participate in: walking and running frequency: 3-4 times per week duration: 30-45 minutes/day michael/mormonism: Pentecostal seatbelt use: always do you feel safe at home: Yes additional social history: : Foreign Potts History 2 Elective abortions Hx Para 1 Spontaneous abortions Hx # Term Pregnancies Ectopic pregnancies Hx # Pregnancies Multiple births # of living children 1 Past Pregnancies Del. Date Name GA/Weeks Outcome Route Bth Weight Infant Gen Labor Lgth Anesthesia Del Locatn Provider FOB 07/28/16 Loi live - full term 7lbs 5oz Male spinal [facility] Delivery Date: 07/28/16 Last Updated by: Tiffanie Samaniego RN Elective HPI 34 WK OB/NST Details: STEVE BERNAL is a 33 year old who presents for routine OB visit. OB Visit MARTHA Calculator Estimated Delivery Date Method Current WG Current Estimate 09/11/24 Ultrasound #1 34w 5d Expected Delivery Route/Plan plan RLTCS- plan for 09/04/24 or 09/05/24 Specific Issue/Plans Covid status: [] Flu vaccine: [] Tdap vaccine: [] Rhogam: [] LARC form signed: [] Problem list reviewed and updated with the most current plan of care details and appropriate orders placed. Relevant counseling for the gestational age provided. Continue routine care and follow up unless otherwise noted in visit notes/problem list details Initial Weight: Not Recorded Date -???-???-???-???-???- ???-???-???-???-???-? ??-???- EGA Weight BP Urine Prot -???-???-???-???-???- ???-???-???-???-???-? ??-???- Glucose FHR FuHt Pres Dilation -???-???-???-???-???- ???-???-???-???-???-? ??-???- Effaced St Visit Note 02/08/24 -???-???-???-???-???- ???-???-???-???-???-? ??-???- 9w 1d 147 lb 127/89 -???-???-???-???-???- ???-???-???-???-???-? ??-???- 170 -???-???-???-???-???- ???-???-???-???-???-? ??-???- SM- CRL ady uring consistent with previous MARTHA 02/11/24 -???-???-???-???-???- ???-???-???-???-???-? ??-???- 9w 4d 157 lb 129/85 -???-???-???-???-???- ???-???-???-???-???-? ??-???- 173 -???-???-???-???-???- ???-???-???-???-???-? ??-???- KW- NOB exam today. JV scanned. Still bleeding since IUD removal (more content not included)... Normal [facility] Protein+Creatinine Ratio,Uri neon 08-03-2024 PROT:CRE RATIO TNP Normal 0-200 [facility] Comment on above: Performed By: #### L 501.0900 #### [facility] [address] [place], [address] PROTEIN,UR.RAN. < 6.0 Normal <11.9 [facility] Comment on above: Performed By: #### L 501.0900 #### [facility] [address] [place], [address] UR CREAT 26.40 mg/dL Normal NO RANGE EST. [facility] Comment on above: Performed By: #### L 501.0900 #### [facility] [address] [place], [address] Serum Creatinine AND GFRon 1 Creatinine [Mass/Vol] 0.63 mg/dL Normal 0.55-1.02 [facility] Comment on above: Result Comment: The validity of the calculated GFR GFRAA in patients over 70 years has not been determined. Clinical correlation is essential. Performed By: #### L 100.0500, L501.1105, L501.1400, L501.4405, L501.4100 #### [place] [facility] [address] [place], [address] ECRCL 137.19 ml/min Normal [facility] Comment on above: Performed By: #### L 100.0500, L501.1105, L501.1400, L501.4405, L501.4100 #### [facility] [address] [place], [address] EST GFR - AA 140 mL/min Normal >60 [facility] Comment on above: Result Comment: Afri can Libyan GFR Calc Performed By: #### L 100.0500, L501.1105, L501.1400, L501.4405, L501.4100 #### [facility] [address] [place], [address] GFR/1.73 sq M.predicted among non-blacks MDRD (S/P/Bld) [Vol rate/Area] 116 mL/min/{1.73_m2} Normal >60 [facility] Comment on above: Result Comment: Non- GFR Calc Performed By: #### L 100.0500, L501.1105, L501.1400, L501.4405, L501.4100 #### [facility] [address] [place], [address] Uric Acidon 08-03-2024 URIC 4.0 mg/dL Normal 2.6-6.0 [facility] Comment on above: Result Comment: The drugs N-Acetylcysteine and Metamizole may falsely depress this assay. Performed By: #### L 100.0500, L501.1105, L501.1400, L501.4405, L501.4100 #### [facility] [address] [place], [address] Progress Noteon 02-29-2024 Inside [employer] Executive Authentication Interface Message Text [facility] MATERNAL- MEDICINE CONSULT Referring/Requesting Provider: Petrona [...] 02/29/24 encounter (Office Visit) with Ryanne Fletcher, Medication Sig Dispense Refill ondansetron (ZOFRAN-ODT) 4 [...] 1d with an MARTHA of 09/11/2024. 2. Stockwell rump length measurement are consistent with supplied dating. 3. Anatomic detail is extremely limited at this early gestational age. No gross abnormalities were noted on this examination. 4. Small subchorionic hematoma. 5. Normal uterus and adnexa. 6. Absence of free fluid in the pelvis. IMPRESSION AND RECOMMENDATIONS: Steve is a 33 y.o. at 12w1d with [...] EVALUATION Ultrasound: 16 week, 20 week with [facility]. DELIVERY PLAN Hospital: [facility] C/S at 39 weeks, repeat : recommended Vaccinations recommended: Covid, influenza, RSV, TDap with IUD in place, antepartum, first trimester 02/22/2024 conceived with IUD in place that Dr. Michaels has since removed Follow up with [facility] for 16 and 20 week US. Recommend additional US if significant bleeding again occurs. Continue care with Dr. Michaels. Chart review and preparation: 15 minutes. Face to face: 15 minutes. Documentation and care coordination: 13 minutes. Total time spent on patient care today: 43 minutes. Normal [facility] Serum or plasma choriogonado tropin detectionOrdered By: Priscilla Pal on 01-31-2024 HCG ( test) [place]l [address] mIU/mL <4 [facility] Comment on above: hCG levels with Gest ational AgeGestational Age hCG mIU/mL (IU/L)0.2 - 1 week 5 - 501-2 weeks 50 - 5002-3 weeks 100 - 86855-4 weeks 500 - 835770-9 weeks 1000 - 644913-9 weeks 25865 - 100,0006-8 weeks 73146 - 200,0002-3 months 71006 - 100,000 Absolute lymphocyte countOrd ered By: Priscilla Pal on 01-29-2024 Lymphocytes Auto (Unsp spec) [#/Vol] 1.22 10*3/uL 0.83-4.51 [facility] Automated lymphocyte count a s percentage of total leukocytesOrdered By: Priscilla Pal on 01-29-2024 Lymphocytes/100 WBC Auto (Unsp spec) 22.2 % 19-41 [facility] Basophil percentageOrdered B y: Priscilla Pal on 01-29-2024 Basophils/100 WBC (Bld) 0.7 % 0-1 [facility] Eosinophils/100 WBC (Bld) 0.9 % 0-5 [facility] Hemoglobin (Bld) [Mass/Vol] 12.5 g/dL 12.0-15.0 [facility] Monocytes/100 WBC (Bld) 8.9 % 0-10 [facility] Neutrophils (Bld) [#/Vol] 3.7 10*3/uL 2.0-7.7 [facility] Neutrophils/100 WBC (Bld) 66.9 % 47-70 [facility] WBC (Bld) [#/Vol] 5.5 10*3/uL 4.4-11.0 [facility] Determination of erythrocyte mean corpuscular volume (MCV)Ordered By: Priscilla Pal on 01-29-2024 MCV (RBC) [Entitic vol] 91.6 fL 81-99 [facility] Erythrocyte distribution wid th ratioOrdered By: Priscilla Pal on 01-29-2024 Erythrocyte distribution width (RBC) [Ratio] 12.2 % 11.6-14.6 [facility] Erythrocyte distribution wid th standard deviationOrdered By: Priscilla Pal on 01-29-2024 Erythrocyte distribution width (RBC) [Entitic vol] 40.8 fL 35.1-43.9 [facility] Hematocrit Auto (Bld) [Volum e fraction]Ordered By: Priscilla Pal on 01-29-2024 Hematocrit (Bld) [Volume fraction] 37.2 % 37-47 [facility] Immature granulocytes/100 WB C Auto (Bld)Ordered By: Priscilla Pal on 01-29-2024 Immature granulocytes/100 WBC (Bld) 0.400 % 0.0-0.9 [facility] Comment on above: IG% - Immature Granu locytes (promyelocytes, myelocytes and metamyelocytes) > 1% indicates that a LEFT SHIFT is Present. Laboratory - Hematology and Cell countsOrdered By: Priscilla Pal on 01-29-2024 MCH (RBC) [Entitic mass] 30.8 pg 27.0-32.0 [facility] MCHC (RBC) [Mass/Vol] 33.6 g/dL 32-36 [facility] Nucleated RBC/100 WBC (Bld) [Ratio] 0 % 0-5 [facility] Platelet mean volume (Bld) [Entitic vol] 8.9 fL 6.2-12.0 [facility] Platelets (Bld) [#/Vol] 280 10*3/uL 150-450 [facility] RBC Auto (Bld) [#/Vol]Ordere d By: Priscilla Pal on 01-29-2024 RBC (Bld) [#/Vol] 4.06 10*6/uL 4.2-5.4 [facility] Serum or plasma choriogonado tropin detectionOrdered By: Priscilla Pal on 01-29-2024 HCG ( [place]) [place]l 42396 mIU/mL <4 [facility] Comment on above: hCG levels with Gest ational AgeGestational Age hCG mIU/mL (IU/L)0.2 - 1 week 5 - 501-2 weeks 50 - 5002-3 weeks 100 - 00380-9 weeks 500 - 443792-4 weeks 1000 - 877493-1 weeks 27467 - 100,0006-8 weeks 20271 - 200,0002-3 months 59679 - 100,000 CNOVon 03-08-2023 CNOV Office Visit (UCWSTR ) STEVE BERNAL ([id number]) 1990 F Date Time Provider Department 03/08/23 6:00 PM MIGUE JEFFERS [facility] During your visit today, we recorded the following information about you: Temperature Pulse Respiration Blood pressure 97.5 degrees 70/minute 16/minute 110/72 Weight 75.3 kg Migue Jeffers APRN.MANAGER SOFTWARE 03/08/2023 6:32 PM Signed Subjective HPI Nontoxic-appearing [...] canal and external ear normal. Mouth/Throat: Lips: [place]. Mouth: Mucous membranes are moist. Pharynx: Oropharynx [...] of care. This note was generated using [employer] software. It may contain errors in wording, punctuation, or spelling. Migue Jeffers APRN.MANAGER SOFTWARE Allergies As of Date: 03/08/2023 (No Known Allergies) Date Reviewed: 03/08/2023 Reviewed by: Migue Jeffers APRN.MANAGER SOFTWARE - Fully Assessed Reason for Visit: Sore Throat [200] Cmt: x 3 days Primary Visit Diagnosis:Sore throat [J02.9] Order(s):STREP A MOLECULAR (POC) [3943524] Order #: [id number]. #:[id number] Problem List As Of Date: 03/08/2023 (None) Level of Service: OFFICE/OUTPA (more content not included)... Normal [facility] STREP A MOLECULAR (POC)on Procedural Control Valid [facility] Strep A (POCT) Negative Negative [facility] *HCG*POCT*DEVICEon 8 HCG.beta subunit ( test) Ql (U) Negative Normal Negative [facility] CBC,PLATELET,DIFFERENTIAL - CCLon 11-10-2017 Abs Baso 0.02 K/uL Normal 0.01-0.08 [facility] Comment on above: Performed By: #### C HELENJ ####[facility] [place] [address]#### [place] ####[facility] [place], [place] [address] [place] [address] Abs Eos 0.00 K/uL Low 0.04-0.36 [facility] Comment on above: Performed By: #### C HELENJ ####[facility]ERSajanMer[facility] [place] [address]#### CAR[place] ####[facility] [place], [place] [address] [address] [place] [address] Abs [place] 0.15 K/uL Low 0.24-0.86 [facility] Comment on above: Performed By: #### C EVELINA ####[facility] [place] [address] 8110[address]#### DONBM ####[facility] [place] [address] 97260SnqkvqFirelands Regional Medical Center[address] [place] [address] 60447 Basophils/100 WBC Auto (Bld) 0.2 % Normal [facility] Comment on above: Performed By: #### C EVELINA ####[facility] [place] [address] 55291#### OSITOBM ####[facility] [place] [address] 93352YzkwpeFirelands Regional Medical Center[address] [place] [address] 30600 DIFFERENTIAL TYPE Electronic Differential Normal [facility] Comment on above: Performed By: #### Rubén HOYT ####[facility]ERSajanMercy Health St[facility] [place] [address] 14130#### CAROLINA ####[facility] [place] [address] 07238VxatylFirelands Regional Medical Center[address] [place] [address] 04031 Eosinophils/100 leukocytes 0.0 % Normal [facility] Comment on above: Performed By: #### Rubén HOYT ####[facility] [place] [address] 824[address]#### CAROLINA ####[facility] [place] [address] 24405KcfvorFirelands Regional Medical Center[address] [place] [address] 21810 Erythrocytes (RBC) 3.14 10*6/uL Low 3.93-5.22 [facility] Comment on above: Performed By: #### Rubén HOYT ####[facility] [place] [address] 59500#### OSITOBM ####[facility] [place] [address] 73501IxqsqlFirelands Regional Medical Center[address] [place] [address] 19833 Erythrocytes (RBC) 12.1 % Normal 11.7-14.4 [facility] Comment on above: Performed By: #### C BCDFJ ####[facility] [place] [address] 69428#### DONBM ####[facility] [place] [address] 91987KanxglFirelands Regional Medical Center[address] [place] [address] 78122 Hematocrit (HCT) 28.7 % Low 34.1-44.9 [facility] Comment on above: Performed By: #### C BCDFJ ####[facility] [place] [address]#### DONBM ####[facility] [place] [address] [place], [place] [address] [place] [address] 32007 Hemoglobin mass conc (Bld) 31.2 pg Normal 25.6-32.2 [facility] Comment on above: Performed By: #### C BCDFJ ####[facility] [place] [address] 55361#### DONBM ####[facility] [place] [address] 69339NtpdnxFirelands Regional Medical Center[address] [place] [address] 99392 Hemoglobin mass conc (Bld) 9.8 g/dL Low 11.2-15.7 [facility] Comment on above: Result Comment: Resu lts inconsistent with previous results Performed By: #### C BCDFJ ####[facility] [place] [address] 60380#### DONBM ####[facility] [place] [address] 21594SanpmxFirelands Regional Medical Center[address] [place] [address] 12513 Hemoglobin mass conc (Bld) 34.1 g/dL Normal 32.2-35.5 [facility] Comment on above: Performed By: #### C EVELINA ####[facility]ERSajanMercy Health St[facility] [place] [address]#### [place] ####[facility] [place] [address] [place], [place] [address] [place] [address] 67027 IMMATURE GRANS % 0.3 % Normal [facility] Comment on above: Performed By: #### C EVELINA ####[facility] [place] [address]#### CAROLINA ####[facility] [place], [place] [address] [address] [place] [address] IMMATURE GRANS ABSOLUTE 0.04 K/uL High 0.00-0.03 O [facility] Comment on above: Performed By: #### Rubén HOYT ####[facility] [place] [address]#### CAR[place]INA ####[facility] [place], [place] [address] [address] [place] [address] Lymphocytes 0.39 10*3/uL Low 1.18-3.74 [facility] Comment on above: Performed By: #### C EVELINA ####[facility] [place] [address]#### CAR[place]INA ####[facility] [place], [place] [address] [place] [address] Lymphocytes/100 leukocytes 3.4 % Normal [facility] Comment on above: Performed By: #### Rubén HOYT ####[facility] [place] [address] 71258#### DONBM ####[facility] [place], [place] [address]ZgohvdFirelands Regional Medical Center[address] [place] [address] 47684 MCV 91.4 fL Normal 79.4-94.8 [facility] Comment on above: Performed By: #### C BCDFJ ####[facility] [place] [address] 42514#### DONBM ####[facility] [place] [address] 77190AxbqqcFirelands Regional Medical Center[address] [place] [address] 29291 Monocytes/100 leukocytes 1.3 % Normal [facility] Comment on above: Performed By: #### C HELENJ ####[facility] [place] [address] 80263#### DONBM ####[facility] [place] [address] 09023CqsumxFirelands Regional Medical Center[address] [place] [address] 43938 NEUTROPHIL SEGMENTED 94.8 % Normal [facility] Comment on above: Performed By: #### C BCDFJ ####[facility] [place] [address] 42251#### DONBM ####[facility] [place] [address] 13242QcheqjFirelands Regional Medical Center[address] [place] [address] 02275 Nucleated erythrocytes 0.0 /100 WBC Normal 0.0-0.2 [facility] Comment on above: Performed By: #### C BCDFJ ####[facility] [place] [address] 77207#### DONBM ####[facility] [place] [address] 97069AbeiuaFirelands Regional Medical Center[address] [place] [address] 71772 Platelet mean volume (PMV) 9.4 fL Normal 9.4-12.3 [facility] Comment on above: Performed By: #### C HELENJ ####[facility] [place] [address] 46764#### CAROLINA ####[facility] [place] [address] 27348UacrwgFirelands Regional Medical Center[address] [place] [address] 60251 Platelets 202 10*3/uL Normal 182-369 [facility] Comment on above: Performed By: #### C EVELINA ####[facility] [place] [address]#### CAR[place]INA ####[facility] [place] [address] [place], [place] [address] [place] [address] SEGS + Bands,Absolute 10.94 K/uL High 1.56-6.13 [facility] Comment on above: Performed By: #### C HELENJ ####[facility] [place] [address] 93041#### CAROLINA ####[facility] [place] [address] 43011YncwvkFirelands Regional Medical Center[address] [place] [address] 81564 WBC (Leukocytes) 11.54 10*3/uL High 3.98-10.04 [facility] Comment on above: Performed By: #### C HELENJ ####[facility] [place], [place] [address]#### CAROLINA ####[facility] [place] [address] 23481GcrfivFirelands Regional Medical Center[address] [place] [address] 63785 Abs Baso 0.04 K/uL Normal 0.01-0.08 [facility] Comment on above: Performed By: #### C EVELINA ####[facility] [place] [address] 11542#### OSITOBM ####[facility] [place] [address] 91913JywocjFirelands Regional Medical Center[address] [place] [address] 13174 Abs Eos 0.03 K/uL Low 0.04-0.36 [facility] Comment on above: Performed By: #### C EVELINA ####[facility]ERSajanMercy Health St[facility] [place] [address] 65127#### CAROLINA ####[facility] [place] [address] 80521BxpllmFirelands Regional Medical Center[address] [place] [address] 75916 Abs [place]quitt 0.62 K/uL Normal 0.24-0.86 [facility] Comment on above: Performed By: #### C EVELINA ####[facility] [place] [address] 39205#### CAROLINA ####[facility] [place] [address] 66191EsjtfqFirelands Regional Medical Center[address] [place] [address] 16381 Basophils/100 WBC Auto (Bld) 0.8 % Normal [facility] Comment on above: Performed By: #### Rubén HOYT ####[facility]ERSajanMercy Health St[facility] [place] [address] 41013#### CAROLINA ####[facility] [place] [address] 81787TyhnpqFirelands Regional Medical Center[address] [place] [address] 66053 DIFFERENTIAL TYPE Electronic Differential Normal [facility] Comment on above: Performed By: #### Rubén HOYT ####[facility]ERSajanMercy Health St[facility] [place] [address] 36956#### DONBM ####[facility] [place] [address], [place] [address]NnenntFirelands Regional Medical Center[address] [place] [address] 22382 Eosinophils/100 leukocytes 0.6 % Normal [facility] Comment on above: Performed By: #### C BCDFJ ####[facility] [place] [address] 92098#### DONBM ####[facility] [place] [address] 10343ZofzhlFirelands Regional Medical Center[address] [place] [address] 19666 Erythrocytes (RBC) 4.23 10*6/uL Normal 3.93-5.22 [facility] Comment on above: Performed By: #### C BCDFJ ####[facility] [place] [address] 48771#### DONBM ####[facility] [place] [address] [place], [place] [address] [place] [address] 38274 Erythrocytes (RBC) 12.3 % Normal 11.7-14.4 [facility] Comment on above: Performed By: #### C BCDFJ ####[facility] [place] [address] 35732#### DONBM ####[facility] [place] [address] 84393SxwzpzFirelands Regional Medical Center[address] [place] [address] 49322 Hematocrit (HCT) 37.8 % Normal 34.1-44.9 [facility] Comment on above: Performed By: #### C BCDFJ ####[facility] [place] [address] 08227#### DONBM ####[facility] [place] [address] 47761VdkydiFirelands Regional Medical Center[address] [place] [address] 22962 Hemoglobin mass conc (Bld) 30.5 pg Normal 25.6-32.2 [facility] Comment on above: Performed By: #### C NILDADFJ ####[facility] [place] [address] 47133#### CAROLINA ####[facility] [place] [address] 91376YbdsupFirelands Regional Medical Center[address] [place] [address] 84478 Hemoglobin mass conc (Bld) 34.1 g/dL Normal 32.2-35.5 [facility] Comment on above: Performed By: #### C EVELINA ####[facility] [place] [address] 73507#### CAROLINA ####[facility] [place] [address] 32184UreopzFirelands Regional Medical Center[address] [place] [address] 39217 Hemoglobin mass conc (Bld) 12.9 g/dL Normal 11.2-15.7 [facility] Comment on above: Performed By: #### C EVELINA ####[facility] [place] [address] 59079#### CAROLINA ####[facility] [place] [address] 39903WnzihoFirelands Regional Medical Center[address] [place] [address] 31518 IMMATURE GRANS % 0.2 % Normal [facility] Comment on above: Performed By: #### C BCDFJ ####[facility] [place] [address] 17696#### CAROLINA ####[facility] [place] [address] 83754FdjpjfFirelands Regional Medical Center[address] [place] [address] 62079 IMMATURE GRANS ABSOLUTE 0.01 K/uL Normal 0.00-0.03 O [facility] Comment on above: Performed By: #### C BCDFSuly ####[facility] [place] [address] 95834#### DONBM ####[facility] [place] [address] 35020MablozFirelands Regional Medical Center[address] [place] [address] 47785 Lymphocytes 1.41 10*3/uL Normal 1.18-3.74 [facility] Comment on above: Performed By: #### C HELENJ ####[facility] [place] [address] 91208#### DONBM ####[facility] [place] [address] [place], [place] [address] [place] [address] 16406 Lymphocytes/100 leukocytes 29.4 % Normal [facility] Comment on above: Performed By: #### C EVELINA ####[facility] [place] [address] 57662#### DONBM ####[facility] [place] [address] 00721HwwydgFirelands Regional Medical Center[address] [place] [address] 65703 MCV 89.4 fL Normal 79.4-94.8 [facility] Comment on above: Performed By: #### C HELENJ ####[facility] [place] [address] 38323#### DONBM ####[facility] [place] [address] 52974TbgeuxFirelands Regional Medical Center[address] [place] [address] 08645 Monocytes/100 leukocytes 12.9 % Normal [facility] Comment on above: Performed By: #### C BCDFJ ####[facility] [place] [address] 18084#### DONBM ####[facility] [place] [address] 06695MiesxmFirelands Regional Medical Center[address] [place] [address] 78053 NEUTROPHIL SEGMENTED 56.1 % Normal [facility] Comment on above: Performed By: #### Rubén HOYT ####[facility] [place] [address] 11798#### CAROLINA ####[facility] [place] [address] 83703KoznetFirelands Regional Medical Center[address] [place] [address] 09293 Nucleated erythrocytes 0.0 /100 WBC Normal 0.0-0.2 [facility] Comment on above: Performed By: #### Rubén HOYT ####[facility] [place] [address] 49391#### CAROLINA ####[facility] [place] [address] 28664RxgnzgFirelands Regional Medical Center[address] [place] [address] 67600 Platelet mean volume (PMV) 9.5 fL Normal 9.4-12.3 [facility] Comment on above: Performed By: #### Rubén HOYT ####[facility] [place] [address] 33893#### CAR[place]INA ####[facility] [place] [address] 08588PttxqrFirelands Regional Medical [facility] [place] [address] 68886 Platelets 253 10*3/uL Normal 182-369 [facility] Comment on above: Performed By: #### Rubén HOYT ####[facility]st [facility] [place] [address] 79650#### CAROLINA ####[facility] [place] [address] 77286QjxtzqFirelands Regional Medical Center[address] [place] [address] 40071 SEGS + Bands,Absolute 2.69 K/uL Normal 1.56-6.13 [facility] Comment on above: Performed By: #### Rubén HOYT ####[facility] [place] [address] 58863#### DONBM ####[facility] [place] [address] 57718VtmatpFirelands Regional Medical Center[address] [place] [address] 97423 WBC (Leukocytes) 4.80 10*3/uL Normal 3.98-10.04 [facility] Comment on above: Performed By: #### C BCDFJ ####Forest [facility] [place] [address] 42003#### DONBM ####[facility] [place] [address] [place], [place] [address] [place] [address] Type and Lizzie 11-10-2017 Type and Cross Negative Normal [facility] Comment on above: Performed By: #### C BCDFJ ####[facility]st [facility] [place] [address]#### DONBM ####[facility] [place] [address] 40766IgpqijFirelands Regional Medical Center[address] [place] [address] 66182 *BMT DONORon 10-21-2017 CMV IGM ANTIBODY Negative Normal Negative [facility] Comment on above: Performed By: #### C BCDFJ ####[facility]st [facility], [facility] [place] [address] 41101#### DONBM ####[facility] [place] [address] 06135QjuzitFirelands Regional Medical Center[address] [place] [address] 75510 *BMT DONORon 10-20-2017 *Cytomegalovirus Ab Total Negative Normal Negative [facility] Comment on above: Result Comment: Test performed by [facility], [address] [place] [address], [place] [address] Performed By: #### C BCDFSuly ####Forest CCCTMercy Health [facility] [place] [address] 86197#### DONBM ####[facility] [place] [address], [place] [address]MzyyzaFirelands Regional Medical Center[address] [place] [address] 99910 *HCV-ROSALEE Negative Normal Negative [facility] Comment on above: Result Comment: Test performed by [facility], [facility] [place] [address] Performed By: #### C BCDFJ ####Forest [facility], [facility] [place] [address] 04869#### DONBM ####[facility] [place] [address] 60303ThtqlcFirelands Regional Medical Center[address] [place] [address] 20783 *Hep B Core Ab, Total Negative Normal Negative [facility] Comment on above: Result Comment: Test performed by [facility], [address] [place] [address], [place] [address] Performed By: #### C BCDFJ ####[facility] [place] [address] 44648#### DONBM ####[facility] [place] [address] 15842EnqwrdFirelands Regional Medical Center[address] [place] [address] 14027 *Hepatitis C Ab Negative Normal Negative [facility] Comment on above: Result Comment: Test performed by [facility], [facility] [place] [address] Performed By: #### C BCDFJ ####Forest [facility], [facility] [place] [address] 50523#### DONBM ####[facility] [place] [address] 16640SmodjgFirelands Regional Medical Center[address] [place] [address] 00477 *Hepatitis*B Surface Ag Negative Normal O [facility] Comment on above: Result Comment: Test performed by [facility], [facility] [place] [address] Performed By: #### C BCDFJ ####Forest [facility], [facility] [place] [address] 11568#### DONBM ####[facility] [place] [address] 12425EieqcvFirelands Regional Medical Center[address] [place] [address] 36673 *HIV 1/0/2 Antibody Negative Normal Negative [facility] Comment on above: Result Comment: Test performed by [facility], [facility] [place] [address] Performed By: #### C BCDFJ ####Forest [facility], [facility] [place] [address] 27263#### DONBM ####[facility] [place] [address] 49037PcugxgFirelands Regional Medical Center[address] [place] [address] 20053 *HIV-ROSALEE Negative Normal Negative [facility] Comment on above: Result Comment: Test performed by [facility], [facility] [place] [address] Performed By: #### C BCDFJ ####Fore[facility] [place] [address] 27485#### DONBM ####[facility] [place] [address] 65427OutjvuFirelands Regional Medical Center[address] [place] [address] 16520 *HTLV I/II Ab Negative Normal Negative [facility] Comment on above: Result Comment: Test performed by [facility], [facility] [place] [address] Performed By: #### C BCDFJ ####Forest [facility], [facility] [place] [address] 63080#### DONBM ####[facility] [place], [place] [address]UnwxxsFirelands Regional Medical Center[address] [place] [address] 38039 *RPR Negative Normal Negative [facility] Comment on above: Result Comment: Test performed by [facility], [facility] [place] [address] Performed By: #### C BCDFJ ####Forest CCCT, [facility] [place] [address] 25500#### DONBM ####[facility] [place] [address], [place] [address]OnfvndFirelands Regional Medical Center[address] [place] [address] 73171 *T Cruzi Ab/Chaga's Disease Negative Normal Negative [facility] Comment on above: Result Comment: Test performed by [facility], [facility] [place] [address] Performed By: #### C BCDFJ ####Forest [facility], [facility] [place] [address] 09500#### DONBM ####[facility] [place] [address] 59412DfuxieFirelands Regional Medical Center[address] [place] [address] 00224 *West Nile, ROSALEE Negative Normal Negative [facility] Comment on above: Result Comment: Test performed by [facility], [facility] [place] [address] Performed By: #### C BCDFJ ####[facility] [place] [address] 59747#### DONBM ####[facility] [place] [address], [place] [address]RnwfmoFirelands Regional Medical Center[address] [place] [address] 63940 HBV-ROSALEE Negative Normal Negative [facility] Comment on above: Result Comment: Test performed by [facility], [facility] [place] [address] Performed By: #### C BCDFJ ####Forest [facility]ERSajanMer[facility] Health [facility] [place] [address] 15005#### DONBM ####[facility] [place] [address], [place] [address]MyiolyFirelands Regional Medical Center[address] [place] [address] 31644 HSV I/II IgM Antibody Negative Normal Negative [facility] Comment on above: Performed By: #### C BCDFJ ####Forest CCCT, [facility] [place] [address] 85240#### DONBM ####[facility] [facility] [place] [address]RchisjFirelands Regional Medical Center[address] [place] [address] 11531 EBV VCA IgG Antibody Positive Abnormal Negative [facility] Comment on above: Performed By: #### C BCDFJ ####Forest [facility] [place] [address] 78656#### DONBM ####[facility] [place], [place] [address]CcnhryFirelands Regional Medical Center[address] [place] [address] 61831 EBV VCA IgM Antibody Negative Normal Negative [facility] Comment on above: Performed By: #### C BCDFJ ####Forest [facility] [place] [address] 73174#### DONBM ####[facility] [place], [place] [address]DwktkqFirelands Regional Medical Center[address] [place] [address] 55228 HSV 1 IgG Antibody Negative Normal Negative [facility] Comment on above: Performed By: #### C BCDFJ ####Forest [facility], [facility] [place] [address] 78199#### DONBM ####[facility] [place], [place] [address]YexsxpFirelands Regional Medical Center[address] [place] [address] 28933 HSV 2 IgG Antibody Negative Normal Negative [facility] Comment on above: Performed By: #### C BCDFJ ####Forest CCCSajan, [facility] [place] [address] 09180#### DONBM ####[facility] [place] [address] 32839OsyavsFirelands Regional Medical Center[address] [place] [address] 65025 *BMT DONORon 10-19-2017 *IBC*CONTROL*NUMBER [id number] Normal [facility] Comment on above: Performed By: #### C BCDFJ ####Forest [facility]ERSajanMercy Health St[facility] [place] [address] 03179#### DONBM ####[facility] [place] [address] [place], [place] [address] [place] [address] 52887 Basic Metabolic Panel-CHRIon 10-19-2017 Anion gap 10 mmol/L Normal 7-17 [facility] Comment on above: Performed By: #### C BCDFJ ####Forest [facility] [place] [address] 19002#### DONBM ####[facility] [place] [address] 39520BmmdesFirelands Regional Medical Center[address] [place] [address] 03082 Calcium 9.6 mg/dL Normal 8.6-10.5 [facility] Comment on above: Performed By: #### C BCDFJ ####[facility]st [facility] [place] [address] 69435#### DONBM ####[facility] [place] [address] 41880SwihptFirelands Regional Medical Center[address] [place] [address] 16250 Chloride 105 mmol/L Normal 98-108 [facility] Comment on above: Performed By: #### C BCDFJ ####Forest [facility]AM[facility] [place] [address] 37394#### DONBM ####[facility] [place] [address] 78654DcxxinFirelands Regional Medical Center[address] [place] [address] 29094 CO2 28 mmol/L Normal 22-30 [facility] Comment on above: Performed By: #### C BCDFJ ####[facility]st [facility] [place] [address] 34831#### CAROLINA ####[facility] [place] [address] 94857WtvmejFirelands Regional Medical Center[address] [place] [address] 78633 Creatinine 0.75 mg/dL Normal 0.50-1.20 [facility] Comment on above: Performed By: #### C BCDFJ ####[facility]st [facility] [place] [address] 80257#### CAROLINA ####[facility] [place] [address] 21862NegbnnFirelands Regional Medical Center[address] [place] [address] 97369 eGFR (non-black) mL/min/{1.73_m2} Normal >60 [facility] Comment on above: Performed By: #### C BCRUSSELJ ####Forest [facility] [place] [address] 07518#### CAROLINA ####[facility] [place] [address] 16346DqeommFirelands Regional Medical Center[address] [place] [address] 85146 Glucose mass conc 105 mg/dL High 70-99 [facility] Comment on above: Performed By: #### C BCDFJ ####[facility]st [facility]AR[facility] [place] [address] 27297#### CAROLINA ####[facility] [place] [address] 42703CvvnylFirelands Regional Medical Center[address] [place] [address] 82968 Potassium molar conc 4.0 mmol/L Normal 3.5-5.0 [facility] Comment on above: Performed By: #### C BCDFJ ####[facility]st [facility] [place] [address] 63063#### DONBM ####[facility] [place] [address] 66032PjbridFirelands Regional Medical Center[address] [place] [address] 52068 Sodium 139 mmol/L Normal 133-143 [facility] Comment on above: Performed By: #### C BCDFJ ####[facility] [place] [address] 79781#### DONBM ####[facility] [place] [address] [place], [place] [address] [place] [address] 63523 Urea nitrogen 17 mg/dL Normal 7-22 [facility] Comment on above: Performed By: #### C BCRUSSELJ ####[facility] [place] [address]#### CAROLINA ####[facility] [place] [address] 44308NxjrlpFirelands Regional Medical Center[address] [place] [address] 95008 Beta HCG (Qual), Serum - CHR Ion 10-19-2017 Beta HCG (Qual), Serum Negative Normal [facility] Comment on above: Performed By: #### C BCRUSSELJ ####[facility] [place] [address] 45583#### DONBM ####[facility] [place] [address] [place], [place] [address] [place] [address] 59500 CBC WITH DIFF Renita 2017 Abs Baso 0.06 K/uL Normal 0.01-0.08 [facility] Comment on above: Performed By: #### C BCDFJ ####[facility] [place] [address] 78705#### DONBM ####[facility] [place] [address], [place] 79359BvfcjqFirelands Regional Medical Center[address] [place] [address] 40611 Abs Eos 0.02 K/uL Low 0.04-0.36 [facility] Comment on above: Performed By: #### C HELENJ ####Forest [facility]ERSajanMer[facility] Health [facility] [place] [address] 87138#### DONBM ####[facility] [place] [address] 94956KkyioxFirelands Regional Medical Center[address] [place] [address] 78006 Abs [place] 0.38 K/uL Normal 0.24-0.86 [facility] Comment on above: Performed By: #### C EVELINA ####Forest [facility] [place] [address] 32216#### CAROLINA ####[facility] [place] [address] 93408BflslhFirelands Regional Medical Center[address] [place] [address] 10330 Basophils/100 WBC Auto (Bld) 1.3 % Normal [facility] Comment on above: Performed By: #### C EVELINA ####Fore[facility] [place] [address] 09845#### CAROLINA ####[facility] [place] [address] 94994XydvnkFirelands Regional Medical Center[address] [place] [address] 30283 DIFFERENTIAL TYPE Electronic Differential Normal [facility] Comment on above: Performed By: #### C EVELINA ####Forest [facility]ERSajanMer[facility] Health [facility] [place] [address] 47656#### DONBM ####[facility] [place] [address] 73514MexersFirelands Regional Medical Center[address] [place] [address] 95857 Eosinophils/100 leukocytes 0.4 % Normal [facility] Comment on above: Performed By: #### C HELENJ ####[facility] [place] [address] 47043#### DONBM ####[facility] [place] [address] 02485PdtcngFirelands Regional Medical Center[address] [place] [address] 42600 Erythrocytes (RBC) 11.9 % Normal 11.7-14.4 [facility] Comment on above: Performed By: #### C BCDFJ ####[facility] [place] [address] 19169#### DONBM ####[facility] [place] [address] 89622UxfscvFirelands Regional Medical Center[address] [place] [address] 29464 Erythrocytes (RBC) 4.34 10*6/uL Normal 3.93-5.22 [facility] Comment on above: Performed By: #### C HELENJ ####[facility] [place] [address] 30256#### DONBM ####[facility] [place] [address] 61602OmbqjvFirelands Regional Medical Center[address] [place] [address] 89929 Hematocrit (HCT) 39.2 % Normal 34.1-44.9 [facility] Comment on above: Performed By: #### C BCDFJ ####Forest [facility]ERSajanMer[facility] Health [facility] [place] [address] 21861#### DONBM ####[facility] [place] [address] 71932QfcdvtFirelands Regional Medical Center[address] [place] [address] 13845 Hemoglobin mass conc (Bld) 31.1 pg Normal 25.6-32.2 [facility] Comment on above: Performed By: #### C BCDFJ ####[facility] [place] [address] 16740#### DONBM ####[facility] [place] [address] 28224KhvmqfFirelands Regional Medical Center[address] [place] [address] 48913 Hemoglobin mass conc (Bld) 13.5 g/dL Normal 11.2-15.7 [facility] Comment on above: Performed By: #### C BCDFJ ####[facility] [place] [address] 29695#### DONBM ####[facility] [place] [address] 12398IhfyrhFirelands Regional Medical Center[address] [place] [address] Hemoglobin mass conc (Bld) 34.4 g/dL Normal 32.2-35.5 [facility] Comment on above: Performed By: #### C HELENJ ####[facility] [place] [address]#### DONBM ####[facility] [place] [address] [place], [place] [address] [place] [address] 35626 IMMATURE GRANS % 0.2 % Normal [facility] Comment on above: Performed By: #### C BCDFJ ####[facility] [place] [address] 37185#### DONBM ####[facility] [place] [address] 11074UladcoFirelands Regional Medical Center[address] [place] [address] 68401 IMMATURE GRANS ABSOLUTE 0.01 K/uL Normal 0.00-0.03 O [facility] Comment on above: Performed By: #### C BCDFJ ####[facility] [place] [address] 98949#### DONBM ####[facility] [place] [address] 51762GawexlFirelands Regional Medical Center[address] [place] [address] 27047 Lymphocytes 1.25 10*3/uL Normal 1.18-3.74 [facility] Comment on above: Performed By: #### C BCDFJ ####Forest [facility]ERSajanMer[facility] Health [facility] [place] [address] 02358#### OSITOBM ####[facility] [place] [address] 12238QnkefxFirelands Regional Medical Center[address] [place] [address] 55410 Lymphocytes/100 leukocytes 26.2 % Normal [facility] Comment on above: Performed By: #### C NILDADFJ ####[facility] [place] [address] 39286#### CAROLINA ####[facility] [place] [address] 44317SinvhnFirelands Regional Medical Center[address] [place] [address] 49840 MCV 90.3 fL Normal 79.4-94.8 [facility] Comment on above: Performed By: #### C NILDADFJ ####[facility] [place] [address] 72585#### CAROLINA ####[facility] [place] [address] 15142JswtitFirelands Regional Medical Center[address] [place] [address] 41834 Monocytes/100 leukocytes 7.9 % Normal [facility] Comment on above: Performed By: #### C BCDFJ ####Forest [facility]ERSajanMer[facility] Health [facility] [place] [address] 58123#### OSITOBM ####[facility] [place] [address] 63157YveyhuFirelands Regional Medical Center[address] [place] [address] 84284 NEUTROPHIL SEGMENTED 64.0 % Normal [facility] Comment on above: Performed By: #### C BCDFJ ####Forest [facility]ERSajanMer[facility] Health [facility] [place] [address] 56199#### CAROLINA ####[facility] [place] [address] 23366MzpmfqFirelands Regional Medical Center[address] [place] [address] 74111 Nucleated erythrocytes 0.0 /100 WBC Normal 0.0-0.2 [facility] Comment on above: Performed By: #### C EVELINA ####[facility] [place] [address] 53014#### CAROLINA ####[facility] [place] [address] 56742DvcijjFirelands Regional Medical Center[address] [place] [address] 00652 Platelet mean volume (PMV) 9.3 fL Low 9.4-12.3 [facility] Comment on above: Performed By: #### C EVELINA ####[facility] [place] [address] 14599#### CAROLINA ####[facility] [place] [address] [place], [place] [address] [place] [address] 14194 Platelets 297 10*3/uL Normal 182-369 [facility] Comment on above: Performed By: #### C EVELINA ####[facility] [place] [address] 01795#### CAROLINA ####[facility] [place] [address] 28933FgfcfsFirelands Regional Medical Center[address] [place] [address] 23403 SEGS + Bands,Absolute 3.06 K/uL Normal 1.56-6.13 [facility] Comment on above: Performed By: #### C EVELINA ####[facility] [place] [address] 85071#### OSITOBM ####[facility] [place] [address] 03750PfbdzqFirelands Regional Medical Center[address] [place] [address] 86673 WBC (Leukocytes) 4.78 10*3/uL Normal 3.98-10.04 [facility] Comment on above: Performed By: #### Rubén HOYT ####[facility] [place] [address] 74028#### CAROLINA ####[facility] [place] [address] 13332TqyfbhFirelands Regional Medical Center[address] [place] [address] 34928 Hepatic Functions - CHRIon 0 10-19-2017 Alanine aminotransferase (ALT) 12 U/L Normal 9-48 [facility] Comment on above: Performed By: #### C EVELINA ####[facility] [place] [address]#### CAROLINA ####[facility] [place], [place] [address] [place] [address] Albumin 4.0 g/dL Normal 3.5-5.0 [facility] Comment on above: Performed By: #### C EVELINA ####[facility] [place] [address]#### CAROLINA ####[facility] [place] [address] [id number] Regional Medical Center[address] [place] [address]11 Alkaline phosphatase (ALP) 42 U/L Normal 32-126 [facility] Comment on above: Performed By: #### C EVELINA ####[facility] [place] [address]#### CAROLINA ####[facility] [place] [address] 86120RorgcaFirelands Regional Medical Center[address] [place] [address] 30654 Aspartate aminotransferase (AST) 16 U/L Normal 14-40 [facility] Comment on above: Performed By: #### C BCDFJ ####[facility] [place] [address]#### CAROLINA ####[facility] [place], [place] [address]UcwnlzFirelands Regional Medical Center[address] [place], [place] [address] Bilirubin (direct) 0.1 mg/dL Normal <0.3 [facility] Comment on above: Performed By: #### C BCDFJ ####[facility] [place] [address]#### CAROLINA ####[facility] [place] [address] 49128UphcoyFirelands Regional Medical Center[address] [place] [address] 15813 Bilirubin (total) 0.4 mg/dL Normal <1.5 [facility] Comment on above: Performed By: #### C BCDFJ ####[facility] [place] [address] 7[address]#### CAROLINA ####[facility] [place] [address] [id number] Regional Medical Center[address] [place] [address] 48163 Protein 6.7 g/dL Normal 6.4-8.3 [facility] Comment on above: Performed By: #### C BCDFJ ####[facility] [place] [address]#### CAROLINA ####[facility] [place] [address] 868[address]WvhrosFirelands Regional Medical Center[address] [place] [address] Inorg Phosphate - CHRIon Inorg Phosphate 2.7 mg/dL Normal 2.2-4.6 [facility] Comment on above: Performed By: #### C BCDFJ ####[facility] [place] [address]#### CRAOLINA ####[facility] [place] [address]ZgoctpFirelands Regional Medical Center[address] [place] [address] LD - CHRIon 10-19-2017 LD Total 120 U/L Normal 100-190 [facility] Comment on above: Performed By: #### C EVELINA ####[facility] [place] [address]#### CAROLINA ####[facility] [place], [place] [address] [place] [address] Magnesium - CHRIon 8 Magnesium 1.8 mg/dL Normal 1.6-2.6 [facility] Comment on above: Performed By: #### C EVELINA ####[facility] [place] [address]#### CAROLINA ####[facility] [place], [place] [address] [place] [address] PT*PTT - CHRIon 10-19-2017 aPTT 27.0 s Normal 24.0-34.3 [facility] Comment on above: Performed By: #### C EVELINA ####[facility]ERSajanMercy Health St[facility] [place] [address]#### CAROLINA ####[facility] [place], [place] [address] [place] [address] INR Coag RelTime (PPP) 1.0 {INR} Normal 0.9-1.1 [facility] Comment on above: Performed By: #### C EVLEINA ####[facility]ERSajanMercy Health St[facility] [place] [address]#### DONBM ####[facility] [place], [place] [address]EwcskyFirelands Regional Medical Center[address] [place] [address] 40168 Prothrombin time (PT) Coag time (PPP) 12.9 s Normal 11.9-14.2 [facility] Comment on above: Performed By: #### C BCDFJ ####[facility] [place] [address]#### DONBM ####[facility] [place] [address] [place], [place] [address] [place] [address] 18017 Type and Lizzie 10-19-2017 Type and Cross Negative Normal [facility] Comment on above: Performed By: #### C BCDFJ ####[facility] [place] [address]#### DONBM ####[facility] [place] [address] [place], [place] [address] [place] [address] 49536 Uric Acid - CHRIon 8 Urate 4.2 mg/dL Normal 2.8-6.0 [facility] Comment on above: Performed By: #### C BCDFJ ####[facility] [place] [address]#### DONBM ####[facility] [place] [address] 77239IqukkjFirelands Regional Medical Center[address] [place] [address] 41270 XR CHEST PA AND LATERALon XR CHEST PA AND LATERAL EXAM: XR CHEST P A AND LATERAL, 10/19/2017 14:19 PMCOMPARISON: No prior [...] I have reviewed andapproved this report. Normal [facility] Vital Signs Date Time Vital Sign Value Performing Clinician Faci lity 07-23-2025 08:19-0400 Body height 167.[address] Priscilla Pal MD Work Phone: [facility] 07-23-2025 08:19-0400 Body mass index (BMI) [Ratio] 22.9 kg/m2 Dr. Priscilla Pal MD Work Phone: [facility] 07-23-2025 08:19-0400 Body weight 64.[address] Priscilla Pal MD Work Phone: [facility] 07-23-2025 08:19-0400 Diastolic blood pressure 97 mm[Hg] Dr. Priscilla Pal MD Work Phone: [facility] 07-23-2025 08:19-0400 Systolic blood pressure 148 mm[Hg] Dr. Priscilla Pal MD Work Phone: [facility] 06-07-2025 15:40-0400 Body height 167.[address] Priscilla Pal MD Work Phone: [facility] 06-07-2025 15:40-0400 Body mass index (BMI) [Ratio] 23.8 kg/m2 Dr. Priscilla Pal MD Work Phone: [facility] 06-07-2025 15:40-0400 Body weight 66.[address] Priscilla Pal MD Work Phone: [facility] 06-07-2025 15:40-0400 Diastolic blood pressure 87 mm[Hg] Dr. Priscilla Pal MD Work Phone: [facility] 06-07-2025 15:40-0400 Systolic blood pressure 128 mm[Hg] Dr. Priscilla Pal MD Work Phone: [facility] 05-31-2025 13:59-0400 Body height 167.[address] Priscilla Pal MD Work Phone: 8(297)831-062375 [place] [address] 05-31-2025 13:59-0400 Body mass index (BMI) [Ratio] 23.3 kg/m2 Dr. Priscilla Pal MD Work Phone: 1(405)141-825975 [place] [address] 05-31-2025 13:59-0400 Body weight 65.[address] Priscilla Pal MD Work Phone: 5(927)943-530075 [place] [address] 02-09-2025 15:24-0400 Body height 167.[address] Priscilla Pal MD Work Phone: 9(210)567-385475 [place] [address] 02-09-2025 15:24-0400 Body mass index (BMI) [Ratio] 22.6 kg/m2 Dr. Priscilla Pal MD Work Phone: [facility] 02-09-2025 15:24-0400 Body weight 63.[address] Priscilla Pal MD Work Phone: [facility] 02-09-2025 15:24-0400 Diastolic blood pressure 84 mm[Hg] Dr. Priscilla Pal MD Work Phone: [facility] 02-09-2025 15:24-0400 Systolic blood pressure 127 mm[Hg] Dr. Priscilla Pal MD Work Phone: [facility] 02-03-2024 09:57-0400 Body mass index (BMI) [Ratio] 23.1 kg/m2 Dr. Priscilla Pal Work Phone: 0(952)698-756775 [place] [address] 02-03-2024 09:57-0400 Body weight 67.[address] Priscilla Pal Work Phone: [facility] 02-03-2024 09:57-0400 Diastolic blood pressure 85 mm[Hg] Dr. Priscilla Pal Work Phone: [facility] 02-03-2024 09:57-0400 Systolic blood pressure 120 mm[Hg] Dr. Priscilla Pal Work Phone: [facility] 02-01-2024 08:48-0400 Body height 170.[address] Priscilla Pal Work Phone: [facility] 02-01-2024 08:40-0400 Body mass index (BMI) [Ratio] 23.3 kg/m2 Dr. Priscilla Pal Work Phone: [facility] 02-01-2024 08:40-0400 Body weight 65.[address] Priscilla Pal Work Phone: [facility] 02-01-2024 08:40-0400 Diastolic blood pressure 81 mm[Hg] Dr. Priscilla Pal Work Phone: [facility] 02-01-2024 08:40-0400 Systolic blood pressure 117 mm[Hg] Dr. Priscilla Pal Work Phone: [facility] 03-08-2023 18:07-0400 Body temperature 97.5 [degF] Migue Jeffers APRN.MANAGER SOFTWARE Work Phone: [facility] 03-08-2023 18:07-0400 Body weight 75.3 kg Migue Jeffers APRN.MANAGER SOFTWARE Work Phone: [facility] 03-08-2023 18:07-0400 Diastolic blood pressure 72 mm[Hg] Migue Jeffers DRILL SHARPENER OPERATOR.MANAGER SOFTWARE Work Phone: [facility] 03-08-2023 18:07-0400 Heart rate 70 /min Migue Jeffers APRN.MANAGER SOFTWARE Work Phone: [facility] 03-08-2023 18:07-0400 Respiratory rate 16 /min [facility] DRILL SHARPENER OPERATOR.MANAGER SOFTWARE Work Phone: [facility] 03-08-2023 18:07-0400 SaO2% (BldA) [Mass fraction] 96 % [facility] DRILL SHARPENER OPERATOR.MANAGER SOFTWARE Work Phone: [facility] 03-08-2023 18:07-0400 Systolic blood pressure 110 mm[Hg] [facility] DRILL SHARPENER OPERATOR.MANAGER SOFTWARE Work Phone: [facility] Encounters Encounter Date Encounter Type Care Provider Facility Start: 09-14-2025 ambulatory [facility] Facility: [facility] Start: 07-23-2025 End: 07-23-[address] Petrona Michaels MD -[facility] Work Phone: Start: 07-23-2025 End: 07-23-2025 ambulatory Priscilla Miedalejandro [facility] Start: 07-23-2025 End: 07-23-2025 ambulatory Petrona Michaels Facility:[facility] Start: 06-14-2025 End: 06-14-[address] Priscilla Pal MD Work Phone: -Ultrasound [facility] Start: 06-14-2025 End: 06-14-2025 Patient encounter procedure Eleni PARSONS -Ultrasound [facility] Work Phone: Start: 06-14-2025 End: 06-14-2025 ambulatory Priscilla Pal Facility:[facility] Start: 06-07-2025 End: 06-07-2025 Patient encounter procedure Melodie Block CNM -[facility] Work Phone: Start: 06-07-2025 End: 06-07-[address] Priscilla Pal MD Work Phone: -[facility] Start: 05-31-2025 End: 05-31-2025 Patient encounter procedure Eleni PARSONS -[facility] Work Phone: Start: 05-31-2025 End: 05-31-[address] Priscilla Pal MD Work Phone: -[facility] Start: 05-23-2025 End: 05-23-[address] Priscilla Pal MD Work Phone: -Laboratory Start: 05-23-2025 End: 05-23-2025 Patient encounter procedure Princess PARSONS -Laboratory Work Phone: Start: 05-23-2025 End: 05-23-2025 ambulatory Priscilla Miedel Facility:[facility] Start: 05-18-2025 ambulatory Priscilla Miedel Facility: [facility] Start: 05-18-2025 ambulatory Priscilla Miedel Facility: [facility] Start: 02-09-2025 End: 02-09-2025 ambulatory Priscilla Miedel Facility:[facility] Start: 02-09-2025 End: 02-09-2025 Patient encounter procedure Melodie Umair MAR -[facility] Work Phone: Start: 12-05-2024 End: 12-05-2024 ambulatory Priscilla Miedel Facility:[facility] Start: 11-08-2024 End: 11-08-2024 ambulatory Priscilla Miedel Facility:[facility] Start: 10-31-2024 End: 10-31-2024 ambulatory Priscilla Miedel Facility:[facility] Start: 10-31-2024 End: 10-31-2024 ambulatory Priscilla Miedel Facility:[facility] Start: 09-26-2024 End: 09-26-2024 ambulatory Priscilla Miedel Facility:[facility] Start: 08-29-2024 End: 08-29-2024 ambulatory Priscilla Miedel Facility:[facility] Start: 08-21-2024 End: 08-23-2024 ambulatory Petrona Michaels Facility:[facility] Start: 08-21-2024 End: 08-23-2024 Evaluation and management of inpatient Priscilla Miedel Facility:[facility] Start: 08-17-2024 End: 08-17-2024 ambulatory Priscilla Migeorgette [place] Start: 08-17-2024 End: 08-17-2024 ambulatory Priscilla Pal Facility:[facility] Start: 08-14-2024 End: 08-14-2024 ambulatory [facility] Start: 08-14-2024 End: 08-14-2024 ambulatory Priscilla Demarco [place] Start: 08-10-2024 End: 08-11-2024 ambulatory Petronaabrahan Blairyadira Facility:[facility] Start: 08-07-2024 End: 08-07-2024 ambulatory Priscilla Pal [place] Start: 08-03-2024 End: 08-03-2024 ambulatory Petrona Blairyadira Facility:[facility] Start: 07-17-2024 End: 07-17-2024 ambulatory [facility] Start: 05-08-2024 End: 05-08-2024 ambulatory PRISCILLA OCAMPOGEORGETTE [facility] Start: 03-27-2024 End: 03-27-2024 ambulatory MAMADOU F SPARROW [facility] Start: 02-29-2024 End: 02-29-2024 [facility] Start: 02-03-2024 End: 02-03-[address] Priscilla Pal Work Phone: [facility] Work Phone: Start: 02-01-2024 End: 02-01-[address] Priscilla Pal Work Phone: [facility] Work Phone: Start: 01-31-2024 End: 01-31-[address] Priscilla Pal Work Phone: [facility] Work Phone: Start: 01-31-2024 End: 01-31-[address] Priscilla Pal Work Phone: [facility]-Ultrasound, [facility] Work Phone: Start: 01-31-2024 End: 01-31-[address] Priscilla Pal Work Phone: [facility] Work Phone: Start: 01-31-2024 End: 01-31-[address] Priscilla Pal Work Phone: [facility]-Laboratory, [facility] Start: 01-29-2024 End: 01-29-[address] Priscilla Pal Work Phone: [facility] Work Phone: Start: 01-29-2024 End: 01-29-[address] [facility] Start: 10-18-2023 End: 10-18-2023 ambulatory [facility] Work Phone: Start: 10-18-2023 End: 10-18-2023 Patient encounter procedure [facility]-Radiology, [place] Work Phone: Start: 03-08-2023 End: 03-08-2023 ambulatory Facility:[facility] Start: 03-08-2023 End: 03-08-2023 Office outpatient visit 15 minutes Migue Jeffers APRN.CNP Work Phone: [facility] Comment on above: Sore throat (Primary Dx) Start: 11-10-2017 End: 11-10-2017 Ambulatory ROSAS MCGOVERN [facility] Start: 10-19-2017 Ambulatory RAJESH NGUYEN [facility] Procedures Date Procedure Procedure Detail Performing Clinician Start: 06-14-[address] Ilene Pal MD Work Phone: Start: 01-31-2024 Transvaginal obstetr ic ultrasonography Dr. Priscilla Pal Work Phone: Start: 10-18-2023 Plain x-ray of wrist Start: 10-18-2023 Plain x-ray of elbow Start: 10-18-2023 X-ray of radius and ulna Start: 03-08-2023 STREP A MOLECULAR (POC) Patti Manzo PA-C Work Phone: H/O: bone marrow donation Bone marrow don or Dr. Priscilla Pal MD Work Phone: Comment on above: February 2018 H/O: section History of delivery Dr. Priscilla Pal Work Phone: Comment on above: 2015*plans RLTCS and BS. scheduled for 08/21 @ 7:15 with SM, 2&6 wk PP scheduled Plan of Treatment Date Care Activity Detail Author Start: 06-04-2023 Influenza vaccination INFLUENZ A (Season Ended) [facility] Start: 10-04-2022 DEPRESSION ASSESSMENT [facility]PRESSION [facility] Start: 07-14-2021 COVID-19 VACCINE (2 - Booster for Tricia series) COVID-19 VACCINE (2 - Booster for Tricia series) [facility] Start: 2020 HPV TESTING HPV TESTING [facility] Start: 12-31-2011 PAP TESTING PAP TESTING [facility] Start: 2009 Urine microalbumin profile DTAP,TDAP,TD (1 - Tdap) [facility] Start: 2008 HEPATITIS C SCREENING HEPATITIS C AR NORTH [facility] Start: 2008 HIV SCREENING HIV SCREENING [facility] Start: 1990 HEPATITIS B (1 of 3 - 3-dose series) HEPATITIS B (1 of 3 - 3-dose series) [facility] US Pelvis [facility] Immunizations Immunization Date Immunization Notes Care Provider Daniel mendez 08-14-2024 influenza, injectabl e, madin rito canine kidney, preservative free Dr. Priscilla Pal MD Work Phone: [facility] 06-28-2024 tetanus toxoid, redu ravindra diphtheria toxoid, and acellular pertussis vaccine, adsorbed Dr. Priscilla Pal MD Work Phone: [facility] 07-29-2016 influenza, injectabl e, quadrivalent, preservative free [facility] Payers Date Payer Category Payer Self-pay [id number] 2022 Unknown [id number] 2022 Unknown [employer] PPO [id number] 2022-Present [phone] [address] [place] [address] PPO [id number] 2016 Unknown [id number] 2015 Unknown [id number] 1990 Unknown [id number] 2.16.840.1.505800.3.579.2.479 1990 Unknown [id number] 2.16.840.1.192472.3.579.2.479 1990 Unknown [id number] 2.16840.1.851925.3.579.2.479 1990 Unknown [id number] 2.16.840.1.202656.3.579.2.479 1990 Unknown [id number] 2.16.840.1.236187.3.579.2.479 1990 Unknown [id number] 2.16.840.1.908570.3.579.2.479 Unknown [id number] 2.16.840.1.859033.3.579.2.462 Unknown [id number] 2.16.840.1.932678.3.579.2.462 Unknown [id number] 2.16.840.1.155208.3.579.2.462 Unknown [id number] 2.16.840.1.308813.3.579.2.462 Unknown [id number] 2.16.840.1.061909.3.579.2.462 Unknown [id number] 2.16.840.1.647967.3.579.2.462 Unknown [id number] 2.16.840.1.272343.3.579.2.462 Unknown [id number] 2.16.840.1.725864.3.579.2.462 Unknown [id number] 2.840.1.236325.3.579.2.462 Unknown [id number] 2.840.1.054206.3.579.2.462 Unknown [id number] 2.840.1.168832.3.579.2.462 Unknown [id number] 2.840.1.342192.3.579.2.462 Unknown [id number] 2.840.1.213511.3.579.2.462 Unknown [id number] 2.840.1.832755.3.579.2.462 Unknown [id number] 2.840.1.264898.3.579.2.462 Unknown [id number] 2.840.1.107914.3.579.2.462 Unknown [id number] 2.16840.1.746996.3.579.2.462 Unknown [id number] 2.16840.1.003214.3.579.2.462 Unknown [id number] 2.16840.1.742856.3.579.2.462 Unknown [id number] 2.840.1.758139.3.579.2.462 Unknown [id number] 2.16840.1.154482.3.579.2.462 Unknown [id number] 2.16840.1.146815.3.579.2.462 Unknown [id number] 2.16.840.1.142894.3.579.2.462 Unknown [id number] 2.16.840.1.795234.3.579.2.462 Unknown [id number] 2.16.840.1.955351.3.579.2.462 Unknown [id number] 2.16.840.1.080926.3.579.2.462 Unknown [id number] 2.16.840.1.576337.3.579.2.462 Unknown [id number] 2.16.840.1.005699.3.579.2.462 Unknown [id number] 2.16.840.1.158201.3.579.2.462 Unknown [id number] 2.16.840.1.404673.3.579.2.462 Social History Date Type Detail Facility Start: 03-08-2023 End: 06-18-2025 Tobacco smoking status NHIS Never smoked tobacco [facility] Work Phone: Start: 03-08-2023 Tobacco use and exposure Smokeless tobacco non-user [facility] Work Phone: Start: 1990 Sex Assigned At Not on file [facility] Start: 07-27-2016 End: 02-03-2024 Tobacco smoking status WYIS Unknown if ever smoked [facility] Start: 1990 Sex Assigned At Female [facility] Sex Female [facility] NEGATED: Highlighted rowStart: NINF History of tobacco use Passive smoker [facility] Work Phone: Clinical Notes 03-08-2023 to 07-23-2025 Note Date & Type Note Facility 07-23-2025 Progress note [facility] 06-15-2025 Radiology Diagnostic study note [facility] Imaging Services [address] [place] [address] Pelvic w/ Transvaginal MR#: [id number] Acct: [id number] Name: STEVE BERNAL Rep #: [id number] : 1990 F 34 From: Sumeet Grayson MD PCP: Dr. Priscilla Pal MD Status: REG CLI Study:Pelvic w/ Transvaginal Date of Exam: 06/14/25 Exam# [id number] Ordering Dr: Eleni Penny PROCEDURE: PELVIC W/ TRANSVAGINAL REASON FOR EXAM: PELVIC MASS, AUB TECHNIQUE: Procedure Code: [id number] Modality: US Procedure: PELVIC W/ TRANSVAGINAL COMPARISON: Prior study dated November 10, 2024. FINDINGS: Measurements: Uterus: 10.1 cm x 6.9 cm x 4.6 cm with a volume of 167.1 mL Endometrial Thickness: 7 mm Right Ovary: Not visualized. Left Ovary: 4.1 cm x 2.8 cm x 2.4 cm with a volume of 21 mL. TRANSABDOMINAL: Uterus: The uterus is heterogeneous in keeping with fibroid change although no focal fibroid is seen. Endometrium: Unremarkable. Right ovary: Not visualized. Left ovary: There is a 3.3 cm x 2 cm 1.7 cm left ovarian cyst. Other: No large pelvic mass identified. Transvaginal sonography was performed to better visualize the endometrium. TRANSVAGINAL: Uterus: Retroverted. Heterogeneous echotexture in keeping with fibroid change. Nabothian cyst. Endometrium: Normal echotexture. Right ovary: Not visualized. Left ovary: 3.3 cm x 2 cm x 1.7 cm left ovarian cyst. Other adnexal findings: None. Cul-de-sac: No free intraperitoneal fluid identified. Tenderness: No tenderness US/Pelvic w/ Transvaginal IMPRESSION: Enlarged heterogeneous appearance of the uterus in keeping with fibroid change although no focal fibroid is seen. 3.3 cm x 2 cm x 1.7 cm left ovarian cyst. Reading Location: [id number] CC: JAQUELINE Penny; Dr. Priscilla Pal MD ~ Roving Frame Tender: Signed [facility] 05-31-2025 Evaluation note Diagnosis Onset Date Resolution Abnormal uterine bleeding acute May 31 1:31pm Ovarian lump acute May 31, 2025 1:31pm PCB (post coital bleeding) acute May 31 1:31pm Pelvic floor dysfunction acute May 31 1:31pm Pelvic pain acute May 31, 2025 1:31pm Abnormal uterine bleeding acute June 07 025 3:31pm [facility] Work Phone: 1(937) 107-677708-28-2025 Evaluation note* Diagnosis Onset Date Resolution Status Admit Date Pelvic pain acute May 31, 2025 1:31pm Abnormal uterine bleeding resolved May 31, 2025 1:31pm Ovarian lump resolved May 31, 2025 1:31pm PCB (post coital bleeding) resolved May 31, 2025 1:31pm Pelvic floor dysfunction resolved May 31, 2025 1:31pm Abnormal uterine bleeding resolved June 07, 2025 3:31pm Abnormal uterine bleeding due to adenomyosis acute July 23, 2025 8:17am Dyspareunia in female acute Jul 8:17am Pelvic pain acute July 23, 2025 8:17am [facility] [employer] Work Phone: 1(118) 980-244105-09-2025 Evaluation note* Diagnosis Onset Date Resolution Status Admit Date Abnormal uterine bleeding acute February 09, 2025 3:17pm [facility] Work Phone: 1(895) 776-783905-09-2025 Evaluation note* Diagnosis Onset Date Resolution Status Admit Date Abnormal uterine bleeding acute February 09, 2025 3:17pm Abnormal uterine bleeding acute May 31, 2025 1:31pm Ovarian lump acute May 31, 2025 1:31pm PCB (post coital bleeding) acute May 31, 2025 1:31pm Pelvic floor dysfunction acute May 31, 2025 1:31pm Pelvic pain acute May 31, 2025 1:31pm [facility] Work Phone: 1(662) 632-967611-20-[address] [facility] Medical Records Department [address] [place] [address] Discharge Summary 08/23/24 0836 MR#: [id number] Acct: [id number] Name: STEVE BERNAL Rep #: [id number] : 1990 33 From: Petrona Michaels MD PCP: Dr. Priscilla Pal MD Status:ADM IN Location: [place] [address]1 Providers Date of Admission: 08/21/24 Primary Care Physician: Dr. Priscilla Pal MD Reason For Visit: REPEAT C SECTION Diagnosis Discharge Diagnosis (1) delivery delivered: Status: Acute Code(s): O82 - Encounter for delivery without indication (2) Elevated blood pressure affecting in third trimester, antepartum: Status: Acute Code(s): O16.3 - Unspecified maternal hypertension, third trimester Plan s/p LTCS PPD # 2 1. routine post care 2. breast feeding- support given 3. rh positive 4. rubella immune labetalol 200 TID dc today Medications at Discharge Home Medications docosahexaenoic acid 200 mg capsule ( DHA) 200 mg PO DAILY 02/03/24 naproxen 500 mg tablet 500 mg PO BID PRN PRN Pain #30 tabs 08/22/24 oxycodone-acetaminophen 5 mg-325 mg tablet (Percocet) 1 tab PO Q6H PRN pain 7 days #20 tabs 08/22/24 labetalol 200 mg tablet 200 mg PO TID bp #60 tabs 08/23/24 Hospital Course Summary of Care Provided Hospital Course: patient presented for RLTCS and had an uncomplicated delivery. Postoperatively patient had return of bowel and bladder function and was ambulating well, tolerating adequate p.o., and was stable for discharge to home on postop day #2. Discharge medications naproxen and Percocet. Follow-up in office in 2 weeks for incision check in 6 weeks for visit. Routine post section diet and activity instructions. Weight / BMI Weight Weight: 184 lb 12.8 oz Body Mass Index (BMI) 29.8 ABG / Lab / Microbiology Data 08/22/24 04:45 Microbiology: Microbiology 07/27/24 Unknown Mucosa - Nose SARS-CoV-2, Influenza RSV (PCR) - Final SARS-CoV-2 (COVID 19) D/C Instructions Discharge Diet: No restrictions Discharge Activity: May Not Drive (for 2 weeks or while taking narcotic pain medications.), May Shower and May Take a Tub Bath (in 7 days) May shower in (days): 0 May resume sexual activity in: 4-6 weeks Weight Bearing Status: Full weight bearing Call your doctor if your incision/area has: Continuous Slow Oozing, Sudden Increased Bleeding, Increased Pain/ Swelling, Increased Redness and Foul Smelling Discharge Call your doctor if you observe: Fever of 101 or Higher and Using more than 1 pad per hour (for 2 hours) Suture Line Care: Avoid Pulling/Pushing and Avoid Pinching/Bending Cleanse incision/area with: Soap Water and Keep Dressing Clean Dry DC O2, CPAP, BIPAP Needs Additional Home O2 Discharge instructions: No DC home with Oxygen: No Please Follow Up With: Petrona Michaels MD When: Call [phone] to make an appointment for an incision check in 1-2 weeks. Meaningful Use Info Meaningful Use Meaningful Use Diagnoses (Choose all that apply): None applicable Ischemic Stroke Statin Dosing Therapy Reference: STATIN DOSE THERAPY REFERENCE: * Patients > 75 years receive moderate or high dose statin therapy. * Patients 75 years or YOUNGER should receive HIGH intensity statin dose unless contraindicated. You will be required to document reason for non-treatment if statin daily dose does not meet guidelines. HIGH DOSE STATIN THERAPY DAILY Atorvastatin > than or = to 40 mg Rosuvastatin > than or = to 20 mg Amlodipine + Atorvastatin > than or = to 2.5/40 mg Ezetimibe + Simvastatin 10/80 mg Simvastatin 80mg Discharge Plan Admission Admit Date/Time: 08/21/24 05:20 Attending Provider: Petrona Michaels Primary Care Provider: Priscilla Pal Discharge Orders/Prescriptions Prescriptions: New oxycodone-acetaminophen [Percocet] 5-325 mg tablet 1 tab PO Q6H PRN (Reason: pain) 7 Days Qty: 20 0RF naproxen 500 mg tablet 500 mg PO BID PRN PRN (Reason: Pain) Qty: 30 1RF Changed labetalol 200 mg tablet 200 mg PO TID Qty: 60 4RF No Action DHA 200 mg capsule 200 mg PO DAILY Referrals / Follow Up: Priscilla Pal MD [Primary Care Provider] - Disposition Disposition (needs filled in before D/C Order can be placed): Home, Self Care 08/23/24 3136 Cosigner Signature (if applicable): CC: Dr. Priscilla Pal MD; Dr. Petrona Michaels MD SignedWTri[facility]23 NoteHNO ID: [id number] Author: Migue Jeffers APRN.MANAGER SOFTWARE Service: ? Author Type: Nurse Practitioner Type: [...] canal and external ear normal. Mouth/Throat: Lips: [place]. Mouth: Mucous membranes are moist. Pharynx: Oropharynx [...] of care. This note was generated using [employer] software. It may contain errors in wording, punctuation, or spelling. Migue Jeffers APRN.[facility]06-[facility] History of Present illness Narrative* Migue Jeffers APRN.YONIS - 03/08/2023 6:09 PM EDT Images from the original note were not [...] any fever body aches chills productive cough chestpain shortness of breath pleuritic pain hemoptysis nausea [...] canal and external ear normal. Mouth/Throat: Lips: [place]. Mouth: Mucous membranes are moist. Pharynx: Oropharynx [...] of care. This note was generated using [employer] software. It may contain errors in wording, punctuation, or spelling. Migue Jeffers APRN.YONIS [facility]* Diagnosis Sore throat- Primary Acute pharyngitis documented in this encounter [facility] noteNo assessment information availableWTriHealth [facility] Work Phone: Evaluation note* Diagnosis Onset Date Resolution Status History of delivery acute IUD acute acute Supervision of high-risk acute [facility] Work Phone: Progress note Author Petrona Michaels [facility] Note Date/Time July 23, 2025 1 0:05am [facility] [address], [address] [place] [address] OFFICE VISIT Date of Service: 07/23/25 MR#: [id number] Acct: [id number] Name: STEVE BERNAL Rep #: [id number] : 1990 Provider: Dr. Yasmany Michaels MD Age/Sex: 34/F Location: [facility] Status: Signed Intake Vital Signs 06/07/25 15:40 06/18/25 10:49 07/23/25 08:19 Height 5 ft 6 in 5 ft 6 in 5 ft 6 in Weight: 147 lb 5 oz 142 lb 7 oz BMI 23.8 22.9 BP 128/87 H 148/97 H Intake Visit Reasons: discuss AUB - US results Glass Belt Sander Required: No Is patient in pain?: Yes (pain in groin and lower back, described as deep pain. ) Allergies No Known Allergies Allergy (Verified 07/23/25 08:21) Medications ?Medication ?Instructions ?Recorded ?Confirmed ?Type fluoxetine 20 mg capsule (Prozac) 20 mg PO DAILY #30 c aps 09/28/24 07/23/25 Rx phentermine 37.5 mg capsule 37.5 mg PO QDAY 10/31/24 1 History Is last menstrual period known: Yes Last Menstrual Period: 07/08/25 (several days of very heavy bleeding, irregular) Post menopausal: No Patient : No : No PFSH Medical History COVID-19 affecting in third trimester Gestational HTN Surgical History History of delivery Status post bilateral salpingectomy Bone marrow donor H/O wisdom tooth extraction History of ankle surgery Family History Mother CVA (cerebral vascular accident) Hypertension Diabetes Gestational diabetes Father Lymphoma Aunt Leukemia Grandmother CVA (cerebral vascular accident) Diabetes Hypertension Myocardial infarction Grandfather CVA (cerebral vascular accident) Diabetes Hypertension Myocardial infarction Daughter Diaphragmatic hernia surgery at 4 mo of age Social History adopted: No household members: spouse and children number of children: 1 current occupational status: 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/hazards: No pets and animals: No leisure activities: exercise, music and reading history of recent travel: Yes (All domestic [place] travel ([place], [place], [place], [place]) details: [place], [place], [place], [place] out of state: Yes out of country: No sexually active: Yes Smoking Status: Never smoker Electronic Cigarette Use: not used second hand exposure: No alcohol intake: former details: not while substance use type: marijuana well-balanced diet: about half the time caffeine: Yes (very seldomly drinking beverages with caffeine (1-3 times per month)) Type: tea eating out: 1-3 times/week during the past year weight has: decreased > 10 lbs what type of physical activity do you participate in: walking and running frequency: 3-4 times per week duration: 30-45 minutes/day michael/mormonism: Pentecostal seatbelt use: always do you feel safe at home: Yes additional social history: : [employer] BOWEN discuss AUB - US results Details: The patient is a 34-year-old female with a history of two sections presenting with prolonged, heavy menstrual bleeding and pelvic pain since her last delivery almost a year ago. Menstrual History - Reports significant changes in menstrual cycles since her last delivery almosta year ago. - Describes periods as ridiculous, with heavy bleeding lasting 3-5 weeks, and one episode lasting 7 weeks during the summer. - Bleeding is so heavy that she bleeds through an UltraTampon within 45 minutes and needs to wear a pad for the first week of her period; carries extra clothes due to the risk of bleeding through her pants and underwear. - Experiences normal period pain, but also reports groin pain on both sides, especially the right side, which is more intense during menstruation but is always kind of there. - Exercise, particularly running, exacerbates the groin pain, leading her to switch to walking on the treadmill. - Reports a deep, aching pain in her lower back, similar to the sensation she experienced during a bone marrow harvesting procedure; pain is localized to the sacrum and hip bones. - Has been receiving massages to address the pain, but no abnormalities were found in her hips. - Denies any abnormal hair growth on the upper lip, chin, chest, or belly. - Reports experiencing night sweats occasionally. Pelvic Pain - Reports a deep, aching pain in her lower back, similar to the sensation she experienced during a bone marrow harvesting procedure; pain is localized to the sacrum and hip bones. - Has been receiving massages to address the pain, but no abnormalities were found in her hips. Bruising - Reports easy bruising on her shins and legs, but attributes it to having children. Hair Loss - Experienced significant hair loss after her last , which she did not experience after her first ; has noticed some regrowth. 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 Past Medical History - Two sections. - Uterine ultrasound showed mild enlargement and heterogeneous texture, possiblyindicating diffuse leiomyomatous change or adenomyosis. - Previous IUD had to be removed due to it growing into the wall of the uterus. Current Medications and Supplements - Phentermine. Female Reproductive History Last Menstrual Period: 07/08/25 (several days of very heavy bleeding, irregular) History 2 Elective abortions Hx Para 2 Spontaneous abortions Hx # Term Pregnancies Ectopic pregnancies Hx # Pregnancies Multiple births # of living children 2 Past Pregnancies Del. Date Name GA/Weeks Outcome Route Bth Weight Infant Gen Labor Lgth Anesthesia Del Locatn Provider FOB 07/28/16 Loi live - full term 7lbs 5oz Male spinal [facility] Dr Les Carrasquillo 08/21/24 Marta 37 live - full term 6 ib 0 oz Female spinal [facility] LAK[facility]HA Carrasquillo Delivery Date: 07/28/16 Last Updated by: Tiffanie Samaniego RN Elective Delivery Date: 08/21/24 Last Updated by: Tiffanie Samaniego RN See problem list for complications and LTCS [place] [id number] ghtn ROS ROS Narrative Constitutional: (+) night sweats, (+) lightheadedness Head: (+) headaches Neck: (+) neck pain Cardiovascular: (-) chest pain Respiratory: (-) shortness of breath Genitourinary: (+) heavy menstrual bleeding, (+) prolonged menstrual bleeding, (+) dysmenorrhea, (+) bilateral groin pain, (+) dyspareunia Musculoskeletal: (+) low back pain Neurological: (+) right upper extremity paresthesia/numbness Endocrine: (-) heat intolerance, (-) cold intolerance Hematologic/Lymphatic: (+) easy bruising Exam Const General: cooperative, healthy appearing, comfortable, no acute distress and welldeveloped Nutritional Appearance: average body habitus Orientation: alert HENMT Head: normal to inspection and normocephalic Neck Neck: normal visual inspection and trachea midline Thyroid: thyroid normal Resp Effort & Inspection: normal respiratory effort GI Inspection: normal to inspection and non-distended Palpation: soft and no hepatosplenomegaly General: bladder normal to palpation External Female Exam: normal external appearance and normal appearance of the urethra Urethra: normal appearance of the urethra, normal palpation and no discharge Speculum Exam - Vagina: normal appearance of the vagina and normal vaginal discharge Speculum Exam - Cervix: normal appearance of the cervix and nontender Bimanual Exam- Vagina & Uterus: normal bimanual exam, uterine size normal, bladder normal to palpation, uterine shape normal, No tender, uterine mobility normal, consistency normal, normal palpation and non-tender Bimanual Exam- Adnexa, other: normal adnexae, adnexae mobile, no masses and normal Pelvic Support: normal Skin General: no rashes or lesions noted Office Procedures Endometrial Biopsy Endometrial Biopsy Test: Yes Not Applicable Consent Signed: Yes Time out checklist: patient, procedure, site marked/identified, positioning of patient, supplies available, allergies confirmed and team agrees on procedure Time out time: 08:50 tenaculum used: Yes dilator used: No Details: Cervix prepped with betadine and pipelle inserted into uterus without complication. Specimen obtained and sent to lab for analysis. All instruments removed from vagina without complications. Excellent hemostasis noted. Coding Level of Care Code Off vis,est,level 4 Diagnoses Pelvic pain R10.2 Abnormal uterine bleeding due to adenomyosis N93.9; N80.03 Dyspareunia in female N94.10 CPT Codes Endometrial Biopsy (10513) Assessment and Plan Assessment and Plan (1) Pelvic pain: Status: Acute (2) Abnormal uterine bleeding due to adenomyosis: Status: Acute Comment: failed IUD and nexplanon. not a candidate for lysteda or ablation. plan LAVH. (3) Dyspareunia in female: Status: Acute Orders: Orders CBC W/Diff, Automated Today N80.03 - Adenomyosis of the uterus, N93.9 - Abnormal uterine and vaginal bleeding, unspecified Thyroid Stim Hormone (TSH) Today N80.03 - Adenomyosis of the uterus, N93.9 - Abnormal uterine and vaginal bleeding, unspecified Endometrial Biopsy Today N80.03 - Adenomyosis of the uterus, N93.9 - Abnormal uterine and vaginal bleeding, unspecified Plan # Adenomyosis of uterus (N80.03): - Mildly enlarged uterus on ultrasound with heterogeneous appearance consistent with adenomyosis, correlating with chronic pelvic pain, heavier bleeding, and dysmenorrhea. - Discussed that previous conservative interventions (IUDs, hormonal implants) have been unsuccessful or contraindicated due to prior complications. - Endometrial biopsy ordered today to rule out any neoplastic or pre-neoplastic changes; explained it involves sampling the uterine lining with a blunt straw- like instrument and carries risks of bleeding, infection, and uterine perforation. - Laboratory tests: CBC repeated to monitor for anemia and infection, thyroid function test (TSH) to exclude possible endocrinopathy contributing to abnormal cycles. - Surgical management recommended via laparoscopic-assisted vaginal hysterectomy, leaving ovaries in place to preserve ovarian function and avert premature menopause. - Risks and benefits of hysterectomy reviewed, including potential for bleeding,infection, and injury to adjacent structures (bowel, bladder, vascular). Outpatient procedure anticipated with relatively shorter recovery compared to anopen approach. - Patient acknowledged understanding and appears amenable to proceeding. # Dyspareunia, female (N94.10): - Chronic pain with intercourse is likely exacerbated by underlying uterine pathology. - See ?Adenomyosis of uterus? above for treatment/management plan, as definitivesurgical intervention is expected to relieve pain by addressing the probable uterine source. # Excessive and frequent menstruation with irregular cycle (N92.1): - Patient reports prolonged and heavy menses, sometimes lasting several weeks, resulting in considerable blood loss and accompanying fatigue-like symptoms. - See ?Adenomyosis of uterus? above for treatment/management plan, as hysterectomy is indicated to resolve this bleeding pattern; endometrial biopsy and laboratory studies will further evaluate etiology and guide final intervention. Patient Instructions: - You had blood drawn today for a complete blood count and thyroid hormone level; we will review these results and let you know if any treatment is needed. - An endometrial biopsy was performed today to check the lining of your uterus for any precancerous or cancerous changes; we?ll share those results once they return. - We recommend a minimally invasive hysterectomy (laparoscopic-assisted vaginal hysterectomy) to remove your uterus and relieve your heavy bleeding and pelvic pain; your ovaries will be left in place. - Stop taking phentermine a few days before your surgery and resume it once you?ve recovered. - Most patients go home the same day as this surgery; expect to rest and avoid heavy lifting for about two weeks, with a gradual return to normal activities byone month. 07/23/25 0937 <Electronically signed by Petrona marinelli MD> Date _ Petrona Michaels MD Cosigner Signature: Date (if applicable) CC: ~ [facility] Work Phone: Reason for referral (narrative)No reason for referral information availableWTriHealth [facility] Work Phone: Summary Purpose Family History Relationship Condition Age at Onset Recorded Date/T mary mother Cerebrovascular accident (CVA) Unknown Hypertension Unknown Diabetes mellitus Unknown father Lymphoma Unknown aunt Leukemia Unknown Relationship Condition Age at Onset Recorded Date/T mary mother Cerebrovascular accident (CVA) Unknown Hypertension Unknown Diabetes mellitus Unknown Gestational diabetes mellitus (GDM) Unkno wn father Lymphoma Unknown aunt Leukemia Unknown grandmother Cerebrovascular accident (CVA) Unknown Myocardial infarction Unknown grandfather Cerebrovascular accident (CVA) Unknown daughter Diaphragmatic hernia Unknown Advance Directives Advance Directive Response Recorded Date/ Time Living Will No July 27 12:13pm Power of Physician Credentialing Specialist No July 27, 2016 12:13pm Advance Directive Response Recorded Date/ Time Living Will No July 27 1:13pm Power of Physician Credentialing Specialist No July 27, 2016 1:13pm Advance Directive Response Recorded Date/ Time Living Will No February 03, 2024 10 :28am Power of Physician Credentialing Specialist No February 03, 2024 10:28am Chief Complaint and Reason for Visit Chief Complaint UTERINE AND VAGINAL BLEEDING IUD REMOVAL Chief Complaint UTERINE AND VAGINAL BLEEDING IUD REMOVAL bleeding Reason for Visit History of delivery IUD Supervision of high-risk Chief Complaint Admit Date Liletta Insertion February 09, 2025 3:17pm 2 ORDERS May 23, 2025 4: 52pm Reason for Visit Admit Date Abnormal uterine bleeding February 09, 2025 3:17pm Chief Complaint Admit Date Liletta Insertion February 09, 2025 3:17pm 2 ORDERS May 23, 2025 4: 52pm ABN BLEEDING W/NEXPLANON May 31 1:31pm Chief Complaint Admit Date Liletta Insertion February 09, 2025 3:17pm 2 ORDERS May 23, 2025 4: 52pm ABN BLEEDING W/NEXPLANON May 31 1:31pm Nexplanon Removal June 07, 2025 3:31pm Reason for Visit Admit Date Abnormal uterine bleeding February 09, 2025 3:17pm Abnormal uterine bleeding May 31, 2 025 1:31pm Ovarian lump May 31, 2025 1: 31pm PCB (post coital bleeding) May 31, 2025 1:31pm Pelvic floor dysfunction May 31 1:31pm Pelvic pain May 31, 2025 1: 31pm Chief Complaint Admit Date 2 ORDERS May 23, 2025 4: 52pm ABN BLEEDING W/NEXPLANON May 31 1:31pm Nexplanon Removal June 07, 2025 3:31pm PELVIC MASS June 14, 2025 4:39pm Reason for Visit Admit Date Abnormal uterine bleeding May 31, 2 025 1:31pm Ovarian lump May 31, 2025 1: 31pm PCB (post coital bleeding) May 31, 2025 1:31pm Pelvic floor dysfunction May 31 1:31pm Pelvic pain May 31, 2025 1: 31pm Abnormal uterine bleeding June 07, 2025 3:31pm Chief Complaint Admit Date 2 ORDERS May 23, 2025 4: 52pm ABN BLEEDING W/NEXPLANON May 31 1:31pm Nexplanon Removal June 07, 2025 3:31pm PELVIC MASS June 14, 2025 4:39pm discuss AUB - US results July 23, 2 025 8:17am Reason for Visit Admit Date Pelvic pain May 31, 2025 1: 31pm Abnormal uterine bleeding May 31, 2 025 1:31pm Ovarian lump May 31, 2025 1: 31pm PCB (post coital bleeding) May 31, 2025 1:31pm Pelvic floor dysfunction May 31 1:31pm Abnormal uterine bleeding June 07, 2025 3:31pm Abnormal uterine bleeding due to adenomy osis July 23, 2025 8:17am Dyspareunia in female July 23, 2025 8:17am Pelvic pain July 23, 2025 8 :17am Additional Source Comments INFORMATION SOURCE (unrecogn ized section and content) DATE CREATED AUTHOR 03/28/2018 [facility] DATE CREATED AUTHOR AUTHOR'S ORGANIZ ATION 03/14/2023 [facility] DATE CREATED AUTHOR AUTHOR'S ORGANIZ ATION 08/16/2024 [facility] DATE CREATED AUTHOR AUTHOR'S ORGANIZ ATION 08/01/2025 [facility] Source Comments (unrecognize d section and content) In the event this informatio n is protected by the Federal Confidentiality of Alcohol and Drug Abuse Patient Records regulations: The Federal rules restrict any use of the information to criminally investigate or prosecute any alcohol or drug abuse patient.[facility] Reason for Visit (unrecogniz ed section and content) Reason Comments Sore Throat x 3 days Care Teams (unrecognized sec tion and content) Team Status: Active Member Role Status Dates Dr. Rajesh Nguyen MD Family Provider Active Dr. Priscilla Pal MD Primary Care Provider Active Team Status: Inactive Member Role Status Dates Dr. Priscilla Pal MD Primary Care Provider Active JAQUELINE Oliver Attending Provider, Referring Prov ider Active Team Status: Inactive Member Role Status Dates Dr. Priscilla Pal MD Primary Care Provider, Referrin g Provider Active Dr. Petrona Michaels MD Attending Provider Active Team Status: Inactive Member Role Status Dates Dr. Priscilla Pal MD Primary Care Prov ider, Attending Provider, Referring Provider Active Team Status: Active Member Role Status Dates Dr. Priscilla Pal MD Primary Care Prov ider, Attending Provider, Referring Provider Active Team Status: Active Member Role Status Dates Dr. Priscilla Pal MD Primary Care Provider, Attendin g Provider Active Team Status: Inactive Member Role Status Dates Dr. Priscilla Pal MD Primary Care Provider, Attendin g Provider Active Team Status: Active Member Role/Relationship Status Dates Dr. Priscilla Pal MD Primary Care Provider Active Team Status: Inactive Member Role/Relationship Status Dates Dr. Priscilla Pal MD Primary Care Provider Active Start: February 09, 2025 End: February 09, 2025 Dr. Priscilla Pal MD Referring Provider Active Start: February 09, 2025 End: February 09, 2025 Melodie Block CNM Attending Provider Active S tart: February 09, 2025 End: February 09, 2025 Team Status: Inactive Member Role/Relationship Status Dates Dr. Priscilla Pal MD Primary Care Provider Active Start: May 23, 2025 End: May 23, 2025 Princess Burrell NP, WO[employer]ER-C Attending Provider Active Start: May 23, 2025 End: May 23, 2025 Princess Burrell NP, [employer]ER-C Referring Provider Active Start: May 23, 2025 End: May 23, 2025 Team Status: Inactive Member Role/Relationship Status Dates Dr. Priscilla Pal MD Primary Care Provider Active Start: May 31, 2025 End: May 31, 2025 Dr. Priscilla Pal MD Referring Provider Active Start: May 31, 2025 End: May 31, 2025 JAQUELINE Van Attending Provider Active Start: May 31, 2025 End: May 31, 2025 Team Status: Inactive Member Role/Relationship Status Dates Dr. Priscilla Pal MD Primary Care Provider Active Start: June 07, 2025 End: June 07, 2025 Dr. Priscilla Pal MD Referring Provider Active Start: June 07, 2025 End: June 07, 2025 Melodie Block CNM Attending Provider Active S tart: June 07, 2025 End: June 07, 2025 Team Status: Active Member Role/Relationship Status Dates Dr. Priscilla Pal MD Primary care physician Active Team Status: Inactive Member Role/Relationship Status Dates Dr. Priscilla Pal MD Primary care physician Active Start: May 23, 2025 End: May 23, 2025 Princess Burrell WOOL BROKER, WOOL BROKER-C Attending physician Active Start: May 23, 2025 End: May 23, 2025 Princess Burrell WOOL BROKER WOOL BROKER-C Referring Provider Active Start: May 23, 2025 End: May 23, 2025 Team Status: Inactive Member Role/Relationship Status Dates Dr. Priscilla Pal MD Primary care physician Active Start: May 31, 2025 End: May 31, 2025 Dr. Priscilla Pal MD Referring Provider Active Start: May 31, 2025 End: May 31, 2025 ASHLEY VanC Attending physician Active Start: May 31, 2025 End: May 31, 2025 Team Status: Inactive Member Role/Relationship Status Dates Dr. Priscilla Pal MD Primary care physician Active Start: June 07, 2025 End: June 07, 2025 Dr. Priscilla Pal MD Referring Provider Active Start: June 07, 2025 End: June 07, 2025 Melodie Block CNM Attending physician Active Start: June 07, 2025 End: June 07, 2025 Team Status: Inactive Member Role/Relationship Status Dates Dr. Priscilal Pal MD Primary care physician Active Start: June 14, 2025 End: June 14, 2025 JAQUELINE Van Attending physician Active Start: June 14, 2025 End: June 14, 2025 JAQUELINE Van Referring Provider Active Start: June 14, 2025 End: June 14, 2025 Team Status: Inactive Member Role/Relationship Status Dates Dr. Priscilla Pal MD Primary care physician Active Start: July 23, 2025 End: July 23, 2025 Dr. Priscilla Pal MD Referring Provider Active Start: July 23, 2025 End: July 23, 2025 Dr. Petrona Michaels MD Attending physician Active Start: July 23, 2025 End: July 23, 2025 Team Status: Inactive Member Role/Relationship Status Dates Dr. Priscilla Pal MD Primary care physician Active Start: July 23, 2025 End: July 23, 2025 Dr. Petrona Michaels MD Attending physician Active Start: July 23, 2025 End: July 23, 2025 Dr. Petrona Michaels MD Referring Provider Active Start: July 23, 2025 End: July 23, 2025 Goals (unrecognized section and content) Type Care Experience plan RLTCS- plan for 09/04/24 or 09/05/24 FOR RECORDS PERTAINING TO PATIENTS WHO ARE [...] BE BASED ON THE PRIMARY CLINICAL RECORDS. [facility]. provides no warranty or guarantee of the accuracy or completeness of information in this document.
[2025-09-14] MEDS: Lactated Ringers 1,000 ML 40 ML IV (06:48)
[2025-09-14] MEDS: Magnesium 1 GM over 15 mins IV (06:48)
[2025-09-14] MEDS: Scopolamine 1mg/72hr Patch 1 PATCH TD (06:49)
[2025-09-14 06:57] LABS: Hematocrit 37.5 % (37-47); Hemoglobin 12.8 g/dL (12.0-15.0); Mean Corp Hgb Conc 34.1 g/dL (32-36); Mean Corpuscular Volume 91.7 fL (81-99); Mean Platelet Vol. 9.0 fl (6.2-12.0); Platelet Count 346 K/mm3 (150-450); RBC Distribution Width CV 12.1 % (11.6-14.6); RBC Distribution Width SD 40.9 fl (35.1-43.9); Red Blood Count 4.09 M/mm3 (4.2-5.4); White Blood Count 6.5 K/mm3 (4.4-11.0)
[2025-09-14] MEDS: metroNIDAZOLE 500 MG/100 ML BAG 100 MG IV (07:02)
--- NOTE | 2025-09-14 07:20 | PRE.ANES_ITS ---
ASA Classification* ASA Classification ASA Classification: 2 Assessment & Plan Anesthesia* Anesthesia Assessment Anesthesia Assessment: Discussed sedation and/or anesthesia options, risks, benefits, and alternatives with patient/parents/legal guardian/POA. Questions invited. The patient/parents/legal guardian/POA seems to understand and agrees to proceed with anesthesia plan. Reviewed the physical assessment, medical history, allergy history and patient home medications list prior to surgery/procedure/anesthetic and documented any changes. Performed airway and anesthesia risk assessments. Anesthesia Type Anesthesia Type: General Anesthesia Focused Assessment* Temperature: 98.6 F Pulse Rate: 93 Blood Pressure: 134/99 Respiratory Rate: 16 Pulse Ox: 100 Airway Assessment Mouth opens: >3 cm Mallampati Score: II Labs Anesthesia Preop lab: CBC WBC, (4.4-11.0) 6.5 K/mm3 Today, 06:45 RBC, (4.2-5.4) 4.09 M/mm3 L Today, 06:45 Hgb, (12.0-15.0) 12.8 g/dL Today, 06:45 Hct, (37-47) 37.5 % Today, 06:45 Plt Count, (150-450) 346 K/mm3 Today, 06:45 CHEMISTRY Potassium, (3.3-5.1) 4.2 mmol/L 09/04/25, 07:48 Sodium, (133-145) 140 mmol/L 09/04/25, 07:48 Magnesium, (1.5-2.2) 2.0 mg/dL 09/04/25, 07:48 BUN, (4-19) 13 mg/dL 09/04/25, 07:48 Creatinine, (0.70-1.20) 0.74 mg/dL 09/04/25, 07:48 Glucose, (70-99) 103 mg/dL H 09/04/25, 07:48 POC Glucose, (74-106) 84 mg/dL 06/30/24, 06:51 TSH, (0.300-4.200) 1.690 uIU/mL 07/23/25, 08:58 COAG PT, (11.7-14.9) 12.5 SECONDS 07/27/16, 13:45 HCG, Quant, (1-3) 37503 mIU/mL H 01/31/24, 08:25 Pre-Assessment Diagnosis/Proposed Procedure Planned Operative Procedure(s): Hysterectomy,LAVH Anesthesia History 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 When Was Last Pacemaker Check QUESTION #4 FULL TEXT: You/Your Family Experience fever (hyperthermia) with Anesthesia Last Oral Intake Last Oral intake: Last Oral Intake NPO since 04:45 09/14/25 06:55 Meds taken in AM with sips of Yes 09/14/25 06:55 water? Meds patient instructed to take am of surgery PONV PONV - freight associate: PONV - freight associate Female Yes 08/31/25 10:39 HX of Motion Sickness No 08/31/25 10:39 HX of N/V After Surgery Yes 08/31/25 10:39 Non-Smoker Yes 08/31/25 10:39 Duration of Surgery greater Yes 08/31/25 10:39 than 60 minutes Number of Risk Factors 4 08/31/25 10:39 PONV Score Severe Risk 08/31/25 10:39 Height & Weight Height & Weight: Anesthesia: Height & Weight Height 5 ft 6 in 09/14/25 06:55 Weight: 66 kg 09/14/25 06:55 Body Mass Index (BMI) 23.5 09/14/25 06:55 Respiratory Assessment Respiratory Assessment - freight associate: Respiratory Tract Infection Hx - freight associate Hx Respiratory Tract Infection No 08/31/25 10:39 STOP Sleep Apnea STOP Sleep Apnea - freight associate: STOP Sleep Apnea - freight associate Hx Hypertension Yes: with 08/31/25 10:39 Hx Sleep Apnea No 08/31/25 10:39 CPAP BIPAP Do you snore loudly (louder No 08/31/25 10:39 than talking or can be heard Do you often feel tired/ No 08/31/25 10:39 fatigued/ sleepy during daytime? Has anyone observed you stop No 08/31/25 10:39 breathing during sleep? STOP Results Negative 08/31/25 10:39 QUESTION #5 FULL TEXT : Do you snore loudly (louder than talking or can be heard through closed doors)? 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 Specify any problems Hx of Preganancy in last 3 No 08/31/25 10:39 Months Nurse Filling Out Transfusion JZOLLINGE 08/31/25 10:39 & Questions: Date: 08/31/25 08/31/25 10:39 Time: 10:41 08/31/25 10:39 Patient unable to answer at this time (ie. confused, unrespo /Reproduction History /Reproductive History - freight associate: /Reproductive Hx- freight associate Hx Now No 08/31/25 10:39 Gestational Age (in weeks): EDC: Hx Hx Para Hx Section SAB No 09/10/25 09:03 Does the father of the baby or his family experience fever w Father of the baby Malignant Hypertension history comment Active Medications Active Medications: Current Medications Generic Name Dose Route Start Last Admin Trade Name Freq PRN Reason Stop Dose Admin Acetaminophen 1,000 mg 09/14/25 07:30 09/14/25 06:50 Acetaminophen 500 Mg Tablet PO 09/14/25 07:31 1,000 mg PREOP ONE Administration Celecoxib 400 mg 09/14/25 07:30 09/14/25 06:50 Celecoxib 200 Mg Capsule PO 09/14/25 07:31 400 mg PREOP ONE Administration Dexamethasone Sodium Phosphate 8 mg 09/14/25 07:30 Dexamethasone 4 Mg/Ml Vial IV 09/14/25 07:31 INTRAOP ONE Enoxaparin Sodium 40 mg 09/14/25 07:30 09/14/25 06:49 Enoxaparin 40 Mg/0.4 Ml Syringe SC 09/14/25 07:31 40 mg PREOP ONE Administration Gabapentin 600 mg 09/14/25 07:30 09/14/25 06:50 Gabapentin 600 Mg Tablet PO 09/14/25 07:31 600 mg PREOP ONE Administration Lactated Ringer's 1,000 mls @ 40 mls/hr 09/14/25 07:30 09/14/25 06:48 IV 40 mls/hr .Q25H ROXANN Administration Cefazolin Sodium 2 gm/ Sodium 110 mls @ 150 mls/hr 09/14/25 07:30 Chloride IV 09/14/25 08:13 INTRAOP ONE Metronidazole 500 mg in 100 mls @ 100 mls/hr 09/14/25 07:30 09/14/25 07:02 Flagyl IV 09/14/25 08:29 100 mls/hr PREOP ONE Administration Magnesium Sulfate 1 gm/ 102 mls @ 408 mls/hr 09/14/25 07:30 09/14/25 06:48 Dextrose IV 09/14/25 07:44 408 mls/hr PREOP ONE Administration Lactated Ringer's 1,000 mls @ 15 mls/hr 09/14/25 06:15 09/14/25 06:15 IV Not Given .Q48H ROXANN Insulin Human Lispro 0 unit 09/14/25 07:30 Insulin Lispro 100 Unit/Ml Insuln.Pen SC 09/14/25 14:00 Q4H PRN PRN BG >/= 180, SEE PROTOCOL Protocol Ondansetron HCl 4 mg 09/14/25 07:30 Ondansetron 4 Mg/2 Ml Vial IV 09/14/25 07:31 INTRAOP ONE Phenazopyridine HCl 190 mg 09/14/25 07:30 09/14/25 06:49 Phenazopyridine 95 Mg Tablet PO 09/14/25 07:31 190 mg PREOP ONE Administration Scopolamine HBr 1 patch 09/14/25 07:30 09/14/25 06:49 Scopolamine 1mg/72hr Patch TD 09/14/25 07:31 1 patch PREOP ONE Administration [facility] Medical History Depression Non-smoker Gestational HTN COVID-19 affecting in third trimester Home Medications ?Medication ?Instructions ?Recorded ?Last Taken ?Type fluoxetine 20 mg capsule (Prozac) 20 mg PO DAILY #30 c aps 09/28/24 09/14/25 04:30 Rx Allergy/AdvReac Type Severity Reaction Status Date / Time No Known Allergies Allergy Verified 09/14/25 06:31 Family History Mother CVA (cerebral vascular accident) Hypertension Diabetes Gestational diabetes Father Lymphoma Aunt Leukemia Grandmother CVA (cerebral vascular accident) Diabetes Hypertension Myocardial infarction Grandfather CVA (cerebral vascular accident) Diabetes Hypertension Myocardial infarction Daughter Diaphragmatic hernia surgery at 4 mo of age Surgical History Status post bilateral salpingectomy Bone marrow donor H/O wisdom tooth extraction History of delivery History of ankle surgery Social History adopted: No household members: spouse and children number of children: 1 current occupational status: employed 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 current occupational exposures/hazards: No pets and animals: No leisure activities: exercise, music and reading history of recent travel: Yes (All domestic [place] travel ([place], [place], [place], [place]) details: [place], [place], [place], [place] out of state: Yes out of country: No sexually active: Yes Smoking Status: Never smoker Electronic Cigarette Use: not used second hand exposure: No alcohol intake: former details: not while substance use type: marijuana well-balanced diet: about half the time caffeine: Yes (very seldomly drinking beverages with caffeine (1-3 times per month)) Type: tea eating out: 1-3 times/week during the past year weight has: decreased > 10 lbs what type of physical activity do you participate in: walking and running frequency: 3-4 times per week duration: 30-45 minutes/day michael/restoration: Cheondoism seatbelt use: always do you feel safe at home: Yes 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
--- NOTE | 2025-09-14 07:21 | HP.PCM_ITS ---
History and Physical Date of Admission: 09/14/25 Vital Signs 07/23/2508:19 09/10/2509:00 09/10/2509:03 Height 5 ft 6 in 5 ft 6 in 5 ft 6 in Weight: 142 lb 7 oz 143 lb 6 oz BMI 22.9 23.1 BP 148/97 H 148/107 H Intake Visit Reasons: preoop [facility] Corrections Specialist Required: No Is patient in pain?: No Allergies No Known Allergies Allergy (Verified 09/10/25 09:01) Medications ?Medication ?Instructions ?Recorded ?Confirmed ?Type fluoxetine 20 mg capsule (Prozac) 20 mg PO DAILY #30 caps 09/28/24 5 Rx Is last menstrual period known: Yes Last Menstrual Period: 08/27/25 Post menopausal: No Patient : No : No Control Method: [facility] Medical History Depression Non-smoker Gestational HTN COVID-19 affecting in third trimester Surgical History Status post bilateral salpingectomy Bone marrow donor H/O wisdom tooth extraction History of delivery History of ankle surgery Family History Mother CVA (cerebral vascular accident) Hypertension Diabetes Gestational diabetes Father Lymphoma Aunt Leukemia Grandmother CVA (cerebral vascular accident) Diabetes Hypertension Myocardial infarction Grandfather CVA (cerebral vascular accident) Diabetes Hypertension Myocardial infarction Daughter Diaphragmatic hernia surgery at 4 mo of age Social History adopted: No household members: spouse and children number of children: 1 current occupational status: employed 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 current occupational exposures/hazards: No pets and animals: No leisure activities: exercise, music and reading history of recent travel: Yes (All domestic [place] travel ([place], [place], [place], [place]) details: [place], [place], [place], [place] out of state: Yes out of country: No sexually active: Yes Smoking Status: Never smoker Electronic Cigarette Use: not used second hand exposure: No alcohol intake: former details: not while substance use type: marijuana well-balanced diet: about half the time caffeine: Yes (very seldomly drinking beverages with caffeine (1-3 times per month)) Type: tea eating out: 1-3 times/week during the past year weight has: decreased > 10 lbs what type of physical activity do you participate in: walking and running frequency: 3-4 times per week duration: 30-45 minutes/day michael/jehovah's witness: Yazidi seatbelt use: always do you feel safe at home: Yes additional social history: : Foreign - [place] HPI preoop [facility] Details: HPI discuss AUB - [place] results Details: The patient is a 34-year-old female with a history of two sections presenting with prolonged, heavy menstrual bleeding and pelvic pain since her last delivery almost a year ago. Menstrual History - Reports significant changes in menstrual cycles since her last delivery almost a year ago. - Describes periods as ridiculous, with heavy bleeding lasting 3-5 weeks, and one episode lasting 7 weeks during the summer. - Bleeding is so heavy that she bleeds through an UltraTampon within 45 minutes and needs to wear a pad for the first week of her period; carries extra clothes due to the risk of bleeding through her pants and underwear. - Experiences normal period pain, but also reports groin pain on both sides, especially the right side, which is more intense during menstruation but is al ways kind of there. - Exercise, particularly running, exacerbates the groin pain, leading her to switch to walking on the treadmill. - Reports a deep, aching pain in her lower back, similar to the sensation she experienced during a bone marrow harvesting procedure; pain is localized to the sacrum and hip bones. - Has been receiving massages to address the pain, but no abnormalities were found in her hips. - Denies any abnormal hair growth on the upper lip, chin, chest, or belly. - Reports experiencing night sweats occasionally. Pelvic Pain - Reports a deep, aching pain in her lower back, similar to the sensation she experienced during a bone marrow harvesting procedure; pain is localized to the sacrum and hip bones. - Has been receiving massages to address the pain, but no abnormalities were found in her hips. Bruising - Reports easy bruising on her shins and legs, but attributes it to having children. Hair Loss - Experienced significant hair loss after her last , which she did not experience after her first ; has noticed some regrowth. 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 Past Medical History - Two sections. - Uterine ultrasound showed mild enlargement and heterogeneous texture, possibly indicating diffuse leiomyomatous change or adenomyosis. - Previous IUD had to be removed due to it growing into the wall of the uterus. Current Medications and Supplements - Phentermine. Female Reproductive History Last Menstrual Period: 07/08/25 (several days of very heavy bleeding, irregular) History 2 Elective abortions Hx Para 2 Spontaneous abortions Hx # Term Pregnancies Ectopic pregnancies Hx # Pregnancies Multiple births # of living children 2 Past Pregnancies Del. Date Name GA/Weeks Outcome Route Bth Weight Infant Gen Labor Lgth Anesthesia Del Locatn Provider FOB 07/28/16 Loi live - full term 7lbs 5oz Male spinal [facility] Dr Les Carrasquillo 08/21/24 Marta Mariano live - full term 6 ib 0 oz Female spinal [facility] LAKESHA Carrasquillo Delivery Date: 07/28/16 Last Updated by: Tiffanie Samaniego RN Elective Delivery Date: 08/21/24 Last Updated by: Tiffanie Samaniego RN See problem list for complications and LTCS [facility] 37 ghtn ROS ROS Narrative Constitutional: (+) night sweats, (+) lightheadedness Head: (+) headaches Neck: (+) neck pain Cardiovascular: (-) chest pain Respiratory: (-) shortness of breath Genitourinary: (+) heavy menstrual bleeding, (+) prolonged menstrual bleeding, (+) dysmenorrhea, (+) bilateral groin pain, (+) dyspareunia Musculoskeletal: (+) low back pain Neurological: (+) right upper extremity paresthesia/numbness Endocrine: (-) heat intolerance, (-) cold intolerance Hematologic/Lymphatic: (+) easy bruising Exam Const General: cooperative, healthy appearing, comfortable, no acute distress and well developed Nutritional Appearance: average body habitus Orientation: alert HENMT Head: normal to inspection and normocephalic Neck Neck: normal visual inspection and trachea midline Thyroid: thyroid normal Resp Effort & Inspection: normal respiratory effort RRR CTAB GI Inspection: normal to inspection and non-distended Palpation: soft and no hepatosplenomegaly General: bladder normal to palpation External Female Exam: normal external appearance and normal appearance of the urethra Urethra: normal appearance of the urethra, normal palpation and no discharge Speculum Exam - Vagina: normal appearance of the vagina and normal vaginal discharge Speculum Exam - Cervix: normal appearance of the cervix and nontender Bimanual Exam- Vagina & Uterus: normal bimanual exam, uterine size normal, bladder normal to palpation, uterine shape normal, No tender, uterine mobility normal, consistency normal, normal palpation and non-tender Bimanual Exam- Adnexa, other: normal adnexae, adnexae mobile, no masses and normal Pelvic Support: normal Skin General: no rashes or lesions noted Female Reproductive History Last Menstrual Period: 08/27/25 History 2 Elective abortions Hx Para 2 Spontaneous abortions Hx # Term Pregnancies Ectopic pregnancies Hx # Pregnancies Multiple births # of living children 2 Past Pregnancies Del. Date Name GA/Weeks Outcome Route Bth Weight Infant Gen Labor Lgth Anesthesia Del Locatn Provider FOB 07/28/16 Loi live - full term 7lbs 5oz Male spinal [facility] Dr Les Carrasquillo 08/21/24 Marta 37 live - full term 6 ib 0 oz Female spinal [facility] LAKESHA Carrasquillo Delivery Date: 07/28/16 Last Updated by: Tiffanie Samaniego RN Elective Delivery Date: 08/21/24 Last Updated by: Tiffanie Samaniego RN See problem list for complications and [facility] C[facility] Level of Care Code No Charge Diagnoses Abnormal uterine bleeding due to adenomyosis N93.9; N80.03 Pelvic pain R10.2 Dyspareunia in female N94.10 Assessment and Plan Assessment and Plan (1) Abnormal uterine bleeding due to adenomyosis: Status: Acute Comment: failed IUD and nexplanon. not a candidate for lysteda or ablation. plan LAVH. (2) Pelvic pain: Status: Acute (3) Dyspareunia in female: Status: Acute Plan Plan # Adenomyosis of uterus (N80.03): - Mildly enlarged uterus on ultrasound with heterogeneous appearance consistent with adenomyosis, correlating with chronic pelvic pain, heavier bleeding, and dysmenorrhea. - Discussed that previous conservative interventions (IUDs, hormonal implants) have been unsuccessful or contraindicated due to prior complications. - Endometrial biopsy ordered today to rule out any neoplastic or pre-neoplastic changes; explained it involves sampling the uterine lining with a blunt straw- like instrument and carries risks of bleeding, infection, and uterine perforation. - Laboratory tests: CBC repeated to monitor for anemia and infection, thyroid function test (TSH) to exclude possible endocrinopathy contributing to abnormal cycles. - Surgical management recommended via laparoscopic-assisted vaginal hysterectomy, leaving ovaries in place to preserve ovarian function and avert premature menopause. - Risks and benefits of hysterectomy reviewed, including potential for bleeding, infection, and injury to adjacent structures (bowel, bladder, vascular). Outpatient procedure anticipated with relatively shorter recovery compared to an open approach. - Patient acknowledged understanding and appears amenable to proceeding. # Dyspareunia, female (N94.10): - Chronic pain with intercourse is likely exacerbated by underlying uterine pathology. - See ?Adenomyosis of uterus? above for treatment/management plan, as definitive surgical intervention is expected to relieve pain by addressing the probable uterine source. # Excessive and frequent menstruation with irregular cycle (N92.1): - Patient reports prolonged and heavy menses, sometimes lasting several weeks, resulting in considerable blood loss and accompanying fatigue-like symptoms. - See ?Adenomyosis of uterus? above for treatment/management plan, as hysterectomy is indicated to resolve this bleeding pattern; endometrial biopsy and laboratory studies will further evaluate etiology and guide final intervention. Patient Instructions: - You had blood drawn today for a complete blood count and thyroid hormone level; we will review these results and let you know if any treatment is needed. - An endometrial biopsy was performed today to check the lining of your uterus for any precancerous or cancerous changes; we?ll share those results once they return. - We recommend a minimally invasive hysterectomy (laparoscopic-assisted vaginal hysterectomy) to remove your uterus and relieve your heavy bleeding and pelvic pain; your ovaries will be left in place. - Stop taking phentermine a few days before your surgery and resume it once you?ve recovered. - Most patients go home the same day as this surgery; expect to rest and avoid heavy lifting for about two weeks, with a gradual return to normal activities by one month. UPDATE- I have seen the patient and performed any clinically relevant updates to the history and physical exam. Petrona Grijalva MD
--- NOTE | 2025-09-14 07:30 | HYST_PTH ---
PATIENT: STEVE BERNAL LOC: [facility] – [place] U#:[id number] AGE/SX: 34/F ROOM: RE09/14/[address]: Dr. Petrona Grijalva MD : 1990 BED: DIS: 09/14/2025 SPEC #: [id number] RECD: 09/14/25 13:03 STATUS: LUZ REAletha #: [id number] MARIAN: 09/14/25 07:[address]: Petrona Grijalva DEPT: SURGICAL PATHOLOGY RECD BY: Andrew Raza ENTERED: 09/14/25 14:24 SP TYPE: HYSTERECT OTHR DR: Dr. Priscilla Pal MD Tissues: A - Uterus, NOS Procedures: Surgery Specimen Level V HEADER OPERATION: ERAS, hysterectomy, LAVH, cystoscopy PRE-OP DIAGNOSIS: Abnormal uterine bleeding due to adenomyosis, pelvic pain, dyspareunia in female TISSUE SUBMITTED: A- Uterus, cervix, MICROSCOPIC DIAGNOSIS A. Uterus, cervix, hysterectomy: - Cervix: no specific pathologic change. - Endometrium: proliferative endometrium, mildly disordered. - Myometrium: adenomyosis. - Serosa: focal delicate fibrovascular adhesions. MICROSCOPIC DESCRIPTION Slides are reviewed. GROSS DESCRIPTION A. Received in formalin labeled with the patient's name and date of . Designated as uterus, cervix is a 131.9 g, uterus devoid of adnexa and in multiple pieces, collectively measuring 10.2 x 6.2 x 5.2 cm. The serosa is khan-pink and focally erythematous with focal adhesions. The attached and detached cervical fragments are khan-pink and collectively measure 3.4 x 2.0 cm; a definitive os measurement or patency is unable to be determined. The specimen is unable to be oriented and the external, shaggy resection margins are inked black. The disrupted and grossly incomplete endometrial canal measures 3.0 x 2.4 cm and is lined by pink-red, granular and lush endometrium measuring up to 0.4 cm thick. The myometrium is khan-pink, shaggy and disrupted, measuring up to 2.8 cm thick. Definitive lesions are not grossly identified. Employment Evaluator/Case Manager sections are submitted as follows: A1: Anterior/posterior cervixA2-A3: EndomyometriumA4: Serosal adhesions CA 09/14/2025 CPT:45622
[2025-09-14] MEDS: Cefazolin 1 GM/5 ML Vial 2 GM IV (07:45)
[2025-09-14] MEDS: Lidocaine 1% (5 ml sdv) 5 ML Vial IV (07:49)
[2025-09-14] MEDS: DiphenhydrAMINE 50 MG/ML Syringe 12.5 MG IV (07:52)
[2025-09-14] MEDS: Lactated Ringers 2,000 ML 2000 ML IV (08:58)
[2025-09-14] MEDS: fentaNYL 100 MCG/2 ML Ampul 200 MCG IV (09:13)
--- NOTE | 2025-09-14 10:21 | PCM.OPRPT ---
Procedures Urinary/Genital 52xxx-59xxx: [id number] LAVH+BS/O <250gr Uterus Operative Report (Standard) Operative Information Date of Procedure: 09/14/25 Pre-Operative Diagnosis: aub adenoymosis pelvic pain Post-Operative Diagnosis: same plus pelvic congestion adhesions Surgery/Procedure Performed: lavh cystoscopy psychotherapist social worker: Yes Body Rolling Machine Tender: [place] Tasks completed by cutting table operator first: Opening & closing, Insert Trochanter and Retracting Type of Anesthesia: General RN Documented Start/Stop Times: Operation Date: 09/14/25 07:30 Case Time Into Pre-Op 09/14/25 06:11 Out of Pre-Op 09/14/25 07:37 Anesthesia Start 09/14/25 07:43 Into Room 09/14/25 07:43 Procedure Start 09/14/25 08:15 Procedure Start Time: 08:15 Procedure Stop Time: 10:20 Select all DRAINS/GRAFTS/IMPLANTS that apply: Drains (holder) Drain details: removed at end of procedure Estimated Blood Loss: 100 Fluids Replaced: crystalloid Specimen collected: Yes Description of specimen(s) removed: uterus Description of surgery: Patient received preoperative antibiotics and SCDs were on preoperatively. Patient was taken back to the operating room and placed in the dorsal lithotomy position. General anesthesia was induced and patient was prepped and draped in normal sterile fashion. Uterine manipulator was placed inside the uterus and Holder catheter placed in the bladder. The umbilicus was grasped with towel clamps and an intraumbilical incision was made after injecting with quarter percent Marcaine and a Veress needle entered into the abdomen confirmed to be intra-abdominal with a low opening pressure. Abdomen was insufflated with CO2 gas and the Veress needle removed and the 5 mm trocar was placed under direct visualization without complication. Right and left lower quadrants were transilluminated and injected with quarter percent Marcaine and 5 mm ports placed under direct visualization. Pelvis was well visualized see operative findings for additional information. the utero-ovarian ligaments were bilaterally transected with the LigaSure device. The broad ligament was opened up by transecting the round ligament bilaterally and skeletonizing the uterine vessels bilaterally, and creating a bladder flap using the LigaSure device. significant bladder adhesions were noted and taken down with the ligasure carefully anteriorly. The uterine arteries were transected bilaterally with good visualization of the bladder and the ureters were seen to be inferior lateral to the operative area. Attention was then paid to the vaginal portion of the procedure and the cervix was grasped with Topher clamps and circumferentially injected with dilute vasopressin. A circumferential incision was made and the vaginal mucosa was mobilized off posteriorly and the cul-de-sac entered into sharply and a longneck speculum placed. The anterior cul-de-sac was then identified and entered into sharply. The uterosacral ligaments were clamped cut and suture ligated with 0 Monocryl bilaterally followed by the cardinal ligaments which were clamped cut and suture ligated bilaterally with 0 Monocryl. The uterus serially descended and was removed without difficulty with minimal morcellation. Pelvic sidewall pedicles were checked and noted to have excellent hemostasis. The vaginal mucosa was reapproximated incorporating the posterior peritoneum. This was reapproximated using 0 Vicryl [id number] sutures. Excellent hemostasis was noted. The cystoscopy was then performed and bilateral ureteral strong spray was noted and the bladder was noted to have no abnormality or lesions seen. Attention paid to the abdominal portion of the procedure again. The pelvis and cul-de-sac was well visualized and no significant active bleeding noted but some raw areas were seen on the peritoneum and therefore surgiflow was applied. Pressure was taken down and the areas visualized and noted of excellent hemostasis. All ports were removed under direct visualization without complication and the abdomen was desufflated of air. The instruments removed from the abdomen and the vagina vaginal sweep was negative. Port sites on the abdomen were closed with 4-0 Monocryl interrupted sutures and Steri's and windows were applied. She was awoken and taken recovery in stable condition. Surgical Findings: enlarged bulbous uterus pelvic congestion vesicouterine adhesions Complications Complications: No
--- NOTE | 2025-09-14 10:25 | DCINST_ITS ---
Discharge Instructions DC O2, CPAP, BIPAP needs Home O2 Discharge instructions: No Dressing / Incision May resume sexual activity in: 6 weeks Weight Bearing Status: Full weight bearing Dressing / Incision Call your doctor if your incision/area has: Continuous Slow Oozing, Sudden Increased Bleeding, Increased Pain/ Swelling, Increased Redness and Foul Smelling Discharge Call your doctor if you observe: Fever of 101 or Higher, Using more than 1 pad per hour, Shortness of breath, Chest pain and Uncontrolled pain Suture Line Care: Avoid Pulling/Pushing and Avoid Pinching/Bending Remove Dressing in: 1 week (if present) Cleanse incision/area with: Soap & Water and Keep Dressing Clean & Dry Follow Up Care Please Follow Up With: Petrona Grijalva MD When: Call to make an appointment with your doctor for a postop visit in 2 and 6 weeks. Test Results: Test results from this visit will be discussed in further detail at your follow- up appointment, if applicable. Discharge Plan Admission Attending Provider: Petrona Grijalva Primary Care Provider: Priscilla Pal Instructions Print Language: Hebrew Discharge Orders/Prescriptions Prescriptions: New oxycodone-acetaminophen [Percocet] 5-325 mg tablet 1 tab PO Q4H PRN (Reason: pain) 7 Days Qty: 20 0RF naproxen 500 mg tablet 500 mg PO BID PRN PRN (Reason: Pain) Qty: 30 1RF Continued fluoxetine [Prozac] 20 mg capsule 20 mg PO DAILY Qty: 30 12RF Referrals / Follow Up: Priscilla Pal MD [Primary Care Provider, Family Practice] Disposition Disposition (needs filled in before D/C Order can be placed): Home, Self Care
--- NOTE | 2025-09-14 12:12 | PCM.POST.ANE ---
Anesthesia: Postop Eval I Current Vital Signs Temperature: 97 F Pulse Rate: 88 Blood Pressure: 119/87 Respiratory Rate: 16 Pulse Ox: 100 Oxygen Delivery Method: Simple Mask Oxygen Flow Rate (L/min): 6 Assessment Airway patent: Yes Spontaneous unlabored respirations: Yes Mental status: Awake and Calm nausea: No Vomiting: No Anesthesia Complication: No Fluid Hydration Crystalloid volume administer (ml): 2,000 Total IV fluid infused: 2,000 Progress Note Anesthesia document: Postop Eval 1 completed: Yes
[2025-09-14] MEDS: Ketorolac 30 MG/ML Syringe IV (13:37)
--- NOTE | 2025-09-14 13:55 | POSTOPAN2_ITS ---
Anesthesia Postop Eval I Sum Postop Eval Completion status Anesthesia document: Postop Eval 1 completed: Yes Anesthesia Postop Eval I Summary Anesthesia Postop Eval I Summary: Anesthesia Postop Eval I: Assessment Summary Airway patent Yes 09/14/25 12:13 SYNTHETIC GEM PRESS OPERATOR.[email or web address] Spontaneous unlabored Yes 09/14/25 12:13 SYNTHETIC GEM PRESS OPERATOR.[email or web address] respirations Mental status Awake,Calm 09/14/25 12:13 SYNTHETIC GEM PRESS OPERATOR.SKOBY nausea No 09/14/25 12:13 SYNTHETIC GEM PRESS OPERATOR.SKOBY Vomiting No 09/14/25 12:13 SYNTHETIC GEM PRESS OPERATOR.SKOBY Anesthesia Postop Eval I: Fluid Summary Crystalloid volume administer 2,000 09/14/25 12:13 SYNTHETIC GEM PRESS OPERATOR.SKOBY (ml) Colloids volume administered ( ml) Blood Product volume administered (ml) Total IV fluid infused 2,000 09/14/25 12:13 SYNTHETIC GEM PRESS OPERATOR.[email or web address] Anesthesia Postop Eval I: Summary Notes Anesthesia Complication No 09/14/25 12:13 SYNTHETIC GEM PRESS OPERATOR.[email or web address] Anesthesia Complication Comment: Post-operative progress note Anesthesia: Postop Eval II Evaluation Mental status: Awake Pain Level: 0 nausea: No Vomiting: No
--- NOTE | 2025-09-14 13:55 | PCM.POSTANE2 ---
Anesthesia Postop Eval I Sum Postop Eval Completion status Anesthesia document: Postop Eval 1 completed: Yes Anesthesia Postop Eval I Summary Anesthesia Postop Eval I Summary: Anesthesia Postop Eval I: Assessment Summary Airway patent Yes 09/14/25 12:13 CENTRAL OFFICE REPAIRER SUPERVISOR.[email or web address] Spontaneous unlabored Yes 09/14/25 12:13 CENTRAL OFFICE REPAIRER SUPERVISOR.[email or web address] respirations Mental status Awake,Calm 09/14/25 12:13 CENTRAL OFFICE REPAIRER SUPERVISOR.SKOBY nausea No 09/14/25 12:13 CENTRAL OFFICE REPAIRER SUPERVISOR.SKOBY Vomiting No 09/14/25 12:13 CENTRAL OFFICE REPAIRER SUPERVISOR.SKOBY Anesthesia Postop Eval I: Fluid Summary Crystalloid volume administer 2,000 09/14/25 12:13 CENTRAL OFFICE REPAIRER SUPERVISOR.SKOBY (ml) Colloids volume administered ( ml) Blood Product volume administered (ml) Total IV fluid infused 2,000 09/14/25 12:13 CENTRAL OFFICE REPAIRER SUPERVISOR.[email or web address] Anesthesia Postop Eval I: Summary Notes Anesthesia Complication No 09/14/25 12:13 CENTRAL OFFICE REPAIRER SUPERVISOR.[email or web address] Anesthesia Complication Comment: Post-operative progress note Anesthesia: Postop Eval II Evaluation Mental status: Awake Pain Level: 0 nausea: No Vomiting: No
[2025-09-14 14:32] LABS: Hematocrit 35.7 % (37-47); Hemoglobin 11.8 g/dL (12.0-15.0); Mean Corp Hgb Conc 33.1 g/dL (32-36); Mean Corpuscular Volume 92.2 fL (81-99); Mean Platelet Vol. 8.9 fl (6.2-12.0); Platelet Count 316 K/mm3 (150-450); RBC Distribution Width CV 12.0 % (11.6-14.6); RBC Distribution Width SD 40.3 fl (35.1-43.9); Red Blood Count 3.87 M/mm3 (4.2-5.4); White Blood Count 13.2 K/mm3 (4.4-11.0)
== END 2025-09-14 15:45 | disposition home or self-care (01) ==
LOC: SDC 05:36 → AC 05:36
PROVIDERS: Anesthesiology; PCP Family Medicine; Referring Provider Obstetrics & Gynecology; Visit Provider Obstetrics & Gynecology
PROC: 0UT9FZZ Resection of Uterus, Via Natural or Artificial Opening With Percutaneous Endoscopic Assistance (ICD-10-PCS; CPT 58550; principal; 2025-09-14 07:05)
DX: N80.03 Adenomyosis of the uterus (principal); N93.9 Abnormal uterine and vaginal bleeding, unspecified; N94.10 Unspecified dyspareunia; Z79.899 Other long term (current) drug therapy; N92.1 Excessive and frequent menstruation with irregular cycle; N32.89 Other specified disorders of bladder; N94.89 Other specified conditions associated with female genital organs and menstrual cycle
CPT/HCPCS: 58550; 00944; 36415; 80048; 82962; 83735; 85027; 86850; 86900; 86901; 88307; 93005; J2405; J3475